=== PATIENT | female | born 1945 | race Caucasian/White ===

== ENCOUNTER 2022-10-03 10:06 | Outpatient (OUT) | payer MEDICARE, SELFPAY ==
--- NOTE | 2022-10-03 10:11 | MM_ITS ---
Patient: HERMAN BUCKNER Exam Date: 10/03/2022 : 1945 Gender:F Ordering : DR NIKOS HARPER . Admission #: [id number] Family : Order #: [id number] CLICK HERE TO VIEW EXAM RADIOLOGY REPORT PROCEDURE: MM TOMOSYNTHESIS SCREENING BI COMPARISON: None. INDICATIONS: Screening mammogram for breast cancer Z12.31 Calculator Name NCI Breast Cancer Risk Assessment Tool 5 Year Breast Cancer Risk 2.30% Lifetime Breast Cancer Risk 4.50% Personal Breast Cancer No Personal Ovarian Cancer No Treatments None Family Cancers None LOCATION: [facility] BREAST COMPOSITION: Extremely dense, which lowers the sensitivity of mammography. FINDINGS: DIAGNOSTIC CATEGORY 2--BENIGN FINDING: Bilat markers. Scattered benign-appearing calcifications are present. Scattered benign-appearing lymph nodes are present. RIGHT BREAST: No significant suspicious finding. Stable micro clip marker upper outer quadrant, posterior breast LEFT BREAST: No significant suspicious finding. RECOMMENDATIONS: ROUTINE MAMMOGRAM AND CLINICAL EVALUATION IN 12 MONTHS. PLEASE NOTE: A NORMAL MAMMOGRAM DOES NOT EXCLUDE THE POSSIBILITY OF BREAST CANCER. A CLINICALLY SUSPICIOUS PALPABLE LUMP SHOULD BE BIOPSIED. Dictated by: Vahe Lewis MD on 10/03/2022 at 13:06 Approved by: Vahe Lewis MD on 10/03/2022 at 13:07
--- NOTE | 2022-10-03 10:35 | XR_ITS ---
[address] [address] Patient Name: HERMAN BUCKNER MRN: [id number] date: 1945 Sex: F Assigned Patient Location: [facility] Current Patient Location: [facility] Accession/Order Number: [id number] Exam Date: 10/03/2022 10:20 Report Date: 10/03/2022 18:33 At the request of: NIKOS HARPER Procedure: XR DEXA axial skeleton EXAMINATION: XR DEXA axial skeleton, 10/03/2022 10:20 AM EDT HISTORY: Osteopenia of lumbar spine M85.88 Age-related osteoporosis COMPARISON: 2018, 2012, 2009 TECHNIQUE: Dual-energy X-ray absorptiometry (DEXA) bone density study performed for the axial skeleton. HISTORY: Osteopenia of lumbar spine M85.88 Age-related osteoporosis FINDINGS: Bone mineral density AP spine L1-L4 measures 1.087 g/sq cm. T score -0.8. Endotracheal classification: Normal. Lowest bone mineral density left femoral neck measures 0.69 g/sq cm. T score -2.9. WHO classification: Osteoporosis XR/XR DEXA axial skeleton IMPRESSION: Osteoporosis. High fracture risk Electronically authenticated by: LUCRETIA RENDON Date: 10/03/2022 18:33
== END 2022-10-03 10:07 | disposition home or self-care (01) ==
LOC: MAMMO 10:06
PROVIDERS: PCP Family Medicine; Visit Provider Family Medicine
DX: Z12.31 Encounter for screening mammogram for malignant neoplasm of breast (principal); Z90.710 Acquired absence of both cervix and uterus; M81.0 Age-related osteoporosis without current pathological fracture; M81.6 Localized osteoporosis [Lequesne]; M85.88 Other specified disorders of bone density and structure, other site
CPT/HCPCS: 77063; 77067; 77080

== ENCOUNTER 2023-07-13 08:41 | Outpatient (OUT) | payer MEDICARE, SELFPAY ==
--- NOTE | 2023-07-13 08:44 | FL_ITS ---
[address] [address] Patient Name: HERMAN BUCKNER MRN: [id number] date: 1945 Sex: F [place]igned Patient Location: [place] Current Patient Location: [place] Accession/Order Number: [id number] Exam Date: 07/13/2023 09:00 Report Date: 07/13/2023 12:48 At the request of: GET ROCHE Procedure: FL cineradiography EXAMINATION: FL barium swallow, FL cineradiography HISTORY: Pharyngoesophageal Dysphagia R13.14 COMPARISON: No relevant comparison available. TECHNIQUE: A swallowing evaluation was performed with fluoroscopy in the usual manner. Standard level fluoroscopic mode of operation utilized. FINDINGS: ORAL PHASE: Normal deglutition. PHARYNGEAL PHASE: Normal swallowing. ASPIRATION: None. STRUCTURE: No obstruction or stricture. Poor esophageal contractility with persistent pooling of contrast and incomplete clearing of the esophagus OTHER: Negative. FL/FL cineradiography IMPRESSION: Poor esophageal contractility with incomplete clearing of the esophagus Electronically authenticated by: LUCRETIA RENDON Date: 07/13/2023 12:48
--- NOTE | 2023-07-13 08:44 | FL_ITS ---
The [address] [address] Patient Name: HERMAN BUCKNER MRN: [id number] date: 1945 Sex: F Assigned Patient Location: [place] Current Patient Location: [place] Accession/Order Number: [id number] Exam Date: 07/13/2023 09:00 Report Date: 07/13/2023 12:48 At the request of: GET ROCHE Procedure: FL barium swallow EXAMINATION: FL barium swallow, FL cineradiography HISTORY: Pharyngoesophageal Dysphagia R13.14 COMPARISON: No relevant comparison available. TECHNIQUE: A swallowing evaluation was performed with fluoroscopy in the usual manner. Standard level fluoroscopic mode of operation utilized. FINDINGS: ORAL PHASE: Normal deglutition. PHARYNGEAL PHASE: Normal swallowing. ASPIRATION: None. STRUCTURE: No obstruction or stricture. Poor esophageal contractility with persistent pooling of contrast and incomplete clearing of the esophagus OTHER: Negative. FL/FL barium swallow IMPRESSION: Poor esophageal contractility with incomplete clearing of the esophagus Electronically authenticated by: LUCRETIA RENDON Date: 07/13/2023 12:48
== END 2023-07-13 08:42 | disposition home or self-care (01) ==
LOC: FL 08:41
PROVIDERS: PCP Family Medicine; Visit Provider Otolaryngology
DX: R13.14 Dysphagia, pharyngoesophageal phase (principal)
CPT/HCPCS: 74220; 76120

== ENCOUNTER 2023-07-19 12:53 | Outpatient (OUT) | payer MEDICARE, SELFPAY ==
--- NOTE | 2023-07-19 12:57 | FL_ITS ---
[address] [address] Patient Name: HERMAN BUCKNER MRN: [id number] date: 1945 Sex: F Assigned Patient Location: [place] Current Patient Location: [place] Accession/Order Number: [id number] Exam Date: 07/19/2023 13:15 Report Date: 07/19/2023 14:37 At the request of: GET ROCHE Procedure: FL modified barium swallow EXAMINATION: FL modified barium swallow HISTORY: Pharyngeal Dysphagia R13.13 FLUORO DOSE: mGy Reference air kerma (Ka,r) COMPARISON: No relevant comparison available. TECHNIQUE: A swallowing evaluation was performed with fluoroscopy in the usual manner. Standard level fluoroscopic mode of operation utilized. FINDINGS: ORAL PHASE: Normal deglutition. PHARYNGEAL PHASE: Premature spillage of food stuffs over the vallecula. Moderate narrowing of the upper esophagus ASPIRATION: None. STRUCTURE: Normal. No visible obstruction, stricture, or dilatation. OTHER: Negative. FL/FL modified barium swallow IMPRESSION: Moderate narrowing of the upper esophagus Electronically authenticated by: LUCRETIA RENDON Date: 07/19/2023 14:37
== END 2023-07-19 12:54 | disposition home or self-care (01) ==
LOC: FL 12:53
PROVIDERS: PCP Family Medicine; Visit Provider Otolaryngology
DX: R13.13 Dysphagia, pharyngeal phase (principal)
CPT/HCPCS: 74230; 92611

== ENCOUNTER 2023-07-26 15:23 | Outpatient (RCR) | payer MEDICARE, SELFPAY | END 2023-10-16 16:47 | disposition home or self-care (01) | LOC: ST 15:23 | PROVIDERS: PCP Family Medicine; Visit Provider Otolaryngology | DX: R13.14 Dysphagia, pharyngoesophageal phase (principal) | CPT/HCPCS: 92526 ==

== ENCOUNTER 2023-11-08 15:56 | Outpatient (RCR) | payer MEDICARE, SELFPAY | END 2023-12-28 15:43 | disposition home or self-care (01) | LOC: ST 15:56 | PROVIDERS: PCP Family Medicine; Visit Provider Family Medicine | DX: R49.0 Dysphonia (principal) | CPT/HCPCS: 92507; 92524 ==

== ENCOUNTER 2024-02-29 14:14 | Outpatient (OUT) | payer MEDICARE, SELFPAY ==
--- NOTE | 2024-02-29 14:20 | US_ITS ---
[address] [address] Patient Name: HERMAN BUCKNER MRN: [id number] date: 1945 Sex: F Assigned Patient Location: [place] Current Patient Location: Accession/Order Number: [id number] Exam Date: 02/29/2024 14:30 Report Date: 03/03/2024 07:38 At the request of: МАРИЯ THAKKAR Procedure: US pelvis w/ transvaginal EXAMINATION: US pelvis w/ transvaginal HISTORY: vaginal bleeding COMPARISON: No relevant comparison available. FINDINGS: Transabdominal and transvaginal images The vaginal cuff appears normal The uterus is surgically absent The ovaries are not visualized No free fluid. US/US pelvis w/ transvaginal IMPRESSION: No abnormality observed Electronically authenticated by: LUCRETIA RENDON Date: 03/03/2024 07:38
--- OUTSIDE RECORDS SUMMARY | 2024-02-29 14:20 | XMS_ITS | CCD ---
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 Name Role Phone MEREDITH, DR KNOTT Primary Care Unavailable MEREDITH, DR KNOTT Consulting Unavailable HEMERAMIREZ, DR KNOTT Attending Unavailable HEMERAMIREZ, DR KNOTT Admitting Unavailable REQUEST, DR SANTIAGO LISTED Admitting Unavaila ble REQUEST, DR SANTIAGO LISTED Consulting Unavaila ble REQUEST, NONE LISTED Attending Unavaila ble REQUEST, NONE LISTED Admitting Unavaila ble REQUEST, NONE LISTED Consulting Unavaila ble REQUEST, DR SANTIAGO LISTED Attending Unavaila ble HEMEYER, DR KNOTT Primary Care Unavailable PAY, DR DANIEL Admitting Unavailable PAY, DR DANIEL Consulting Unavailable PAY, DR DANIEL Attending Unavailable GRECHNY, TODD ALMODOVAR Consulting Unavailable AHDOOT, DANY Consulting Unavailable JOSE A, DR ALEJO Attending Unavailable MEREDITH, DR KNOTT Primary Care Unavailable CAITLYN, DR SALEH Consulting Unavailable JOSE A, DR ALEJO Admitting Unavailable Petey, Africa Consulting Unavailable HEMERAMIREZ, DR KNOTT Consulting Unavailable HEMERAMIREZ, DR KNOTT Attending Unavailable MEREDITH, DR KNOTT Admitting Unavailable MEREDITH, DR KNOTT Primary Care Unavailable Osorio Harper MD Primary Care Provider OSORIO HARPER Attending Unavailable GET ROCHE Attending Unavailable OSORIO HARPER Referring Unavailable OSORIO HARPER Attending Unavailable GET ROCHE Attending Unavailable MD Bhavik Mota Attending Provider MD Osorio Harper Primary Care Provider MD Osorio Harper Referring Provider Bhavik Mota Admitting Unavailable Bhavik Mota Attending Unavailable Osorio Harper Primary Care Unavailable Osorio Harper Referring Unavailable Gorge Dennis Admitting Unavailable Gorge Dennis Attending Unavailable Osorio Harper MD Primary Care Provider Bhavik Mota MD Unavailable Unavailable MOOSE TAN Attending Unavailable MOOSE TAN Referring Unavailable [facility] Primary [facility] [place] Unavailab MOOSE Hennessy Attending Unavailable BENITO HURTADO Referring Unavailable [facility] UnavailBENITO Gillis Referring Unavailable [facility]ailB[facility] Gillis Attending Unavailable [facility] Unavailab le Allergies Allergy Classification Reported Allergen(s) Allergy Type Date of Onset Reaction(s) Facility Penicillins (antibiotic) (1 source) Penicillins Drug Allergy 08-27-2023 [facility] Repository (2 sources) Penicillins; Translations: [PENICILLINS] Drug allergy (disorder) 10-09-2012 [facility] Repository (11 sources) Penicillins Drug Allergy 10-09-2012 Itching, Rash [facility] Medications Current Medications Medication Drug Class(es) Dates Sig (Normalized) Sig (Original) Albuterol (12 sources) beta2-Adrenergic Agonist Start: 08-27-2023 Albuterol Active MCG INHALATION .prn August 27, 2023 12:00am albuterol HFA (P ROVENTIL HFA, VENTOLIN HFA) 90 mcg/actuation inhaler Inhale 2 Puffs as instructed. Active Comment on above: Inhale 2 Puffs as in structed. 120 actuat albuterol 0.1 mg/actuat / ipratropium bromide 0.02 mg/actuat inhalation spray (11 sources) Anticholinergic, beta2-Adrenergic Agonist Start: 013 ipratropium-albuterol (COMBIVENT RESPIMAT) 20-100 mcg/actuation mist PRN 08/10/2012 Active Comment on above: PRN ascorbic acid 250 mg oral tablet (11 sources) Vitamin C ascorbic acid, v itamin C, (VITAMIN C) 250 mg tablet Take 250 mg by mouth. Active Comment on above: Take 250 mg by mouth . azelastine hydrochloride 0.137 mg/actuat metered dose nasal spray (11 sources) Histamine-1 Receptor Antagonist Start: 021 take 2 spray(s) nasal route twice daily azelastine (ASTELIN) 0.1% nasal spray Use 2 Sprays in each nostril twice daily. 09/30/2020 Active Comment on above: Use 2 Sprays in each nostril twice daily. budesonide 0.25 mg/ml inhalation suspension (5 sources) Corticosteroid Start: End: budesonide (PULMICORT) 0.5 mg/2 mL nebulizer solution For lymphocytic esophagitis. Mix 4 respules with 5 packs of Splenda and swallow daily. Do not eat or drink for 30 minutes after 720 mL 3 01/08/2024 Active calcium carbonate 1250 mg oral tablet (11 sources) calcium carbonat e (OS-GOYO 500) 500 mg calcium (1,250 mg) tablet Take 500 mg by mouth. Active Comment on above: Take 500 mg by mouth . cholecalciferol 0.125 mg oral tablet (11 sources) Vitamin D cholecalciferol (VITAMIN D3) 5,000 unit tab Take 1 tablet by mouth. Active Comment on above: Take 1 tablet by andrea th. multivitamin with minerals (MULTIPLE VITAMINS 55 PLUS ORAL) (11 sources) multivitamin wit h minerals (MULTIPLE VITAMINS 55 PLUS ORAL) Take 1 tablet by mouth. Active multivitamin wit h minerals (MULTIPLE VITAMINS 55 PLUS ORAL) Take 1 tablet by mouth. 0 Active Comment on above: Take 1 tablet by andrea th. Completed/Discontinued Medications Medication Drug Class(es) Dates Sig (Normalized) Sig (Original) 1 ml fentaNYL 0.05 mg/ml injection (1 source) Opioid Agonist Start: 01-08-2024 End: 01-08-2024 INTRAVENOUS, X (OR/PROCEDURE) PRN, Starting on Sun01/08/24 at 0851, Until Sun01/08/24 at 0851, Intraprocedure 5 ml midazolam 1 mg/ml injection (1 source) Benzodiazepine Start: 01-08-2024 End: 01-08-2024 INTRAVENOUS, X (OR/PROCEDURE) PRN, Starting on Sun01/08/24 at 0851, Until Sun01/08/24 at 0901, Intraprocedure Problems Active Problems Problem Classification Problem Date Documented Date Episodic/Chronic Asthma (11 sources) Asthma; Translations: [Unspecified asthma, uncomplicated] 04-17-2019 Chronic Cataract (20 sources) Bilateral pseudophakia; Translations: [Presence of intraocular lens] Onset: 9 Chronic Esophageal disorders (8 sources) Esophageal dysmotility; Translations: [Dyskinesia of esophagus] Onset: 4 12-12-2023 Chronic Esophageal disorders (2 sources) Esophagitis; Translations: [Lymphocytic esophagitis] 12-28-2023 Episodic Immunizations and screening for infectious disease (1 source) Encounter for immunization; Translations: [ENCOUNTER FOR IMMUNIZATION] Onset: 2 Episodic Malaise and fatigue (1 source) Other fatigue; Translations: [OTHER FATIGUE] Onset: 2 Episodic Other eye disorders (12 sources) Bilateral posterior vitreous detachment; Translations: [Vitreous degeneration, bilateral] Onset: 9 Chronic Other eye disorders (11 sources) Vitreous floaters of right eye; Translations: [Other vitreous opacities, right eye] Onset: 0 09-11-2019 Chronic Other eye disorders (1 source) Intermittent alternating esotropia; Translations: [Intermittent alternating esotropia] Episodic Other gastrointestinal disorders (1 source) Dysphagia, unspecified; Translations: [Dysphagia, unspecified] Onset: 4 Episodic Other gastrointestinal disorders (2 sources) Dysphagia; Translations: [Dysphagia, pharyngoesophageal phase] 10-18-2023 Episodic Other gastrointestinal disorders (1 source) Dysphagia, pharyngoesophageal phase; Translations: [Pharyngoesophageal dysphagia] Onset: 4 Episodic Retinal detachments; defects; vascular occlusion; and retinopathy (1 source) Epiretinal membrane of right eye; Translations: [Puckering of macula, right eye] Chronic Unclassified (3 sources) CONTACT W/AND (SUSP) EXPOS COVID-19; Translations: [CONTACT W/AND (SUSP) EXPOS COVID-19] Onset: 1 Unclassified (1 source) COUGH, UNSPECIFIED; Translations: [COUGH, UNSPECIFIED] Onset: 2 Viral infection (4 sources) COVID-19; Translations: [COVID-19] Onset: 2 Past or Other Problems Problem Classification Problem Date Documented Da te Episodic/Chronic Anal and rectal conditions (1 source) Rectal polyp; Translations: [Rectal polyp] Onset: 11-09-2022 Episodic Chronic obstructive pulmonary disease and bronchiectasis (1 source) Bronchitis, not specified as acute or chronic; Translations: [BRONCHITIS NOT SPEC ACUTE/CHRON] Onset: 11-16-2020 Episodic E Codes: Struck by; against (1 source) Striking against or struck by other objects, initial encounter; Translations: [STRIKING AGNST/STRUCK OTH OBJ INIT] Onset: 08-18-2020 Episodic Nonspecific chest pain (3 sources) Chest pain, unspecified; Translations: [CHEST PAIN UNSPECIFIED] Onset: 08-15-2020 Episodic Other bone disease and musculoskeletal deformities (1 source) Other specified disorders of bone density and structure, unspecified site; Translations: [OTH D/O BONE DEN STRUCT UNS SITE] Onset: 08-18-2020 Episodic Other eye disorders (11 sources) Tear film insufficiency of bilateral eyes; Translations: [Dry eye syndrome of bilateral lacrimal glands] Onset: 02-20-2019 02-20-2019 Episodic Other eye disorders (11 sources) History of ricewqh-rapgdpxj-ewg net (YAG) laser capsulotomy of lens; Translations: [Cataract extraction status, unspecified eye] Onset: 09-11-2019 09-11-2019 Episodic Other lower respiratory disease (4 sources) Cough; Translations: [COUGH] Onset: 11-12-2020 Episodic Other lower respiratory disease (1 source) Solitary pulmonary nodule; Translations: [SOLITARY PULMONARY NODULE] Onset: 08-18-2020 Episodic Other upper respiratory infections (1 source) Acute upper respiratory infection, unspecified; Translations: [ACUTE UP RESPIRATORY INFECTION UNS] Onset: 11-16-2020 Episodic Pneumonia (except that caused by tuberculosis or sexually transmitted disease) (11 sources) Infective pneumonia; Translations: [Other pneumonia, unspecified organism] Onset: 04-17-2019 04-17-2019 Episodic Screening and history of mental health and substance abuse codes (1 source) Personal history of nicotine dependence; Translations: [PERSONAL HISTORY OF NICOTINE DEPEND] Onset: 08-18-2020 Episodic Superficial injury; contusion (1 source) Contusion of left front wall of thorax, initial encounter; Translations: [CONTUS LT FRONT WALL THORAX INITIAL] Onset: 08-18-2020 Episodic Unclassified (1 source) CONTACT W/AND (SUSP) EXPOS COVID-19; Translations: [CONTACT W/AND (SUSP) EXPOS COVID-19] Onset: 03-17-2021 Results Test Name Value Interpretation Reference Range Facility [facility] 02-05-2024 NANCY Telephone (GAPRA3) DUDLEYNGUYEN ([id number]) 1945 F Date Time Provider Department 02/05/24 MAYDA FONG [facility] During your visit today, we recorded the following information about you: Mayda Fong LPN 02/05/2024 1:22 PM Signed GI Pre-Procedure Spoke with patient: Yes Confirmed date scheduled and patient report time: Yes Procedure Planned:Esophagogastr oduodenoscopy(EGD) for control of bleeding,dilation(any means),imaging,tube placement Is the patient on blood thinners?no Procedure Instructions given to patient: Yes, and they verbalized their understanding of instructions given Patient instructed to take prescribed preparation prior to procedure:Yes, and they verbalized their understanding of instructions given Patient instructed to have family/friend present for procedure transport home:Patient/patient representative personal service was told that if they do not have a responsible adult accompany them to their procedure; and remain in the endoscopy area until they are discharged; that their procedure cannot be done with sedation or anesthesia and may be cancelled. Any barriers to Patient learning: Patient/Patient Recreational Director responded appropriately on phone. Type of instruction given: Verbal by telephone contact. Mayda Fong LPN Allergies As of Date: 02/05/2024 Noted Allergy Reaction PENICILLINS 10/09/2012 9 - Itching 2 - Rash Date Reviewed: 01/08/2024 Reviewed by: Sharonda Manzo RN - Fully Assessed Reason for Visit: Appointment [186] Cmt: EGD Prescriptions as of 02/05/2024 - budesonide (PULMICORT) 0.5 mg/2 mL nebulizer solution For lymphocytic esophagitis. Mix 4 respules with 5 packs of Splenda and swallow daily. Do not eat or drink for 30 minutes after - azelastine (ASTELIN) 0.1% nasal spray Use 2 Sprays in each nostril twice daily. - multivitamin with minerals (MULTIPLE VITAMINS 55 PLUS ORAL) Take 1 tablet by mouth. - albuterol HFA (PROVENTIL HFA, VENTOLIN HFA) 90 mcg/actuation inhaler Inhale 2 Puffs as instructed. - ascorbic acid, vitamin C, (VITAMIN C) 250 mg tablet Take 250 mg by mouth. - calcium carbonate (OS-GOYO 500) 500 mg calcium (1,250 mg) tablet Take 500 mg by mouth. - cholecalciferol (VITAMIN D3) 5,000 unit tab Take 1 tablet by mouth. 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] 02/20/2019 S/P LASIK (laser assisted in situ keratomileusi* 019 PVD (posterior vitreous detachment), bilateral *02/20/2019 Asthma [J45.909] Other pneumonia, unspecified organism [J18.8] 04/17/2019 PCO (posterior capsular opacification), bilater*08/19/2019 Pseudophakia of both eyes [Z96.1] 08/19/2019 Floaters in visual field, right [H43.391] 09/11/2019 History of YAG laser capsulotomy of lens [Z98.4*09/11/2019 Encounter Status:Closed by MAYDA FONG on 02/05/24 [facility] 01-11-2024 MAYAN Telephone (GASTMN) NGUYEN BUCKNER ([id number]) 1945 F Date Time Provider Department 01/11/24 MOOSE TAN GASTMN During your visit today, we recorded the following information about you: Staci Dumont 01/11/2024 3:56 PM Signed Patient called stating when she saw Dr. Tan he prescribed budesonide Pulmicort nebulizer and it needs a PA. She said she received a letter stating more information is needed in order for the med to be dispensed. Please start a PA for this patient's Budesonide nebulizer solution. [employer] Medicare PDP Member # [id number] Customer Service # [phone] Serena Recinos RN 01/18/2024 3:01 PM Signed Attempted to submit PA via CMM Additional Information Required PA was already submitted for this patient and drug which was denied.;CaseId:[id number];Status:Denied;Appe al Information: Attention:ATTN: MEDICARE CLINICAL APPEALS [employer],[place], [place] WebAddress:[email or web address]; Staci Dumont 01/29/2024 11:10 AM Addendum Patient called stating that she spoke with her insurance company and they never received the appeal for the med Budesonide. They would like a letter of medical necessity from Dr. Tan giving the reason for the med. The letter can be sent to the fax number below. [employer] P- [phone] F- [phone] Moose Tan MD 01/29/2024 11:37 AM Signed Letter written Serena Recinos RN 01/31/2024 12:04 PM Signed Type of Form: Appeal Letter Faxed to: [employer] Serena Recinos RN Allergies As of Date: 01/11/2024 Noted Allergy Reaction PENICILLINS 10/09/2012 9 - Itching 2 - Rash Date Reviewed: 01/08/2024 Reviewed by: Sharonda Manzo RN - Fully Assessed Reason for Visit: Insurance Authorization [[id number]] Prescriptions as of 01/31/2024 - budesonide (PULMICORT) 0.5 mg/2 mL nebulizer solution For lymphocytic esophagitis. Mix 4 respules with 5 packs of Splenda and swallow daily. Do not eat or drink for 30 minutes after - azelastine (ASTELIN) 0.1% nasal spray Use 2 Sprays in each nostril twice daily. - multivitamin with minerals (MULTIPLE VITAMINS 55 PLUS ORAL) Take 1 tablet by mouth. - albuterol HFA (PROVENTIL HFA, VENTOLIN HFA) 90 mcg/actuation inhaler Inhale 2 Puffs as instructed. - ascorbic acid, vitamin C, (VITAMIN C) 250 mg tablet Take 250 mg by mouth. - calcium carbonate (OS-GOYO 500) 500 mg calcium (1,250 mg) tablet Take 500 mg by mouth. - cholecalciferol (VITAMIN D3) 5,000 unit tab Take 1 tablet by mouth. 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] 02/20/2019 S/P LASIK (laser assisted in situ keratomileusi* 019 PVD (posterior vitreous detachment), bilateral *02/20/2019 Asthma [J45.909] Other pneumonia, unspecified organism [J18.8] 04/17/2019 PCO (posterior capsular opacification), bilater*08/19/2019 Pseudophakia of both eyes [Z96.1] 08/19/2019 Floaters in visual field, right [H43.391] 09/11/2019 History of YAG laser capsulotomy of lens [Z98.4*09/11/2019 Letter Text Encounter Status:Closed by SERENA RECINOS on 01/18/24 [facility] EGD Study observation Narrat kattyberniemanjinder 01-08-2024 A31 Gastrointestinal Endoscopy Patient Name: Nguyen Buckner Procedure Date: 01/08/2024 8:43 AM Date of : 1945 Admit Type: Outpatient Age: 78 Room: [place] [address] Gender: Female Note Status: Finalized Attending MD: Moose Tan MD, [id number] Procedure: Upper GI endoscopy Indications: Dysphagia - lymphocytic esophagitis on budesonide Providers: Moose Tan MD, Tha Cornejo (Fellow) Patient Profile: This is a 78 year old female. Referring Physician: Moose Tan MD (Referring MD) Medicines: Midazolam 3 mg IV, Fentanyl 50 micrograms IV Complications: No immediate complications. Estimated blood loss: Minimal. Requesting Provider: Procedure: Pre-Anesthesia Assessment: - Prior to the procedure, a History and Physical was performed, and patient medications and allergies were reviewed. The patient is competent. The risks and benefits of the procedure and the sedation options and risks were discussed with the patient. All questions were answered and informed consent was obtained. Patient identification and proposed procedure were verified by the physician and the nurse in the procedure room. Mental Status Examination: normal. Airway Examination: normal oropharyngeal airway and neck mobility. Respiratory Examination: clear to auscultation. CV Examination: normal. Prophylactic Antibiotics: The patient does not require prophylactic antibiotics. Prior Anticoagulants: The patient has taken no anticoagulant or antiplatelet agents. ASA Grade Assessment: II - A patient with mild systemic disease. After reviewing the risks and benefits, the patient was deemed in satisfactory condition to undergo the procedure. The anesthesia plan was to use moderate sedation / analgesia (conscious sedation). Immediately prior to administration of medications, the patient was re-assessed for adequacy to receive sedatives. The heart rate, respiratory rate, oxygen saturations, blood pressure, adequacy of pulmonary ventilation, and response to care were monitored throughout the procedure. The physical status of the patient was re-assessed after the procedure. After obtaining informed consent, the endoscope was passed under direct vision. Throughout the procedure, the patient's blood pressure, pulse, and oxygen saturations were monitored continuously. The Endoscope was introduced through the mouth, and advanced to the second part of duodenum. The upper GI endoscopy was accomplished without difficulty. The patient tolerated the procedure well. Moderate Sedation: Moderate (conscious) sedation was administered by the nurse and supervised by the endoscopist. The following parameters were monitored: oxygen saturation, heart rate, blood pressure, and response to care. The administration of moderate sedation was initiated at 08:51 AM. Findings: One benign-appearing, intrinsic moderate stenosis was found at the cricopharyngeus. This stenosis measured 1.4 cm (inner diameter). The stenosis was traversed. A guidewire was placed and the scope was withdrawn. Dilation was performed with a Savary dilator with mild resistance at 14 mm and 16 mm. The dilation site was examined following endoscope reinsertion and showed no disruption after 14mm dilator and moderate mucosal disruption after 16mm dilator. Estimated blood loss was minimal. Normal mucosa was found in the entire esophagus. The Z-line was regular and was found 38 cm from the incisors. The entire examined stomach was normal. The examined duodenum was normal. Impression: - Benign-appearing esophageal stenosis. Dilated. - Normal mucosa was found in the entire esophagus. - Z-line regular, 38 cm from the incisors. - Normal stomach. - Normal examined duodenum. - No specimens collected. Estimated Blood Loss: Estimated blo (more content not included)... PROVATION [facility] Radiology Study observation (narrative) [facility] HISTORY PHYSICALon HISTORY PHYSICAL HNO ID: [id number] Author: THA CORNEJO MD Service: Hepatology Author Type: Fellow Type: H&P Filed: 01/08/2024 08:36 Note Text: HISTORY AND PHYSICAL Nguyen Buckner, 78 year old female Current history and physical on file: Yes Is a new History and Physical required for today's visit? Yes Indication for procedure: Dysphagia PROCEDURE(S) SCHEDULED FOR: EGD (Esophagogastroduoden oscopy) with or without biopsies, removal of polyps or lesions, dilation ( any means), treatment of bleeding ( any means), Barrx treatment of Aaron's Esophagus, image tube placement or cryo therapy treatment based on clinical findings. BASELINE BEHAVIOR: Calm BASELINE ORIENTATION: A AND O x3 All medications and allergies reviewed: Yes Skin Assessment: Warm dry mucus membranes pink Airway/Respiratory Assessment: Airway: visualization of the uvula- Yes Mouth: opening greater than 2 fingerbreadths- Yes Neck: full range of motion- Yes Breath sounds clear/equal- Yes Cardiac Assessment: Regular rate and rhythm without murmur Abdominal Assessment: Abdomen soft, non-tender, no masses or organomegaly. The sensitive examination was discussed with the Patient or Patient's Authorized Recreational Director. As applicable, any other physician, advance practice provider, medical student, or other health professional student that will be observing or involved in the sensitive examination for educational or training purposes was discussed with the Patient or Authorized Recreational Director. The Patient or Authorized Recreational Director has agreed to proceed with the sensitive examination. (Sensitive examination includes inspection and/or palpation of the breasts, pelvis, prostate and anorectal regions) Sedation Plan: Moderate Additional Comments: None Tha Cornejo MD [facility] NURSING PROGon 01-08-2024 NURSING PROG HNO ID: [id number] Author: SHARONDA MANZO RN Service: Gastroenterology Author Type: Registered Nurse Type: Nursing Progress Note Filed: 01/08/2024 09:10 Note Text: AMBULATORY PATIENT EDUCATION NOTE TOPIC: GI PROCEDURES: Esophagogastroduodeno scopy(EGD) for control of bleeding,dilation(any means),imaging,tube placement READINESS TO LEARN INSTRUCTION PROVIDED TO: Patient, readness to learn accessed prior to procedure and Family member COGNITIVE ABILITY: Alert and oriented PTED MOTIVATION TO LEARN: Interested FAMILY SUPPORT: Moderate - Family present but overwhelmed IPATIENT LEARNS BEST BY: Individual Instruction Written Instruction - Hand-outs FACTORS AFFECTING LEARNING: None PHYSICAL LIMITATIONS AFFECTING LEARNING: None LEARNING RESPONSE METHOD OF INSTRUCTION: Individual instruction PATIENT / FAMILY RESPONSE: Verbalizes understanding of: WORSENING CONDITION-Signs and symptoms of a worsening condition that warrant a call to the physician FOLLOW-UP PLAN: Complete - No need for follow-up SUPPLEMENTAL MATERIAL: Procedure Discharge Instructions REFERRAL (RECOMMENDATION): None Electronically Signed By: Sharonda Manzo RN [facility] NURSING PROG HNO ID: [id number] Author: NORI JENSEN RN Service: Nursing Author Type: Registered Nurse Type: Nursing Progress Note Filed: 01/08/2024 07:34 Note Text: PRE OP LEARNING ASSESSMENT PROCEDURE/SURGERY: GI PROCEDURES: EGD READINESS TO LEARN COGNITIVE ABILITY: Alert and oriented MOTIVATION TO LEARN: Interested FAMILY SUPPORT: High - Very involved in pt care PATIENT LEARNS BEST BY: Individual Instruction Verbal Instruction FACTORS AFFECTING LEARNING: None PHYSICAL LIMITATIONS AFFECTING LEARNING: None Electronically Signed By: Nori Jensen RN In Department: GASTROENTEROLOGY [facility] Upper GI endoscopyon 024 Upper GI endoscopy A31 Gastrointestinal Endoscopy Patient Name: Nguyen Buckner Procedure Date: 01/08/2024 8:43 AM Date of : 1945 Admit Type: Outpatient Age: 78 Room: [address] Gender: Female Note Status: Finalized Attending MD: Moose Tan MD, [id number] Procedure: Upper GI endoscopy Indications: Dysphagia - lymphocytic esophagitis on budesonide Providers: Moose Tan MD, Tha Cornejo (Fellow) Patient Profile: This is a 78 year old female. Referring Physician: Moose Tan MD (Referring MD) Medicines: Midazolam 3 mg IV, Fentanyl 50 micrograms IV Complications: No immediate complications. Estimated blood loss: Minimal. Requesting Provider: Procedure: Pre-Anesthesia Assessment: - Prior to the procedure, a History and Physical was performed, and patient medications and allergies were reviewed. The patient is competent. The risks and benefits of the procedure and the sedation options and risks were discussed with the patient. All questions were answered and informed consent was obtained. Patient identification and proposed procedure were verified by the physician and the nurse in the procedure room. Mental Status Examination: normal. Airway Examination: normal oropharyngeal airway and neck mobility. Respiratory Examination: clear to auscultation. CV Examination: normal. Prophylactic Antibiotics: The patient does not require prophylactic antibiotics. Prior Anticoagulants: The patient has taken no anticoagulant or antiplatelet agents. ASA Grade Assessment: II - A patient with mild systemic disease. After reviewing the risks and benefits, the patient was deemed in satisfactory condition to undergo the procedure. The anesthesia plan was to use moderate sedation / analgesia (conscious sedation). Immediately prior to administration of medications, the patient was re-assessed for adequacy to receive sedatives. The heart rate, respiratory rate, oxygen saturations, blood pressure, adequacy of pulmonary ventilation, and response to care were monitored throughout the procedure. The physical status of the patient was re-assessed after the procedure. After obtaining informed consent, the endoscope was passed under direct vision. Throughout the procedure, the patient's blood pressure, pulse, and oxygen saturations were monitored continuously. The Endoscope was introduced through the mouth, and advanced to the second part of duodenum. The upper GI endoscopy was accomplished without difficulty. The patient tolerated the procedure well. Moderate Sedation: Moderate (conscious) sedation was administered by the nurse and supervised by the endoscopist. The following parameters were monitored: oxygen saturation, heart rate, blood pressure, and response to care. The administration of moderate sedation was initiated at 08:51 AM. Findings: One benign-appearing, intrinsic moderate stenosis was found at the cricopharyngeus. This stenosis measured 1.4 cm (inner diameter). The stenosis was traversed. A guidewire was placed and the scope was withdrawn. Dilation was performed with a Savary dilator with mild resistance at 14 mm and 16 mm. The dilation site was examined following endoscope reinsertion and showed no disruption after 14mm dilator and moderate mucosal disruption after 16mm dilator. Estimated blood loss was minimal. Normal mucosa was found in the entire esophagus. The Z-line was regular and was found 38 cm from the incisors. The entire examined stomach was normal. The examined duodenum was normal. Impression: - Benign-appearing esophageal stenosis. Dilated. - Normal mucosa was found in the entire esophagus. - Z-line regular, 38 cm from the incisors. - Normal stomach. - Normal examined duodenum. - No specimens collected. Estimated Blood Loss: Estimated blood loss was minimal. Recommendation: - Continue present medications. - Resume previous diet. - Discharge patient to home. - We can repeat EGD for further dilation if needed. Please send me a [employer] message in a few weeks with an update of your symptoms Procedure Code(s): --- Professional --- 41796, Esophagogastroduodeno scopy, flexible, transoral; with insertion of guide wire followed by passage of dilator(s) through esophagus over guide wire Diagnosis Code(s): --- Professional --- R13.10, Dysphagia, unspecified K22.2, Esophageal obstruction CPT copyright 2020 [employer]. All rights reserved. The codes documented in this report are preliminary and upon cafe team member review may be revised to meet current compliance requirements. Attending Participation: I was present and participated during the entire procedure, including non-mccain portions, and during the administration and monitoring of Moderate Sedation. Scope In: 8:52:52 AM Scope Out: 9:01:33 AM MD Moose Zhao MD 01/08/2024 9:09:47 AM This repo (more content not included)... Normal [facility] Bienvenido 12-17-2023 [facility] Telephone (GASTNO) NGUYEN BUCKNER ([id number]) 1945 F Date Time Provider Department 12/17/23 BENITO HURTADO During your visit today, we recorded the following information about you: Real Mckoy LPN 12/17/2023 3:22 PM Signed Patient left voicemail stating she has questions regarding message received from Benito. 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 At this point, I recommend referral to our swallowing center at [facility] for further evaluation. I have placed the referral. Thank you, Benito Hurtado PA-C Y Ibrahim Tracey, RN 12/17/2023 3:44 PM Signed Call to patient, let her know that Benito recommends follow up with swallowing center, option 0 due to ineffective esophageal motility. Lila Berg RN Allergies As of Date: 12/17/2023 Noted Allergy Reaction PENICILLINS 10/09/2012 9 - Itching 2 - Rash Date Reviewed: 10/18/2023 Reviewed by: Mercedez Lovell MA - Fully Assessed Reason for Visit: Patient Question [8927] Prescriptions as of 12/18/2023 - azelastine (ASTELIN) 0.1% nasal spray Use 2 Sprays in each nostril twice daily. - multivitamin with minerals (MULTIPLE VITAMINS 55 PLUS ORAL) Take 1 tablet by mouth. - albuterol HFA (PROVENTIL HFA, VENTOLIN HFA) 90 mcg/actuation inhaler Inhale 2 Puffs as instructed. - ascorbic acid, vitamin C, (VITAMIN C) 250 mg tablet Take 250 mg by mouth. - calcium carbonate (OS-GOYO 500) 500 mg calcium (1,250 mg) tablet Take 500 mg by mouth. - cholecalciferol (VITAMIN D3) 5,000 unit tab Take 1 tablet by mouth. 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 It was very nice to meet you! As we discussed, my recommendations are as follows: Schedule esophageal manometry Please request records for your EGD (upper endoscopy), xray esophagram and modified barium swallow study If you have any questions about the above treatment plan, please do not hesitate to send me a MyChart message or call. JOSHUA Boyd Lauren, PA-C 10/18/2023 12:34 PM Signed DEPARTMENT OF GASTROENTEROLOGY - NEW PATIENT/CONSULT REASON FOR VISIT Nguyen Buckner is a 78 year old female who is scheduled for dysphagia HISTORY OF PRESENT ILLNESS Nguyen Buckner is a 78 year old female who presents today for an evaluation of dysphagia. She reports for the past several years she has been having significant choking with eating and drinking. She also has a habit of throat clearing. She has undergone modified barium swallows which she was noted to have premature spillage of foodstuffs over the vallecula . She has been working with speech therapy for this. However on cinderxray it was noted that she had moderate narrowing of the upper esophagus as well as poor esophageal contractility with persistent pooling of contrast and incomplete clearing of the esophagus. She reports she underwent upper endoscopy about a month ago at [facility] and she was told that there was no need to stretch her esophagus. She has not had esophageal manometry. She reports her weight is stable. She has no abdominal pain, nausea, vomiting, poor appetite, BRBPR, melena, change in bowel habit, diarrhea, constipation. She does occasionally have acid reflux but this is very rare for her. [facility] Pertinent Recent/Past Workup: MBS FINDINGS: ORAL PHASE: Normal deglutition. PHARYNGEAL PHASE: Premature spillage of food stuffs over the vallecula. Moderate narrowing of the upper esophagus ASPIRATION: None. STRUCTURE: Normal. No visible obstruction, stricture, or dilatation. OTHER: Negative. FL/FL modified barium swallow IMPRESSION: Moderate narrowing of the upper esophagus Xr cinderadiography FINDINGS: ORAL PHASE: Normal deglutition. PHARYNGEAL PHASE: Normal swallowing. ASPIRATION: None. STRUCTURE: No obstruction or stricture. Poor esophageal contractility with persistent pooling of contrast and incomplete clearing of the esophagus OTHER: Negative. FL/FL cineradiography IMPRESSION: Poor esophageal contractility with incomplete clearing of the esophagus I have personally reviewed labs, current medication, allergies, PMH, PSH, family history and social history. Pertinent information has been listed above. Denies Family Hx CRC, IBD Denies Smoking, illicits, NSAIDs, etoh PAST MEDICAL HISTORY No date: Asthma No date: Pseudophakia of both eyes Allergies: Penicillins Itching, Rash Current Outpatient Medications Medication Sig Dispense Refill azelastine (ASTELIN) 0.1% nasal spray Use 2 Sprays in each nostril twice daily. multivitamin with minerals (MULTIPLE VITAMINS 55 PLUS ORAL) Take 1 tablet by mouth. albuterol HFA (PROVENTIL HFA, VENTOLIN HFA) 90 mcg/actuation inhaler Inhale 2 Puffs as instructed. ascorbic acid, vitamin C, (VITAMIN C) 250 mg tablet Take 250 mg by mouth. calcium carbonate (OS-GOYO 500) 500 mg calcium (1,250 mg) tablet Take 500 mg by mouth. cholecalciferol (VITAMIN D3) 5,000 unit tab Take 1 tablet by mouth. ipratropium-albuterol (COMBIVENT RESPIMAT) 20-100 mcg/actuation mist PRN No current facility-administered medications for this visit. PAST SURGICAL HISTORY No date: DELIVERY ONLY Comment: , low transverse No date: COLONOSCOPY FLX DX W/COLLJ SPEC WHEN PFRMD Comment: Colonoscopy No date: OPEN REPAIR OF ROTATOR CUFF ACUTE; Left Comment: Rotator cuff repair 08/19/2019: POST-CATARACT LASER SURGERY; Left Comment: Yag Capsulotomy 08/26/2019: POST-CATARACT LASER SURGERY; Right Comment: Yag Capsulotomy No date: TOTAL ABDOMINAL HYSTERECT W/WO RMVL TUBE OVARY Comment: Hysterectomy, MARIYA 04/28/2019: XCAPSL CTRC RMVL INSJ IO LENS PROSTH W/O ECP; Left Comment: Cataract Extraction with PC IOL OS by Dr. Dumont 05/12/2019: XCAPSL CTRC RMVL INSJ IO LENS PROSTH W/O ECP; Right Comment: Cataract Extraction with PC IOL Social History Tobacco Use Smoking status: Former Smokeless tobacco: Never Vaping Use Vaping Use: Never used Substance Use Topics Alcohol use: Never Drug use: Never FAMILY HISTORY Problem Relation Age of (more content not included)... Normal [facility] Chao 09-10-2023 L Specimen: [id number] Received: 09/10/23 Status: SOUT Req Num: [id number] Spec Type: Surgical Subm Dr: Bhavik Mota MD Tissues: A Esophagus Biopsy (ESOPHAGEAL BX R/O EOE) Procedures: HE/2, Gross/Micro L4 Age/ Patient Sex Location Account Attending Physician DudleyNguyen 77/M [id number] Bhavik Mota MD SPEC NUM: [id number] RECD: 09/10/23 STATUS: OSCAR KHAN NUM: [id number] [place]: 09/10/[address] [facility] [address]: Bhavik Mota MD ENTERED: 09/10/[address] [facility] [address]: SPEC TYPE: Surgical DEPT: S ORDERED: HE/2, Gross/Micro L4 ORDERED: HE/2, Gross/Micro L4 Pathological Diagnosis Esophageal biopsy: -Esophageal squamous mucosa with mild squamous acanthosis and mildly associated lymphocytic exocytosis, otherwise without eosinophilic exocytosis, or any other specific or significant histomorphological alterations Clinical Information Dysphagia. Rule out EOE. Gross Description Received in formalin labeled with the patient's name, date of and esophageal biopsy are 3 marrero mucosal tissue fragments ranging from 0.3 x 0.3 x 0.1 cm to 0.2 x 0.1 x 0.1 cm, entirely submitted in A1. CPT Codes 63066 -------- -------- Specimen: [id number] Received: 09/10/23 Status: NEVINJosefina Khan Num: [id number] Spec Type: Surgical Subm Dr: Bhavik Mota MD Tissues: A Esophagus Biopsy (ESOPHAGEAL BX R/O EOE) Procedures: HE/2, Gross/Micro L4 -------- Patient: Nguyen Buckner Hector [id number] (Continued) -------- Signed (signature on file) Donna Crisostomo MD 09/12/23928 Normal [facility] Chao 11-09-2022 L - -------- Specimen: [id number] Received: 11/09/22 Status: OSCAR Khan Num: [id number] Spec Type: Surgical Subm Dr: Gorge Dennis DO Tissues: A Colon Biopsy (RECTAL POLYP) Procedures: Aron PRADO/Leandro L4 -------- Age/ Patient Sex Location Account Attending Physician -------- Nguyen Buckner 77/M ND [id number] Gorge Dennis DO -------- SPEC NUM: [id number] RECD: 11/09/22 STATUS: OSCAR KHAN NUM: [id number] [place]: 11/09/22 DR: Gorge Dennis DO ENTERED: 11/09/[address]: [place] [facility] SPEC TYPE: Surgical DEPT: S ORDERED: HE/2, Gross/Micro L4 ORDERED: HE/2, Gross/Micro L4 Pathological Diagnosis Rectum, polyp, biopsy: - Hyperplastic polyp Clinical Information Family history colon cancer Gross Description Received in formalin labeled with the patient's name, date of and rectal polyp is one marrero tissue measuring 0.2 cm. Entirely submitted in one cassette labeled A1. Microscopic Description Two H E slides reviewed. The microscopic examination confirms the diagnosis. CPT Codes 91286 -------- -------- Specimen: [id number] Received: 11/09/22-123 Status: OSCAR Khan Num: [id number] Spec Type: Surgical Subm Dr: Gorge Dennis DO Tissues: A Colon Biopsy (RECTAL POLYP) Procedures: HE/2, Gross/Micro L4 -------- Patient: Nguyen Buckner [id number] (Continued) -------- Signed (signature on file) Piyush Treviño MD 11/13/22 1644 Normal [facility] Complete Blood Count with Au to Diffon 05-23-2021 Basophils (Bld) [#/Vol] 0.05 10*3/uL Normal 0.00-0.20 [facility] Model Maker Comment on above: Performed By: #### C BCAD, LIPD, CMP #### [facility] [address] [place] [id number] Basophils/100 WBC (Bld) 1.1 % Normal [facility] Comment on above: Performed By: #### C BCAD, LIPD, CMP #### [facility] [address] [place], [place] [id number] Eosinophils (Bld) [#/Vol] 0.08 10*3/uL Normal 0.02-0.50 [facility] Comment on above: Performed By: #### C BCAD, LIPD, CMP #### [facility] [address] [place], [place] [id number] Eosinophils/100 WBC (Bld) 1.7 % Normal [facility] Comment on above: Performed By: #### C BCAD, LIPD, CMP #### [facility] [address] [place], [place] [id number] Erythrocyte distribution width (RBC) [Ratio] 13.4 % Normal 11.0-15.0 [facility] Comment on above: Performed By: #### C BCAD, LIPD, CMP #### [facility] [address] [place], [place] [id number] Hematocrit (Bld) [Volume fraction] 41.6 % Normal 35.0-47.0 [facility] Comment on above: Performed By: #### C BCAD, LIPD, CMP #### [facility] [address] [place], [place] [id number] Hemoglobin (Bld) [Mass/Vol] 13.6 g/dL Normal 11.6-15.5 [facility] Comment on above: Performed By: #### C BCAD, LIPD, CMP #### [facility] [address] [place], [place] [id number] Lymphocytes (Bld) [#/Vol] 1.4 10*3/uL Normal 0.9-3.9 [facility] Comment on above: Performed By: #### C BCAD, LIPD, CMP #### [facility] [address] [place], [place] [id number] Lymphocytes/100 WBC (Bld) 29.3 % Normal [facility] Comment on above: Performed By: #### C BCAD, LIPD, CMP #### [facility] [address] [place], [place] [id number] MCH (RBC) [Entitic mass] 29.1 pg Normal 27.0-33.0 [facility] Specialist Comment on above: Performed By: #### C TEVIN RICHARDS, CMP #### [facility] [address] [place], [place] [id number] MCHC (RBC) [Mass/Vol] 32.7 g/dL Normal 32.0-36.0 [facility] Specialist Comment on above: Performed By: #### C SUSIE LIPD, CMP #### [facility] [address], [place] [id number] MCV (RBC) [Entitic vol] 89 fL Normal 80-100 [facility] Specialist Comment on above: Performed By: #### C SUSIE LIPD, CMP #### [facility] [address] [place], [place] [id number] Monocytes (Bld) [#/Vol] 0.5 10*3/uL Normal 0.2-0.9 [facility] Specialist Comment on above: Performed By: #### C SUSIE LIPD, CMP #### [facility] [address] [place], [place] [id number] Monocytes/100 WBC (Bld) 10.3 % Normal [facility] Specialist Comment on above: Performed By: #### Anna RICHARDS LIPD, CMP #### [facility] [address] [place], [place] [id number] Neutrophils (Bld) [#/Vol] 2.7 10*3/uL Normal 1.5-7.8 [facility] Specialist Comment on above: Performed By: #### C SUSIE LIPD, CMP #### [facility] [address] [place], [place] [id number] Neutrophils/100 WBC (Bld) 57.4 % Normal [facility] Specialist Comment on above: Performed By: #### C SUSIE LIPD, CMP #### [facility] [address] [place], [place] [id number] Platelet mean volume (Bld) [Entitic vol] 8.50 fL Normal 7.50-12.50 [facility] Specialist Comment on above: Performed By: #### C SUSIE LIPD, CMP #### [facility] [address] [place], [place] [id number] Platelets (Bld) [#/Vol] 292 10*3/uL Normal 140-400 [facility] Comment on above: Performed By: #### C BCAD, LIPD, CMP #### [facility] [address] [place], [place] [id number] RBC (Bld) [#/Vol] 4.68 10*6/uL Normal 3.90-5.20 [facility] Comment on above: Performed By: #### C BCAD, LIPD, CMP #### [facility] [address] [place], [place] [id number] RDW-SD 43.8 fL Normal 37.0-50.0 [facility] Comment on above: Performed By: #### C BCAD, LIPD, CMP #### [facility] [address] [place], [place] [id number] WBC (Bld) [#/Vol] 4.7 10*3/uL Normal 3.8-11.0 [facility] Specialist Comment on above: Performed By: #### C BCAD, LIPD, CMP #### [facility] [address] [place], [place] [id number] Comprehensive Metabolic Pane chao 05-23-2021 Albumin [Mass/Vol] 4.5 g/dL Normal 3.6-5.1 [facility] Specialist Comment on above: Performed By: #### C BCAD, LIPD, CMP #### [facility] [address] [place], [place] [id number] Albumin/Globulin [Mass ratio] 2.5 {ratio} Normal 1.0-2.5 [facility] Specialist Comment on above: Performed By: #### C BCAD, LIPD, CMP #### [facility] [address] [place], [place] [id number] ALP [Catalytic activity/Vol] 67 U/L Normal 35-119 [facility] Specialist Comment on above: Performed By: #### C BCAD, LIPD, CMP #### [facility] [address] [place], [place] [id number] ALT [Catalytic activity/Vol] 11 U/L Normal 6-33 [facility] Specialist Comment on above: Result Comment: 02/16 Female reference range changed. Performed By: #### C BCAD, LIPD, CMP #### [facility] [address] [place], [place] [id number] Anion gap [Moles/Vol] 16 mmol/L Normal 12-20 [facility] Specialist Comment on above: Result Comment: Effbernie ctive 03/24/2019 reference range changed. Performed By: #### C BCAD, LIPD, CMP #### [facility] [address] [place], [place] [id number] AST [Catalytic activity/Vol] 15 U/L Normal 9-34 [facility] Specialist Comment on above: Performed By: #### C BCAD, LIPD, CMP #### [facility] [address] [place], [place] [id number] Bilirubin [Mass/Vol] 0.34 mg/dL Normal 0.30-1.20 [facility] Specialist Comment on above: Performed By: #### C BCAD, LIPD, CMP #### [facility] [address] [place], [place] [id number] BUN/CREA 25 Ratio High 6-22 [facility] Specialist Comment on above: Performed By: #### C BCAD, LIPD, CMP #### [facility] [address] [place], [place] [id number] Calcium [Mass/Vol] 9.7 mg/dL Normal 8.6-10.2 [facility] Specialist Comment on above: Performed By: #### C BCAD, LIPD, CMP #### [facility] [address] [place], [place] [id number] Chloride [Moles/Vol] 108 mmol/L High 98-107 [facility] Specialist Comment on above: Performed By: #### C BCAD, LIPD, CMP #### [facility] [address] [place], [place] [id number] CO2 [Moles/Vol] 23 mmol/L Normal 20-31 [facility] Specialist Comment on above: Performed By: #### C BCAD, LIPD, CMP #### [facility] [address] [place], [place] [id number] Creatinine [Mass/Vol] 0.7 mg/dL Normal 0.6-1.4 [facility] Comment on above: Performed By: #### C BCAD, LIPD, CMP #### [facility] [address] [place], [place] [id number] eGFRAA 102 mL/min/1.73m2 Normal >60 [facility] Model Maker Comment on above: Performed By: #### C BCAD, LIPD, CMP #### [facility] [address] [place], [place] [id number] eGFRNAA 84 mL/min/1.73m2 Normal >60 [facility] Maker Comment on above: Performed By: #### C BCAD, LIPD, CMP #### [facility] [address] [place], [place] [id number] Globulin (S) [Mass/Vol] 1.8 g/dL Low 1.9-3.7 [facility] Maker Comment on above: Performed By: #### C BCAD, LIPD, CMP #### [facility] [address] [place], [place] [id number] Glucose [Mass/Vol] 92 mg/dL Normal 65-99 [facility] Model Maker Comment on above: Result Comment: For FASTING Glucose --- ADA reference ranges: Normal 65-99 mg/dl Prediabetes 100-125 Diabetes >/= 126 Performed By: #### C BCAD, LIPD, CMP #### [facility] [address] [place], [place] [id number] Potassium [Moles/Vol] 4.2 mmol/L Normal 3.5-5.5 [facility] Comment on above: Performed By: #### C BCAD, LIPD, CMP #### [facility] [address] [place], [place] [id number] Protein [Mass/Vol] 6.3 g/dL Normal 6.1-8.[address] [facility] Model Maker Comment on above: Performed By: #### C BCAD, LIPD, CMP #### [facility] [address] [place], [place] [id number] Sodium [Moles/Vol] 143 mmol/L Normal 135-[address] [facility] Model Maker Comment on above: Performed By: #### C BCAD, LIPD, CMP #### [facility] [address] [place], [place] [id number] Urea nitrogen [Mass/Vol] 17 mg/dL Normal 7-25 [facility] Maker Comment on above: Performed By: #### C BCAD, LIPD, CMP #### [facility] [address] [place], [place] [id number] Lipid Panelon 05-23-2021 Cholesterol [Mass/Vol] 301 mg/dL High 125-200 [facility] Maker Comment on above: Result Comment: Low risk < 200mg/dL Borderline risk 201-239 mg/dl High risk > or equal to 240 Performed By: #### C BCAD, LIPD, CMP #### [facility] [address] [place], [place] [id number] Cholesterol in HDL [Mass/Vol] 72 mg/dL Normal >40 [facility] Model Maker Comment on above: Result Comment: High Cardiovascular Risk HDL <40 mg/dL Low Cardiovascular Risk HDL > or equal to 60 mg/dl Performed By: #### C BCAD, LIPD, CMP #### [facility] [address] [place], [place] [id number] Cholesterol in LDL [Mass/Vol] 209 mg/dL Normal [facility] Maker Comment on above: Result Comment: LDL ATP III CLASSIFICATION LDL less than 100 mg/dl Optimal LDL 100-129 mg/dl Near or above optimal LDL 130-159 Borderline high LDL 160-189 High LDL greater than 189 mg/dl Very High Performed By: #### C BCAD, LIPD, CMP #### [facility] [address] [place], [place] [id number] Cholesterol in VLDL [Mass/Vol] 20 mg/dL Normal [facility] Maker Comment on above: Performed By: #### C BCAD, LIPD, CMP #### [facility] [address] [place], [place] [id number] Cholesterol.total/ Cholesterol in HDL [Mass ratio] 4 {ratio} Normal [facility] Maker Comment on above: Performed By: #### C BCAD, LIPD, CMP #### [facility] [address] [place], [place] [id number] Triglyceride [Mass/Vol] 99 mg/dL Normal 30-150 [facility] [employer] Comment on above: Result Comment: TRIG ATPIII CLASSIFICATIONS TRIG less than 150 mg/dl Normal TRIG 150-199 mg/dl Borderline High TRIG 200-500 mg/dl High TRIG greather than 500 mg/dl Very High Performed By: #### C BCAD, LIPD, CMP #### [facility] [address] [place], [place] [id number] Covid-19 PCR (CVDTBH)on 02-18 SARS-CoV-2 (COVID-19) RNA TARIQ+probe Ql (Unsp spec) Detected Critically abnormal NOT DETECTED [facility] Comment on above: Result Comment: This test is not yet approved or cleared by the [place] FDA. When there are no FDA-approved or cleared tests available, and other criteria are met, FDA can make tests available under an emergency access mechanism called an Emergency Use Authorization (EUA). The EUA for this test is supported by the Professor Of Visual Arts of Health and Human Service's (HHS's) declaration that circumstances exist to justify the emergency use of in vitro diagnostics for the detection and/or diagnosis of the virus that causes COVID-19. This EUA will remain in effect (meaning this test can be used) for the duration of the COVID-19 declaration justifying emergency of IVDs, unless it is terminated or revoked by FDA (after which the test may no longer be used). Performed By: #### C VDTBH #### [facility] [address] [place], [place] [address] Dr. Stefany Crisostomo CULTURE THROATon 11-12-2020 CULTURE THROAT Culture Observations : NORMAL RESPIRATORY TIARA. Normal [facility] Comment on above: Performed By: #### T HRTCX, SSCRN #### [facility] [address] [place], [place] [address] Stevenson Dye Covid-19 PCR (CVDTBH)on 10-18 SARS-CoV-2 (COVID-19) RNA TARIQ+probe Ql (Unsp spec) Not detected Normal NOT DETECTED [facility] Comment on above: Result Comment: This test is not yet approved or cleared by the [place] FDA. When there are no FDA-approved or cleared tests available, and other criteria are met, FDA can make tests available under an emergency access mechanism called an Emergency Use Authorization (EUA). The EUA for this test is supported by the Professor Of Visual Arts of Health and Human Service's (HHS's) declaration that circumstances exist to justify the emergency use of in vitro diagnostics for the detection and/or diagnosis of the virus that causes COVID-19. This EUA will remain in effect (meaning this test can be used) for the duration of the COVID-19 declaration justifying emergency of IVDs, unless it is terminated or revoked by FDA (after which the test may no longer be used). When diagnostic testing is negative, the possibility of a false negative should be considered in the context of a patient's recent exposures and the presence of clinical signs and symptoms consistent with SARS-CoV-2. Performed By: #### C VDAGS, CVDTB #### [facility] [address] [place] [address] Stevenson Dye STREPT SCREENon 11-12-2020 STREP SCREEN A Negative Normal NEGATIVE [facility] Comment on above: Performed By: #### T HRTCX, SSCRN #### [facility] [address] [place] [address] Stevenson Dye SYMPTOMATIC COVID-19 ANTIGEN on 11-12-2020 EUA Statement SEE BELOW Normal The [facility] Comment on above: Result Comment: This test has not been FDA cleared or approved, but has been authorized by the FDA under an Emergency Use Authorization (EUA) for use by authorized laboratories certified under CLIA that meet the requirements to perform moderate or high complexity testing. This test has been authorized only for the detection of proteins from SARS-CoV-2, not for any other viruses or pathogens. The emergency use of this test is authorized for the duration of the declaration that circumstances exist justifying the authorization of emergency use of in vitro diagnostic tests for detection and/or diagnosis of Covid-19 under section 564(b)(1) of the Act, 21 U.S.C. 360bbb-3(b)(1), unless the declaration is terminated or authorization is revoked sooner. Performed By: #### C VDAGS, CVDTBH #### [facility] [address] [place] [address] Stevenson Dye SARS-CoV-2 (COVID-19) RNA TARIQ+probe Ql (Unsp spec) Negative Normal NEGATIVE [facility] Comment on above: Result Comment: CONF IRMATION BY PCR PENDING PER CDC GUIDELINES/ SYMPTOMATIC PATIENT. Performed By: #### C VDCYN, [facility] #### [facility] [address] [place], [place] [id number] Stevenson Marnie XR CHEST 1 Von 11-12-2020 XR CHEST 1 V EXAM: XR CHEST 1 V HISTORY: COUGH COMPARISON: None. TECHNIQUE: Single AP portable upright view of the chest FINDINGS: The heart size is normal. No dense focal consolidation, pneumothorax or pleural effusion is seen. No acute osseous abnormality seen. IMPRESSION: No radiographic evidence for acute cardiopulmonary disease. Electronically authenticated by: DANY DELVALLE Date: 2020-11-12 18:48 Normal [facility] CBC AUTO DIFFon 08-15-2020 BASO # 0.0 103/ul Normal 0.0-0.1 [facility] Comment on above: Performed By: #### C BC #### [facility] [address] [place], [place] [id number] Stevenson Marnie Basophils/100 WBC (Bld) 0.8 % Normal 0.2-2.0 [facility] Comment on above: Performed By: #### C BC #### [facility] [address] [place], [place] [phone] Stevenson Marnie EO # 0.2 103/ul Normal 0.0-0.7 [facility] Comment on above: Performed By: #### C BC #### [facility] [address] [place], [place] [phone] Stevenson Marnie Eosinophils/100 WBC (Bld) 3.0 % Normal 0.9-7.0 [facility] Comment on above: Performed By: #### C BC #### [facility] [address] [place], [place] [phone] Stevenson Marnie Erythrocyte distribution width (RBC) [Ratio] 13.2 % Normal 11.0-15.0 [facility] Comment on above: Performed By: #### C BC #### [facility] [address] [place], [place] [phone] Stevenson Marnie Hematocrit (Bld) [Volume fraction] 41.4 % Normal 36.0-48.0 [facility] Comment on above: Performed By: #### C BC #### [facility] [address] [place] [address] Stevenson Marnie Hemoglobin (Bld) [Mass/Vol] 13.7 g/dL Normal 12.0-16.0 [facility] Comment on above: Performed By: #### C BC #### [facility] [address] [place] [address] Stevenson Marnie IG # 0.00 10e3/ul Normal 0.00-0.03 [facility] Comment on above: Performed By: #### C BC #### [facility] [address] [place] [address] Stevenson Marnie IG % 0.0 % Normal 0.0-0.5 [facility] Comment on above: Performed By: #### C BC #### [facility] [address] [place] [address] Stevenson Marnie LYMPH # 1.7 103/ul Normal 1.2-3.8 [facility] Comment on above: Performed By: #### C BC #### [facility] [address] [place] [address] Stevenson Dye Lymphocytes/100 WBC (Bld) 31.0 % Normal 20.5-60.0 [facility] Comment on above: Performed By: #### C BC #### [facility] [address] [place] [address] Stevensondenita Dye MANUAL DIFF REQ NO Normal [facility] Comment on above: Performed By: #### C BC #### [facility] [address] [place] [address] Stevenson Marnie MCH (RBC) [Entitic mass] 29.5 pg Normal 26.7-34.0 [facility] Comment on above: Performed By: #### C BC #### [facility] [address] [place] [address] Stevenson Marnie MCHC (RBC) [Mass/Vol] 33.1 g/dL Normal 29.9-35.2 [facility] Comment on above: Performed By: #### C BC #### [facility] [address] [place] [phone] Stevensondenita Orellanaen MCV (RBC) [Entitic vol] 89.0 fL Normal 81.0-99.0 [facility] Comment on above: Performed By: #### C BC #### [facility] [address] [place] [phone] Stevensondenita Orellanaen MONO # 0.5 103/ul Normal 0.3-0.8 [facility] Comment on above: Performed By: #### C BC #### [facility] [address] [place], [place] [phone] Stevenson Marnie Monocytes/100 WBC (Bld) 9.8 % Normal 1.7-12.0 [facility] Comment on above: Performed By: #### C BC #### [facility] [address] [place] [address] Stevenson Marnie NEUT # 3.0 103/ul Normal 1.4-6.5 [facility] Comment on above: Performed By: #### C BC #### [facility] [address] [place], [place] [phone] Stevenson Marnie Neutrophils/100 WBC (Bld) 55.4 % Normal 43.0-75.0 [facility] Comment on above: Performed By: #### C BC #### [facility] [address] [place], [place] [phone] Stevensondenita Dye Platelet mean volume (Bld) [Entitic vol] 8.0 fL Critically low 9.5-13.5 [facility] Comment on above: Performed By: #### C BC #### [facility] [address] [place], [place] [phone] Stevenson Marnie PLT 297 103/ul Normal 150-450 [facility] Comment on above: Performed By: #### C BC #### [facility] [address] [place], [place] [phone] Stevenson Marnie RBC 4.65 106/ul Normal 4.20-5.40 [facility] Comment on above: Performed By: #### C BC #### [facility] [address] [place] [address] Stevenson Dye WBC 5.3 103/ul Normal 4.0-11.0 [facility] Comment on above: Performed By: #### C BC #### [facility] [address] [place], [place] [address] CHEST WO CONon 08-15-2020 CT CHEST WO CON EXAMINATION: CT CHES T WO CON HISTORY: CHEST PAIN, UNSPECIFIED status post trauma with pain. COMPARISON: None. TECHNIQUE: CT examination of the chest without IV contrast. Coronal and sagittal reformations were performed. Dose reduction techniques were achieved by using automated exposure control and/or adjustment of mA and/or kV according to patient size and/or use of iterative reconstruction technique. FINDINGS: There is minimal patchy atelectasis at the lung bases. There is a 4 to 5 mm noncalcified nodule within the left lower lobe. No pleural effusion or pneumothorax. No displaced rib fracture is seen. No significant hilar or mediastinal adenopathy. The heart is not enlarged. There are coronary artery calcifications. There is calcification of the aortic knob. There is a small low-attenuation lesion at the dome of the liver, measuring 8 mm, consistent with a cyst. A small hypodensity is seen within the left kidney, likely a cyst. There are degenerative changes within the spine. IMPRESSION: Minimal atelectasis at the lung bases. No evidence for pulmonary contusion, pleural effusion, or pneumothorax. No mediastinal hematoma or displaced rib fracture. Electronically authenticated by: AFRICA HAYES Date: 2020-08-15 18:22 Normal [facility] PROF CHEM 8 (BAS METB)on Anion gap [Moles/Vol] 14.4 mmol/L Normal [facility] Comment on above: Performed By: #### H STROSVEN, BMP #### [facility] [address] [place], [place] [address] Stevenson Dye Calcium [Mass/Vol] 9.0 mg/dL Normal 8.4-10.2 [facility] Comment on above: Performed By: #### H STROPN, BMP #### [facility] [address] [place], [place] [address] Stevenson Dye Chloride [Moles/Vol] 103 mmol/L Normal 98-107 [facility] Comment on above: Performed By: #### H STROPN, BMP #### [facility] [address] [place] [address] Stevenson Marnie CO2 [Moles/Vol] 28.0 mmol/L Normal 22.0-30.0 [facility] Comment on above: Performed By: #### H STROPN, BMP #### [facility] [address] [place] [address] Stevenson Marnie Creatinine [Mass/Vol] 0.87 mg/dL Normal 0.52-1.04 [facility] Comment on above: Performed By: #### H STROPN, BMP #### [facility] [address] [place] [address] Stevenson Marnie EGFR-AF NAMIBIAN >60 Normal >=60 [facility] Comment on above: Performed By: #### H STROPN, BMP #### [facility] [address] [place] [address] Stevenson Marnie EGFR-NON AF NAMIBIAN >60 Normal >=60 [facility] Comment on above: Performed By: #### H STROPN, BMP #### [facility] [address] [place] [address] Stevenson Marnie Glucose [Mass/Vol] 106 mg/dL Normal 74-106 [facility] Comment on above: Performed By: #### H STROPN, BMP #### [facility] [address] [place] [address] Stevenson Marnie Potassium [Moles/Vol] 4.4 mmol/L Normal 3.4-5.0 [facility] Comment on above: Performed By: #### H STROPN, BMP #### [facility] [address] [place] [address] Stevenson Marnie Sodium [Moles/Vol] 141 mmol/L Normal 137-145 [facility] Comment on above: Performed By: #### H STROPN, BMP #### [facility] [address] [place] [address] Stevenson Marnie Urea nitrogen [Mass/Vol] 15.0 mg/dL Normal 7.0-17.0 [facility] Comment on above: Performed By: #### H SANJEEV, BMP #### [facility] [address] [place], [place] [address] Stevenson Dye Urea nitrogen/Creatinin e [Mass ratio] 17.2 mg/mg Normal [facility] Comment on above: Performed By: #### H SANJEEV, BMP #### [facility] [address] [place], [place] [address] Stevenson Dye TROPONIN, HIGH SENSITIVITYon 08-15-2020 HSTROP <4.0 Normal 4.0-35.5 [facility] Comment on above: Result Comment: CUT- OFF POINTS HAVE BEEN ESTABLISHED BASED ON THE FOURTH UNIVERSAL DEFINITIONS OF MYOCARDIAL INFARCTION. THE UPPER REFERENCE LIMIT (URL) OF TROPONIN, DEFINED THE 99TH PERCENTILE OF cTnI DISTRIBUTION IN A REFERENCE POPULATION, HAS BEEN CONFIRMED THE DECISION THRESHOLD FOR CA DIAGNOSIS. Previously reported as: <3.3 On 08/15/2020 18:19 By CV2 Performed By: #### H SANJEEV, BMP #### [facility] [address] [place], [place] [address] Stevenson Dye OCT MACULA CIRRUS OU (BOTH E YES) [facility] Vital Signs Date Time Vital Sign Value Performing Clinician Faci lity 01-08-2024 09:30-0400 Diastolic blood pressure 70 mm[Hg] Moose Tan MD Work Phone: [facility] 01-08-2024 09:30-0400 Heart rate 62 /min Moose Tan MD Work Phone: [facility] 01-08-2024 09:30-0400 Respiratory rate 18 /min Moose Tan MD Work Phone: [facility] 01-08-2024 09:30-0400 SaO2% (BldA) [Mass fraction] 90 % Moose Tan MD Work Phone: [facility] 01-08-2024 09:30-0400 Systolic blood pressure 144 mm[Hg] Moose Tan MD Work Phone: [facility] 01-08-2024 07:45-0400 Body mass index (BMI) [Ratio] 18.75 kg/m2 Moose Tan MD Work Phone: [facility] 01-08-2024 07:45-0400 Body temperature 96.8 [degF] Moose Tan MD Work Phone: [facility] 01-08-2024 07:45-0400 Body weight 43.55 kg Moose Tan MD Work Phone: [facility] 12-28-2023 08:59-0400 Body height 152.4 cm Moose Tan MD Work Phone: [facility] 12-28-2023 08:59-0400 Body mass index (BMI) [Ratio] 19.02 kg/m2 Moose Tan MD Work Phone: [facility] 12-28-2023 08:59-0400 Body temperature 98.4 [degF] Moose Tan MD Work Phone: [facility] 12-28-2023 08:59-0400 Body weight 44.18 kg Moose Tan MD Work Phone: [facility] 12-28-2023 08:59-0400 Diastolic blood pressure 72 mm[Hg] Moose Tan MD Work Phone: [facility] 12-28-2023 08:59-0400 Heart rate 65 /min Moose Tan MD Work Phone: [facility] 12-28-2023 08:59-0400 SaO2% (BldA) [Mass fraction] 100 % Moose Tan MD Work Phone: [facility] 12-28-2023 08:59-0400 Systolic blood pressure 151 mm[Hg] Moose Tan MD Work Phone: [facility] 10-18-2023 09:36-0400 Body mass index (BMI) [Ratio] 18.78 kg/m2 Benito Hurtado PA-C Work Phone: [facility] 10-18-2023 09:36-0400 Body weight 42.19 kg Benito Yacapraro PA-C Work Phone: [facility] 10-18-2023 09:36-0400 Diastolic blood pressure 86 mm[Hg] Benito Costamariannararo PA-C Work Phone: [facility] 10-18-2023 09:36-0400 Heart rate 65 /min Benito Monroyraro PA-C Work Phone: [facility] 10-18-2023 09:36-0400 Systolic blood pressure 148 mm[Hg] Benito Porfiiroraro PA-C Work Phone: [facility] 09-10-2023 13:41-0400 Diastolic blood pressure 80 mm[Hg] MD Osorio Harper Work Phone: [facility] 09-10-2023 13:41-0400 Heart rate 80 /min MD Osorio Harper Work Phone: [facility] 09-10-2023 13:41-0400 Respiratory rate 18 /min MD Osorio Harper Work Phone: [facility] 09-10-2023 13:41-0400 SaO2% (BldA) [Mass fraction] 97 % MD Osorio Harper Work Phone: [facility] 09-10-2023 13:41-0400 Systolic blood pressure 129 mm[Hg] MD Osorio Harper Work Phone: [facility] 09-10-2023 11:51-0400 Body height 152.4 cm MD Osorio Harper Work Phone: [facility] 09-10-2023 11:51-0400 Body weight 41.73 kg MD Osorio Harper Work Phone: [facility] Encounters Encounter Date Encounter Type Care Provider Facility Start: 02-05-2024 End: 02-05-2024 Telephone encounter Mayda Fong LPN Gastroenterology Comment on above: Appointment (EGD) Start: 01-11-2024 End: 01-18-2024 Telephone encounter Moose Tan MD Work Phone: Gastroenterology Comment on above: Insurance Authorizat ion Start: 01-08-2024 End: 01-08-2024 ambulatory MOOSE TAN Facility:[facility] Start: 01-08-2024 End: 01-08-2024 Subsequent hospital visit by physician Moose Tan MD Work Phone: Gastroenterology Comment on above: Esophageal stenosis [K22.2] Start: 12-28-2023 End: 12-28-2023 ambulatory MOOSE TAN Facility:[facility] Start: 12-28-2023 End: 12-28-2023 Patient encounter procedure Moose Tan MD Work Phone: Gastroenterology Comment on above: Esophageal stenosis (Primary Dx); Ineffective esophageal motility; Lymphocytic esophagitis Start: 12-26-2023 End: 12-26-2023 Chart abstracting Serena Recinos RN Gastroenterology Start: 12-17-2023 End: 12-18-2023 Telephone encounter Benito Hurtado PA-C Work Phone: Gastroenterology Comment on above: Patient Question Start: 12-12-2023 End: 12-12-2023 Orders Only Benito Hurtado PA-C Work Phone: Gastroenterology Comment on above: Ineffective esophage al motility (Primary Dx) Start: 11-30-2023 End: 11-30-2023 Nursing evaluation of patient and report Nurse [facility] Gastroenterology Comment on above: Pharyngoesophageal d ysphagia Start: 11-30-2023 End: 11-30-2023 ambulatory BENITO HURTADO Facility:[facility] Start: 10-18-2023 End: 10-18-2023 Office outpatient new 45 minutes Benito Hurtado PA-C Work Phone: Gastroenterology Comment on above: Pharyngoesophageal d ysphagia (Primary Dx) Start: 10-18-2023 End: 10-18-2023 ambulatory BENITO HURTADO Facility:[facility] Start: 09-10-2023 Non-patient / Non-visit MD Will Harper Work Phone: [facility] G[facility] Work Phone: Start: 09-10-2023 End: 09-10-2023 Admission to same day surgery center MD Osorio Harper Work Phone: [facility] Work Phone: Start: 09-10-2023 End: 09-10-2023 ambulatory MD Osorio Harper Work Phone: [facility] Work Phone: Start: 07-24-2023 End: 07-24-2023 ambulatory GET Hurst TIMMIS Not Available Start: 07-23-2023 End: 07-23-2023 ambulatory OSORIO HARPER Not Available Start: 07-03-2023 End: 07-03-2023 ambulatory GET H TIMMIS Not Available Start: 06-19-2023 End: 06-19-2023 ambulatory OSORIO HARPER Not Available Start: 11-09-2022 End: 11-09-2022 ambulatory Gorge Dennis Facility:[facility] Start: 10-31-2021 End: 10-31-2021 Patient encounter procedure Clara Moralez OD Work Phone: Ophthalmology Comment on above: Pseudophakia of both eyes (Primary Dx); Intermittent alternating esotropia; Epiretinal membrane (ERM) of right eye; PVD (posterior vitreous detachment), bilateral Start: 03-21-2021 End: 03-21-[address] OSORIO HARPER Facility:[facility] Start: 03-17-2021 End: 03-17-[address] OSORIO HARPER Facility:[facility] Start: 11-12-2020 End: 11-12-[address] OSORIO HARPER Facility:[facility] Start: 08-15-2020 End: 08-15-[address] MELO NARANJO Facility:[facility] Start: 05-06-2020 End: 05-07-2020 ambulatory NONE LISTED REQUEST Facility:[facility] Start: 04-05-2020 End: 04-06-[address] NONE LISTED REQUEST Facility: Procedures Date Procedure Procedure Detail Performing Clinician Start: 01-08-2024 Esophagoscp rig transoral hypopharynx crv esoph Moose Tan MD Work Phone: Start: 11-30-2023 Esophageal motility study w/interp&rpt Benito Hurtado PA-C Work Phone: Start: 09-10-2023 Esophagogastroduodenoscopy MD Osorio Valero eyer Work Phone: Start: 10-31-2021 Computerized ophthalmic imaging retina Clara Moralez OD Work Phone: Start: 02-20-2019 History of laser assisted in situ keratomileusis S/P LASIK (laser assisted in situ keratomileusis) of both eyes Clara Moralez OD Work Phone: Plan of Treatment Date Care Activity Detail Author Start: 02-12-2024 End: 02-12-2024 Patient encounter procedure 02/12/2024 11:00 AM EST Appointment Gastroenterology [address] [phone] Moose Tan MD [address] [place] [address] Esophageal stenosis [K22.2] Gastroenterology Comment on above: Esophageal stenosis [K22.2] Start: 01-08-2024 End: 01-08-2024 Patient encounter procedure 01/08/2024 8:30 AM EDT Appointment Gastroenterology [address] [phone] Moose Tan MD [address] [place] [address] Esophageal stenosis [K22.2] Gastroenterology Comment on above: Esophageal stenosis [K22.2] Start: 12-28-2023 End: 12-28-2023 Patient encounter procedure 12/28/2023 9:30 AM EDT Office Visit Gastroenterology [address] [address] Moose Tan MD [address] [place] [address] 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] Gastroenterology Comment on above: 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] Start: 11-18-2023 Covid-19 Vaccine () Covid-19 Vaccine () [facility] Start: 11-18-2023 Covid-19 Vaccine () Covid-19 Vaccine () [facility] Start: 11-18-2023 Influenza vaccination Influenza Vaccine (#1) [facility] [place] [facility] Start: 09-10-2023 [facility] Start: 03-19-2023 Advance Directive Discussion Advance Directive Discussion [facility] Start: 11-17-2022 Covid-19 Vaccine () Covid-19 Vaccine () [facility] Start: 11-17-2021 Influenza vaccination INFLUENZA (#1) [facility] Start: 03-19-2021 ADVANCE DIRECTIVE DISCUSSION ADVANCE DIRECTIVE DISCUSSION [facility] Start: 10-03-2020 COVID-19 VACCINE (3 - Booster for Moderna series) COVID-19 VACCINE (3 - Booster for Moderna series) [facility] Start: 10-12-2019 RSV Vaccine (1 - 1-dose 75+ series) RSV Vaccine (1 - 1-dose 75+ series) [facility] Start: 2009 BONE DENSITY BONE DENSITY [facility] Start: 2009 Pneumococcal Vaccine: 65+ (1 of 1 - PCV) Pneumococcal Vaccine: 65+ (1 of 1 - PCV) [facility] Start: 2004 RSV Vaccine (1 - 1-dose 60+ series) RSV Vaccine (1 - 1-dose 60+ series) [facility] Start: 1994 SHINGRIX VACCINE (1 of 2) SHINGRIX VACCINE (1 of 2) [facility] Start: 1989 DIABETES SCREEN DIABETES SCREEN [facility] Start: 1989 Diabetes Screening Diabetes Screening [facility] Start: 10-12-1963 Urine microalbumin profile [facility] Start: 1962 ANNUAL PCP TEAM CHRONIC DISEASE VISIT ANNUAL PCP TEAM CHRONIC DISEASE VISIT [facility] Start: 1962 Anxiety Screening Anxiety Screening [facility] Start: 1962 Depression Screening Depression Screening [facility] Start: 1962 HEPATITIS C SCREENING HEPATITIS C SCREENING [facility] Start: 1962 SPIROMETRY SPIROMETRY [facility] Start: 1956 Adult depression screening assessment DEPRESSION SCREENING [facility] Start: 1951 PNEUMOCOCCAL: 65+ (1 - PCV) PNEUMOCOCCAL: 65+ (1 - PCV) [facility] End: 12-27-2024 EGD - THERAPEUTIC, EUS, OR TUBE INTERVENTIONS EGD - THERAPEUTIC, EUS, OR TUBE INTERVENTIONS Endoscopy Routine Esophageal stenosis 1 Occurrences starting 12/28/2023 until 12/27/2024 [facility] Work Phone: Comment on above: 1 Occurrences starting 12/28/2023 until 12/27/2024 End: 10-17-2024 Manometry Study observation Narrative MANOMETRY ESOPHAGEAL Endoscopy Routine Pharyngoesophageal dysphagia 1 Occurrences starting 10/18/2023 until 10/17/2024 [facility] Work Phone: Comment on above: 1 Occurrences starting 10/18/2023 until 10/17/2024 Manometry Study observation Narrative MANOMETRY ESOPHAGEAL Endoscopy Routine Pharyngoesophageal dysphagia 11/30/2023 [facility] Work Phone: Patient Education Esophagitis Know your M [facility] Work Phone: [facility] Immunizations Immunization Date Immunization Notes Care Provider Paula rosales 02-24-2009 influenza virus vacc ine, unspecified formulation Benito Hurtado PA-C Work Phone: [facility] Payers Date Payer Category Payer Medicare A[employer] MEDICARE A ETNA MEDICARE PPO [id number] 2018-Present [phone] [address] [place] [address] PPO [id number] 1959 Medicare [id number] 1960 Medicare [id number] 1960 Self-pay 1944 Unknown [id number] 1944 Unknown [id number] 1944 Unknown [id number] 1944 Unknown [id number] 1944 Unknown [id number] 1944 Unknown [id number] 1944 Unknown [id number] 1944 Unknown [id number] Unknown [id number] Unknown [id number] Unknown [id number] Unknown [id number] Social History Date Type Detail Facility Start: 02-20-2019 End: 09-10-2023 Tobacco smoking status NHIS Ex-smoker [facility] History of tobacco use Current smoker [facility] Start: 02-20-2019 Tobacco use and exposure Smoke less tobacco non-user [facility] Start: 10-31-2021 End: 01-08-2024 Alcohol intake Lifetime non-drinker (finding) [facility] Start: 09-11-2019 History SDOH Alcohol Frequency 1 [facility] Start: 1945 Sex Assigned At Not on file [facility] Start: 1945 Sex Assigned At Male [facility] Start: 09-11-2019 End: 10-18-2023 History of Social function [facility] Start: 09-11-2019 End: 10-18-2023 Alcohol Use Disorder Identification Test - Consumption [AUDIT-C] [facility] How often to you hav e a drink containing alcohol? Never [facility] Average Number of Drinks Not on file [facility] Medical Equipment Procedure Code Equipment Code Equipment Origin al Text Equipment Identifier Dates Lens Iol 0d +24. 5 [facility] - [id number] Start: 04-28-2019 Comment on above: Description: n/a Lens Iol 0d +22. 5 [facility] - [id number] Start: 05-12-2019 Comment on above: Description: n/a Goals Date Patient Goal Desired Activity /State Clinical Notes 10-31-2021 to 02-05-2024 Telephone Encounter - Mayda Fong LPN - 02/05/2024 1:18 PM ESTTelephone Encounter - Mayda Fong LPN - 02/05/2024 1:18 PM ESTTelephone Encounter - Staci Dumont - 01/11/2024 3:46 PM EDT Note Date & Type Note Facility 02-05-2024 Telephone encounter Note GI Pre-Procedure Spoke with patient: Yes Confirmed date scheduled and patient report time: Yes Procedure Planned:Esophagogastroduodenoscop y(EGD) for control of bleeding,dilation(any means),imaging,tube placement Is the patient on blood thinners?no Procedure Instructions given to patient: Yes, and they verbalized their understanding of instructions given Patient instructed to take prescribed preparation prior to procedure:Yes, and they verbalized their understanding of instructions given Patient instructed to have family/friend present for procedure transport home:Patient/patient representative personal service was told that if they do not have a responsible adult accompany them to their procedure; and remain in the endoscopy area until they are discharged; that their procedure cannot be done with sedation or anesthesia and may be cancelled. Any barriers to Patient learning: Patient/Patient Recreational Director responded appropriately on phone. Type of instruction given: Verbal by telephone contact. Mayda Fong LPN [facility] 02-05-2024 Miscellaneous Notes GI Pre-Procedure Spoke with patient: Yes Confirmed date scheduled and patient report time: Yes Procedure Planned:Esophagogastroduodenoscop y(EGD) for control of bleeding,dilation(any means),imaging,tube placement Is the patient on blood thinners?no Procedure Instructions given to patient: Yes, and they verbalized their understanding of instructions given Patient instructed to take prescribed preparation prior to procedure:Yes, and they verbalized their understanding of instructions given Patient instructed to have family/friend present for procedure transport home:Patient/patient representative personal service was told that if they do not have a responsible adult accompany them to their procedure; and remain in the endoscopy area until they are discharged; that their procedure cannot be done with sedation or anesthesia and may be cancelled. Any barriers to Patient learning: Patient/Patient Recreational Director responded appropriately on phone. Type of instruction given: Verbal by telephone contact. Mayda Fong LPN documented in this encounter [facility] 01-18-2024 Telephone encounter Note Images from the original note were not included. Attempted to submit PA via CMM Additional Information Required PA was already submitted for this patient and drug which was denied.;CaseId:[id number];Status:De nied;Appeal Information: Attention:ATTN: MEDICARE CLINICAL APPEALS [employer] [place] WebAddress:[email or web address] M; [facility] 01-18-2024 Miscellaneous Notes Images from the original note were not included. Attempted to submit PA via CMM Additional Information Required PA was already submitted for this patient and drug which was denied.;CaseId:[id number];Status:De nied;Appeal Information: Attention:ATTN: MEDICARE CLINICAL APPEALS [employer],[facility],[place] WebAddress:[email or web address] M; Patient called stating when she saw Dr. Tan he prescribed budesonide Pulmicort nebulizer and it needs a PA. She said she received a letter stating more information is needed in order for the med to be dispensed. Please start a PA for this patient's Budesonide nebulizer solution. [employer] Medicare PDP Member # [id number] Customer Service # [phone] documented in this encounter [facility] 01-11-2024 Telephone encounter Note Patient called stating when she saw Dr. Tan he prescribed budesonide Pulmicort nebulizer and it needs a PA. She said she received a letter stating more information is needed in order for the med to be dispensed. Please start a PA for this patient's Budesonide nebulizer solution. [employer] Medicare PDP Member # [id number] Customer Service # [phone] [facility] 01-08-2024 Nurse Note AMBULATORY PATIENT EDUCATION NOTE TOPIC: GI PROCEDURES: Esophagogastroduodenoscopy(EGD) for control of bleeding,dilation(any means),imaging,tube placement READINESS TO LEARN INSTRUCTION PROVIDED TO: Patient, readness to learn accessed prior to procedure and Family member COGNITIVE ABILITY: Alert and oriented PTED MOTIVATION TO LEARN: Interested FAMILY SUPPORT: Moderate - Family present but overwhelmed IPATIENT LEARNS BEST BY: Individual Instruction Written Instruction - Hand-outs FACTORS AFFECTING LEARNING: None PHYSICAL LIMITATIONS AFFECTING LEARNING: None LEARNING RESPONSE METHOD OF INSTRUCTION: Individual instruction PATIENT / FAMILY RESPONSE: Verbalizes understanding of: WORSENING CONDITION-Signs and symptoms of a worsening condition that warrant a call to the physician FOLLOW-UP PLAN: Complete - No need for follow-up SUPPLEMENTAL MATERIAL: Procedure Discharge Instructions REFERRAL (RECOMMENDATION): None [facility] 01-08-2024 Nurse Note AMBULATORY PATIENT EDUCATION NOTE TOPIC: GI PROCEDURES: Esophagogastroduodenoscopy(EGD) for control of bleeding,dilation(any means),imaging,tube placement READINESS TO LEARN INSTRUCTION PROVIDED TO: Patient, readness to learn accessed prior to procedure and Family member COGNITIVE ABILITY: Alert and oriented PTED MOTIVATION TO LEARN: Interested FAMILY SUPPORT: Moderate - Family present but overwhelmed IPATIENT LEARNS BEST BY: Individual Instruction Written Instruction - Hand-outs FACTORS AFFECTING LEARNING: None PHYSICAL LIMITATIONS AFFECTING LEARNING: None LEARNING RESPONSE METHOD OF INSTRUCTION: Individual instruction PATIENT / FAMILY RESPONSE: Verbalizes understanding of: WORSENING CONDITION-Signs and symptoms of a worsening condition that warrant a call to the physician FOLLOW-UP PLAN: Complete - No need for follow-up SUPPLEMENTAL MATERIAL: Procedure Discharge Instructions REFERRAL (RECOMMENDATION): None PRE OP LEARNING ASSESSMENT PROCEDURE/SURGERY: GI PROCEDURES: EGD READINESS TO LEARN COGNITIVE ABILITY: Alert and oriented MOTIVATION TO LEARN: Interested FAMILY SUPPORT: High - Very involved in pt care PATIENT LEARNS BEST BY: Individual Instruction Verbal Instruction FACTORS AFFECTING LEARNING: None PHYSICAL LIMITATIONS AFFECTING LEARNING: None Electronically Signed By: Nori Jensen RN In Department: GASTROENTEROLOGY documented in this encounter [facility] 01-08-2024 History and physical note HISTORY AND PHYSICAL Nguyen Jaretkatharinamarco a, 78 year old female Current history and physical on file: Yes Is a new History and Physical required for today's visit? Yes Indication for procedure: Dysphagia PROCEDURE(S) SCHEDULED FOR: EGD (Esophagogastroduodenoscopy) with or without biopsies, removal of polyps or lesions, dilation ( any means), treatment of bleeding ( any means), Barrx treatment of Aaron's Esophagus, image tube placement or cryo therapy treatment based on clinical findings. BASELINE BEHAVIOR: Calm BASELINE ORIENTATION: A & O x3 All medications and allergies reviewed: Yes Skin Assessment: Warm dry mucus membranes pink Airway/Respiratory Assessment: Airway: visualization of the uvula- Yes Mouth: opening greater than 2 fingerbreadths- Yes Neck: full range of motion- Yes Breath sounds clear/equal- Yes Cardiac Assessment: Regular rate and rhythm without murmur Abdominal Assessment: Abdomen soft, non-tender, no masses or organomegaly. The sensitive examination was discussed with the Patient or Patient's Authorized Recreational Director. As applicable, any other physician, advance practice provider, medical student, or other health professional student that will be observing or involved in the sensitive examination for educational or training purposes was discussed with the Patient or Authorized Recreational Director. The Patient or Authorized Recreational Director has agreed to proceed with the sensitive examination. (Sensitive examination includes inspection and/or palpation of the breasts, pelvis, prostate and anorectal regions) Sedation Plan: Moderate Additional Comments: None Tha Cornejo MD [facility] Work Phone: 01-08-2024 History and physical note HISTORY AND PHYSICAL Nguyen Buckner, 78 year old female Current history and physical on file: Yes Is a new History and Physical required for today's visit? Yes Indication for procedure: Dysphagia PROCEDURE(S) SCHEDULED FOR: EGD (Esophagogastroduodenoscopy) with or without biopsies, removal of polyps or lesions, dilation ( any means), treatment of bleeding ( any means), Barrx treatment of Aaron's Esophagus, image tube placement or cryo therapy treatment based on clinical findings. BASELINE BEHAVIOR: Calm BASELINE ORIENTATION: A & O x3 All medications and allergies reviewed: Yes Skin Assessment: Warm dry mucus membranes pink Airway/Respiratory Assessment: Airway: visualization of the uvula- Yes Mouth: opening greater than 2 fingerbreadths- Yes Neck: full range of motion- Yes Breath sounds clear/equal- Yes Cardiac Assessment: Regular rate and rhythm without murmur Abdominal Assessment: Abdomen soft, non-tender, no masses or organomegaly. The sensitive examination was discussed with the Patient or Patient's Authorized Recreational Director. As applicable, any other physician, advance practice provider, medical student, or other health professional student that will be observing or involved in the sensitive examination for educational or training purposes was discussed with the Patient or Authorized Recreational Director. The Patient or Authorized Recreational Director has agreed to proceed with the sensitive examination. (Sensitive examination includes inspection and/or palpation of the breasts, pelvis, prostate and anorectal regions) Sedation Plan: Moderate Additional Comments: None Tha Cornejo MD documented in this encounter [facility] 01-08-2024 Nurse Note PRE OP LEARNING ASSESSMENT PROCEDURE/SURGERY: GI PROCEDURES: EGD READINESS TO LEARN COGNITIVE ABILITY: Alert and oriented MOTIVATION TO LEARN: Interested FAMILY SUPPORT: High - Very involved in pt care PATIENT LEARNS BEST BY: Individual Instruction Verbal Instruction FACTORS AFFECTING LEARNING: None PHYSICAL LIMITATIONS AFFECTING LEARNING: None Electronically Signed By: Nori Jensen RN In Department: GASTROENTEROLOGY [facility] 12-28-2023 Instructions Moose Tan MD - 12/28/2023 9:41 AM EDT You had elevated levels of lymphocytes in the esophagus - this is benign inflammation (this is not cancer, and not related to lymphoma). This may be Lymphocytic Esophagitis, which is a condition of benign inflammation in the esophagus - this may be the cause of your trouble swallowing --Schedule two EGDs with Dr. Tan for stretching the esophagus --For this condition, I often recommend starting a steroid called budesonide - this helps to reduce inflammation in the esophagus. The liver inactivates 93% before sending to the rest of your body, so it has less systemic side effects that other steroids cause. I will send to your pharmacy - you mix 4 respules with 5 packs of Splenda (or honey or maple syrup) and swallow daily. Do not eat or drink for 30 minutes after --Return to clinic in 3-4 months documented in this encounter [facility] 12-28-2023 Note HNO ID: [id number] Author: MOOSE TAN MD Service: ? Author Type: Physician Type: Progress Notes Filed: 12/28/2023 10:00 Note Text: New Patient/Consult REASON FOR VISIT Nguyen Buckner is a 78 year old female who is scheduled for ineffective esophageal motility at the consult request of Benito Hurtado. My final recommendations will be communicated back to the requesting physician by the way of the shared medical record, fax, or via [place] Mail. PRESENTING COMPLAINT AND HISTORY -- I've had this for a couple years, but it got worse a year ago -- When I eat, I eat slow and take small bites - I feel it get backed up in my throat, it doesn't feel like it is in my chest --Dysphagia is to solids and liquids GI EVALUATION EGD: Trachealization of proximal esophagus Pathology: Lymphocytic inflammation Esophageal manometry: Interpretation: Normal LES pressure and relaxation Supine: Weak peristalsis in 2/10 swallows Failed Peristalsis in 7/10 swallows Normal Peristalsis in 1/10 swallows Sitting: Weak peristalsis in 3/5 swallows Normal Peristalsis in 2/5 swallows Impression: Ineffective Esophageal Motility Cheryl Gilmore MD azelastine (ASTELIN) 0.1% nasal spray Use 2 Sprays in each nostril twice daily. multivitamin with minerals (MULTIPLE VITAMINS 55 PLUS ORAL) Take 1 tablet by mouth. albuterol HFA (PROVENTIL HFA, VENTOLIN HFA) 90 mcg/actuation inhaler Inhale 2 Puffs as instructed. ascorbic acid, vitamin C, (VITAMIN C) 250 mg tablet Take 250 mg by mouth. calcium carbonate (OS-GOYO 500) 500 mg calcium (1,250 mg) tablet Take 500 mg by mouth. cholecalciferol (VITAMIN D3) 5,000 unit tab Take 1 tablet by mouth. ipratropium-albuterol (COMBIVENT RESPIMAT) 20-100 mcg/actuation mist PRN Penicillins FAMILY HISTORY Colon Cancer: Yes Other Cancers: Yes FAMILY HISTORY Problem Relation Age of Onset Cataract Mother Colon Cancer Sister PAST MEDICAL HISTORY Diagnosis Date Asthma Pseudophakia of both eyes PAST SURGICAL HISTORY Procedure Laterality Date DELIVERY ONLY , low transverse COLONOSCOPY FLX DX W/COLLJ SPEC WHEN PFRMD Colonoscopy OPEN REPAIR OF ROTATOR CUFF ACUTE Left Rotator cuff repair POST-CATARACT LASER SURGERY Left 08/19/2019 Yag Capsulotomy POST-CATARACT LASER SURGERY Right 08/26/2019 Yag Capsulotomy TOTAL ABDOMINAL HYSTERECT W/WO RMVL TUBE OVARY Hysterectomy, MARIYA XCAPSL CTRC RMVL INSJ IO LENS PROSTH W/O ECP Left 04/28/2019 Cataract Extraction with PC IOL OS by Dr. Dumont XCAPSL CTRC RMVL INSJ IO LENS PROSTH W/O ECP Right 05/12/2019 Cataract Extraction with PC IOL Social History Tobacco Use Smoking status: Former Smokeless tobacco: Never Vaping Use Vaping status: Never Used Substance Use Topics Alcohol use: Never Drug use: Never REVIEW OF SYSTEMS EyesNegative for vision changes, diplopia or epiphora. Ears, Mouth, nose, throat:No problems Cardiovascular: No Problems Respiratory: Negative for cough, wheezing and shortness of breath Gastrointestinal : as above Musuloskeletal: Denies significant problems Integumentary: no rashes, lesions, or jaundice Neurological: No history of neurologic problems Endocrine: Negative for cold or heat intolerance, polyuria, polydipsia and goiter. Psychiatric: Cooperative and agreeable Allergic/ Immunologic: Negative All others negative. PHYSICAL EXAMINATION There were no vitals taken for this visit. General - Normal, healthy, cooperative, in no acute distress Able to interact well. Psych - ORIENTATION: normal to time place, person and situation Mood/Affect: AFFECT AND MOOD: Normal Head/Neuro - Normal size and shape Facial appearance normal Pulmonary - respiratory effort normal Extremities- extremities normal, warm, no cyanosis,no clubbing, and no edema Skin - abnormal lesions not visualized Motor - patient seen sitting with Normal appearing strength and coordination Assessment Impression and Plan 78F who presents with dysphagia to solids and liquids, feels bolus get held up at level of sternal notch. 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 My final recommendations will be communicated back to the requesting physician by the way of the shared medical record, fax, or via [place] Mail. PRESENTING COMPLAINT & HISTORY -- I've had this for a couple years, but it got worse a year ago -- When I eat, I eat slow and take small bites - I feel it get backed up in my throat, it doesn't feel like it is in my chest --Dysphagia is to solids and liquids GI EVALUATION EGD: Trachealization of proximal esophagus Pathology: Lymphocytic inflammation Esophageal manometry: Interpretation: Normal LES pressure and relaxation Supine: Weak peristalsis in 2/10 swallows Failed Peristalsis in 7/10 swallows Normal Peristalsis in 1/10 swallows Sitting: Weak peristalsis in 3/5 swallows Normal Peristalsis in 2/5 swallows Impression: Ineffective Esophageal Motility Cheryl Gilmore MD azelastine (ASTELIN) 0.1% nasal spray Use 2 Sprays in each nostril twice daily. multivitamin with minerals (MULTIPLE VITAMINS 55 PLUS ORAL) Take 1 tablet by mouth. albuterol HFA (PROVENTIL HFA, VENTOLIN HFA) 90 mcg/actuation inhaler Inhale 2 Puffs as instructed. ascorbic acid, vitamin C, (VITAMIN C) 250 mg tablet Take 250 mg by mouth. calcium carbonate (OS-GOYO 500) 500 mg calcium (1,250 mg) tablet Take 500 mg by mouth. cholecalciferol (VITAMIN D3) 5,000 unit tab Take 1 tablet by mouth. ipratropium-albuterol (COMBIVENT RESPIMAT) 20-100 mcg/actuation mist PRN Penicillins FAMILY HISTORY Colon Cancer: Yes Other Cancers: Yes FAMILY HISTORY Problem Relation Age of Onset Cataract Mother Colon Cancer Sister PAST MEDICAL HISTORY Diagnosis Date Asthma Pseudophakia of both eyes PAST SURGICAL HISTORY Procedure Laterality Date DELIVERY ONLY , low transverse COLONOSCOPY FLX DX W/COLLJ SPEC WHEN PFRMD Colonoscopy OPEN REPAIR OF ROTATOR CUFF ACUTE Left Rotator cuff repair POST-CATARACT LASER SURGERY Left 08/19/2019 Yag Capsulotomy POST-CATARACT LASER SURGERY Right 08/26/2019 Yag Capsulotomy TOTAL ABDOMINAL HYSTERECT W/WO RMVL TUBE OVARY Hysterectomy, MARIYA XCAPSL CTRC RMVL INSJ IO LENS PROSTH W/O ECP Left 04/28/2019 Cataract Extraction with PC IOL OS by Dr. Dumont XCAPSL CTRC RMVL INSJ IO LENS PROSTH W/O ECP Right 05/12/2019 Cataract Extraction with PC IOL Social History Tobacco Use Smoking status: Former Smokeless tobacco: Never Vaping Use Vaping status: Never Used Substance Use Topics Alcohol use: Never Drug use: Never REVIEW OF SYSTEMS EyesNegative for vision changes, diplopia or epiphora. Ears, Mouth, nose, throat:No problems Cardiovascular: No Problems Respiratory: Negative for cough, wheezing and shortness of breath Gastrointestinal : as above Musuloskeletal: Denies significant problems Integumentary: no rashes, lesions, or jaundice Neurological: No history of neurologic problems Endocrine: Negative for cold or heat intolerance, polyuria, polydipsia and goiter. Psychiatric: Cooperative and agreeable Allergic/ Immunologic: Negative All others negative. PHYSICAL EXAMINATION There were no vitals taken for this visit. General - Normal, healthy, cooperative, in no acute distress Able to interact well. Psych - ORIENTATION: normal to time place, person and situation Mood/Affect: AFFECT AND MOOD: Normal Head/Neuro - Normal size and shape Facial appearance normal Pulmonary - respiratory effort normal Extremities- extremities normal, warm, no cyanosis,no clubbing, and no edema Skin - abnormal lesions not visualized Motor - patient seen sitting with Normal appearing strength and coordination Assessment Impression and Plan 78F who presents with dysphagia to solids and liquids, feels bolus get held up at level of sternal notch. 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 Author Type: Registered Nurse Type: Progress Notes Filed: 12/26/2023 11:33 Note Text: New Patient/Consult REASON FOR VISIT Nguyen Buckner is a 78 year old female who is scheduled for Esophageal dysmotility at the consult request of . EGD 08/2023 Pathology 08/2023 HANDP 08/2023 [facility] 12-26-2023 History of Present illness Narrative Images from the original note were not included. New Patient/Consult REASON FOR VISIT Nguyen Buckner is a 78 year old female who is scheduled for Esophageal dysmotility at the consult request of . EGD 08/2023 Pathology 08/2023 H&P 08/2023 documented in this encounter [facility] 12-17-2023 Telephone encounter Note Call to patient, let her know that Benito recommends follow up with swallowing center, option 0 due to ineffective esophageal motility. Lila Berg RN [facility] 12-17-2023 Miscellaneous Notes Call to patient, let her know that Benito recommends follow up with swallowing center, option 0 due to ineffective esophageal motility. Lila Berg RN Patient left voicemail stating she has questions regarding message received from Benito. Benito Hurtado PA-C Physician Power Lineman Specialty: Gastroenterology Result Encounter Note Signed Encounter Date: 11/30/2023 Thomas Nguyen, Your esophageal manometry is showing ineffective esophageal motility. At this point, I recommend referral to our swallowing center at [facility] for further evaluation. I have placed the referral. Thank you, Benito Hurtado PA-C Real Mckoy LPN documented in this encounter [facility] 12-17-2023 Telephone encounter Note Patient left voicemail stating she has questions regarding message received from Benito. Benito Hurtado PA-C Physician Power Lineman Specialty: Gastroenterology Result Encounter Note Signed Encounter Date: 11/30/2023 Thomas Nguyen, Your esophageal manometry is showing ineffective esophageal motility. At this point, I recommend referral to our swallowing center at [facility] for further evaluation. I have placed the referral. Thank you, Benito Hurtado PA-C Real Mckoy LPN [facility] 11-30-2023 Note HNO ID: [id number] Author: JALIL AGLVAN RN Service: ? Author Type: Registered Nurse Type: Progress Notes Filed: 11/30/2023 14:16 Note Text: Name: Nguyen Raygozakatharinamarco a [facility]#: [id number] Date: 11/30/2023 ESOPHAGEAL MANOMETRY TEST Indication: Pharyngoesophageal dysphagia Pain Assessment: No pain is present. The patient has been NPO since last evening. A local anesthetic 1 cc 2% Viscous Lidoccaine was instilled into the left nares. The patient was intubated the left nares using a 36 sensor high resolution circumferential solid state manometry catheter The esophageal manometry test was completed. The patient tolerated the test without difficulty. .Jalil Galvan RN [facility] 11-30-2023 History of Present illness Narrative Name: Nguyen Raygozakatharinamarco a CC#: [id number] Date: 11/30/2023 ESOPHAGEAL MANOMETRY TEST Indication: Pharyngoesophageal dysphagia Pain Assessment: No pain is present. The patient has been NPO since last evening. A local anesthetic 1 cc 2% Viscous Lidoccaine was instilled into the left nares. The patient was intubated the left nares using a 36 sensor high resolution circumferential solid state manometry catheter The esophageal manometry test was completed. The patient tolerated the test without difficulty. .Jalil Galvan RN documented in this encounter [facility] 10-18-2023 History of Present illness Narrative DEPARTMENT OF GASTROENTEROLOGY - NEW PATIENT/CONSULT REASON FOR VISIT Nguyen Buckner is a 78 year old female who is scheduled for dysphagia HISTORY OF PRESENT ILLNESS Nguyen Buckner is a 78 year old female who presents today for an evaluation of dysphagia. She reports for the past several years she has been having significant choking with eating and drinking. She also has a habit of throat clearing. She has undergone modified barium swallows which she was noted to have premature spillage of foodstuffs over the vallecula . She has been working with speech therapy for this. However on cinderxray it was noted that she had moderate narrowing of the upper esophagus as well as poor esophageal contractility with persistent pooling of contrast and incomplete clearing of the esophagus. She reports she underwent upper endoscopy about a month ago at [facility] and she was told that there was no need to stretch her esophagus. She has not had esophageal manometry. She reports her weight is stable. She has no abdominal pain, nausea, vomiting, poor appetite, BRBPR, melena, change in bowel habit, diarrhea, constipation. She does occasionally have acid reflux but this is very rare for her. [facility] Pertinent Recent/Past Workup: MBS FINDINGS: ORAL PHASE: Normal deglutition. PHARYNGEAL PHASE: Premature spillage of food stuffs over the vallecula. Moderate narrowing of the upper esophagus ASPIRATION: None. STRUCTURE: Normal. No visible obstruction, stricture, or dilatation. OTHER: Negative. FL/FL modified barium swallow IMPRESSION: Moderate narrowing of the upper esophagus Xr cinderadiography FINDINGS: ORAL PHASE: Normal deglutition. PHARYNGEAL PHASE: Normal swallowing. ASPIRATION: None. STRUCTURE: No obstruction or stricture. Poor esophageal contractility with persistent pooling of contrast and incomplete clearing of the esophagus OTHER: Negative. FL/FL cineradiography IMPRESSION: Poor esophageal contractility with incomplete clearing of the esophagus I have personally reviewed labs, current medication, allergies, PMH, PSH, family history and social history. Pertinent information has been listed above. Denies Family Hx CRC, IBD Denies Smoking, illicits, NSAIDs, etoh PAST MEDICAL HISTORY No date: Asthma No date: Pseudophakia of both eyes Allergies: Penicillins Itching, Rash Current Outpatient Medications Medication Sig Dispense Refill azelastine (ASTELIN) 0.1% nasal spray Use 2 Sprays in each nostril twice daily. multivitamin with minerals (MULTIPLE VITAMINS 55 PLUS ORAL) Take 1 tablet by mouth. albuterol HFA (PROVENTIL HFA, VENTOLIN HFA) 90 mcg/actuation inhaler Inhale 2 Puffs as instructed. ascorbic acid, vitamin C, (VITAMIN C) 250 mg tablet Take 250 mg by mouth. calcium carbonate (OS-GOYO 500) 500 mg calcium (1,250 mg) tablet Take 500 mg by mouth. cholecalciferol (VITAMIN D3) 5,000 unit tab Take 1 tablet by mouth. ipratropium-albuterol (COMBIVENT RESPIMAT) 20-100 mcg/actuation mist PRN No current facility-administered medications for this visit. PAST SURGICAL HISTORY No date: DELIVERY ONLY Comment: , low transverse No date: COLONOSCOPY FLX DX W/COLLJ SPEC WHEN PFRMD Comment: Colonoscopy No date: OPEN REPAIR OF ROTATOR CUFF ACUTE; Left Comment: Rotator cuff repair 08/19/2019: POST-CATARACT LASER SURGERY; Left Comment: Yag Capsulotomy 08/26/2019: POST-CATARACT LASER SURGERY; Right Comment: Yag Capsulotomy No date: TOTAL ABDOMINAL HYSTERECT W/WO RMVL TUBE OVARY Comment: Hysterectomy, MARIYA 04/28/2019: XCAPSL CTRC RMVL INSJ IO LENS PROSTH W/O ECP; Left Comment: Cataract Extraction with PC IOL OS by Dr. Dumont 05/12/2019: XCAPSL CTRC RMVL INSJ IO LENS PROSTH W/O ECP; Right Comment: Cataract Extraction with PC IOL Social History Tobacco Use Smoking status: Former Smokeless tobacco: Never Vaping Use Vaping Use: Never used Substance Use Topics Alcohol use: Never Drug use: Never FAMILY HISTORY Problem Relation Age of Onset Cataract Mother REVIEW OF SYSTEMS Cardiovascular: No chest pain Respiratory: Negative for cough, wheezing and shortness of breath Gastrointestinal : See above PHYSICAL EXAMINATION There were no vitals taken for this visit. Constitutional: well nourished, well appearing. NAD. Alert and cooperative Skin: no jaundice Eyes: anicteric, normal conjunctiva ENT: MMM Pulmonary: easy and nonlabored on RA Abdomen: soft, NT, ND. No ascites. MSK: MAEx4 Extremities: no edema Neuro: aaox3. No asterixis. Psych: appropriate mood and behavior Assessment IMPRESSION Ms. Buckner is a 78 year old female presents to GI clinic for evaluation dysphagia. Has established oropharyngeal dysphagia, but also poor esophageal motility on prior esophageal testing. Will plan for EMOT. Will also obtain records from [facility] for endoscopy. PLAN [place] EMOT ordered Beinto Hurtado PA-C documented in this encounter [facility] 10-18-2023 Note HNO ID: [id number] Author: BENITO HURTADO PA-C Service: ? Author Type: Physician Power Lineman Type: Progress Notes Filed: 10/18/2023 12:34 Note Text: DEPARTMENT OF GASTROENTEROLOGY - NEW PATIENT/CONSULT REASON FOR VISIT Nguyen Buckner is a 78 year old female who is scheduled for dysphagia HISTORY OF PRESENT ILLNESS Nguyen Buckner is a 78 year old female who presents today for an evaluation of dysphagia. She reports for the past several years she has been having significant choking with eating and drinking. She also has a habit of throat clearing. She has undergone modified barium swallows which she was noted to have premature spillage of foodstuffs over the vallecula . She has been working with speech therapy for this. However on cinderxray it was noted that she had moderate narrowing of the upper esophagus as well as poor esophageal contractility with persistent pooling of contrast and incomplete clearing of the esophagus. She reports she underwent upper endoscopy about a month ago at [facility] and she was told that there was no need to stretch her esophagus. She has not had esophageal manometry. She reports her weight is stable. She has no abdominal pain, nausea, vomiting, poor appetite, BRBPR, melena, change in bowel habit, diarrhea, constipation. She does occasionally have acid reflux but this is very rare for her. [facility] Pertinent Recent/Past Workup: MBS FINDINGS: ORAL PHASE: Normal deglutition. PHARYNGEAL PHASE: Premature spillage of food stuffs over the vallecula. Moderate narrowing of the upper esophagus ASPIRATION: None. STRUCTURE: Normal. No visible obstruction, stricture, or dilatation. OTHER: Negative. FL/FL modified barium swallow IMPRESSION: Moderate narrowing of the upper esophagus Xr cinderadiography FINDINGS: ORAL PHASE: Normal deglutition. PHARYNGEAL PHASE: Normal swallowing. ASPIRATION: None. STRUCTURE: No obstruction or stricture. Poor esophageal contractility with persistent pooling of contrast and incomplete clearing of the esophagus OTHER: Negative. FL/FL cineradiography IMPRESSION: Poor esophageal contractility with incomplete clearing of the esophagus I have personally reviewed labs, current medication, allergies, PMH, PSH, family history and social history. Pertinent information has been listed above. Denies Family Hx CRC, IBD Denies Smoking, illicits, NSAIDs, etoh PAST MEDICAL HISTORY No date: Asthma No date: Pseudophakia of both eyes Allergies: Penicillins Itching, Rash Current Outpatient Medications Medication Sig Dispense Refill azelastine (ASTELIN) 0.1% nasal spray Use 2 Sprays in each nostril twice daily. multivitamin with minerals (MULTIPLE VITAMINS 55 PLUS ORAL) Take 1 tablet by mouth. albuterol HFA (PROVENTIL HFA, VENTOLIN HFA) 90 mcg/actuation inhaler Inhale 2 Puffs as instructed. ascorbic acid, vitamin C, (VITAMIN C) 250 mg tablet Take 250 mg by mouth. calcium carbonate (OS-GOYO 500) 500 mg calcium (1,250 mg) tablet Take 500 mg by mouth. cholecalciferol (VITAMIN D3) 5,000 unit tab Take 1 tablet by mouth. ipratropium-albuterol (COMBIVENT RESPIMAT) 20-100 mcg/actuation mist PRN No current facility-administered medications for this visit. PAST SURGICAL HISTORY No date: DELIVERY ONLY Comment: , low transverse No date: COLONOSCOPY FLX DX W/COLLJ SPEC WHEN PFRMD Comment: Colonoscopy No date: OPEN REPAIR OF ROTATOR CUFF ACUTE; Left Comment: Rotator cuff repair 08/19/2019: POST-CATARACT LASER SURGERY; Left Comment: Yag Capsulotomy 08/26/2019: POST-CATARACT LASER SURGERY; Right Comment: Yag Capsulotomy No date: TOTAL ABDOMINAL HYSTERECT W/WO RMVL TUBE OVARY Comment: Hysterectomy, MARIYA 04/28/2019: XCAPSL CTRC RMVL INSJ IO LENS PROSTH W/O ECP; Left Comment: Cataract Extraction with PC IOL OS by Dr. Dumont 05/12/2019: XCAPSL CTRC RMVL INSJ IO LENS PROSTH W/O ECP; Right Comment: Cataract Extraction with PC IOL Social History Tobacco Use Smoking status: Former Smokeless tobacco: Never Vaping Use Vaping Use: Never used Substance Use Topics Alcohol use: Never Drug use: Never FAMILY HISTORY Problem Relation Age of Onset Cataract Mother REVIEW OF SYSTEMS Cardiovascular: No chest pain Respiratory: Negative for cough, wheezing and shortness of breath Gastrointestinal : See above PHYSICAL EXAMINATION There were no vitals taken for this visit. Constitutional: well nourished, well appearing. NAD. Alert and cooperative Skin: no jaundice Eyes: anicteric, normal conjunctiva ENT: MMM Pulmonary: easy and nonlabored on RA Abdomen: soft, NT, ND. No ascites. MSK: MAEx4 Extremities: no edema Neuro: aaox3. No asterixis. Psych: appropriate mood and behavior Assessment IMPRESSION Ms. Buckner is a 78 year old female presents to GI clinic for evaluation dysphagia. Has established orophary (more content not included)... [facility] 10-18-2023 Instructions Benito Hurtado PA-C - 10/18/2023 10:03 AM EDT Thank you for seeing me in clinic today. It was very nice to meet you! As we discussed, my recommendations are as follows: Schedule esophageal manometry Please request records for your EGD (upper endoscopy), xray esophagram and modified barium swallow study If you have any questions about the above treatment plan, please do not hesitate to send me a Optisortt message or call. Benito Hurtado PA-C documented in this encounter [facility] 09-10-2023 Procedure note [facility] 10-31-2021 History of Present illness Narrative ASSESSMENT/PLAN: 1. Pseudophakia of both eyes - ICD9: V43.1, ICD10: Z96.1 (primary diagnosis) Doing well. Post-op astigmatism OD greater than anticipated based on pre-op topography. Pt interested in CL fitting for cyl correction with Dr. Rdz. 2. Intermittent alternating esotropia - ICD9: 378.22, ICD10: H50.32 Increased symptoms x 3 years. Rare ET present at time of cataract surgery. 5^ PATRICE fresnel placed over OS lens. Trial for 1-2 months. RTC for follow up for Rx if tolerating (or can be checked by Dr. Rdz) 3. Epiretinal membrane (ERM) of right eye - ICD9: 362.56, ICD10: H35.371 - OCT MACULA CIRRUS OU (BOTH EYES) Mild, observe. 4. PVD (posterior vitreous detachment), bilateral - ICD9: 379.21, ICD10: H43.813 Stable. Clara Moralez, CHRISTINA I have confirmed and edited as necessary the relevant ophthalmic history, ROS, and the exam findings as obtained by others. I have seen and examined this patient. I have discussed the case and the management of this patient's care with the resident or fellow as appropriate. I also have reviewed and agree with the assessment and plan as stated above and agree with all of its relevant components. Clara Moralez, CHRISTINA October 31, 2021 1:10 PM documented in this encounter [facility] 10-31-2021 Instructions Clara Moralez OD - 10/31/2021 10:58 AM EDT I put a 5^ Base Out fresnel prism on the left lens in glasses. You could try monovision contact lenses - correct the astigmatism in the right eye (Dr. Rdz' office). I want to see you back in 1-2 months, ideally after you have tried contact lenses to see if they will work. OR... Dr. Rdz can check on you with the prism to see if that needs adjusted. documented in this encounter [facility] Evaluation note Diagnosis Pseudophakia of both eyes- Primary Lens replaced by other means Intermittent alternating esotropia Intermittent esotropia, alternating Epiretinal membrane (ERM) of right eye PVD (posterior vitreous detachment), bilateral [facility] noteNo assessment information available[facility] Work Phone: Evaluation note* Diagnosis Pharyngoesophageal dysphagia- Primary Dysphagia, pharyngoesophageal phase documented [facility] [place] [facility]* Diagnosis Other specified pre-operative examination- Primary Combined forms of age-related cataract of both eyes Other and combined forms of senile cataract Mild intermittent asthma without complication Unspecified asthma Other pneumonia, unspecified organism Pharyngoesophageal dysphagia Dysphagia, pharyngoesophageal phase documented in this encounter [facility] [place] [facility]* Diagnosis Other specified pre-operative examination- Primary Combined forms of age-related cataract of both eyes Other and combined forms of senile cataract Mild intermittent asthma without complication Unspecified asthma Other pneumonia, unspecified organism Ineffective esophageal motility- Primary [facility] [place] [facility]* Diagnosis Other specified pre-operative examination- Primary Combined forms of age-related cataract of both eyes Other and combined forms of senile cataract Mild intermittent asthma without complication Unspecified asthma Other pneumonia, unspecified organism Esophageal stenosis- Primary Stricture and stenosis of esophagus Ineffective esophageal motility Lymphocytic esophagitis [facility] [place] [facility]* Diagnosis Other specified pre-operative examination- Primary Combined forms of age-related cataract of both eyes Other and combined forms of senile cataract Mild intermittent asthma without complication Unspecified asthma Other pneumonia, unspecified organism Esophageal stenosis Stricture and stenosis of esophagus documented [facility] this [facility] Author Bhavik Mota [facility] September 10, 2023 12:56pm Note Date/Time September 10, 2023 12:5 6pm [facility] [address] [place] [address] Gastroenterology H&P Signed Patient: Nguyen Buckner MR# : [id number] : 1945 Acct:[id number] Age/Sex: 77 / M Adm Date: 4 Loc: Room: Type: [facility] Attending Dr: Bhavik Mota MD Copies to: MD Osorio Frazier MD~ Date of Service: 09/10/2023 HISTORY & PHYSICAL: Patient's history with special attention to the cardiovascular, pulmonary systems and the current problem was reviewed with the patient immediately prior to the procedure. Present medications and doses reviewed in the EMR. Allergies and pertinent laboratory tests were also reviewedat this time in the EMR. The physical examination, as below, was then performed. Indication, assessment and HPI: 77-year-old female who is referred for EGD to evaluate dysphagia to solids and liquids. Been going on the past several years and getting worse. No significant reflux. Family history of GI malignancy? No PHYSICAL EXAMINATION Mouth and Pharynx : moist mucus membranes, normal dentition Cardiac: regular rate, regular rhythm Pulmonary: normal respiratory effort, able to speak in complete sentences Neurological: alert and oriented x3, no focal deficits noted Abdomen: Abdomen soft, non-tender REVIEW OF SYSTEMS Constitutional: Denies malaise, fevers Cardiovascular: Denies chest pain, palpitations Respiratory: Denies shortness of breath, wheezing Gastrointestinal: Per HPI Genitourinary: Denies dysuria, polyuria Musculoskeletal: Denies joint swelling, joint stiffness Neurological: Denies numbness, tingling Integumentary: Denies rashes, skin lesions Endocrine: Denies fatigue, weight loss Written informed consent obtained from the patient. Risks (including but not limited to perforation, infection, bloating, bleeding, need for emergent surgeryand loss of life), benefits and alternatives explained and questions answered. The patient verbalized understanding. Based on history patient is an appropriate candidate for the procedure. Bhavik Mota MD Documented By: Bhavik Mota MD 09/10/23 1255 Signed By: <Electronically signed by Bhavik Mota MD> 09/10/23 1256 [facility] Work Phone: Reason for referral (narrative)* Outpatient Procedure (Routine) - New Request Specialty Diagnoses / Procedures Referred By Renate t Referred To Contact [facility] Diagnoses Pharyngoesophageal dysphagia Procedures MANOMETRY ESOPHAGEAL ESOPHAGEAL MOTILITY STUDY W/INTERP&RPT Benito Hurtado PA-C [address] [place] [address] [place] [id number] Referral ID Status Reason Start Date Expiration Date Visits Requested Visits Authorized [id number] New Request Auto-Generat ed Referral 10/18/2023 10/17/2024 1 1 [facility] for referral (narrative)* Outpatient Procedure (Routine) - Authorized Specialty Diagnoses / Procedures Referred By Contac t Referred To Contact [facility] Diagnoses Esophageal stenosis Procedures EGD - THERAPEUTIC, EUS, OR TUBE INTERVENTIONS EGD DILATION GASTRIC/DUODENAL STRICTURE Moose Tan MD [address] [place] [id number] [place] [phone] Referral ID Status Reason Start Date Expiration Date Visits Requested Visits Authorized [id number] Authorized Auto-Generat ed Referral 4 12/27/2024 1 1 * Outpatient Procedure (Routine) - Authorized Specialty Diagnoses / Procedures Referred By Contac t Referred To Contact [facility] Diagnoses Esophageal stenosis Procedures EGD - THERAPEUTIC, EUS, OR TUBE INTERVENTIONS EGD DILATION GASTRIC/[place] [address] [place] [id number] [address] Referral ID Status Reason Start Date Expiration Date Visits Requested Visits Authorized [id number] Authorized Auto-Generat ed Referral 12/27/2024 1 1 [facility] for visit Narrative* Outpatient Procedure (Routine) - Closed Specialty Diagnoses / Procedures Referred By Contac t Referred To Contact [facility] Diagnoses Esophageal stenosis Procedures EGD - THERAPEUTIC, EUS, OR TUBE INTERVENTIONS EGD DILATION GASTRIC/DUODENAL STRICTURE Moose Tan MD [address] [place] [address] [facility] [address] [place] [address] Referral ID Status Reason Start Date Expiration Date V isits Requested Visits Authorized [id number] Closed Auto-Generate d Referral 12/28/2023 12/27/2024 1 1 [facility] Summary Purpose Family History No Family History Records Found Relationship Condition Age at Onset Recorded Date/T lakeshia Not Specified Pulmonary emphysema Unknown sister Malignant neoplasm of colon Unknown Advance Directives No Advanced Directives Records Found Advance Directive Response Recorded Date/ Time Advance Directives No November 11, 2022 2:48pm Chief Complaint and Reason for Visit Chief Complaint Dysphagia Dysphagia Reason for Referral Specialty Diagnoses / Procedures Referred By Renate t Referred To Contact Diagnoses Ineffective esophageal motility Procedures CONSULT TO [facility] OFFICE/OUTPATIENT [facility] 60 MINUTES Benito Hurtado PA-C [id number] [place] [phone] Referral ID Status Reason Start Date Expiration Date Visits Requested Visits Authorized [id number] Authorized PCP Requested Referral 12/12/2023 12/11/2024 1 1 Additional Source Comments INFORMATION SOURCE (unrecogn ized section and content) DATE CREATED AUTHOR 03/24/2021 [facility] DATE CREATED AUTHOR AUTHOR'S ORGANIZ ATION 05/24/2021 [facility] dical Specialist DATE CREATED AUTHOR AUTHOR'S ORGANIZ ATION 07/25/2023 [facility] Specialists EPIC DATE CREATED AUTHOR AUTHOR'S ORGANIZ ATION 09/17/2023 [facility] DATE CREATED AUTHOR AUTHOR'S ORGANIZ ATION 02/08/2024 [facility] Source Comments (unrecognize d section and content) In the event this informatio n is protected by the Federal Confidentiality of Alcohol and Drug Abuse Patient Records regulations: The Federal rules restrict any use of the information to criminally investigate or prosecute any alcohol or drug abuse patient.[facility] the event this information is protected by the Federal Confidentiality of Alcohol and Drug Abuse Patient Records regulations: The Federal rules restrict any use of the information to criminally investigate or prosecute any alcohol or drug abuse patient.[facility] Hospital[facility] the event this information is protected by the Federal Confidentiality of Alcohol and Drug Abuse Patient Records regulations: The Federal rules restrict any use of the information to criminally investigate or prosecute any alcohol or drug abuse patient.[facility] HospitalIn the event this information is protected by the Federal Confidentiality of Alcohol and Drug Abuse Patient Records regulations: The Federal rules restrict any use of the information to criminally investigate or prosecute any alcohol or drug abuse patient.[facility] HospitalIn the event this information is protected by the Federal Confidentiality of Alcohol and Drug Abuse Patient Records regulations: The Federal rules restrict any use of the information to criminally investigate or prosecute any alcohol or drug abuse patient.[facility] the event this information is protected by the Federal Confidentiality of Alcohol and Drug Abuse Patient Records regulations: The Federal rules restrict any use of the information to criminally investigate or prosecute any alcohol or drug abuse patient.[facility] Hospital[facility] the event this information is protected by the Federal Confidentiality of Alcohol and Drug Abuse Patient Records regulations: The Federal rules restrict any use of the information to criminally investigate or prosecute any alcohol or drug abuse patient.[facility] the event this information is protected by the Federal Confidentiality of Alcohol and Drug Abuse Patient Records regulations: The Federal rules restrict any use of the information to criminally investigate or prosecute any alcohol or drug abuse patient.[facility] HospitalIn the event this information is protected by the Federal Confidentiality of Alcohol and Drug Abuse Patient Records regulations: The Federal rules restrict any use of the information to criminally investigate or prosecute any alcohol or drug abuse patient.[facility] HospitalIn the event this information is protected by the Federal Confidentiality of Alcohol and Drug Abuse Patient Records regulations: The Federal rules restrict any use of the information to criminally investigate or prosecute any alcohol or drug abuse patient.[facility] Hospital[facility] the event this information is protected by the Federal Confidentiality of Alcohol and Drug Abuse Patient Records regulations: The Federal rules restrict any use of the information to criminally investigate or prosecute any alcohol or drug abuse patient.[facility] Reason for Visit (unrecogniz ed section and content) Reason Comments Yearly Exam Reason Comments Dysphagia Reason Onset Date Comments Procedure 11/30/2023 Manometry Esopha geal Specialty Diagnoses / Procedures Referred By Contac t Referred To Contact [facility] Diagnoses Pharyngoesophageal dysphagia Procedures MANOMETRY ESOPHAGEAL ESOPHAGEAL MOTILITY STUDY W/INTERP&RPT Benito Hurtado PA-C [id number] [place] [address] [facility] [place] [address] [place] [address] Referral ID Status Reason Start Date Expiration Date V isits Requested Visits Authorized [id number] Closed Auto-Generate d Referral 10/18/2023 10/17/2024 1 1 Reason Comments Patient Question Reason Comments New Patient Ineffective esophage al motility Specialty Diagnoses / Procedures Referred By Renate t Referred To Contact Diagnoses Ineffective esophageal motility Procedures CONSULT TO [facility] OFFICE/OUTPATIENT NEW HIGH MDM 60 MINUTES Benito Hurtado PA-C [id number] [place] [address] Referral ID Status Reason Start Date Expiration Date V isits Requested Visits Authorized [id number] Closed PCP Requested Referral 12/12/2023 12/11/2024 1 1 Reason Comments Insurance Authorization Reason Comments Appointment EGD Care Teams (unrecognized sec tion and content) 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 Relationship Specialty Start Date End Date Osorio Harper MD [address] [place] [address] (Fax) PCP - General Family Practice 04/28/19 Team Status: Active Member Role Status Dates Osorio Harper MD Primary Care Provider Active Team Status: Inactive Member Role Status Dates Bhavik Mota MD Attending Provider Active S tart: September 10, 2023 End: September 10, 2023 Osorio Harper MD Primary Care Provi eli, Referring Provider Active Start: September 10, 2023 End: September 10, 2023 Team Status: Active Member Role Status Dates Bhavik Mota MD Attending Provider, Other Provider Active Start: September 10, 2023 Osorio Harper MD Primary Care Provi eli, Referring Provider Active Start: September 10, 2023 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 Relationship Specialty Start Date End Date Osorio Harper MD [address] [place] [address] (Fax) PCP - General Family Medicine 04/28/19 Bhavik Mota MD [address] [place] [address]; [facility] [address] [place] [address] Referring Gastroenterology 09/19/23 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 Relationship Specialty Start Date End Date Osorio Harper MD [address] [facility] [place] [address] (Fax) PCP - General Family Medicine 04/28/19 Bhavik Mota MD [address]; [address] [place] [address] Referring Gastroenterology 09/19/23 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 Relationship Specialty Start Date End Date Osorio Harper MD [address] [facility] [place] [address] (Fax) PCP - General Family Medicine 04/28/19 Bhavik Mota MD [address]; [address] [place] [address] Referring Gastroenterology 09/19/23 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 Relationship Specialty Start Date End Date Osorio Harper MD [address] [facility] [place] [address] (Fax) PCP - General Family Medicine 04/28/19 Bhavik Mota MD [address]; [address] [place] [address] Referring Gastroenterology 09/19/23 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 Relationship Specialty Start Date End Date Osorio Harper MD [address] [facility] [place] [address] (Fax) PCP - General Family Medicine 04/28/19 Bhavik Mota MD [address] [place] [address] Referring Gastroenterology 09/19/23 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 Relationship Specialty Start Date End Date Osorio Harper MD [address] [facility] [place] [address] (Fax) PCP - General Family Medicine 04/28/19 Bhavik Mota MD [address] [facility]; [address] [place] [address] Referring Gastroenterology 09/19/23 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 Relationship Specialty Start Date End Date Osorio Harper MD [address] [facility] [place] [address] (Fax) PCP - General Family Medicine 04/28/19 Bhavik Mota MD [address] [place] [address]; [address] [place] [address] Referring Gastroenterology 09/19/23 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 Relationship Specialty Start Date End Date Osorio Harper MD [address] [facility] [address] (Fax) PCP - General Family Medicine 04/28/19 Bhavik Mota MD [address] [place] [address]; [address] [place] [address] Referring Gastroenterology 09/19/23 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 Relationship Specialty Start Date End Date Osorio Harper MD [address] [place] [address] (Fax) PCP - General Family Medicine 04/28/19 Bhavik Mota MD [address] [place] [address]; [address] [place] [address] Referring Gastroenterology 09/19/23 (unrecognized sect ion and content) No Status Records Found FOR RECORDS PERTAINING TO PATIENTS WHO ARE OR HAVE BEEN ENROLLED IN A CHEMICAL DEPENDENCY/SUBSTANCEABUSE PROGRAM, SOME INFORMATION MAY BE OMITTED. This clinical summary was aggregated from multiple sources. Caution should be exercised in using it in the provision of clinical care. This summary normalizes information from multiple sources, and as a consequence, information in this document may materially change the coding, format and clinical context of patient data. In addition, data may be omitted in some cases. CLINICAL DECISIONS SHOULD BE BASED ON THE PRIMARY CLINICAL RECORDS. [employer] [facility]. provides no warranty or guarantee of the accuracy or completeness of information in this document.
== END 2024-02-29 14:15 | disposition home or self-care (01) ==
LOC: US 14:15
PROVIDERS: PCP Family Medicine; Visit Provider Obstetrics & Gynecology
DX: N95.0 Postmenopausal bleeding (principal); N93.9 Abnormal uterine and vaginal bleeding, unspecified
CPT/HCPCS: 76830; 76856

== ENCOUNTER 2024-09-05 09:23 | Outpatient (OUT) | payer MEDICARE, SELFPAY ==
--- OUTSIDE RECORDS SUMMARY | 2024-09-05 09:25 | XMS_ITS | Encounter Summary ---
Author Organization [facility] Address [address] [place] [address] Care Team Providers Care Associate Accountant Name Role Phone Osorio Bullock MD Unavailable Osorio Bullock MD Primary Care Provider Chanel Velez MD Unavailable [phone] Gorge Dennis DO Unavailable [phone] Clara Moralez MD Unavailable Encounter Details Date Type Department Care Team (Late st Contact Info) Description 01/01/2024 Abstract [facility] [address] [place] [id number] Osorio Bullock MD [address] [place], [place] [id number] Social History Tobacco Use Types Packs/Day Years Used Date Smoking Tobacco: Former Cigarettes Passive Smoke Exposure: Never Smokeless Tobacco: Never Alcohol Use Standard Drinks/Week Comments Never 0 (1 standard drink = 0.6 oz pur e alcohol) Caffeine intake: none Comments No Sex and Gender Information Value Date Recorded Sex Assigned at Not on file Legal Sex Female 6:42 PM EDT Gender Identity Not on file Sexual Orientation Not on file Occupation Industry Job Start Date Job End Date Retired Not on file Not on file Not on file documented as of this encounter Plan of Treatment Not on file documented as of this encounter Visit Diagnoses Not on filedocumented in this encounter Additional Health Concerns Assessment Noted Time PHQ-9 Depression Total Score: 0 07/23/19 24 10:00 AM EDT documented as of this encounter Care Teams Associate Accountant Relationship Specialty Start Date End Date Osorio Bullock MD 112 [facility] 100 [place] [address] PCP - [employer] 03/19/20 Osorio Bullock MD 112 [facility] 100 [place] [address] PCP - General Family Medicine 08/23/22 Chanel Velez MD 112 [facility] 130 [place] [address] Referring Physician Otolaryngology 07/23/23 Gorge Dennis DO [address] [place] [address] [address] [place] [address] Referring Physician General Surgery 07/23/23 Clara Moraelz MD [address] [place] [address] Referring Physician Optometry 07/23/23 documented as of this encounter
--- OUTSIDE RECORDS SUMMARY | 2024-09-05 09:25 | XMS_ITS | Encounter Summary ---
Author Organization [facility] Address [address] [place] [address] Care Team Providers Care Radio Host Name Role Phone Osorio Bullock MD Unavailable [phone] Osorio Bullock MD Primary Care Provider [phone] Get Velez MD Unavailable [phone] Gorge Dennis DO Unavailable [phone] Clara Moralez MD Unavailable Encounter Details Date Type Department Care Team (Late st Contact Info) Description 07/13/2023 Clinisync Result Encounter [facility] External Department Unsolicited Provider, Generic External Data Social History Tobacco Use Types Packs/Day Years [...] on file documented as of this encounter Procedures Procedure Name Priority Date/Time Associated Diagnosis Comments XR CINERADIOGRAPHY 07/13/2023 12 :48 PM EDT documented in this encounter Results * XR CINERADIOGRAPHY (07/13/2023 12:48 PM EDT) Anatomical Region Laterality Modality Other 07/13/2023 12:4 8 PM EDT Narrative 07/13/2023 12:50 PM EDT [address] [address] Fluoroscopy Report Signed Patient: HERMAN BUCKNER MR#: [id number] : 1945 Acct:[id number] Age/Sex: 77 / F ADM Date: 07/13/23 Loc: [place] Attending Dr: Get Velez M.D. Ordering Physician: Get Vleez M.D. Date of Service: 07/13/23 Procedure(s): FL cineradiography Accession Number(s): [id number] cc: OSORIO BULLOCK ; Get Velez M.D. [place] [address] Patient Name: HERMAN BUCKNER MRN: [id number] date: 1945 Sex: F Assigned Patient Location: [place] Current Patient Location: [place] Accession/Order Number: [id number] Exam Date: 07/13/2023 09:00 Report Date: 07/13/2023 12:48 At the request of: GET VELEZ Procedure: FL cineradiography EXAMINATION: FL barium swallow, FL cineradiography HISTORY: Pharyngoesophageal Dysphagia R13.14 COMPARISON: No relevant comparison available. TECHNIQUE: A swallowing evaluation was performed with fluoroscopy in the usual manner. Standard level fluoroscopic mode of operation utilized. FINDINGS: ORAL PHASE: Normal deglutition. PHARYNGEAL PHASE: Normal swallowing. ASPIRATION: None. STRUCTURE: No obstruction or stricture. Poor esophageal contractility with persistent pooling of contrast and incomplete clearing of the esophagus OTHER: Negative. FL/FL cineradiography IMPRESSION: Poor esophageal contractility with incomplete clearing of the esophagus Electronically authenticated by: LUCRETIA RENDON Date: 07/13/2023 12:48 Dictated By: Lucretia Rendon M.D. Signed By: 07/13/23 1259 DD/ 1248 TD/TT: Deck Molder: Procedure Note Radiology, Radiologist, - 07/13/2023 [facility] [place] [id number] Fluoroscopy Report Signed Patient: HERMAN BUCKNER LMR#: [id number] : 5Acct:[id number] Age/Sex: 77 / FADM Date: 07/13/23 Loc: [place] Attending Dr: Get Velez M.D. Ordering Physician: Get Velez M.D. Date of Service: 07/13/23 Procedure(s): FL cineradiography Accession Number(s): [id number] cc: OSORIO BULLOCK ; Get Velez M.D. [facility] [place] [id number] Patient Name: HERMAN BUCKNER MRN: [facility]:[id number] date: 1945 Sex: F Assigned Patient Location: [place] Current Patient Location: [place] Accession/Order Number: [id number] Exam Date: 07/13/2023 09:00 Report Date: 07/13/2023 12:48 At the request of: GET VELEZ Procedure: FL cineradiography EXAMINATION: FL barium swallow, FL cineradiography HISTORY: Pharyngoesophageal Dysphagia R13.14 COMPARISON: No relevant comparison available. TECHNIQUE: A swallowing evaluation was performed with fluoroscopy in theusual manner. Standard level fluoroscopic mode of operation utilized. FINDINGS: ORAL PHASE: Normal deglutition. PHARYNGEAL PHASE: Normal swallowing. ASPIRATION: None. STRUCTURE: No obstruction or stricture. Poor esophageal contractility with persistent pooling of contrast and incomplete clearing of the esophagus OTHER: Negative. FL/FL cineradiography IMPRESSION: Poor esophageal contractility with incomplete clearing of the esophagus Electronically authenticated by: LUCRETIA RENDON Date: 07/13/2023 12:48 Dictated By: Lucretia Rendon M.D. Signed By:07/13/23 1257 DD/ 1248 TD/TT: Deck Molder: Generic External Data Provider [facility] Final Result documented in this encounter Visit Diagnoses Not on filedocumented in this encounter Care Teams Radio Host Relationship Specialty Start Date End Date Osorio Bullock MD [address] [place] [address] PCP - [employer] 03/19/20 Osorio Bullock MD [address] [place] [address] (Fax) PCP - General Family Medicine 08/23/22 Get Velez MD [address] [place] [address] Referring Physician Otolaryngology 07/23/23 Gorge Dennis DO 703 [facility] 150 [place] [address] Referring Physician General Surgery 07/23/23 Clara Moralez MD [address] [place] [address] Referring Physician Optometry 07/23/23 documented as of this encounter
--- OUTSIDE RECORDS SUMMARY | 2024-09-05 09:25 | XMS_ITS | Encounter Summary ---
Author Organization [facility] Address [address] [place] [address] Care Team Providers Care Comic Artist Name Role Phone Osorio Bullock MD Unavailable [phone] Osorio Bullock MD Primary Care Provider Chanel Velez MD Unavailable Gorge Dennis DO Unavailable [phone] Clara Moralez MD Unavailable Encounter Details Date Type Department Care Team (Late st Contact Info) Description 10/04/2022 Orders Only [facility] [address] [place] [address] Osorio Bullock MD [address] [address] Social History Tobacco Use Types Packs/Day Years [...] Procedure Name Priority Date/Time Associated Diagnosis Comments DEXA BONE DENSITY Routine 10/03/2022 9:21 AM EDT documented in this encounter Results * DEXA bone density (10/03/2022 9:21 AM EDT) Anatomical Region Laterality Modality Body Radiographic Lizzy ging Osorio Bullock MD IMG DXA PROCEDURES Final Res ult documented in this encounter Visit Diagnoses Not on filedocumented in this encounter Care Teams Comic Artist Relationship Specialty Start Date End Date Osorio Bullock MD [address] [place] [address] PCP - [employer] 03/19/20 Osorio Bullock MD [address] [facility] 100 [place] [address] PCP - General Family Medicine 08/23/22 Chanel Velez MD [address] [facility] 130 [place] [address] Referring Physician Otolaryngology 07/23/23 Gorge Dennis DO 703 [facility] 150 [place] [address] Referring Physician General Surgery 07/23/23 Clara Moralez MD [address] [place] [address] Referring Physician Optometry 07/23/23 documented as of this encounter
--- OUTSIDE RECORDS SUMMARY | 2024-09-05 09:25 | XMS_ITS | Encounter Summary ---
Author Organization [facility] Address [address] [place] [address] Care Team Providers Care Adjustment Examiner Name Role Phone Osorio Bullock MD Unavailable [phone] Osorio Bullock MD Primary Care Provider Chanel Velez MD Unavailable [phone] Gorge Dennis DO Unavailable [phone] Clara Moralez MD Unavailable [phone] Encounter Details Date Type Department Care Team (Late st Contact Info) Description 10/03/2022 Abstract [facility] [address] [place] [address] Osorio Bullock MD [address] [address] Social History Tobacco Use Types [...] on filedocumented in this encounter Care Teams Adjustment Examiner Relationship Specialty Start Date End Date Osorio Bullock MD [address] [place] [address] PCP - [employer] 03/19/20 Osorio Bullock MD [address] [place] [address] (Fax) PCP - General Family Medicine 08/23/22 Chanel Velez MD [address] [place] [address] Referring Physician Otolaryngology 07/23/23 Gorge Dennis DO 703 [facility] 150 [place] [address] Referring Physician General Surgery 07/23/23 Clara Moralez MD [address] [place] [address] Referring Physician Optometry 07/23/23 documented as of this encounter
--- OUTSIDE RECORDS SUMMARY | 2024-09-05 09:25 | XMS_ITS | Encounter Summary ---
Author Organization [facility] Address [address] [place] [address] Care Team Providers Care Laborer Shellfish Processing Name Role Phone Osorio Bullock MD Primary Care Provider Bhavik Mota MD Unavailable Unavailable Source Comments In the event this information is protected by the Federal Confidentiality of Alcohol and Drug AbusePatient Records regulations: The Federal rules restrict any use of the information to criminally investigate or prosecute any alcohol or drug abuse patient.[facility] Reason for Visit * Reason Comments Patient Update Patient Question Encounter Details Date Type Department Care Team (Late st Contact Info) Description 04/18/2024 Telephone Gastroenterology [address] [place] [address] Moose Tan MD [address] [place] [address] Patient Update; Patient Question Social History Tobacco Use Types Packs/Day Years Used Date Smoking Tobacco: Former Smokeless Tobacco: Never Alcohol Use Standard Drinks/Week Comments Never 0 (1 standard drink = 0.6 oz pur e alcohol) AUDIT-C Answer Date Recorded Q1: How often do you have a drink containing alc ohol? Never 09/11/2019 Average Number of Drinks Not on file 020 Frequency of Binge Drinking Not on file 08/18 Area Deprivation Index Answer Date Sebastián rded National Score (1-100), lower number is lower ri sk 64 10/18/2023 State Score (1-10), lower number is lower risk 4 10/18/2023 Data from: https://www.neighborhoodatlas.medicine.[facility].edu/. Last address used for calculation [address] 10/18/2023 Comments No Sex and Gender Information Value Date Recorded Sex Assigned at Not on file Legal Sex Female 10:12 AM EST Gender Identity Not on file Sexual Orientation Not on file documented as of this encounter Miscellaneous Notes * Telephone Encounter - Staci Dumont - 04/18/2024 8:55 AM EST Patient called stating she had a dilation with Dr. Tan on 04/04. Since then, she has been experiencing pain and tightness in the esophagus. It is difficult to even swallow saliva. Please advise on what she should do? documented in this encounter Plan of Treatment Not on file documented as of this encounter Visit Diagnoses Not on filedocumented in this encounter Care Teams Laborer Shellfish Processing Relationship Specialty Start Date End Date Osorio Bullock MD [address] [place] [address] PCP - General Family Medicine 04/28/19 Bhavik Mota MD [address] [place] [address] [address] [place] [address] Referring Gastroenterology 09/19/23 documented as of this encounter
--- OUTSIDE RECORDS SUMMARY | 2024-09-05 09:25 | XMS_ITS | Encounter Summary ---
Author Organization [facility] Address [address] [place] [address] Care Team Providers Care Antique Furniture Restorer Name Role Phone Osorio Harper MD Unavailable [phone] Osorio Harper MD Primary Care Provider Chanel Velez MD Unavailable [phone] Gorge Dennis DO Unavailable [phone] Clara Moralez MD Unavailable [phone] Encounter Details Date Type Department Care Team (Late st Contact Info) Description 03/03/2024 Clinisync Result Encounter [facility] External Department Unsolicited [...] Procedure Name Priority Date/Time Associated Diagnosis Comments US PELVIS W/ TRANSVAGINAL 03/03/2024 7:38 AM EST documented in this encounter Results * US PELVIS W/ TRANSVAGINAL (03/03/2024 7:38 AM EST) Anatomical Region Laterality Modality Other 03/03/2024 7:38 AM EST Narrative 03/03/2024 7:41 AM EST [facility] [place] [id number] Ultrasound Report Signed Patient: HERMAN BUCKNER MR#: [id number] : 1945 Acct:[id number] Age/Sex: 78 / F ADM Date: 02/29/24 Loc: US Attending Dr: August Robbins D.O. Ordering Physician: August Robbins D.O. Date of Service: 02/29/24 Procedure(s): US pelvis w/ transvaginal Accession Number(s): [id number] cc: August Robbins D.O.; OSORIO HARPER [facility] [place] [id number] Patient Name: HERMAN BUCKNER MRN: [id number] date: 1945 Sex: F Assigned Patient Location: US Current Patient Location: Accession/Order Number: [id number] Exam Date: 02/29/2024 14:30 Report Date: 03/03/2024 07:38 At the request of: AUGUST ROBBINS Procedure: US pelvis w/ transvaginal EXAMINATION: US pelvis w/ transvaginal HISTORY: vaginal bleeding COMPARISON: No relevant comparison available. FINDINGS: Transabdominal and transvaginal images The vaginal cuff appears normal The uterus is surgically absent The ovaries are not visualized No free fluid. US/US pelvis w/ transvaginal IMPRESSION: No abnormality observed Electronically authenticated by: LUCRETIA RENDON Date: 03/03/2024 07:38 Dictated By: Lucretia Rendon M.D. Signed By: 03/03/24 0741 DD/ 0738 TD/TT: Computer Operations Technician: Procedure Note Radiology, Radiologist, MD - 03/03/2024 [facility] [place] [id number] Ultrasound Report Signed Patient: HERMAN BUCKNER LMR#: [id number] : 5Acct:[id number] Age/Sex: 78 / FADM Date: 02/29/24 Loc: US Attending Dr: August Robbins D.O. Ordering Physician: August Robbins D.O. Date of Service: 02/29/24 Procedure(s): US pelvis w/ transvaginal Accession Number(s): [id number] cc: August Robbins D.O.; OSORIO HARPER [place] [id number] Patient Name: HERMAN BUCKNER MRN: [facility]:[id number] date: 1945 Sex: F Assigned Patient Location: US Current Patient Location: Accession/Order Number: [id number] Exam Date: 02/29/2024 14:30 Report Date: 03/03/2024 07:38 At the request of: AUGUST ROBBINS Procedure: US pelvis w/ transvaginal EXAMINATION: US pelvis w/ transvaginal HISTORY: vaginal bleeding COMPARISON: No relevant comparison available. FINDINGS: Transabdominal and transvaginal images The vaginal cuff appears normal The uterus is surgically absent The ovaries are not visualized No free fluid. US/US pelvis w/ transvaginal IMPRESSION: No abnormality observed Electronically authenticated by: LUCRETIA RENDON Date: 03/03/2024 07:38 Dictated By: Lucretia Rendon M.D. Signed By:03/03/24 0741 DD/ 0738 TD/TT: Computer Operations Technician: us Generic External Data Provider [facility] Final Result documented in this encounter Visit Diagnoses Not on filedocumented in this encounter Additional Health Concerns Assessment Noted Time PHQ-9 Depression Total Score: 0 07/23/19 24 10:00 AM EDT documented as of this encounter Care Teams Antique Furniture Restorer Relationship Specialty Start Date End Date Osorio Harper MD [address] [place] [address] PCP - [employer] 03/19/20 Osorio Harper MD [address] [place] [address] PCP - General Family Medicine 08/23/22 Chanel Velez MD [address] [place] [address] Referring Physician Otolaryngology 07/23/23 Gorge Dennis DO [address] [facility] [address] [place], [place] [address] Referring Physician General Surgery 07/23/23 Clara Moralez MD [address] [place] [address] Referring Physician Optometry 07/23/23 documented as of this encounter
--- OUTSIDE RECORDS SUMMARY | 2024-09-05 09:25 | XMS_ITS | Encounter Summary ---
Author Organization [facility] Address [address] [place] [address] Care Team Providers Care Basin Operator Name Role Phone Osorio Bullock MD Unavailable [phone] Osorio Bullock MD Primary Care Provider [phone] Chanel Velez MD Unavailable [phone] Gorge Dennis DO Unavailable [phone] Clara Moralez MD Unavailable [phone] Encounter Details Date Type Department Care Team (Late st Contact Info) Description 04/04/2024 Clinisync Result Encounter [facility] External Department Unsolicited [...] Procedure Name Priority Date/Time Associated Diagnosis Comments UPPER GI ENDOSCOPY 04/04/2024 11 :04 AM EST documented in this encounter Results * UPPER GI ENDOSCOPY (04/04/2024 11:04 AM EST) Anatomical Region Laterality Modality Other 04/04/2024 11:0 4 AM EST Narrative 04/04/2024 11:47 AM EST A31 Gastrointestinal Endoscopy Patient Name: Nguyen Long Procedure Date: 04/04/2024 11:04 AM Date of : 1945 Admit Type: Outpatient Age: 78 Room: [place] [address] Gender: Female Note Status: Finalized Attending MD: Moose Tan MD, [id number] Procedure: Upper GI endoscopy Indications: For therapy of esophageal stenosis - history of lymphocytic esophagitis with cricopharyngeal stenosis - dilated to 16mm in 12/2023 Providers: Moose Tan MD Patient Profile: This is a 78 year [...] in the procedure room. Mental Status Examination: alert and oriented. Airway Examination: normal oropharyngeal airway and neck [...] administration of moderate sedation was initiated at 11:36. Findings: One benign-appearing, intrinsic mild stenosis was found at the cricopharyngeus. This stenosis measured 1.6 cm (inner diameter). The stenosis was traversed. A guidewire was placed and the scope was withdrawn. Dilation was performed with a Savary dilator with no resistance at 16 mm and mild resistance at 17 mm and 18 mm. Estimated blood loss was minimal. The exam of the esophagus was otherwise normal. The Z-line was regular and was found 37 cm from the incisors. The entire examined stomach was normal. The examined duodenum was normal. Impression: - Benign-appearing esophageal stenosis. Dilated. - Z-line regular, 37 cm from the incisors. - Normal stomach. - Normal examined duodenum. - No specimens collected. Estimated Blood Loss: Estimated blood loss was minimal. Recommendation: - Continue present medications. - Resume previous diet. - Discharge patient to home. - Repeat upper endoscopy PRN for retreatment. Procedure Code(s): --- Professional --- 60050, Esophagogastroduodenoscopy, flexible, transoral; with insertion of guide wire followed by passage of dilator(s) through esophagus over guide wire Diagnosis Code(s): --- Professional --- K22.2, Esophageal obstruction CPT copyright 2020 [employer]. All rights reserved. The codes documented in this report are preliminary and upon strapper review may be revised to meet current compliance requirements. Attending Participation: I was present and participated during the entire procedure, including non-mccain portions, and during the administration and monitoring of Moderate Sedation. Scope In: 11:38:28 AM Scope Out: 11:42:53 AM MD Moose Zhao MD 04/04/2024 11:47:32 AM This report has been signed electronically by Moose Tan MD Number of Addenda: 0 Note Initiated On: 04/04/2024 11:04 AM Procedure Note Radiology, Radiologist, - 04/04/2024 A31 Gastrointestinal Endoscopy Patient Name: Nguyen Long Procedure Date: 04/04/2024 11:04 AM Date of : 1945 Admit Type: Outpatient Age: 78 Room: [place] [address] Gender: Female Note Status: Finalized Attending MD: Moose Tan MD, [id number] Procedure: Upper GI endoscopy Indications: For therapy of esophageal stenosis - history of lymphocytic esophagitis with cricopharyngeal stenosis - dilated to 16mm in 12/2023 Providers: Moose Tan MD Patient Profile: This is a 78 year [...] in the procedure room. Mental Status Examination: alert and oriented. Airway Examination: normal oropharyngeal airway and neck [...] administration of moderate sedation was initiated at 11:36. Findings: One benign-appearing, intrinsic mild stenosis was found at the cricopharyngeus. This stenosis measured 1.6 cm (inner diameter). The stenosis was traversed. A guidewire was placed and the scope was withdrawn. Dilation was performed with a Savary dilator with no resistance at 16 mm and mild resistance at 17 mm and 18 mm. Estimated blood loss was minimal. The exam of the esophagus was otherwise normal. The Z-line was regular and was found 37 cm from the incisors. The entire examined stomach was normal. The examined duodenum was normal. Impression: - Benign-appearing esophageal stenosis. Dilated. - Z-line regular, 37 cm from the incisors. - Normal stomach. - Normal examined duodenum. - No specimens collected. Estimated Blood Loss: Estimated blood loss was minimal. Recommendation: - Continue present medications. - Resume previous diet. - Discharge patient to home. - Repeat upper endoscopy PRN for retreatment. Procedure Code(s): --- Professional --- 11546, Esophagogastroduodenoscopy, flexible, transoral; with insertion of guide wire followed by passage of dilator(s) through esophagus over guide wire Diagnosis Code(s): --- Professional --- K22.2, Esophageal obstruction CPT copyright 2020 [employer]. All rights reserved. The codes documented in this report are preliminary and upon strapper review may be revised to meet current compliance requirements. Attending Participation: I was present and participated during the entire procedure, including non-mccain portions, and during the administration and monitoring of Moderate Sedation. Scope In: 11:38:28 AM Scope Out: 11:42:53 AM MD Moose Zhao MD 04/04/2024 11:47:32 AM This report has been signed electronically by Moose Tan MD Number of Addenda: 0 Note Initiated On: 04/04/2024 11:04 AM us Generic External Data Provider [facility] Final Result documented in this encounter Visit Diagnoses Not on filedocumented in this encounter Additional Health Concerns Assessment Noted Time PHQ-9 Depression Total Score: 0 07/23/19 24 10:00 AM EDT documented as of this encounter Care Teams Basin Operator Relationship Specialty Start Date End Date Osorio Bullock MD [address] [place] [address] PCP - [employer] 03/19/20 Osorio Bullock MD [address] [place] [address] PCP - General Family Medicine 08/23/22 Chanel Velez MD [address] [place] [address] Referring Physician Otolaryngology 07/23/23 Gorge Dennis DO [address] [facility] 150 [place] [address] Referring Physician General Surgery 07/23/23 Clara Moralez MD [address] [place] [address] Referring Physician Optometry 07/23/23 documented as of this encounter
--- OUTSIDE RECORDS SUMMARY | 2024-09-05 09:25 | XMS_ITS | Encounter Summary ---
Author Organization [facility] Address [address] [place] [address] Care Team Providers Care Patient Carrier Name Role Phone Osorio Bullock MD Unavailable [phone] Osorio Bullock MD Primary Care Provider [phone] Chanel Velez MD Unavailable [phone] Gorge Dennis DO Unavailable [phone] Clara Moralez MD Unavailable Encounter Details Date Type Department Care Team (Late st Contact Info) Description 01/08/2024 Clinisync Result Encounter [facility] External Department Unsolicited [...] Date/Time Associated Diagnosis Comments UPPER GI ENDOSCOPY 01/08/2024 8: 43 AM EDT documented in this encounter Results * UPPER GI ENDOSCOPY (01/08/2024 8:43 AM EDT) Anatomical Region Laterality Modality Other 01/08/2024 8:43 AM EDT Narrative 01/08/2024 9:10 AM EDT A31 Gastrointestinal Endoscopy Patient Name: Nguyen Long Procedure Date: 01/08/2024 8:43 AM Date of : 1945 Admit Type: Outpatient Age: 78 Room: [place] [address] Gender: Female Note Status: Finalized Attending MD: Moose Tan MD, [id number] Procedure: Upper GI endoscopy Indications: Dysphagia - lymphocytic esophagitis on budesonide Providers: Moose Tan MD, Holly Coles (Fellow) Patient Profile: This is a 78 [...] dilation if needed. Please send me a [employer] message in a few weeks with an update of your symptoms Procedure Code(s): --- Professional --- 63159, Esophagogastroduodenoscopy, flexible, transoral; with insertion of guide wire followed by passage of dilator(s) through esophagus over guide wire Diagnosis Code(s): --- Professional --- R13.10, Dysphagia, unspecified K22.2, Esophageal obstruction CPT copyright 2020 [employer]. All rights reserved. The codes documented in this report are preliminary and upon licensed nuclear operator review may be revised to meet current compliance requirements. Attending Participation: I was present and participated during the entire procedure, including non-mccain portions, and during the administration and monitoring of Moderate Sedation. Scope In: 8:52:52 AM Scope Out: 9:01:33 AM MD Moose Zhao MD 01/08/2024 9:09:47 AM This report has been signed electronically by Moose Tan MD Number of Addenda: 0 Note Initiated On: 01/08/2024 8:43 AM Procedure Note Radiology, Radiologist, - 01/08/2024 A31 Gastrointestinal Endoscopy Patient Name: Nguyen Long Procedure Date: 01/08/2024 8:43 AM Date of : 1945 Admit Type: Outpatient Age: 78 Room: [place] [address] Gender: Female Note Status: Finalized Attending MD: Moose Tan MD, [id number] Procedure: Upper GI endoscopy Indications: Dysphagia - lymphocytic esophagitis on budesonide Providers: Moose Tan MD, Holly Coles (Fellow) Patient Profile: This is a 78 [...] - Normal mucosa was found in the entireesophagus. - Z-line regular, 38 cm from the incisors. - Normal stomach. - Normal examined duodenum. - No specimens collected. Estimated Blood Loss: Estimated blood loss was minimal. Recommendation: - Continue present medications. - Resume previous diet. - Discharge patient to home. - We can repeat EGD for further dilation if needed. Please send me a [employer] message in a few weeks with an update of your symptoms Procedure Code(s): --- Professional --- 98057, Esophagogastroduodenoscopy, flexible, transoral; with insertion of guide wire followed by passage of dilator(s) through esophagus over guide wire Diagnosis Code(s): --- Professional --- R13.10, Dysphagia, unspecified K22.2, Esophageal obstruction CPT copyright 2020 [employer]. All rights reserved. The codes documented in this report are preliminary and upon licensed nuclear operator review may be revised to meet current compliance requirements. Attending Participation: I was present and participated during the entire procedure, including non-mccain portions, and during the administration and monitoring of Moderate Sedation. Scope In: 8:52:52 AM Scope Out: 9:01:33 AM MD Moose Zhao MD 01/08/2024 9:09:47 AM This report has been signed electronically by Moose Tan MD Number of Addenda: 0 Note Initiated On: 01/08/2024 8:43 AM us Generic External Data Provider [facility] Final Result documented in this encounter Visit Diagnoses Not on filedocumented in this encounter Additional Health Concerns Assessment Noted Time PHQ-9 Depression Total Score: 0 07/23/19 24 10:00 AM EDT documented as of this encounter Care Teams Patient Carrier Relationship Specialty Start Date End Date Osorio Bullock MD [address] [facility] [address] [place] [address] PCP - [employer] 03/19/20 Osorio Bullock MD [address] [facility] 100 [place] [address] PCP - General Family Medicine 08/23/22 Chanel Velez MD [address] [facility] [address] [place] [address] Referring Physician Otolaryngology 07/23/23 Gorge Dennis DO [address]03 [facility] 150 [place] [address] Referring Physician General Surgery 07/23/23 Clara Moralez MD [address] [facility] [place] [address] Referring Physician Optometry 07/23/23 documented as of this encounter
--- OUTSIDE RECORDS SUMMARY | 2024-09-05 09:25 | XMS_ITS | Encounter Summary ---
Author Organization [facility] Address [address] [place] [address] Care Team Providers Care Inspector Boiler Name Role Phone Osorio Bullock MD Primary Care Provider Bhavik Mota MD Unavailable Unavailable Source Comments In the event this information is protected by the Federal Confidentiality of Alcohol and Drug AbusePatient Records regulations: The Federal rules restrict any use of the information to criminally investigate or prosecute any alcohol or drug abuse patient.[facility] Encounter Details Date Type Department Care Team (Late st Contact Info) Description 01/01/2024 Patient Msg Gastroenterology [address] [place] [address] Cinthia Garcia RN EGD instructions Social History Tobacco Use Types Packs/Day Years [...] Score (1-100), lower number is lower ri 64 10/18/2023 State Score (1-10), lower number is lower risk 4 10/18/2023 Data from: https://www.neighborhoodatlas.medicine.[facility].edu/. Last address used for calculation [address] [place] [address] [address] 10/18/2023 Comments No Sex and Gender Information Value Date Recorded Sex Assigned at Not on file Legal Sex Female 10:12 AM EST Gender Identity Not on file Sexual Orientation Not on file documented as of this encounter Plan of Treatment Not on file documented as of this encounter Visit Diagnoses Not on filedocumented in this encounter Care Teams Inspector Boiler Relationship Specialty Start Date End Date Osorio Bullock MD [address] [place] [id number] PCP - General Family Medicine 04/28/19 Bhavik Mota MD [address]03 [facility]; [facility] [address] [place] [address] Referring Gastroenterology 09/19/23 documented as of this encounter
--- OUTSIDE RECORDS SUMMARY | 2024-09-05 09:25 | XMS_ITS | Clinical Summary ---
Author Organization [facility] Address [address] [place] [address] Care Team Providers Care Client Service Executive Name Role Phone Osorio Bullock MD Unavailable [phone] Osorio Bullock MD Primary Care Provider Chanel Velez MD Unavailable Gorge Dennis DO Unavailable [phone] Clara Moralez MD Unavailable [phone] Allergies Active Allergy Reactions Criticality Noted Date Comments Penicillins 08/28/2022 Other Reaction(s): Hives/Skin Rash Medications cholecalciferol (Vitamin D-3) 125 MCG (5000 UT) capsule 1 capsule 1 (one) time each day at the same time. Active budesonide (Pulmicort) 0.5 MG/2ML nebulizer solution Take 0.25 mg by nebulization See administration instructions For lymphocytic esophagitis. Mix 4 respules with 5 packs of Splenda and swallow daily. Do not eat or drink for 30 minutes after Active calcium citrate (Calcitrate) 950 (200 Ca) MG tablet Take 250 mg by mouth Daily Active multivitamin (Theragran) tablet Take 1 tablet by mouth Daily Active albuterol HFA 90 mcg/act inhalerIndicatio ns:Mild intermittent asthma without complication (HCC) Inhale 2 puffs every 6 (six) hours if needed for wheezing 54 g 08/13/19 25 08 025 Active albuterol HFA 90 mcg/act inhaler Inhale 2 puffs every 6 (six) hours if needed. 025 Discontin ued(Reord er) Active Problems Problem Noted Date Diagnosed Date Bilateral artificial lens implant 07/23/2023 Family history of colon cancer 10/17/2022 Chronic kidney disease, stage II (mild) 08/29/19 23 Heart murmur 08/28/2022 History of hysterectomy 08/28/2022 Age related osteoporosis 08/28/2022 Lung nodule 08/28/2022 Mild intermittent asthma without complication Nonexudative age-related mac ular degeneration, left eye, early dry stage 08/28/2022 Surgical menopause 08/28/2022 Vitamin D deficiency 08/28/2022 Osteopenia of lumbar spine 08/28/2022 Mixed dyslipidemia 08/28/2022 Cardiovascular event risk 07/24/2020 History of YAG laser capsulotomy of lens 020 Resolved Problems Problem Noted Date Diagnosed Date Resolved Date Asthma 10/17/2022 12/25/2022 Overview (10/17/2022): Last Assessment & Plan: Assessment: WELL CONTEROLLD, rare use of albuterol Age-related nuclear cataract, bilateral 08/28/2022 07/23/2023 Posterior subcapsular polar age-related cataract, bilateral 08/28/2022 12/25/2022 Dry eyes due to decreased tear production 08/28/2022 12/25/2022 Laryngitis, chronic 08/28/2022 12/26/19 23 Non-seasonal allergic rhinitis 08/28/2022 12/25/2022 Vitreous degeneration, left eye 08/28/2022 12/25/2022 Nuclear senile cataract 07/24/2020 05/0 08/2023 Floaters in visual field, right 09/11/2019 12/25/2022 Pseudophakia of both eyes 08/19/2019 Other pneumonia, unspecified organism 04/17/2019 12/25/2022 Overview (10/17/2022): Last Assessment & Plan: Assessment: pt completes course of Levaquin today. Pt is afebrile, denies cough, SOB. Instructed patient to call [facility] if there are worsening symptoms. Pt is ok to proceed for low risk cataract procedure given resolution of symptoms. PVD (posterior vitreous deta chment), bilateral 02/20/2019 12/25/2022 S/P LASIK (laser assisted in situ keratomileusis) of both eyes 02/20/2019 12/25/2022 Tear film insufficiency, bilateral 02/20/2019 12/25/2022 Neoplasm of uncertain behavior of skin 12/04/2012 12/25/2022 Encounters Date Type Department Care Team Description 08/12/2024 10:00 AM EDT Office Visit [facility] [address] [facility] [address] [place] [address] Osorio Bullock MD Encounter for Medicare annual wellness exam (Primary Dx); Advance directive in chart; Encounter for screening for other disorder; Screening for alcohol problem; Screening for diabetes mellitus (DM); Screening mammogram, encounter for; Mixed dyslipidemia ; Mild intermittent asthma without complication (HCC); Age-related osteoporosis without current pathological fracture ; Surgical menopause; Cardiovascular event risk 08/12/2024 Bamboo flowsheet [facility] [address] [facility] [address] [place] [address] Osorio Bullock MD 08/12/2024 Travel from Last 3 Months Immunizations Immunization Administration Dates Next Due Novel [id number], preservative-free 02/24 Tdap 07/10/2024 Zoster, Recombinant 07/21/2022,04/29/2022 Family History Medical History Relation Name Comments No Known Problems Brother No Known Problems Daughter Heart disease Father Heart disease Mother Colon cancer Sister No Known Problems Son Relation Name Status Comments Brother Alive 1 brother Daughter Alive 2 daughters Father Mother Sister 1 sister Son Alive Social History Tobacco Use Types Packs/Day Years Used Date Smoking Tobacco: Former Cigarettes Passive Smoke Exposure: Never Smokeless Tobacco: Never Tobacco Cessation:Counseling Given: Yes Alcohol Use Standard Drinks/Week Comments Never 0 (1 standard drink = 0.6 oz pur e alcohol) Caffeine intake: none PHQ-2 Answer Date Recorded Patient Health Questionnaire-2 Score 0 08/12/2024 Comments No Sex and Gender Information Value Date Recorded Sex Assigned at Not on file Legal Sex Female 6:42 PM EDT Gender Identity Not on file Sexual Orientation Not on file Occupation Industry Job Start Date Job End Date Retired Not on file Not on file Not on file Last Filed Vital Signs Vital Sign Reading Time Taken Comments Blood Pressure 116/68 08/12/2024 10:38 AM EDT Pulse 84 08/12/2024 10:38 AM EDT Temperature - - Respiratory Rate - - Oxygen Saturation 99% 08/12/2024 10:38 AM EDT Inhaled Oxygen Concentration - - Weight 45.2 kg (99 lb 12 oz) 08/12/2024 10:38 AM EDT Height 152.4 cm (5') 08/12/2024 10:38 AM EDT Body Mass Index 19.48 08/12/2024 10:38 AM EDT Plan of Treatment Health Maintenance Due Date Last Done Comments Influenza Vaccine (Season Ended) 2024 Medicare Annual Wellness (AWV) 08/12/2025 08/12/2024 , 07/23/2023 Pneumococcal Vaccine: 65+ Years Discontinued Insurance [employer] MEDICARE ADVANTAGE Advance Directives Documents on File Type Date Recorded Patient Breastfeeding Program Coordinator Expl anation Advance Directives and Living Will 05/13/2019 2006-03-14 Power Of Exhaust Emissions Automotive Technician Advance Directives and Living Will 05/13/2019 2006-03-14 Living [place] Advance Directives and Living Will 05/08/2018 2006-03-14 Power Of Exhaust Emissions Automotive Technician Advance Directives and Living Will 05/08/2018 2006-03-14 Living [facility] Care Teams Client Service Executive Relationship Specialty Start Date End Date Osorio Bullock MD [address] [place] [address] (Fax) PCP - [employer] 03/19/20 Osorio Bullock MD [address] [place] [address] (Fax) PCP - General Family Medicine 08/23/22 Chanel Velez MD [address] [place] [address] Referring Physician Otolaryngology 07/23/23 Gorge Dennis DO [address] [facility] [address] [place] [address] Referring Physician General Surgery 07/23/23 Clara Moralez MD [address] [place] [address] Referring Physician Optometry 07/23/23
--- OUTSIDE RECORDS SUMMARY | 2024-09-05 09:25 | XMS_ITS | Clinical Summary ---
Author Organization [facility] Address [address] [place] [address] Care Team Providers Care Cylinder Steamer Name Role Phone Osorio Bullock MD Primary Care Provider Bhavik Mota MD Unavailable Unavailable Allergies Active Allergy Reactions Criticality Noted Date Comments Penicillins Itching,Rash Low 10/09/2012 Medications multivitamin with minerals (MULTIPLE VITAMINS 55 PLUS ORAL) Take 1 tablet by mouth. Active albuterol HFA (PROVENTIL HFA, VENTOLIN HFA) 90 mcg/actuation inhaler Inhale 2 Puffs as instructed. Active ascorbic acid, vitamin C, (VITAMIN C) 250 mg tablet Take 250 mg by mouth. Active calcium carbonate (OS-GOYO 500) 500 mg calcium (1,250 mg) tablet Take 500 mg by mouth. Active cholecalciferol (VITAMIN D3) 5,000 unit tab Take 1 tablet by mouth. Active ipratropium-alb uterol (COMBIVENT RESPIMAT) 20-100 mcg/actuation mist PRN 3 Active azelastine (ASTELIN) 0.1% nasal spray Use 2 Sprays in each nostril twice daily. 1 Active PREMARIN vaginal cream Use 1 g vaginally. 5 Active budesonide (PULMICORT) 0.5 mg/2 mL nebulizer solution For lymphocytic esophagitis. Mix 4 respules with 5 packs of Splenda and swallow daily. Do not eat or drink for 30 minutes after 720 mL 3 5 Active Active Problems Problem Noted Date Diagnosed Date Floaters in visual field, right 09/11/2019 History of YAG laser capsulotomy of lens 020 PCO (posterior capsular opacification), bilatera l 08/19/2019 Pseudophakia of both eyes 08/19/2019 Other pneumonia, unspecified organism 04/17/2019 Assessment & Plan (04/17/2019 8:41 AM EST): Assessment: pt completes course of Levaquin today. Pt is afebrile, denies cough, SOB. Instructed patient to call [facility] if there are worsening symptoms. Pt is ok to proceed for low risk cataract procedure given resolution of symptoms. Combined forms of age-related cataract of both e yes 02/20/2019 Tear film insufficiency, bilateral 02/20/2019 S/P LASIK (laser assisted in situ keratomileusis) of both eyes 02/20/2019 PVD (posterior vitreous detachment), bilateral 1 04/23/2018 Asthma Assessment & Plan (04/17/2019 8:39 AM EST): Assessment: WELL CONTEROLLD, rare use of albuterol Family History Medical History Relation Comments Cataract Mother Colon Cancer Sister Relation Status Comments Mother Sister Social History Tobacco Use Types Packs/Day Years [...] is lower risk 4 10/18/2023 Data from: https://www.neighborhoodatlas.medicine.[facility].edu/. Last address used for calculation [address] 10/18/2023 Comments No Sex and Gender Information Value Date Recorded Sex Assigned at Not on file Legal Sex Female 10:12 AM EST Gender Identity Not on file Sexual Orientation Not on file Last Filed Vital Signs Vital Sign Reading Time Taken Comments Blood Pressure 139/63 04/04/2024 12:00 PM EST Pulse 71 04/04/2024 12:00 PM EST Temperature 35.7 C (96.3 F) 04/04/2024 10:50 AM EST Respiratory Rate 16 04/04/2024 12:00 PM EST Oxygen Saturation 95% 04/04/2024 12:00 PM EST Inhaled Oxygen Concentration - - Weight 44.9 kg (99 lb) 04/04/2024 10:50 AM EST Height 152.4 cm (5') 04/04/2024 10:50 AM EST Body Mass Index 19.33 04/04/2024 10:50 AM EST Plan of Treatment Health Maintenance Due Date Last Done Comments Annual PCP Team Chronic Disease Visit 1962 Anxiety Screening 1962 Depression Screening 1962 DTaP,Tdap,Td Vaccine (1 - Tdap) 10/12/1963 Diabetes Screening 1989 Pneumococcal Vaccine: 50+ (1 of 1 - PCV) 1994 RSV Vaccine (1 - 1-dose 75+ series) 10/12/2019 Covid-19 Vaccine ( - season) 2023, 04/05/2020 Advance Directive Discussion 03/19/2024 Medicare Advantage Annual Wellness Visit 03/19/2024 Influenza Vaccine (Season Ended) 2024 02/25/20 09 Bone Density Screening Completed 07/22/2020, 2018 Mammogram Screening Discontinued 07/22/2020 Shingrix Vaccine Completed 07/21/2022, 04/29/2022 Medical Devices Implanted Type Area Raw Stock Machine Loader Device Identifier Shelf Expiration Date Model / Serial / Lot Lens Iol 0d +24.5 Kisha Uv Abs - [id number] Implanted:Qty : 1 on 04/28/2019 by Sri Dumont V, MD at [facility] Intraocular Lens Left: Eye [employer] 09/16/2023 SA60WF 24.5 / [id number] / Description:n/a Lens Iol 0d +22.5 Kisha Uv Abs - [id number] Implanted:Qty : 1 on 05/12/2019 by Sri Dumont V, MD at [facility] Intraocular Lens Right: Eye [employer] 09/16/2023 SA60WF 22.5 / [id number] / Description:n/a Insurance [address] [place] [address] AETNA MEDICARE Care Teams Cylinder Steamer Relationship Specialty Start Date End Date Osorio Bullock MD [address] [facility] [phone] PCP - General Family Medicine 04/28/19 Bhavik Mota MD [address] [facility]; [address] [place] [address] Referring Gastroenterology 09/19/23
--- OUTSIDE RECORDS SUMMARY | 2024-09-05 09:25 | XMS_ITS | Encounter Summary ---
Author Organization [facility] Address [address] [place] [address] Care Team Providers Care Infection Prevention Practitioner Name Role Phone Osorio Bullock MD Primary Care Provider Bhavik Mota MD Unavailable Unavailable Source Comments In the event this information is protected by the Federal Confidentiality of Alcohol and Drug AbusePatient Records regulations: The Federal rules restrict any use of the information to criminally investigate or prosecute any alcohol or drug abuse patient.[facility] Encounter Details Date Type Department Care Team (Late st Contact Info) Description 04/18/2024 Patient Msg Gastroenterology [address] [id number] Moose Tan MD [address] [place] [address] Discomfort Social History Tobacco Use Types Packs/Day Years [...] is lower risk 4 10/18/2023 Data from: https://www.neighborhoodatlas.medicine.[facility].edu/. Last address used for calculation [id number] [place] [address] Rd [address] 10/18/2023 Comments No Sex and Gender Information Value Date Recorded Sex Assigned at Not on file Legal Sex Female 10:12 AM EST Gender Identity Not on file Sexual Orientation Not on file documented as of this encounter Plan of Treatment Not on file documented as of this encounter Visit Diagnoses Not on filedocumented in this encounter Care Teams Infection Prevention Practitioner Relationship Specialty Start Date End Date Osorio Bullock MD [address] [facility] [place] [address] PCP - General Family Medicine 04/28/19 Bhavik Mota MD [address] [facility]; [address] [place] [address] Referring Gastroenterology 09/19/23 documented as of this encounter
--- OUTSIDE RECORDS SUMMARY | 2024-09-05 09:25 | XMS_ITS | Encounter Summary ---
Author Organization [facility] Address [address] [place] [address] Care Team Providers Care Clear Coat Sprayer Name Role Phone Osorio Bullock MD Unavailable [phone] Osorio Bullock MD Primary Care Provider [phone] Chanel Velez MD Unavailable [phone] Gorge Dennis DO Unavailable [phone] Clara Moralez MD Unavailable Encounter Details Date Type Department Care Team (Late st Contact Info) Description 07/19/2023 Clinisync Result Encounter [facility] External Department Unsolicited [...] Procedure Name Priority Date/Time Associated Diagnosis Comments FL MODIFIED BARIUM SWALLOW 07/19/2023 2:37 PM EDT documented in this encounter Results * FL MODIFIED BARIUM SWALLOW (07/19/2023 2:37 PM EDT) Anatomical Region Laterality Modality Radiographic Lizzy ging 07/19/2023 2:37 PM EDT Narrative 07/19/2023 2:40 PM EDT The [address] [address] Fluoroscopy Report Signed Patient: HERMAN BUCKNER MR#: [id number] : 1945 Acct:[id number] Age/Sex: 77 / F ADM Date: 07/19/23 Loc: [place] Attending Dr: Chanel Velez M.D. Ordering Physician: Chanel Velez M.D. Date of Service: 07/19/23 Procedure(s): FL modified barium swallow Accession Number(s): [id number] cc: OSORIO BULLOCK ; Chanel Velez M.D. The [place] [id number] Patient Name: HERMAN BUCKNER MRN: [id number] date: 1945 Sex: F Assigned Patient Location: [place] Current Patient Location: [place] Accession/Order Number: [id number] Exam Date: 07/19/2023 13:15 Report Date: 07/19/2023 14:37 At the request of: CHANEL VELEZ Procedure: FL modified barium swallow EXAMINATION: FL modified barium swallow HISTORY: Pharyngeal Dysphagia R13.13 FLUORO DOSE: mGy Reference air kerma (Ka,r) COMPARISON: No relevant comparison available. TECHNIQUE: A [...] IMPRESSION: Moderate narrowing of the upper esophagus Electronically authenticated by: LUCRETIA RENDON Date: 07/19/2023 14:37 Dictated By: Lucretia Rendon M.D. Signed By: 07/19/23 8770 DD/ 36 TD/TT: Director Selection And Administration: Procedure Note Radiology, Radiologist, - 07/19/2023 The [place] [id number] Fluoroscopy Report Signed Patient: HERMAN BUCKNER LMR#: [id number] : 5Acct:[id number] Age/Sex: 77 / FADM Date: 07/19/23 Loc: [place] Attending Dr: Chanel Velez M.D. Ordering Physician: Chanel Velez M.D. Date of Service: 07/19/23 Procedure(s): FL modified barium swallow Accession Number(s): [id number] cc: OSORIO BULLOCK ; Chanel Velez M.D. [place] [id number] Patient Name: HERMAN BUCKNER MRN: [facility]:[id number] date: 1945 Sex: F Assigned Patient Location: [place] Current Patient Location: [place] Accession/Order Number: [id number] Exam Date: 07/19/2023 13:15 Report Date: 07/19/2023 14:37 At the request of: CHANEL VELEZ Procedure: FL modified barium swallow EXAMINATION: FL modified barium swallow HISTORY: Pharyngeal Dysphagia R13.13 FLUORO DOSE: mGy Reference air kerma (Ka,r) COMPARISON: No relevant comparison available. TECHNIQUE: A [...] IMPRESSION: Moderate narrowing of the upper esophagus Electronically authenticated by: LUCRETIA RENDON Date: 07/19/2023 14:37 Dictated By: Lucretia Rendon M.D. Signed By:07/19/231439 DD/ 36 TD/TT: Director Selection And Administration: Generic External Data Provider IMG XR PROCEDURES Final Result documented in this encounter Visit Diagnoses Not on filedocumented in this encounter Care Teams Clear Coat Sprayer Relationship Specialty Start Date End Date Osorio Bullock MD [address] [place] [address] PCP - [employer] 03/19/20 Osorio Bullock MD [address] [place] [address] PCP - General Family Medicine 08/23/22 Chanel Velez MD [address] [facility] [address] [place] [address] Referring Physician Otolaryngology 07/23/23 Gorge Dennis DO [address] [facility] 150 [place] [address] Referring Physician General Surgery 07/23/23 Clara Moralez MD [address] [place] [address] Referring Physician Optometry 07/23/23 documented as of this encounter
--- OUTSIDE RECORDS SUMMARY | 2024-09-05 09:25 | XMS_ITS | Encounter Summary ---
Author Organization [facility] Address [address] [place] [address] Care Team Providers Care Stocking Inspector Name Role Phone Osorio Bullock MD Unavailable [phone] Osorio Bullock MD Primary Care Provider [phone] Chanel Velez MD Unavailable [phone] Gorge Dennis DO Unavailable [phone] Clara Moralez MD Unavailable Encounter Details [...] Associated Diagnosis Comments FL MODIFIED BARIUM SWALLOW 07/13/2023 12:48 PM EDT documented in this encounter Results * FL MODIFIED BARIUM SWALLOW (07/13/2023 12:48 PM EDT) Anatomical Region Laterality Modality Radiographic Lizzy ging 07/13/2023 12:4 8 PM EDT Narrative 07/13/2023 12:50 PM EDT [address] [address] Fluoroscopy Report Signed Patient: HERMAN BUCKNER MR#: [id number] : 1945 Acct:[id number] Age/Sex: 77 / F ADM Date: 07/13/23 Loc: [place] Attending Dr: Chanel Velez M.D. Ordering Physician: Chanel Velez M.D. Date of Service: 07/13/23 Procedure(s): FL barium swallow Accession Number(s): [id number] cc: OSORIO BULLOCK ; Chanel Velez M.D. [place] [address] Patient Name: HERMAN BUCKNER MRN: [id number] date: 1945 Sex: F Assigned Patient Location: [place] Current Patient Location: [place] Accession/Order Number: [id number] Exam Date: 07/13/2023 09:00 Report Date: 07/13/2023 12:48 At the request of: CHANEL VELEZ Procedure: FL barium swallow EXAMINATION: FL barium swallow, FL cineradiography HISTORY: [...] clearing of the esophagus OTHER: Negative. 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 Signed By: 07/13/23 1250 DD/ 1248 TD/TT: Behavioral Health Case Manager: Procedure Note Radiology, Radiologist, MD Lawson 07/13/2023 The [place] [id number] Fluoroscopy Report Signed Patient: HERMAN BUCKNER LMR#: [id number] : 5Acct:[id number] Age/Sex: 77 / FADM Date: 07/13/23 Loc: [place] Attending Dr: Chanel Velez M.D. Ordering Physician: Chanel Velez M.D. Date of Service: 07/13/23 Procedure(s): FL barium swallow Accession Number(s): [id number] cc: OSORIO BULLOCK ; Chanel Velez M.D. The [place] [id number] Patient Name: HERMAN BUCKNER MRN: [id number] date: 1945 Sex: F Assigned Patient Location: [place] Current Patient Location: [place] Accession/Order Number: [id number] Exam Date: 07/13/2023 09:00 Report Date: 07/13/2023 12:48 At the request of: CHANEL VELEZ Procedure: FL barium swallow EXAMINATION: FL barium swallow, FL cineradiography HISTORY: [...] clearing of the esophagus OTHER: Negative. 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 Signed By:07/13/23 125 DD/ 1242 TD/TT: Behavioral Health Case Manager: us Generic External Data Provider IMG XR PROCEDURES Final Result documented in this encounter Visit Diagnoses Not on filedocumented in this encounter Care Teams Stocking Inspector Relationship Specialty Start Date End Date Osorio Bullock MD [address] [place] [address] (Fax) PCP - [employer] 03/19/20 Osorio Bullcok MD [address] [place] [address] (Fax) PCP - General Family Medicine 08/23/22 Chanel Velez MD [address] [place] [address] Referring Physician Otolaryngology 07/23/23 Gorge Dennis DO [address] [facility] [address] [place], [place] [id number] Referring Physician General Surgery 07/23/23 Clara Moralez MD [address] [place] [address] Referring Physician Optometry 07/23/23 documented as of this encounter
--- OUTSIDE RECORDS SUMMARY | 2024-09-05 09:25 | XMS_ITS | Clinical Summary ---
Author Organization [facility] Address [address] [place] [address] Care Team Providers Care Softball Winder Name Role Phone Osorio Bullock MD Primary Care Provider [phone] Allergies Active Allergy Reactions Criticality Noted Date Comments Penicillins Itching,Rash Low 10/09/2012 Medications COMBIVENT RESPIMAT 20-100 MCG/ACT AERS inhaler 08/10/2012 Active albuterol (PROVENTIL HFA;VENTOLIN HFA) 108 (90 BASE) MCG/ACT inhaler Inhale 2 puffs into the lungs every 6 hours as needed. Active calcium carbonate (OSCAL) 500 MG TABS tablet Take 500 mg by mouth daily. Active Ascorbic Acid (VITAMIN C) 250 MG tablet Take 250 mg by mouth daily. Active Cholecalciferol (VITAMIN D-3) 5000 UNITS TABS Take 1 tablet by mouth daily. Active Multiple Vitamins-Mineral s (MULTIVITAMIN PO) Take 1 tablet by mouth daily. 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 Social History Tobacco Use Types Packs/Day Years Used Date Smoking Tobacco: Never Alcohol Use Standard Drinks/Week Comments No 0 (1 standard drink = 0.6 oz pur e alcohol) Comments No Sex and Gender Information Value Date Recorded Sex Assigned at Not on file Legal Sex Female 2:03 PM EST Gender Identity Not on file Sexual Orientation Not on file Last Filed Vital Signs Vital Sign Reading Time Taken Comments Blood Pressure 114/71 11/20/2012 8:52 AM EDT Pulse 59 11/20/2012 8:52 AM EDT Temperature 36.6 C (97.9 F) 11/20/2012 8:40 AM EDT Respiratory Rate 15 11/20/2012 8:52 AM EDT Oxygen Saturation 98% 11/20/2012 8:55 AM EDT Inhaled Oxygen Concentration - - Weight 41.3 kg (91 lb) 12/04/2012 2:52 PM EDT Height 149.9 cm (4' 11 ) 12/04/2012 2:52 PM EDT Body Mass Index 18.38 12/04/2012 2:52 PM EDT Plan of Treatment Not on file Care Teams Softball Winder Relationship Specialty Start Date End Date Osorio Bullock MD PCP - General 08/28/12
--- OUTSIDE RECORDS SUMMARY | 2024-09-05 09:25 | XMS_ITS | Encounter Summary ---
Author Organization [facility] Address [address] [place] [address] Care Team Providers Care Ditch Worker Name Role Phone Osorio Bullock MD Unavailable [phone] Osorio Bullock MD Primary Care Provider [phone] Chanel Velez MD Unavailable Gorge Dennis DO Unavailable [phone] Clara Moralez MD Unavailable Encounter Details Date Type Department Care Team (Late st Contact Info) Description 07/06/2023 Orders Only [facility] [address] [place] [address] Rin Brown, ALEKSANDER [address] [facility] [address] [place] [address] Pharyngeal dysphagia; Pharyngoesophageal dysphagia Social History Tobacco Use Types Packs/Day Years [...] documented as of this encounter Visit Diagnoses Diagnosis Pharyngeal dysphagia Dysphagia, pharyngeal phase Pharyngoesophageal dysphagia Dysphagia, pharyngoesophageal phase documented in this encounter Care Teams Ditch Worker Relationship Specialty Start Date End Date Osorio Bullock MD [address] [facility] [address] [place] [address] PCP - [employer] 03/19/20 Osorio Bullock MD [address] [facility] [address] [place] [address] PCP - General Family Medicine 08/23/22 Chanel Velez MD [address] [facility] [address] [place] [address] Referring Physician Otolaryngology 07/23/23 Gorge Dennis DO [address] [place] [address] [address] [place] [address] Referring Physician General Surgery 07/23/23 Clara Moralez MD [address] [place] [address] Referring Physician Optometry 07/23/23 documented as of this encounter
--- OUTSIDE RECORDS SUMMARY | 2024-09-05 09:25 | XMS_ITS | Encounter Summary ---
Author Organization [facility] Address [address] [place] [address] Care Team Providers Care Central Sterilization Technician Name Role Phone Osorio Bullock MD Primary Care Provider Bhavik Mota MD Unavailable Unavailable Source Comments In the event this information is protected by the Federal Confidentiality of Alcohol and Drug AbusePatient Records regulations: The Federal rules restrict any use of the information to criminally investigate or prosecute any alcohol or drug abuse patient.[facility] Encounter Details Date Type Department Care Team (Late st Contact Info) Description 03/28/2024 Patient Msg Gastroenterology [address] [place] [address] Cinthia Garcia RN Prep instrutions for 04/04/24 appt Social History Tobacco Use Types Packs/Day Years [...] is lower risk 4 10/18/2023 Data from: https://www.neighborhoodatlas.medicine.[facility].edu/. Last address used for calculation [id number] [place] [address] [address] 10/18/2023 Comments No Sex and Gender Information Value Date Recorded Sex Assigned at Not on file Legal Sex Female 10:12 AM EST Gender Identity Not on file Sexual Orientation Not on file documented as of this encounter Plan of Treatment Not on file documented as of this encounter Visit Diagnoses Not on filedocumented in this encounter Care Teams Central Sterilization Technician Relationship Specialty Start Date End Date Osorio Bullock MD [address] [facility] [place] [address] PCP - General Family Medicine 04/28/19 Bhavik Mota MD [address] [facility]; [address] [place] [address] Referring Gastroenterology 09/19/23 documented as of this encounter
--- NOTE | 2024-09-05 09:33 | MM_ITS ---
Patient Name: HERMAN BUCKNER MR#: [id number] : 1945 Exam Date: 09/05/2024 Ordering Doctor: DR NIKOS HARPER . RADIOLOGY REPORT PROCEDURE: MM TOMOSYNTHESIS SCREENING BI COMPARISON: MM TOMOSYNTHESIS SCREENING BI, 10/03/2022. MG MAMM JORY SCRN W CAD DIG, 07/13/2015. MG MAMM JORY SCRN W CAD DIG, 12/04/2013. INDICATIONS: Screening for malignant neoplasm Calculator Name NCI Breast Cancer Risk Assessment Tool 5 Year Breast Cancer Risk 2.30% Lifetime Breast Cancer Risk 3.80% Personal Breast Cancer No Personal Ovarian Cancer No Treatments None Family Cancers None LOCATION: [facility] BREAST COMPOSITION: The breasts are extremely dense, which lowers the sensitivity of mammography. FINDINGS: DIAGNOSTIC CATEGORY 1--NEGATIVE. RIGHT BREAST: No significant suspicious finding. LEFT BREAST: No significant suspicious finding. RECOMMENDATIONS: ROUTINE MAMMOGRAM AND CLINICAL EVALUATION IN 12 MONTHS. PLEASE NOTE: A NORMAL MAMMOGRAM DOES NOT EXCLUDE THE POSSIBILITY OF BREAST CANCER. A CLINICALLY SUSPICIOUS PALPABLE LUMP SHOULD BE BIOPSIED. Dictated by: Braeden Dodson DO on 09/05/2024 at 15:56 Approved by: Braeden Dodson DO on 09/05/2024 at 15:58
--- OUTSIDE RECORDS SUMMARY | 2024-09-05 09:45 | XMS_ITS | CCD ---
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 Name Role Phone MEREDITH, DR KNOTT Primary Care Unavailable HEMEYER, DR KNOTT Consulting Unavailable HEMEYER, DR KNOTT Attending Unavailable HEMEYER, DR KNOTT Admitting Unavailable REQUEST, DR SANTIAGO LISTED Admitting Unavaila ble REQUEST, DR SANTIAGO LISTED Consulting Unavaila ble REQUEST, DR SANTIAGO LISTED Attending Unavaila ble REQUEST, DR SANTIAGO LISTED Admitting Unavaila ble REQUEST, DR SANTIAGO LISTED Consulting Unavaila ble REQUEST, DR SANTIAGO LISTED Attending Unavaila ble HEMEYER, DR KNOTT Primary Care Unavailable PAY, DR DANIEL Admitting Unavailable PAY, DR DANIEL Consulting Unavailable PAY, DR DANIEL Attending Unavailable GRECHAUDREY, TODD ALMODOVAR Consulting Unavailable AHDOOT, DANY Consulting Unavailable HAY, DR ALEJO Attending Unavailable HEMEYER, DR KNOTT Primary Care Unavailable CAITLYN, DR SALEH Consulting Unavailable JOSE A, DR ALEJO Admitting Unavailable Petey, [place] Consulting Unavailable HEMEYER, DR KNOTT Consulting Unavailable HEMEYER, DR KNOTT Attending Unavailable HEMEYER, DR KNOTT Admitting Unavailable HEMEYER, DR KNOTT Primary Care Unavailable Osorio Harper MD Primary Care Provider MD Bhavik Mtoa Attending Provider [phone] MD Osorio Harper Primary Care Provider [phone] MD Osorio Harper Referring Provider Bhavik Mota Admitting Unavailable hBavik Mota Attending Unavailable Osorio Harper Primary Care Unavailable Osorio Harper Referring Unavailable Gorge Dennis Admitting Unavailable Gorge Dennis Attending Unavailable Osorio Harper MD Primary Care Provider Bhavik Mota MD Unavailable Unavailable Osorio Harper MD Unavailable [phone] Osorio Harper MD Primary Care Provider Agustin FONSECA, Chanel Hurst Unavailable [phone] Gorge Dennis DO Unavailable Clara Moralez MD Unavailable BENITO HURTADO Referring Unavailable [facility] Unavailab dmitriy HARPER, [facility] Unavailab BENITO Borjas Attending Unavailable HEMERAMIREZ, [facility] Unavailab MOOSE Hennessy Attending Unavailable BENITO HURTADO Referring Unavailable MEREDITH, [facility] UnavailMOOSE Ch Referring Unavailable MOOSE TAN Attending Unavailable MOOSE TAN Referring Unavailable MOOSE TAN Attending Unavailable MEREDITH, [facility] Unavailab OSORIO Spicer Attending Unavailable AUGUST ROBBINS Attending Unavailable Allergies Allergy Classification Reported Allergen(s) Allergy Type Date of Onset Reaction(s) Facility Penicillins (antibiotic) (1 source) Penicillins Drug Allergy 08-27-2023 [facility] Repository (2 sources) Penicillins; Translations: [PENICILLINS] Drug allergy (disorder) 10-09-2012 [facility] Repository (13 sources) Penicillins Drug Allergy 10-09-2012 Itching, Rash [facility] (6 sources) Penicillins Drug Allergy 08-28-2022 [facility] Medications Current Medications Medication Drug Class(es) Dates Sig (Normalized) Sig (Original) [id number] 200 actuat albuterol 0.09 mg/actuat metered dose inhaler (20 sources) beta2-Adrenergic Agonist Start: 08-12-2024 End: 11-10-2024 take 2 puff(s) by inhalation every six hours for wheezing albuterol HFA 90 mcg/act inhaler Indications: Mild intermittent asthma without complication ([facility]) Inhale 2 puffs every 6 (six) hours if needed for wheezing 54 g 08/12/2024 11/10/2024 Active Start: 08-27-2023 Albuterol Acti ve MCG INHALATION .prn August 27, 2023 12:00am albuterol HFA (P ROVENTIL HFA, VENTOLIN HFA) 90 mcg/actuation inhaler Inhale 2 Puffs as instructed. Active Comment on above: Inhale 2 Puffs as in structed. 120 actuat albuterol 0.1 mg/actuat / ipratropium bromide 0.02 mg/actuat inhalation spray (13 sources) Anticholinergic, beta2-Adrenergic Agonist Start: 08-11-19 13 ipratropium-albuterol (COMBIVENT RESPIMAT) 20-100 mcg/actuation mist PRN 08/10/2012 Active Comment on above: PRN ascorbic acid 250 mg oral tablet (13 sources) Vitamin C ascorbic acid, v itamin C, (VITAMIN C) 250 mg tablet Take 250 mg by mouth. Active Comment on above: Take 250 mg by mouth . azelastine hydrochloride 0.137 mg/actuat metered dose nasal spray (13 sources) Histamine-1 Receptor Antagonist Start: 10-01-19 21 take 2 spray(s) nasal route twice daily azelastine (ASTELIN) 0.1% nasal spray Use 2 Sprays in each nostril twice daily. 09/30/2020 Active Comment on above: Use 2 Sprays in each nostril twice daily. calcium carbonate 1250 mg oral tablet (13 sources) calcium carbonat e (OS-GOYO 500) 500 mg calcium (1,250 mg) tablet Take 500 mg by mouth. Active Comment on above: Take 500 mg by mouth . calcium citrate 950 mg oral tablet (2 sources) calcium citrate (Calcitrate) 950 (200 Ca) MG tablet Take 250 mg by mouth Daily Active cholecalciferol 0.125 mg oral capsule (19 sources) Vitamin D cholecalciferol (Vitamin D-3) 125 MCG (5000 UT) capsule 1 capsule 1 (one) time each day at the same time. Active cholecalciferol (VITAMIN D3) 5,000 unit tab Take 1 tablet by mouth. Active Comment on above: Take 1 tablet by andrea th. estrogens, conjugated (fpc) 0.625 mg/ml vaginal cream (4 sources) Estrogen Start: 03-26-2024 End: 04-25-2024 PREMARIN vaginal cream Use 1 g vaginally. 03/26/2024 04/25/2024 Active Start: 03-26-2024 End: 04-25-2024 Estrogens Conjugated (Premar in) 0.625 MG/GM cream Indications: Postmenopausal bleeding , Urethral caruncle Insert 1 g into the vagina Daily Insert 1/2 applicator at bedtime nightly for 2 weeks then twice a week thereafter 1 g 3 03/26/2024 04/25/2024 Active multivitamin (Theragran) tablet (2 sources) take 1 tablet by andrea th once daily multivitamin (Theragran) tablet Take 1 tablet by mouth Daily Active multivitamin with minerals (MULTIPLE VITAMINS 55 PLUS ORAL) (13 sources) multivitamin wit h minerals (MULTIPLE VITAMINS 55 PLUS ORAL) Take 1 tablet by mouth. Active multivitamin wit h minerals (MULTIPLE VITAMINS 55 PLUS ORAL) Take 1 tablet by mouth. 0 Active Comment on above: Take 1 tablet by andrea th. Completed/Discontinued Medications Medication Drug Class(es) Dates Sig (Normalized) Sig (Original) Benzocaine (1 source) Standardized Chemical Allergen Start: 04-04-2024 End: 04-04-2024 TOPICAL, X (OR/PROCEDURE) PRN, Starting on Sun04/04/24 at 1131, Until Sun04/04/24 at 1131, Intraprocedure budesonide 0.25 mg/ml inhalation suspension (9 sources) Corticosteroid Start: 12-28-2023 End: 04-04-2024 budesonide (PULMICORT) 0.5 mg/2 mL nebulizer solution For lymphocytic esophagitis. Mix 4 respules with 5 packs of Splenda and swallow daily. Do not eat or drink for 30 minutes after 720 mL 3 01/08/2024 04/04/2024 Discontinued budesonide (Pulm icort) 0.5 MG/2ML nebulizer solution Take 0.25 mg by nebulization See administration instructions For lymphocytic esophagitis. Mix 4 respules with 5 packs of Splenda and swallow daily. Do not eat or drink for 30 minutes after Active 1 ml fentaNYL 0.05 mg/ml injection (2 sources) Opioid Agonist Start: 04-04-2024 End: 04-04-2024 INTRAVENOUS, X (OR/PROCEDURE) PRN, Starting on Sun04/04/24 at 1136, Until Sun04/04/24 at 1136, Intraprocedure Start: 01-08-2024 End: 01-08-2024 INTRAVENOUS, X (OR/PROCEDURE ) PRN, Starting on Sun01/08/24 at 0851, Until Sun01/08/24 at 0851, Intraprocedure 5 ml midazolam 1 mg/ml injection (2 sources) Benzodiazepine Start: 04-04-2024 End: 04-04-2024 INTRAVENOUS, X (OR/PROCEDURE) PRN, Starting on Sun04/04/24 at 1136, Until Sun04/04/24 at 1139, Intraprocedure Start: 01-08-2024 End: 01-08-2024 INTRAVENOUS, X (OR/PROCEDURE ) PRN, Starting on Sun01/08/24 at 0851, Until Sun01/08/24 at 0901, Intraprocedure rosuvastatin calcium 5 mg oral tablet (3 sources) HMG-CoA Reductase Inhibitor Start: 12-25-2022 End: 03-26-2024 take 1 tablet by mouth in the morning rosuvastatin (Crestor) 5 MG tablet Indications: Mixed dyslipidemia (CMS/HCC) Take 1 tablet (5 mg) by mouth in the morning. 90 tablet 3 12/25/2022 03/26/2024 Discontinued Problems Active Problems Problem Classification Problem Date Documented Date Episodic/Chronic Asthma (20 sources) Asthma; Translations: [Unspecified asthma, uncomplicated] Onset: 3 Resolved: 3 04-17-2019 Chronic Cataract (20 sources) Bilateral pseudophakia; Translations: [Presence of intraocular lens] Onset: 9 Resolved: 4 Chronic Chronic kidney disease (6 sources) Chronic kidney disease stage 2; Translations: [Chronic kidney disease, stage 2 (mild)] Onset: 3 08-28-2022 Chronic Complications of surgical procedures or medical care (8 sources) Postsurgical menopause; Translations: [Asymptomatic postprocedural ovarian failure] Onset: 3 08-28-2022 Chronic Disorders of lipid metabolism (8 sources) Dyslipidemia; Translations: [Mixed hyperlipidemia] Onset: 3 08-28-2022 Chronic Esophageal disorders (10 sources) Esophageal dysmotility; Translations: [Dyskinesia of esophagus] Onset: 4 12-12-2023 Chronic Esophageal disorders (2 sources) Esophagitis; Translations: [Lymphocytic esophagitis] 12-28-2023 Episodic Immunizations and screening for infectious disease (1 source) Encounter for immunization; Translations: [ENCOUNTER FOR IMMUNIZATION] Onset: 2 Episodic Malaise and fatigue (1 source) Other fatigue; Translations: [OTHER FATIGUE] Onset: 2 Episodic Menopausal disorders (2 sources) Postmenopausal bleeding; Translations: [Postmenopausal bleeding] 03-26-2024 Chronic Nutritional deficiencies (6 sources) Vitamin D deficiency; Translations: [Vitamin D deficiency, unspecified] Onset: 3 08-28-2022 Chronic Osteoporosis (8 sources) Senile osteoporosis; Translations: [Age-related osteoporosis without current pathological fracture] Onset: 3 08-28-2022 Chronic Other diseases of bladder and urethra (2 sources) Urethral caruncle; Translations: [Urethral caruncle] 03-26-2024 Episodic Other eye disorders (1 source) Intermittent alternating esotropia; Translations: [Intermittent alternating esotropia] Episodic Other gastrointestinal disorders (1 source) Dysphagia, unspecified; Translations: [Dysphagia, unspecified] Onset: 4 Episodic Other gastrointestinal disorders (2 sources) Dysphagia; Translations: [Dysphagia, pharyngoesophageal phase] 10-18-2023 Episodic Other screening for suspected conditions (not mental disorders or infectious disease) (6 sources) Patient encounter status; Translations: [Encounter for screening for other disorder] 08-06-2024 Episodic Other upper respiratory disease (6 sources) Chronic laryngitis; Translations: [Chronic laryngitis] Onset: 3 Resolved: 3 12-25-2022 Chronic Residual codes; unclassified (2 sources) Active advance directive (copy within chart) ; Translations: [Other specified health status] 08-06-2024 Episodic Residual codes; unclassified (4 sources) Cardiovascular event risk; Translations: [Other specified personal risk factors, not elsewhere classified] Onset: 1 08-12-2024 Episodic Retinal detachments; defects; vascular occlusion; and retinopathy (7 sources) Epiretinal membrane of right eye; Translations: [Puckering of macula, right eye] Onset: 3 Chronic Screening and history of mental health and substance abuse codes (3 sources) Personal history of nicotine dependence; Translations: [Patient encounter status] Onset: 1 08-06-2024 Episodic Unclassified (3 sources) CONTACT W/AND (SUSP) EXPOS COVID-19; Translations: [CONTACT W/AND (SUSP) EXPOS COVID-19] Onset: 1 Unclassified (1 source) COUGH, UNSPECIFIED; Translations: [COUGH, UNSPECIFIED] Onset: 2 Viral infection (4 sources) COVID-19; Translations: [COVID-19] Onset: 2 Past or Other Problems Problem Classification Problem Date Documented Date Episodic/Chronic Anal and rectal conditions (1 source) Rectal polyp; Translations: [Rectal polyp] Onset: 11-10-19 Episodic Chronic obstructive pulmonary disease and bronchiectasis (1 source) Bronchitis, not specified as acute or chronic; Translations: [BRONCHITIS NOT SPEC ACUTE/CHRON] Onset: 11-17-19 Episodic E Codes: Struck by; against (1 source) Striking against or struck by other objects, initial encounter; Translations: [STRIKING AGNST/STRUCK OTH OBJ INIT] Onset: 08-19-19 Episodic Heart valve disorders (6 sources) Heart murmur; Translations: [Cardiac murmur, unspecified] Onset: 08-29-19 23 08-28-2022 Episodic Mood disorders (6 sources) Mood disorders Onset: 07-23-19 Resolved : 08-13-1907-23-2023 Neoplasms of unspecified nature or uncertain behavior (6 sources) Neoplasm of uncertain behavior of skin; Translations: [Neoplasm of uncertain behavior of skin] Onset: 12-05-19 13 Resolved : 12-26-19 23 12-25-2022 Episodic Nonspecific chest pain (3 sources) Chest pain, unspecified; Translations: [CHEST PAIN UNSPECIFIED] Onset: 08-16-19 Episodic Other bone disease and musculoskeletal deformities (1 source) Other specified disorders of bone density and structure, unspecified site; Translations: [OTH D/O BONE DEN STRUCT UNS SITE] Onset: 08-19-19 Episodic Other bone disease and musculoskeletal deformities (6 sources) Osteopenia; Translations: [Other specified disorders of bone density and structure, other site] Onset: 08-29-19 23 08-28-2022 Episodic Other eye disorders (20 sources) Bilateral posterior vitreous detachment; Translations: [Vitreous degeneration, bilateral] Onset: 02-21-20 Resolved : 12-26-19 Chronic Other eye disorders (19 sources) Vitreous floaters of right eye; Translations: [Other vitreous opacities, right eye] Onset: 09-11-19 Resolved : 12-26-1909-11-2019 Chronic Other eye disorders (6 sources) Vitreous degeneration of left eye; Translations: [Vitreous degeneration, left eye] Onset: 08-29-19 Resolved : 12-26-1912-25-2022 Chronic Other eye disorders (19 sources) Tear film insufficiency of bilateral eyes; Translations: [Dry eye syndrome of bilateral lacrimal glands] Onset: 02-21-20 Resolved : 12-26-1902-20-2019 Episodic Other eye disorders (19 sources) History of bivnrxd-llltovhi-muaidb (YAG) laser capsulotomy of lens; Translations: [Cataract extraction status, unspecified eye] Onset: 09-11-1909-11-2019 Episodic Other eye disorders (6 sources) Keratoconjunctivitis sicca; Translations: [Dry eye syndrome of unspecified lacrimal gland] Onset: 08-29-19 Resolved : 12-26-1912-25-2022 Episodic Other gastrointestinal disorders (1 source) Dysphagia, pharyngoesophageal phase; Translations: [Pharyngoesophageal dysphagia] Onset: 11-30-19 Episodic Other lower respiratory disease (4 sources) Cough; Translations: [COUGH] Onset: 11-13-19 Episodic Other lower respiratory disease (1 source) Solitary pulmonary nodule; Translations: [SOLITARY PULMONARY NODULE] Onset: 08-19-19 Episodic Other lower respiratory disease (6 sources) Nodule of lung; Translations: [Solitary pulmonary nodule] Onset: 08-29-1908-28-2022 Episodic Other upper respiratory disease (6 sources) Allergic rhinitis; Translations: [Other allergic rhinitis] Onset: 08-29-19 Resolved : 12-26-1912-25-2022 Chronic Other upper respiratory infections (1 source) Acute upper respiratory infection, unspecified; Translations: [ACUTE UP RESPIRATORY INFECTION UNS] Onset: 11-17-19 Episodic Pneumonia (except that caused by tuberculosis or sexually transmitted disease) (19 sources) Infective pneumonia; Translations: [Other pneumonia, unspecified organism] Onset: 04-17-19 Resolved : 12-26-1904-17-2019 Episodic Residual codes; unclassified (6 sources) Family history of cancer of colon; Translations: [Family history of malignant neoplasm of digestive organs] Onset: 10-18-1910-17-2022 Episodic Residual codes; unclassified (4 sources) At risk for acute ischemic cardiac event; Translations: [Other specified personal risk factors, not elsewhere classified] Onset: 07-25-19 Resolved : 12-26-1912-25-2022 Episodic Superficial injury; contusion (1 source) Contusion of left front wall of thorax, initial encounter; Translations: [CONTUS LT FRONT WALL THORAX INITIAL] Onset: 08-19-19 Episodic Unclassified (1 source) CONTACT W/AND (SUSP) EXPOS COVID-19; Translations: [CONTACT W/AND (SUSP) EXPOS COVID-19] Onset: 03-17-20 Results Test Name Value Interpretation Reference Range Facility EGD Study observation Sue rollins 04-04-2024 A31 Gastrointestinal Endoscopy Patient Name: Nguyen Buckner Procedure Date: 04/04/2024 11:04 AM Date of : 1945 Admit Type: Outpatient Age: 78 Room: [place] [address] Gender: Female Note Status: Finalized Attending MD: Moose Tan MD, [id number] Procedure: Upper GI endoscopy Indications: For therapy [...] Recommendation: - Continue present medications. - Resume pr (more content not included)... PROVATION [facility] Radiology Study observation (narrative) [facility] HISTORY PHYSICALon 5 HISTORY PHYSICAL HNO ID: [id number] Author: MOOSE TAN MD Service: ? Author Type: Physician Type: H&P Filed: 04/04/2024 11:36 Note Text: HISTORY AND PHYSICAL Nguyen Buckner, 78 year old female Current history and physical on file: Yes Is a new History and Physical required for today's visit? Yes Indication for procedure: Dysphagia PROCEDURE(S) SCHEDULED FOR: Dilation (any means), treatment of bleeding (any means) based on clinical findings and EGD (Esophagogastroduoden oscopy) with or without biopsies, [...] Abdomen soft, non-tender, no masses or organomegaly. Sedation Plan: Moderate Additional Comments: None Moose Tan MD [facility] NURSING PROGon 04-04-2024 NURSING PROG HNO ID: [id number] Author: BIMAL ROCHE, ALEKSANDER Service: Nursing Author Type: Registered Nurse Type: Nursing Progress Note Filed: 04/04/2024 12:12 Note Text: AMBULATORY PATIENT EDUCATION NOTE TOPIC: GI PROCEDURES: Endoscopic Retrograde CholangioPancreatogra phy(ERCP) with or without biopsy,stenting,dilat ion and/or treatment READINESS TO LEARN INSTRUCTION PROVIDED TO: Patient, readness to learn accessed prior to procedure, Family member, and Spouse COGNITIVE ABILITY: Alert and oriented PTED MOTIVATION TO LEARN: Eager Interested FAMILY SUPPORT: High - Very involved in pt care IPATIENT LEARNS BEST BY: Individual Instruction Written Instruction - Hand-outs Verbal Instruction FACTORS AFFECTING LEARNING: None PHYSICAL LIMITATIONS AFFECTING LEARNING: None LEARNING RESPONSE METHOD OF INSTRUCTION: Individual instruction PATIENT / FAMILY RESPONSE: Verbalizes understanding of: WORSENING CONDITION-Signs and symptoms of a worsening condition that warrant a call to the physician FOLLOW-UP PLAN: Complete - No need for follow-up SUPPLEMENTAL MATERIAL: Procedure Discharge Instructions REFERRAL (RECOMMENDATION): None Electronically Signed By: Bimal Roche RN [facility] NURSING PROG HNO ID: [id number] Author: FILOMENA SARMIENTO RN Service: Nursing Author Type: Registered Nurse Type: Nursing Progress Note Filed: 04/04/2024 10:55 Note Text: PRE OP LEARNING ASSESSMENT PROCEDURE/SURGERY: GI PROCEDURES: EGD READINESS TO LEARN COGNITIVE ABILITY: Alert and oriented MOTIVATION TO LEARN: Interested FAMILY SUPPORT: None - Unavailable/disintere sted PATIENT LEARNS BEST BY: Individual Instruction FACTORS AFFECTING LEARNING: None PHYSICAL LIMITATIONS AFFECTING LEARNING: None Electronically Signed By: Filomena Sarmiento RN In Department: GASTROENTEROLOGY [facility] Upper GI endoscopyon 025 Upper GI endoscopy A31 Gastrointestinal Endoscopy Patient Name: Nguyen Buckner Procedure Date: 04/04/2024 11:04 AM Date of : 1945 Admit Type: Outpatient Age: 78 Room: [place] [address] Gender: Female Note Status: Finalized Attending MD: Moose Tan MD, [id number] Procedure: Upper GI endoscopy Indications: For therapy [...] for retreatment. Procedure Code(s): --- Professional --- 79039, Esophagogastroduodeno scopy, flexible, transoral; with insertion of guide wire followed by passage of dilator(s) through esophagus over guide wire Diagnosis Code(s): --- Professional --- K22.2, Esophageal obstruction CPT copyright 2020 [employer]. All rights reserved. The codes documented in this report are preliminary and upon field control inspector review may be revised to meet current [...] 0 Note Initiated On: 04/04/2024 11:04 AM [facility] 02-05-[address] [facility] Telephone (GAPRA3) NGUYEN BUCKNER ([id number]) 1945 F Date Time Provider Department 02/05/24 MAYDA FONG GAPRA3 During your visit today, we recorded the [...] have family/friend present for procedure transport home:Patient/patient insurance claims representative was told that if they do not have a responsible adult accompany them to their procedure; and remain in the endoscopy area until they are discharged; that their procedure cannot be done with sedation or anesthesia and may be cancelled. Any barriers to Patient learning: Patient/Patient Pasting Machine Operator responded appropriately on phone. Type of instruction [...] Encounter Status:Closed by MAYDA FONG on 02/05/24 [facility] 01-11-2024 CNPN Telephone (GASTMN) NGUYEN BUCKNER ([id number]) 1945 F Date Time Provider Department 01/11/24 MOOSE TAN GASTWV During your visit today, we recorded the [...] solution. [employer] PDP Member # [id number] Customer Service # [phone] Serena Recinos RN 01/18/2024 3:01 PM Signed Attempted to submit PA via CMM Additional Information Required PA was already submitted for this patient and drug which was denied.;CaseId:[id number];Status:Denied;Appe al Information: Attention:ATTN: MEDICARE CLINICAL APPEALS [employer],[facility] WebAddress:[email or web address]; Staci Dumont 01/29/2024 11:10 AM Addendum Patient called stating that she spoke with her insurance company and they never received the appeal for the med Budesonide. They would like a letter of medical necessity from Dr. Tan giving the reason for the med. The letter can be sent to the fax number below. [employer] P- [phone] F- [phone] Moose Tan MD 01/29/2024 11:37 AM Signed Letter written Serena Recinos RN 01/31/2024 12:04 PM Signed Type of Form: Appeal Letter Faxed to: [employer] Serena Recinos RN Allergies As of Date: 01/11/2024 Noted Allergy Reaction PENICILLINS 10/09/2012 9 - Itching 2 - Rash Date Reviewed: 01/08/2024 Reviewed by: Sharonda Manzo RN - Fully Assessed Reason for Visit: Insurance Authorization [[id number]] Prescriptions as of 01/31/2024 - budesonide (PULMICORT) [...] lens [Z98.4*09/11/2019 Letter Text Encounter Status:Closed by SERNEA RECINOS on 01/18/24 [facility] EGD Study observation Sue rollins 01-08-2024 A31 Gastrointestinal Endoscopy Patient Name: Nguyen Buckner Procedure Date: 01/08/2024 8:43 AM Date of : 1945 Admit Type: Outpatient Age: 78 Room: [place] [address] Gender: Female Note Status: Finalized Attending MD: Moose Tan MD, [id number] Procedure: Upper GI endoscopy Indications: Dysphagia - lymphocytic esophagitis on budesonide Providers: Moose Tan MD, Tha Coles (Fellow) Patient Profile: This is a [...] Estimated blo (more content not included)... PROVATION [facility] Radiology Study observation (narrative) [facility] HISTORY PHYSICALon HISTORY PHYSICAL HNO ID: [id number] Author: THA COLES MD Service: Hepatology Author Type: Fellow Type: [...] discussed with the Patient or Patient's Authorized Pasting Machine Operator. As applicable, any other physician, advance practice provider, medical student, or other health professional student that will be observing or involved in the sensitive examination for educational or training purposes was discussed with the Patient or Authorized Pasting Machine Operator. The Patient or Authorized Pasting Machine Operator has agreed to proceed with the sensitive examination. (Sensitive examination includes inspection and/or palpation of the breasts, pelvis, prostate and anorectal regions) Sedation Plan: Moderate Additional Comments: None Tha Coles MD [facility] NURSING PROGon 01-08-2024 NURSING PROG HNO ID: [id number] Author: SHARONDA MANZO RN Service: Gastroenterology Author [...] None Electronically Signed By: Sharonda Manzo RN [facility] NURSING PROG HNO ID: [id number] Author: NORI JENSEN RN Service: Nursing Author [...] Nori Jensen RN In Department: GASTROENTEROLOGY [facility] Upper GI endoscopyon 01-07-2 024 Upper GI endoscopy A31 Gastrointestinal Endoscopy Patient Name: Nguyen Buckner Procedure Date: 01/08/2024 8:43 AM Date of : 1945 Admit Type: Outpatient Age: 78 Room: [place] [address] Gender: Female Note Status: Finalized Attending MD: Moose Tan MD, [id number] Procedure: Upper GI endoscopy Indications: Dysphagia - lymphocytic esophagitis on budesonide Providers: Moose Tan MD, Tha Coles (Fellow) Patient Profile: This is a [...] dilation if needed. Please send me a [employer] message in a few weeks with an update of your symptoms Procedure Code(s): --- Professional --- 41030, Esophagogastroduodeno scopy, flexible, transoral; with insertion of guide wire followed by passage of dilator(s) through esophagus over guide wire Diagnosis Code(s): --- Professional --- R13.10, Dysphagia, unspecified K22.2, Esophageal obstruction CPT copyright 2020 [employer]. All rights reserved. The codes documented in this report are preliminary and upon field control inspector review may be revised to meet current compliance requirements. Attending Participation: I was present and participated during the entire procedure, including non-mccain portions, and during the administration and monitoring of Moderate Sedation. Scope In: 8:52:52 AM Scope Out: 9:01:[address] MD Moose Summers MD 01/08/2024 9:09:47 AM This repo (more content not included)... Normal [facility] 12-17-2023 CNPN Telephone (DEE DEE) WILBURNGUYEN GODINEZ ([id number]) 1945 F Date Time Provider Department 12/17/23 BENITO HURTADO During your visit today, we recorded the following information about you: Real Mckoy LPN 12/17/2023 3:22 PM Signed Patient left voicemail stating she has questions regarding message received from Benito. 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 JOSHUA Boyd Lauren, PA-C [...] upper endoscopy about a month ago at [facility] and she was told that there was no need to stretch her esophagus. She has not had esophageal manometry. She reports her weight is stable. She has no abdominal pain, nausea, vomiting, poor appetite, BRBPR, melena, change in bowel habit, diarrhea, constipation. She does occasionally have acid reflux but this is very rare for her. [facility] Pertinent Recent/Past Workup: MBS FINDINGS: ORAL PHASE: [...] Age of (more content not included)... Normal [facility] 09-10-2023 L Specimen: [id number] Received: 09/10/23 Status: OSCAR Burt Num: [id number] Spec Type: Surgical Subm Dr: Bhavik Mota MD Tissues: A Esophagus Biopsy (ESOPHAGEAL BX R/O EOE) Procedures: HE/2, Gross/Micro L4 Age/ Patient Sex Location Account Attending Physician Nguyen Buckner 77/M [id number] Bhavik Mota MD SPEC NUM: [id number] RECD: 09/10/23 STATUS: OSCAR BURT NUM: [id number] [place]: 09/10/[address]: Bhavik Mota MD ENTERED: 09/10/[address] [facility] [address]: SPEC TYPE: Surgical DEPT: S ORDERED: [...] cm, entirely submitted in A1. CPT Codes 74842 -------- -------- Specimen: [id number] Received: 09/10/23140 Status: OSCAR Burt Num: [id number] Spec Type: Surgical Subm Dr: Bhavik Mota MD Tissues: A Esophagus Biopsy (ESOPHAGEAL BX R/O EOE) Procedures: HE/Teja, Gross/Micro L4 -------- Patient: Nguyen Buckner [id number] (Continued) -------- Signed (signature on file) Donna Crisostomo MD 09/12/23928 Normal [facility] Chao 11-09-2022 L - -------- Specimen: [id number] Received: 11/09/22-1237 Status: OSCAR Burt Num: [id number] Spec Type: Surgical Subm Dr: Gorge Dennis DO Tissues: A Colon Biopsy (RECTAL POLYP) Procedures: EVE, Gross/Micro L4 -------- Age/ Patient Sex Location Account Attending Physician -------- Nguyen Buckner/Malik CONNELLY [id number] Gorge Dennis DO -------- SPEC NUM: [id number] RECD: 11/09/22 STATUS: OSCAR BURT NUM: [id number] TRENOTN: 11/09/22- [facility] DR: Gorge Dennis DO ENTERED: 11/09/[address] [facility] [address]: [facility] SPEC TYPE: Surgical DEPT: S ORDERED: HE/Teja, Gross/Micro L4 ORDERED: ESTELATeja, Gross/Micro L4 Pathological Diagnosis Rectum, polyp, biopsy: - Hyperplastic polyp Clinical Information Family history colon cancer Gross Description Received in formalin labeled with the patient's name, date of and rectal polyp is one marrero tissue measuring 0.2 cm. Entirely submitted in one cassette labeled A1. Microscopic Description Two H E slides reviewed. The microscopic examination confirms the diagnosis. CPT Codes 84189 -------- -------- Specimen: [id number] Received: 11/09/22123 Status: OSCAR Burt Num: [id number] Spec Type: Surgical Subm Dr: Gorge Dennis DO Tissues: A Colon Biopsy (RECTAL POLYP) Procedures: ESTELA/Aron Lezama/Leandro L4 -------- Patient: Nguyen Buckner [id number] (Continued) -------- Signed (signature on file) Piyush Treviño MD 11/13/22 1644 Normal [facility] Complete Blood Count with Au to Diffon 05-23-2021 Basophils (Bld) [#/Vol] 0.05 10*3/uL Normal 0.00-0.20 [facility] [employer] Comment on above: Performed By: #### C BCAD, LIPD, CMP #### [facility] [address] [place] [address], [place] [id number] Basophils/100 WBC (Bld) 1.1 % Normal [facility] [employer] Comment on above: Performed By: #### C BCAD, LIPD, CMP #### [facility] [address], [place] [id number] Eosinophils (Bld) [#/Vol] 0.08 10*3/uL Normal 0.02-0.50 [facility] [employer] Comment on above: Performed By: #### C BCAD, LIPD, CMP #### [facility] [address], [place] [id number] Eosinophils/100 WBC (Bld) 1.7 % Normal [facility] [employer] Comment on above: Performed By: #### C BCAD, LIPD, CMP #### [facility] [address], [place] [id number] Erythrocyte distribution width (RBC) [Ratio] 13.4 % Normal 11.0-15.0 [facility] [employer] Comment on above: Performed By: #### C BCAD, LIPD, CMP #### [facility] [address], [place] [id number] Hematocrit (Bld) [Volume fraction] 41.6 % Normal 35.0-47.0 [facility] [employer] Comment on above: Performed By: #### C BCAD, LIPD, CMP #### [facility] [address], [place] [id number] Hemoglobin (Bld) [Mass/Vol] 13.6 g/dL Normal 11.6-15.5 [facility] [employer] Comment on above: Performed By: #### C BCAD, LIPD, CMP #### [facility] [address], [place] [id number] Lymphocytes (Bld) [#/Vol] 1.4 10*3/uL Normal 0.9-3.9 [place] [employer] Comment on above: Performed By: #### C BCAD, LIPD, CMP #### [facility] [address], [place] [id number] Lymphocytes/100 WBC (Bld) 29.3 % Normal [facility] Specialist Comment on above: Performed By: #### C BCAD, LIPD, CMP #### [facility] [address], [place] [id number] MCH (RBC) [Entitic mass] 29.1 pg Normal 27.0-33.0 [facility] Comment on above: Performed By: #### C BCAD, LIPD, CMP #### [facility] [address], [place] [id number] MCHC (RBC) [Mass/Vol] 32.7 g/dL Normal 32.0-36.0 [facility] Comment on above: Performed By: #### C BCAD, LIPD, CMP #### [facility] [address], [place] [id number] MCV (RBC) [Entitic vol] 89 fL Normal 80-100 [facility] Comment on above: Performed By: #### C BCAD, LIPD, CMP #### [facility] [address], [place] [id number] Monocytes (Bld) [#/Vol] 0.5 10*3/uL Normal 0.2-0.9 [facility] Comment on above: Performed By: #### C BCAD, LIPD, CMP #### [facility] [address], [place] [id number] Monocytes/100 WBC (Bld) 10.3 % Normal [facility] Comment on above: Performed By: #### C BCAD, LIPD, CMP #### [facility] [address], [place] [id number] Neutrophils (Bld) [#/Vol] 2.7 10*3/uL Normal 1.5-7.8 [facility] Comment on above: Performed By: #### C BCAD, LIPD, CMP #### [facility] [address], [place] [id number] Neutrophils/100 WBC (Bld) 57.4 % Normal [facility] Comment on above: Performed By: #### C BCAD, LIPD, CMP #### [facility] [address], [place] [id number] Platelet mean volume (Bld) [Entitic vol] 8.50 fL Normal 7.50-12.50 [facility] [employer] Comment on above: Performed By: #### C BCAD, LIPD, CMP #### [facility] [address], [place] [id number] Platelets (Bld) [#/Vol] 292 10*3/uL Normal 140-400 [facility] [employer] Comment on above: Performed By: #### C BCAD, LIPD, CMP #### [facility] [address], [place] [id number] RBC (Bld) [#/Vol] 4.68 10*6/uL Normal 3.90-5.20 [facility] [employer] Comment on above: Performed By: #### C BCAD, LIPD, CMP #### [facility] [address], [place] [id number] RDW-SD 43.8 fL Normal 37.0-50.0 [facility] [employer] Comment on above: Performed By: #### C BCAD, LIPD, CMP #### [facility] [address], [place] [id number] WBC (Bld) [#/Vol] 4.7 10*3/uL Normal 3.8-11.0 [facility] [employer] Comment on above: Performed By: #### C BCAD, LIPD, CMP #### [facility] [address] [place] [address], [place] [id number] Comprehensive Metabolic Pane chao 05-23-2021 Albumin [Mass/Vol] 4.5 g/dL Normal 3.6-5.1 [facility] [employer] Comment on above: Performed By: #### C BCAD, LIPD, CMP #### [facility] [address], [place] [id number] Albumin/Globulin [Mass ratio] 2.5 {ratio} Normal 1.0-2.5 [facility] [employer] Comment on above: Performed By: #### C BCAD, LIPD, CMP #### [facility] [address] [facility] [place] [id number] ALP [Catalytic activity/Vol] 67 U/L Normal 35-119 [facility] Specialist Comment on above: Performed By: #### C BCAD, LIPD, CMP #### [facility] [address] [facility] [place] [id number] ALT [Catalytic activity/Vol] 11 U/L Normal 6-33 [facility] Comment on above: Result Comment: 02/16 Female reference range changed. Performed By: #### C BCAD, LIPD, CMP #### [facility] [address] [facility] [place] [id number] Anion gap [Moles/Vol] 16 mmol/L Normal 12-20 [facility] Comment on above: Result Comment: Effe ctive 03/24/2019 reference range changed. Performed By: #### C BCAD, LIPD, CMP #### [facility] [address], [place] [id number] AST [Catalytic activity/Vol] 15 U/L Normal 9-34 [facility] Comment on above: Performed By: #### C BCAD, LIPD, CMP #### [facility] [address] [place] [address], [place] [id number] Bilirubin [Mass/Vol] 0.34 mg/dL Normal 0.30-1.20 [facility] Comment on above: Performed By: #### C BCAD, LIPD, CMP #### [facility] [address] [place] [address], [place] [id number] BUN/CREA 25 Ratio High 6-22 [facility] Comment on above: Performed By: #### C BCAD, LIPD, CMP #### [facility] [address] [facility] [id number] Calcium [Mass/Vol] 9.7 mg/dL Normal 8.6-10.2 [facility] Comment on above: Performed By: #### C BCAD, LIPD, CMP #### [facility] [address] [facility] [id number] Chloride [Moles/Vol] 108 mmol/L High 98-107 [facility] Comment on above: Performed By: #### C BCAD, LIPD, CMP #### [facility] [address] [place] [address], [place] [id number] CO2 [Moles/Vol] 23 mmol/L Normal 20-31 [facility] Comment on above: Performed By: #### C BCAD, LIPD, CMP #### [facility] [address] [place] [address], [place] [id number] Creatinine [Mass/Vol] 0.7 mg/dL Normal 0.6-1.4 [facility] Comment on above: Performed By: #### C BCAD, LIPD, CMP #### [facility] [address] [place] [address], [place] [id number] eGFRAA 102 mL/min/1.73m2 Normal >60 [facility] Comment on above: Performed By: #### C BCAD, LIPD, CMP #### [facility] [address], [place] [id number] eGFRNAA 84 mL/min/1.73m2 Normal >60 [facility] Comment on above: Performed By: #### C BCAD, LIPD, CMP #### [facility] [address] [place] [address], [place] [id number] Globulin (S) [Mass/Vol] 1.8 g/dL Low 1.9-3.7 [facility] Comment on above: Performed By: #### C BCAD, LIPD, CMP #### [facility] [address] [place] [address], [place] [id number] Glucose [Mass/Vol] 92 mg/dL Normal 65-99 [facility] Comment on above: Result Comment: For FASTING Glucose --- ADA reference ranges: Normal 65-99 mg/dl Prediabetes 100-125 Diabetes >/= 126 Performed By: #### C BCAD, LIPD, CMP #### [facility] [address] [place] [address], [place] [id number] Potassium [Moles/Vol] 4.2 mmol/L Normal 3.5-5.5 [facility] Comment on above: Performed By: #### C BCAD, LIPD, CMP #### [facility] [address] [place] [address], [place] [id number] Protein [Mass/Vol] 6.3 g/dL Normal 6.1-8.1 [facility] [place] [employer] Comment on above: Performed By: #### C BCAD, LIPD, CMP #### [facility] [address] [place] [address], [place] [id number] Sodium [Moles/Vol] 143 mmol/L Normal 135-146 [facility] [place] [employer] Comment on above: Performed By: #### C BCAD, LIPD, CMP #### [facility] [address], [place] [id number] Urea nitrogen [Mass/Vol] 17 mg/dL Normal 7-25 [facility] [employer] Comment on above: Performed By: #### C BCAD, LIPD, CMP #### [facility] [address] [place] [address], [place] [id number] Lipid Panelon 05-23-2021 Cholesterol [Mass/Vol] 301 mg/dL High 125-200 [facility] [employer] Comment on above: Result Comment: Low risk < 200mg/dL Borderline risk 201-239 mg/dl High risk > or equal to 240 Performed By: #### C BCAD, LIPD, CMP #### [facility] [address] [place] [address], [place] [id number] Cholesterol in HDL [Mass/Vol] 72 mg/dL Normal >40 [facility] [employer] Comment on above: Result Comment: High Cardiovascular Risk HDL <40 mg/dL Low Cardiovascular Risk HDL > or equal to 60 mg/dl Performed By: #### C BCAD, LIPD, CMP #### [facility] [address] [place] [address], [place] [id number] Cholesterol in LDL [Mass/Vol] 209 mg/dL Normal [facility] [employer] Comment on above: Result Comment: LDL ATP III CLASSIFICATION LDL less than 100 mg/dl Optimal LDL 100-129 mg/dl Near or above optimal LDL 130-159 Borderline high LDL 160-189 High LDL greater than 189 mg/dl Very High Performed By: #### C BCAD, LIPD, CMP #### [facility] [address] [place] [address], [place] [id number] Cholesterol in VLDL [Mass/Vol] 20 mg/dL Normal [facility] [employer] Comment on above: Performed By: #### C BCAD, LIPD, CMP #### [facility] [address] [place] [address], [place] [id number] Cholesterol.total/ Cholesterol in HDL [Mass ratio] 4 {ratio} Normal [facility] [employer] Comment on above: Performed By: #### C TEVIN RICHARDS, CMP #### [facility] [address] [place] [address], [place] [id number] Triglyceride [Mass/Vol] 99 mg/dL Normal 30-150 [facility] [employer] Comment on above: Result Comment: TRIG ATPIII CLASSIFICATIONS TRIG less than 150 mg/dl Normal TRIG 150-199 mg/dl Borderline High TRIG 200-500 mg/dl High TRIG greather than 500 mg/dl Very High Performed By: #### C TEVIN RICHARDS, CMP #### [facility] [address] [place] [address], [place] [id number] Covid-19 PCR (CVDTB)on 02-18 SARS-CoV-2 (COVID-19) RNA TARIQ+probe Ql (Unsp spec) Detected Critically abnormal NOT DETECTED [facility] Comment on above: Result Comment: This test is not yet approved or cleared by the [place] FDA. When there are no FDA-approved or cleared tests available, and other criteria are met, FDA can make tests available under an emergency access mechanism called an Emergency Use Authorization (EUA). The EUA for this test is supported by the Mortgage Closing Clerk of Health and Human Service's (HHS's) declaration [...] used). Performed By: #### C VDTBH #### [facility] [address] [place] [address] Stefany Crisostomo CULTURE THROATon 11-12-2020 CULTURE THROAT Culture Observations : NORMAL RESPIRATORY TIARA. Normal [facility] Comment on above: Performed By: #### T HRTCX, SSCRN #### [facility] [address] [place] [address] Stevenson Dye Covid-19 PCR (CVDTB)on 10-18 SARS-CoV-2 (COVID-19) RNA TARIQ+probe Ql (Unsp spec) Not detected Normal NOT DETECTED [facility] Comment on above: Result Comment: This test is not yet approved or cleared by the [place] FDA. When there are no FDA-approved or cleared tests available, and other criteria are met, FDA can make tests available under an emergency access mechanism called an Emergency Use Authorization (EUA). The EUA for this test is supported by the Mortgage Closing Clerk of Health and Human Service's (HHS's) declaration [...] with SARS-CoV-2. Performed By: #### C VDAGS, CVDTBH #### [facility] [address] [address] Stevenson Dye STREPT SCREENon 11-12-2020 STREP SCREEN A Negative Normal NEGATIVE [facility] Comment on above: Performed By: #### T HRTCX, SSCRN #### [facility] [address] [id number] Stevenson Dye SYMPTOMATIC COVID-19 ANTIGEN on 11-12-2020 EUA Statement SEE BELOW Normal [facility] Comment on above: Result Comment: This [...] is revoked sooner. Performed By: #### C HÉCTOR, SANCHEZTB #### [facility] [address] [place] [address] Stevenson Dye SARS-CoV-2 (COVID-19) RNA TARIQ+probe Ql (Unsp spec) Negative Normal NEGATIVE [facility] Comment on above: Result Comment: CONF IRMATION BY PCR PENDING PER CDC GUIDELINES/ SYMPTOMATIC PATIENT. Performed By: #### C HÉCTOR, CVDSARY #### [facility] [address] [place] [address] Stevenson Dye XR CHEST 1 Von 11-12-2020 XR CHEST [...] DANY DELVALLE Date: 2020-11-12 18:48 Normal [facility] CBC AUTO DIFFon 08-15-2020 BASO # 0.0 103/ul Normal 0.0-0.1 [facility] Comment on above: Performed By: #### C BC #### [facility] [address] [place], [place] [id number] Stevenson Marnie Basophils/100 WBC (Bld) 0.8 % Normal 0.2-2.0 [facility] Comment on above: Performed By: #### C BC #### [facility] [address] [place], [place] [id number] Stevenson Marnie EO # 0.2 103/ul Normal 0.0-0.7 [facility] Comment on above: Performed By: #### C BC #### [facility] [address] [place], [place] [id number] Stevenson Marnie Eosinophils/100 WBC (Bld) 3.0 % Normal 0.9-7.0 [facility] Comment on above: Performed By: #### C BC #### [facility] [address] [id number] Stevenson Marnie Erythrocyte distribution width (RBC) [Ratio] 13.2 % Normal 11.0-15.0 [facility] Comment on above: Performed By: #### C BC #### [facility] [address] [place] [address] Stevenson Marnie Hematocrit (Bld) [Volume fraction] 41.4 % Normal 36.0-48.0 [facility] Comment on above: Performed By: #### C BC #### [facility] [address] [place] [address] Stevenson Marnie Hemoglobin (Bld) [Mass/Vol] 13.7 g/dL Normal 12.0-16.0 [facility] Comment on above: Performed By: #### C BC #### [facility] [address] [place] [address] Stevenson Marnie IG # 0.00 10e3/ul Normal 0.00-0.03 [facility] Comment on above: Performed By: #### C BC #### [facility] [address] [place] [address] Stevenson Marnie IG % 0.0 % Normal 0.0-0.5 [facility] Comment on above: Performed By: #### C BC #### [facility] [address] [place] [address] Stevenson Marnie LYMPH # 1.7 103/ul Normal 1.2-3.8 [facility] Comment on above: Performed By: #### C BC #### [facility] [address] [place] [address] Stevenson Marnie Lymphocytes/100 WBC (Bld) 31.0 % Normal 20.5-60.0 [facility] Comment on above: Performed By: #### C BC #### [facility] [address] [place] [address] Stevenson Marnie MANUAL DIFF REQ NO Normal [facility] Comment on above: Performed By: #### C BC #### [facility] [address] [place], [place] [id number] Stevenson Dye MCH (RBC) [Entitic mass] 29.5 pg Normal 26.7-34.0 [facility] Comment on above: Performed By: #### C BC #### [facility] [address] [place], [place] [address] Stevenson Dye MCHC (RBC) [Mass/Vol] 33.1 g/dL Normal 29.9-35.2 [facility] Comment on above: Performed By: #### C BC #### [facility] [address] [place] [address] Stevenson Dye MCV (RBC) [Entitic vol] 89.0 fL Normal 81.0-99.0 [facility] Comment on above: Performed By: #### C BC #### [facility] [address] [place] [address] Stevenson Dye MONO # 0.5 103/ul Normal 0.3-0.8 [facility] Comment on above: Performed By: #### C BC #### [facility] [address] [place] [address] Stevenson Dye Monocytes/100 WBC (Bld) 9.8 % Normal 1.7-12.0 [facility] Comment on above: Performed By: #### C BC #### [facility] [address] [place] [address] Stevenson Dye NEUT # 3.0 103/ul Normal 1.4-6.5 [facility] Comment on above: Performed By: #### C BC #### [facility] [address] [place] [address] Stevenson Dye Neutrophils/100 WBC (Bld) 55.4 % Normal 43.0-75.0 [facility] Comment on above: Performed By: #### C BC #### [facility] [address] [place], [place] [phone] [place]ita Dye Platelet mean volume (Bld) [Entitic vol] 8.0 fL Critically low 9.5-13.5 [facility] Comment on above: Performed By: #### C BC #### [facility] [address] [place] [address] Stevenson Dye PLT 297 103/ul Normal 150-450 [facility] Comment on above: Performed By: #### C BC #### [facility] [address] [place], [place] [address] Stevenson Dye RBC 4.65 106/ul Normal 4.20-5.40 [facility] Comment on above: Performed By: #### C BC #### [facility] [address] [place], [place] [address] Stevenson Dye WBC 5.3 103/ul Normal 4.0-11.0 [facility] Comment on above: Performed By: #### C BC #### [facility] [address] [id number] [address] CHEST WO CONon 08-15-2020 [...] AFRICA HAYES Date: 2020-08-15 18:22 Normal [facility] PROF CHEM 8 (BAS METB)on Anion gap [Moles/Vol] 14.4 mmol/L Normal [facility] Comment on above: Performed By: #### H STROPN, BMP #### [facility] [address] [address] Stevenson Marnie Calcium [Mass/Vol] 9.0 mg/dL Normal 8.4-10.2 [facility] Comment on above: Performed By: #### H STROSVEN, BMP #### [facility] [address] [address] [place] Marnie Chloride [Moles/Vol] 103 mmol/L Normal 98-107 [facility] Comment on above: Performed By: #### H SANJEEV, BMP #### [facility] [address] [place] [address] Stevenson Marnie CO2 [Moles/Vol] 28.0 mmol/L Normal 22.0-30.0 [facility] Comment on above: Performed By: #### H SANJEEV, BMP #### [facility] [address] [place] [address] [place]arnie Creatinine [Mass/Vol] 0.87 mg/dL Normal 0.52-1.04 [facility] Comment on above: Performed By: #### H SANJEEV, BMP #### [facility] [address] [place] [address] Stevenson Marnie EGFR-AF FAROESE >60 Normal >=60 [facility] Comment on above: Performed By: #### H STROSVEN, BMP #### [facility] [address] [place] [address] Stevenson Marnie EGFR-NON AF FAROESE >60 Normal >=60 [facility] Comment on above: Performed By: #### H STROSVEN, BMP #### [facility] [address] [place] [address] Stevenson Marnie Glucose [Mass/Vol] 106 mg/dL Normal 74-106 [facility] Comment on above: Performed By: #### H STROSVEN, BMP #### [facility] [address] [place] [address] Stevenson Marnie Potassium [Moles/Vol] 4.4 mmol/L Normal 3.4-5.0 [facility] Comment on above: Performed By: #### H STROSVEN, BMP #### [facility] [address], [place] [address] Stevenson Marnie Sodium [Moles/Vol] 141 mmol/L Normal 137-145 [facility] Comment on above: Performed By: #### H SANJEEV, BMP #### [facility] [address] [place], [place] [address] Stevenson Marnie Urea nitrogen [Mass/Vol] 15.0 mg/dL Normal 7.0-17.0 [facility] Comment on above: Performed By: #### H SANJEEV, BMP #### [facility] [address] [place], [place] [address] Stevenson Marnie Urea nitrogen/Creatinin e [Mass ratio] 17.2 mg/mg Normal [facility] Comment on above: Performed By: #### H SANJEEV, BMP #### [facility] [address], [place] [address] Stevenson Dye TROPONIN, HIGH SENSITIVITYon 08-15-2020 HSTROP <4.0 Normal 4.0-35.5 [facility] Comment on above: Result Comment: CUT- OFF POINTS HAVE BEEN ESTABLISHED BASED ON THE FOURTH UNIVERSAL DEFINITIONS OF MYOCARDIAL INFARCTION. THE UPPER REFERENCE LIMIT (URL) OF TROPONIN, DEFINED THE 99TH PERCENTILE OF cTnI DISTRIBUTION IN A REFERENCE POPULATION, HAS BEEN CONFIRMED THE DECISION THRESHOLD FOR [place] DIAGNOSIS. Previously reported as: <3.3 On 08/15/2020 18:19 By CV2 Performed By: #### H SANJEEV, BMP #### [facility] [address], [place] [address] Stevenson Marnie OCT MACULA CIRRUS OU (BOTH E YES) [facility] Vital Signs Date Time Vital Sign Value Performing Clinician Facility 08-12-2024 10:38-0400 Body height 152.4 cm Osorio Harper MD Work Phone: [facility] 08-12-2024 10:38-0400 Body mass index (BMI) [Ratio] 19.48 kg/m2 Osorio Harper MD Work Phone: [facility] 08-12-2024 10:38-0400 Body weight 45.25 kg Osorio Harper MD Work Phone: [facility] 08-12-2024 10:38-0400 Diastolic blood pressure 68 mm[Hg] Osorio Harper MD Work Phone: [facility] 08-12-2024 10:38-0400 Heart rate 84 /min Osorio Harper MD Work Phone: [facility] 08-12-2024 10:38-0400 SaO2% (BldA) [Mass fraction] 99 % Osorio Harper MD Work Phone: [facility] 08-12-2024 10:38-0400 Systolic blood pressure 116 mm[Hg] Osorio Harper MD Work Phone: [facility] 04-04-2024 12:00-0500 Diastolic blood pressure 63 mm[Hg] Moose Tan MD Work Phone: [facility] 04-04-2024 12:00-0500 Heart rate 71 /min Moose Tan MD Work Phone: [facility] 04-04-2024 12:00-0500 Respiratory rate 16 /min Moose Tan MD Work Phone: [facility] 04-04-2024 12:00-0500 SaO2% (BldA) [Mass fraction] 95 % Moose Tan MD Work Phone: [facility] 04-04-2024 12:00-0500 Systolic blood pressure 139 mm[Hg] Moose Tan MD Work Phone: [facility] 04-04-2024 10:50-0500 Body height 152.4 cm Moose Tan MD Work Phone: [facility] 04-04-2024 10:50-0500 Body mass index (BMI) [Ratio] 19.33 kg/m2 Moose Tan MD Work Phone: [facility] 04-04-2024 10:50-0500 Body temperature 96.3 [degF] Moose Tan MD Work Phone: [facility] 04-04-2024 10:50-0500 Body weight 44.91 kg Moose Tan MD Work Phone: [facility] 03-26-2024 14:29-0500 Body mass index (BMI) [Ratio] 19.36 kg/m2 August Itzel DO Work Phone: [facility] 03-26-2024 14:29-0500 Body weight 44.96 kg August Itzel DO Work Phone: [facility] 03-26-2024 14:29-0500 Diastolic blood pressure 70 mm[Hg] August Itzel DO Work Phone: [facility] 03-26-2024 14:29-0500 Systolic blood pressure 120 mm[Hg] August Itzel DO Work Phone: [facility] 01-08-2024 09:30-0400 Diastolic blood pressure 70 mm[Hg] Moose Tan MD Work Phone: [facility] 01-08-2024 09:30-0400 Heart rate 62 /min Moose Tan MD Work Phone: [facility] 01-08-2024 09:30-0400 Respiratory rate 18 /min Moose Tan MD Work Phone: [facility] 01-08-2024 09:30-0400 SaO2% (BldA) [Mass fraction] 90 % Moose Tan MD Work Phone: [facility] 01-08-2024 09:30-0400 Systolic blood pressure 144 mm[Hg] Moose Tan MD Work Phone: [facility] 01-08-2024 07:45-0400 Body mass index (BMI) [Ratio] 18.75 kg/m2 Moose Tan MD Work Phone: [facility] 01-08-2024 07:45-0400 Body temperature 96.8 [degF] oMose Tan MD Work Phone: [facility] 01-08-2024 07:45-0400 Body weight 43.55 kg Moose Tan MD Work Phone: [facility] 12-28-2023 08:59-0400 Body height 152.4 cm Moose Tan MD Work Phone: [facility] 12-28-2023 08:59-0400 Body mass index (BMI) [Ratio] 19.02 kg/m2 Moose Tan MD Work Phone: [facility] 12-28-2023 08:59-0400 Body temperature 98.4 [degF] Moose Tan MD Work Phone: [facility] 12-28-2023 08:59-0400 Body weight 44.18 kg Moose Tan MD Work Phone: [facility] 12-28-2023 08:59-0400 Diastolic blood pressure 72 mm[Hg] Moose Tan MD Work Phone: [facility] 12-28-2023 08:59-0400 Heart rate 65 /min Moose Tan MD Work Phone: [facility] 12-28-2023 08:59-0400 SaO2% (BldA) [Mass fraction] 100 % Moose Tan MD Work Phone: [facility] 12-28-2023 08:59-0400 Systolic blood pressure 151 mm[Hg] Moose Tan MD Work Phone: [facility] 10-18-2023 09:36-0400 Body mass index (BMI) [Ratio] 18.78 kg/m2 Benito Hurtado PA-C Work Phone: [facility] 10-18-2023 09:36-0400 Body weight 42.19 kg Benito Hurtado PA-C Work Phone: [facility] 10-18-2023 09:36-0400 Diastolic blood pressure 86 mm[Hg] Benito Hurtado PA-C Work Phone: [facility] 10-18-2023 09:36-0400 Heart rate 65 /min Benito Hurtado PA-C Work Phone: [facility] 10-18-2023 09:36-0400 Systolic blood pressure 148 mm[Hg] Benito Hurtado PA-C Work Phone: [facility] 09-10-2023 13:41-0400 Diastolic blood pressure 80 mm[Hg] MD Osorio Harper Work Phone: [facility] 09-10-2023 13:41-0400 Heart rate 80 /min MD Osorio Harper Work Phone: [facility] 09-10-2023 13:41-0400 Respiratory rate 18 /min MD Osorio Harper Work Phone: [facility] 09-10-2023 13:41-0400 SaO2% (BldA) [Mass fraction] 97 % MD Osorio Harper Work Phone: [facility] 09-10-2023 13:41-0400 Systolic blood pressure 129 mm[Hg] MD Osorio Harper Work Phone: [facility] 09-10-2023 11:51-0400 Body height 152.4 cm MD Osorio Harper Work Phone: [facility] 09-10-2023 11:51-0400 Body weight 41.73 kg MD Osorio Harper Work Phone: [facility] Encounters Encounter Date Encounter Type Care Provider Facility Start: 08-12-2024 End: 08-12-2024 Bamboo flowsheet Osorio Harper MD Work Phone: [facility] Start: 08-12-2024 End: 08-12-2024 Bamboo flowsheet Osorio Harper MD Work Phone: [facility] Start: 08-12-2024 End: 08-12-2024 Patient encounter procedure Osorio Harper MD Work Phone: [facility] Comment on above: Encounter for Medica re annual wellness exam (Primary Dx); Advance directive in chart; Encounter for screening for other disorder; Screening for alcohol problem; Screening for diabetes mellitus (DM); Screening mammogram, encounter for; Mixed dyslipidemia (CMS/HCC); Mild intermittent asthma without complication (CMS/HCC); Age-related osteoporosis without current pathological fracture (CMS/HCC); Surgical menopause; Cardiovascular event risk Start: 08-12-2024 End: 08-12-2024 ambulatory OSORIO HARPER Not Available Start: 04-04-2024 End: 04-04-2024 Patient encounter procedure Moose Tan MD Work Phone: Gastroenterology Start: 04-04-2024 End: 04-04-2024 ambulatory Moose Tan MD Work Phone: Gastroenterology Start: 04-04-2024 End: 04-04-2024 Subsequent hospital visit by physician Moose Tan MD Work Phone: Gastroenterology Comment on above: Esophageal stenosis [K22.2] Start: 03-26-2024 End: 03-26-2024 Office outpatient new 20 minutes August Itzel DO Work Phone: [facility] Comment on above: Postmenopausal bleed ing; Urethral caruncle Start: 03-26-2024 End: 03-26-2024 Bamboo flowsheet August Itzel DO Work Phone: [facility] Start: 03-26-2024 End: 03-26-2024 Bamboo flowsheet August Itzel DO Work Phone: [facility] Start: 03-26-2024 End: 03-26-2024 ambulatory AUGUST ITZEL Not Available Start: 02-05-2024 End: 02-05-2024 Telephone encounter Mayda Fong LPN Gastroenterology Comment on above: Appointment (EGD) Start: 01-11-2024 End: 01-18-2024 Telephone encounter Moose Tan MD Work Phone: Gastroenterology Comment on above: Insurance Authorizat ion Start: 01-08-2024 End: 01-08-2024 ambulatory [facility] Facility:[facility] Start: 01-08-2024 End: 01-08-2024 Subsequent hospital visit by physician Moose Tan MD Work Phone: Gastroenterology Comment on above: Esophageal stenosis [K22.2] Start: 12-28-2023 End: 12-28-2023 ambulatory [facility] Facility:[facility] Start: 12-28-2023 End: 12-28-2023 Patient encounter procedure [...] Pharyngoesophageal d ysphagia Start: 11-30-2023 End: 11-30-2023 [facility] BENITO HURTADO Facility:[facility] Start: 10-18-2023 End: 10-18-2023 Office outpatient new 45 minutes Benito Hurtado PA-C Work Phone: Gastroenterology Comment on above: Pharyngoesophageal d ysphagia (Primary Dx) Start: 10-18-2023 End: 10-18-2023 ambulatory [facility] Facility:[facility] Start: 09-10-2023 Non-patient / Non-visit MD Will Harper Work Phone: [facility] Gastroenterology Work Phone: Start: 09-10-2023 End: 09-10-2023 Admission to same day surgery center MD Osorio Harper Work Phone: [facility] Work Phone: Start: 09-10-2023 End: 09-10-2023 ambulatory MD Osorio Harper Work Phone: [facility] Work Phone: Start: 11-09-2022 End: 11-09-2022 ambulatory Gorge Dennis Facility:[facility] Start: 10-31-2021 End: 10-31-2021 Patient encounter [...] REQUEST Facility:[facility] Start: 04-05-2020 End: 04-06-2020 ambulatory NONE LISTED REQUEST Facility:[facility] Procedures Date Procedure Procedure Detail Performing Clinician Start: 04-04-2024 Esophagoscp rig transoral hypopharynx crv laurent Tan MD Work Phone: Start: 01-08-2024 Esophagoscp rig transoral hypopharynx crv laurent Tan MD Work Phone: Start: 11-30-2023 Esophageal motility study w/interp&rpt Benito Hurtado PA-C Work Phone: Start: 09-10-2023 Esophagogastroduodenoscopy MD Osorio gonsalves Work Phone: Start: 08-28-2022 H/O: hysterectomy History of hysterectomy August Robbins DO Work Phone: Start: 10-31-2021 Computerized ophthalmic imaging retina Clara Moralez OD Work Phone: Start: 02-20-2019 End: 12-25-2022 History of laser assisted in situ keratomileusis S/P LASIK (laser assisted in situ keratomileusis) of both eyes Clara Moralez OD Work Phone: Plan of Treatment Date Care Activity Detail Author Start: 08-12-2025 Medicare Annual Wellness (AWV) Medicare Annual Wellness (AWV) [facility] Start: 11-17-2024 Influenza vaccination Influenza Vaccine (Season Ended) [facility] Start: 08-12-2024 End: 08-12-2025 Comprehensive metabolic 2000 panel - Serum or Plasma Comprehensive metabolic panel Lab Routine Encounter for Medicare annual wellness exam Screening for diabetes mellitus (DM) Expected: 08/12/2024 (Approximate), Expires: 08/12/2025 [facility] Work Phone: Comment on above: Expected: 08/12/2024 (Approximate), Expi res: 08/12/2025 Start: 08-12-2024 End: 08-12-2025 DXA Skeletal system Views for bone density DEXA bone density Imaging Routine Age-related osteoporosis without current pathological fracture ([facility]/HCC) Surgical menopause Expected: 08/12/2024, Expires: 08/12/2025 [facility] Comment on above: Expected: 08/12/2024, Expires: Start: 08-12-2024 End: 08-12-2025 Lipid 1996 panel - Serum or Plasma Lipid panel Lab Routine Encounter for Medicare annual wellness exam Mixed dyslipidemia (CMS/HCC) Expected: 08/12/2024 (Approximate), Expires: 08/12/2025 [facility] Comment on above: Expected: 08/12/2024 (Approximate), Expi res: 08/12/2025 Start: 08-12-2024 End: 10-12-2025 MG Breast - bilateral Screening Bilateral screening mammogram Imaging Routine Screening mammogram, encounter for Expected: 08/12/2024, Expires: 10/12/2025 [facility] Comment on above: Expected: 08/12/2024, Expires: Start: 08-12-2024 End: 08-12-2024 Patient encounter procedure 08/12/2024 10:00 AM EDT Office Visit [facility] [address] [facility] [address] [place] [address] Osorio Harper MD [address] [facility] [address] [place] [address] (Fax) Encounter for Medicare annual wellness exam; Advance directive in chart; Encounter for screening for other disorder; Screening for alcohol problem; Screening for diabetes mellitus (DM); Screening for lipid disorders; Screening mammogram, encounter for [facility] Comment on above: Encounter for Medicare annual wellness e xam; Advance directive in chart; Encounter for screening for other disorder; Screening for alcohol problem; Screening for diabetes mellitus (DM); Screening for lipid disorders; Screening mammogram, encounter for Start: 07-22-2024 Medicare Annual Wellness (AWV) Medicare Annual Wellness (AWV) [facility] Start: 03-26-2024 End: 03-26-2024 Patient encounter procedure 03/26/2024 2:30 PM EST Office Visit [facility] [address] [place] [address] August Robbins, [address] [place] [address] Arrived [facility] Comment on above: Arrived Start: 03-19-2024 Advance Directive Discussion Advance Directive Discussion [facility] Start: 02-12-2024 End: 02-12-2024 Patient encounter procedure 02/12/2024 11:00 AM EST Appointment Gastroenterology [address] [place] [address] Moose Tan MD [address] [place] [address] Esophageal stenosis [K22.2] Gastroenterology Comment on above: Esophageal stenosis [K22.2] Start: 01-08-2024 End: 01-08-2024 Patient encounter procedure 01/08/2024 8:30 AM EDT Appointment Gastroenterology [address] [address] Moose Tan MD [address] [place] [address] Esophageal stenosis [K22.2] Gastroenterology Comment on above: Esophageal stenosis [K22.2] Start: 12-28-2023 End: 12-28-2023 Patient encounter procedure 12/28/2023 9:30 AM EDT Office Visit Gastroenterology [address] [address] Moose Tan MD [address] [place], [place] [id number] 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] Gastroenterology Comment on above: 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] Start: 11-18-2023 Covid-19 Vaccine ( season) Covid-19 Vaccine () [facility] Start: 11-18-2023 Covid-19 Vaccine ( season) Covid-19 Vaccine ( season) [facility] Start: 11-18-2023 Influenza vaccination Influenza Vaccine (#1) [facility] Start: 09-10-2023 [facility] Start: 03-19-2023 Advance Directive Discussion Advance Directive Discussion [facility] Start: 11-17-2022 Covid-19 Vaccine ( season) Covid-19 Vaccine ( season) [facility] Start: 11-17-2021 Influenza vaccination INFLUENZA (#1) [facility] Start: 03-19-2021 ADVANCE DIRECTIVE DISCUSSION ADVANCE DIRECTIVE DISCUSSION [facility] Start: 10-03-2020 COVID-19 VACCINE (3 - Booster for Moderna series) COVID-19 VACCINE (3 - Booster for Moderna series) [facility] Start: 10-12-2019 RSV Vaccine (1 - 1-dose 75+ series) RSV Vaccine (1 - 1-dose 75+ series) [facility] Start: 2009 BONE DENSITY BONE DENSITY [facility] Start: 2009 Pneumococcal Vaccine: 65+ (1 of 1 - PCV) Pneumococcal Vaccine: 65+ (1 of 1 - PCV) [facility] Start: 2004 RSV Vaccine (1 - 1-dose 60+ series) RSV Vaccine (1 - 1-dose 60+ series) [facility] Start: 1994 Pneumococcal Vaccine: 50+ (1 of 1 - PCV) Pneumococcal Vaccine: 50+ (1 of 1 - PCV) [facility] Start: 1994 SHINGRIX VACCINE (1 of 2) SHINGRIX VACCINE (1 of 2) [facility] Start: 1989 DIABETES SCREEN DIABETES SCREEN [facility] Start: 1989 Diabetes Screening Diabetes Screening [facility] Start: 10-12-1963 Urine microalbumin profile [facility] Start: 1962 ANNUAL PCP TEAM CHRONIC DISEASE VISIT ANNUAL PCP TEAM CHRONIC DISEASE VISIT [facility] Start: 1962 Anxiety Screening Anxiety Screening [facility] Start: 1962 Depression Screening Depression Screening [facility] Start: 1962 HEPATITIS C SCREENING HEPATITIS C SCREENING [facility] Start: 1962 SPIROMETRY SPIROMETRY [facility] Start: 1956 Adult depression screening assessment DEPRESSION SCREENING [facility] Start: 1950 PNEUMOCOCCAL: 65+ (1 - PCV) PNEUMOCOCCAL: 65+ (1 - PCV) [facility] End: 12-27-2024 EGD - THERAPEUTIC, EUS, OR TUBE INTERVENTIONS EGD - THERAPEUTIC, EUS, OR TUBE INTERVENTIONS Endoscopy Routine Esophageal stenosis 1 Occurrences starting 12/28/2023 until 12/27/2024 [facility] Work Phone: Comment on above: 1 Occurrences starting 12/28/2023 until 12/27/2024 End: 10-17-2024 Manometry Study observation Narrative MANOMETRY ESOPHAGEAL Endoscopy Routine Pharyngoesophageal dysphagia 1 Occurrences starting 10/18/2023 until 10/17/2024 [facility] Work Phone: Comment on above: 1 Occurrences starting 10/18/2023 until 10/17/2024 Manometry Study observation Narrative MANOMETRY ESOPHAGEAL Endoscopy Routine Pharyngoesophageal dysphagia 11/30/2023 [facility] Work Phone: Patient Education Esophagitis Know your M [facility] Work Phone: [facility] Immunizations Immunization Date Immunization Notes Care Provider Fa cility 07-10-2024 tetanus toxoid, redu rei diphtheria toxoid, and acellular pertussis vaccine, adsorbed Osorio Harper MD Work Phone: [facility] 07-21-2022 zoster vaccine recombinant August Itzel DO Work Phone: [facility] 04-29-2022 zoster vaccine recombinant August Itzel DO Work Phone: [facility] 02-24-2009 novel influenza-H1N1 -09, preservative-free, injectable August Itzel DO Work Phone: [facility] 02-24-2009 influenza virus vacc ine, unspecified formulation Benito Hurtado PA-C Work Phone: [facility] Payers Date Payer Category Payer Medicaid [employer] MEDICARE A DVANTAGE [id number] 2018 Medicare [employer] MEDICARE A ETNA MEDICARE PPO [id number] 2018-Present [phone] [address] [place] [address] PP [id number] 1959 Medicare [id number] 1959 Medicare [id number] 1960 Self-pay 1944 Unknown [id number] 1944 Unknown [id number] 1944 Unknown [id number] 1944 Unknown [id number] 1944 Unknown [id number] 1944 Unknown [id number] Unknown [id number] Unknown [id number] Unknown [id number] Unknown [id number] Social History Date Type Detail Facility Start: 02-20-2019 End: 08-30-2022 Tobacco smoking status PAIS Ex-smoker [facility] History of tobacco use Current smoker [facility] Start: 02-20-2019 End: 08-30-2022 Tobacco use and exposure Smokeless tobacco non-user [facility] Start: 10-31-2021 End: 08-12-2024 Alcohol intake Lifetime non-drinker (finding) [facility] Start: 09-11-2019 History SDOH Alcohol Frequency 1 [facility] Start: 1945 Sex Assigned At Not on file C [facility] Start: 1945 Sex Assigned At Male F [facility] Start: 09-11-2019 End: 08-12-2024 History of Social function [facility] Start: 09-11-2019 End: 08-12-2024 Alcohol Use Disorder Identification Test - Consumption [AUDIT-C] [facility] How often to you hav e a drink containing alcohol? Never [facility] Average Number of Drinks Not on file [facility] History of tobacco use Cigarette Smoker N [facility] Start: 08-30-2022 Alcohol Comment Caffeine intak e: none [facility] NEGATED: Highlighted rowStart: NINF History of tobacco use Passive smoker [facility] Medical Equipment Procedure Code Equipment Code Equipment Origin al Text Equipment Identifier Dates Lens Iol 0d +24. 5 Kisha Uv Abs - [id number] Start: 04-28-2019 Comment on above: Description: n/a Lens Iol 0d +22. 5 Kisha Uv Abs - [id number] Start: 05-12-2019 Comment on above: Description: n/a Goals Date Patient Goal Desired Activity /State Functional Status Date Assessment Result Facility 08-12-2024 Patient Health [facility] ionnaire 2 item (PHQ-2) [Reported] [facility] Clinical Notes 10-31-2021 to 08-12-2024 Osorio Harper MD - 08/12/2024 10:00 AM Bimal Smith RN - 04/04/2024 12:11 PM Bimal Pillai RN - 04/04/2024 12:11 PM Filomena Limon RN - 04/04/2024 10:54 AM ESTPatient Instructions Note Date & Type Note Facility 08-12-2024 History of Present illness Narrative Images from the original note were not included. Nguyen Buckner is a 78 y.o. female presents with chief complaint of Annual Exam HPI: History of Present Illness I have reviewed and reconciled the history and medication list with the patient today. CURRENT PCP/CARE TEAM: Patient Care Team: Osorio Harper MD as PCP - General (Family Medicine) Osorio Harper MD as PCP - Berny Velez MD as Referring Physician (Otolaryngology) Gorge Dennis DO as Referring Physician (General Surgery) Clara Moralez MD as Referring Physician (Optometry) Over the past 2 weeks, how often have you been bothered by any of the following problems? Little interest or pleasure in doing things: Not at all Feeling down, depressed, or hopeless: Not at all Patient Health Questionnaire-2 Score: 0 Over the past 2 weeks, how often have you been bothered by any of the following problems? Trouble falling or staying asleep, or sleeping too much: Not at all Feeling tired or having little energy: Not at all Poor appetite or overeating: Not at all Feeling bad about yourself - or that you are a failure or have let yourself or your family down: Not at all Trouble concentrating on things, such as reading the newspaper or watching television: Not at all Moving or speaking so slowly that other people could have noticed? Or the opposite - being so fidgety or restless that you have been moving around a lot more than usual.: Not at all Thoughts that you would be better off or hurting yourself in some way: Not at all Patient Health Questionnaire-9 Score: 0 Health Risk Assessment Form Do you need help eating, bathing, using the toilet, dressing, or getting around your home?: No Can you prepare your own meals?: Yes Can you do your own housework without help?: Yes Can you shop for groceries or clothes without help?: Yes Do you exercise for about 20 minutes 3 or more days a week?: Yes How confident are you that you can control and manage most of your health problems?: Very confident Can you mange your money, credit cards and accounts, pay bills and taxes?: Yes Vision Screening: Yes, 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 Hearing Screening: Not done Cognitive Screening Self Assessment: No concerns rasied by family members, friends, or caretakers Three Word Registration: Banana, [place], Chair Clock Drawing: Normal Clock - 2 Three Word Recall: All 3 words correct - 3 Total Score (0-5 Points): 5 Pain Assessment Pain Score: 2 HISTORIES: PAST MEDICAL HISTORY: Past Medical History: Diagnosis Date Age-related nuclear cataract, bilateral 08/28/2022 Asthma Benign breast lumps Cataracts, bilateral Chicken pox Chronic airway obstruction (CMS/HCC) Family history of cancer Hyperlipidemia (CMS/HCC) Measles Mumps Osteoporosis (CMS/HCC) Unspecified Pneumonia Vitamin D deficiency SURGICAL HISTORY: Past Surgical History: Procedure Laterality Date APPENDECTOMY BREAST LUMPECTOMY SECTION, LOW TRANSVERSE COLONOSCOPY 2013 COLONOSCOPY 11/09/2022 FOOT SURGERY 2011 HYSTERECTOMY SHOULDER SURGERY 2006 SOCIAL HISTORY: Social History Tobacco Use Smoking status: Former Types: Cigarettes Passive exposure: Never Smokeless tobacco: Never Vaping Use Vaping status: Never Used Substance Use Topics Alcohol use: Never Comment: Caffeine intake: none Drug use: Never Depression: Not at risk (08/12/2024) PHQ-2 PHQ-2 Score: 0 FAMILY HISTORY: Family History Problem Relation Name Age of Onset Heart disease Mother Heart disease Father Colon cancer Sister No Known Problems Brother No Known Problems Daughter No Known Problems Son MEDICATIONS: Current Outpatient Medications Medication Instructions albuterol HFA 90 mcg/act inhaler 2 puffs, Inhalation, Every 6 hours PRN budesonide (PULMICORT) 0.25 mg, See admin instructions calcium citrate (CALCITRATE) 250 mg, Daily cholecalciferol (Vitamin D-3) 125 MCG (5000 UT) capsule 1 capsule, Every 24 hours multivitamin (Theragran) tablet 1 tablet, Daily ALLERGIES: Allergies Allergen Reactions Penicillins Other Reaction(s): Hives/Skin Rash PHYSICAL EXAM: Visit Vitals BP 116/68 Pulse 84 Ht 5' Wt 99 lb 12 oz SpO2 99% BMI 19.48 kg/m OB Status Hysterectomy Smoking Status Former BSA 1.38 m BP Readings from Last 3 Encounters: 08/12/24 116/68 03/26/24 120/70 07/24/23 121/73 Wt Readings from Last 3 Encounters: 08/12/24 99 lb 12 oz 03/26/24 99 lb 1.9 oz 07/24/23 95 lb ASCVD 10-Year Risk Score Current as of 2 days ago (Sunday) 22.4% 0 to < 5%: Low Risk 5 to < 7.5%: Borderline Risk 7.5 to < 20%: Intermediate Risk 20 to 100%: High Risk Last Change: An Atherosclerotic Cardiovascular Disease (ASCVD) event is defined as myocardial infarction, CHD , or stroke. The ASCVD risk score (Seng PORTILLO, et al., 2019, 2020 [place] [employer]) returns the percentage likelihood of a first time ASCVD event. Age: 78 Legal Sex: Female Non- : No Smokes Tobacco: No Has Diabetes Excluding Gestational Diabetes: No Systolic BP: 120 HDL: 72 mg/dL Total cholesterol: 220 mg/dL Is BP Treated: No Physical Exam The patient is pleasant and in no acute distress. The head is normocephalic and atraumatic. Both eyes appear grossly normal without obvious lid pathology or icterus. Both ears hearing is grossly intact. The neck is supple and trachea is midline. No masses are appreciated. The anterior cervical lymphatics demonstrates shoddy bilateral nontender lymphadenopathy. There is no supraclavicular lymphadenopathy. The heart is regular rate and rhythm without S3, S4. No murmur. The patient has normal respiratory pattern. The breath sounds are diffusely decreased but symmetrical without evidence of rhonchi or rales. No wheezing. The skin is warm and dry. The lower extremities have trace edema. Neurologic screening exam is nonfocal. The patient is alert. There is no overt gross evidence of cognitive impairment The patient has good eye contact and speech is clear. Appropriate affect. Results ASSESSMENT AND PLAN: Assessment/Plan 1. Encounter for Medicare annual wellness exam (Primary) The patient is here for their Annual Medicare Wellness visit. Demographics were updated. Self-assessment was completed and reviewed. Past medical, family, and social history were updated. The medication list updated and reviewed by the doctor. A list of other current medical providers is established and updated. Time was spent discussing health maintenance issues, ordering testing as appropriate, and a schedule was reviewed regarding recommended screening. We discussed safety issues and fall risk. Depression screening was completed and addressed as appropriate. Fall screening was completed and addressed. Cognitive function was assessed by direct observation, cognitive screening as indicated, and assessment of ability to perform ADL's. The BMI and discussed. Major risk factors for chronic disease including family history were discussed. An after visit summary is made available to the patient - Comprehensive metabolic panel; Future - Lipid panel; Future - Comprehensive metabolic panel - Lipid panel 2. Advance directive in chart No changes to advanced directives 3. Encounter for screening for other disorder Clinically insignificant depression screening 4. Screening for alcohol problem Negative alcohol screening 5. Screening for diabetes mellitus (DM) - Comprehensive metabolic panel; Future - Comprehensive metabolic panel 6. Screening mammogram, encounter for - Bilateral screening mammogram; Future - Bilateral screening mammogram 7. Mixed dyslipidemia (CMS/HCC) - Lipid panel; Future - Lipid panel 8. Mild intermittent asthma without complication (CMS/HCC) Chronic problem, stable. She did have 1 exacerbation from her asthma and it was relieved with her albuterol HFA. She notices it is rather outdated. - albuterol HFA 90 mcg/act inhaler; Inhale 2 puffs every 6 (six) hours if needed for wheezing Dispense: 54 g; Refill: 0 9. Age-related osteoporosis without current pathological fracture ([facility] [place]) - DEXA bone density; Future 10. Surgical menopause - DEXA bone density; Future 11. Cardiovascular event risk The patient has ASCVD risk factors, but does not currently have a cardiovascular disease diagnosis. A standardized, evidence-based ASCVD risk assessment, is generated during the office visit. Each section is reviewed individually with the patient and a discussion concerning any modifiable risk factors. This discussion lasted approximately 5-10 minutes documented in this encounter [facility] 04-04-2024 Nurse Note AMBULATORY PATIENT EDUCATION NOTE TOPIC: GI PROCEDURES: Endoscopic Retrograde CholangioPancreatography(ERCP) with or without biopsy,stenting,dilation and/or treatment READINESS TO LEARN INSTRUCTION PROVIDED TO: Patient, readness to learn accessed prior to procedure, Family member, and Spouse COGNITIVE ABILITY: Alert and oriented PTED MOTIVATION TO LEARN: Eager Interested FAMILY SUPPORT: High - Very involved in pt care IPATIENT LEARNS BEST BY: Individual Instruction Written Instruction - Hand-outs Verbal Instruction FACTORS AFFECTING LEARNING: None PHYSICAL LIMITATIONS AFFECTING LEARNING: None LEARNING RESPONSE METHOD OF INSTRUCTION: Individual instruction PATIENT / FAMILY RESPONSE: Verbalizes understanding of: WORSENING CONDITION-Signs and symptoms of a worsening condition that warrant a call to the physician FOLLOW-UP PLAN: Complete - No need for follow-up SUPPLEMENTAL MATERIAL: Procedure Discharge Instructions REFERRAL (RECOMMENDATION): None [facility] 04-04-2024 Nurse Note AMBULATORY PATIENT EDUCATION NOTE TOPIC: GI PROCEDURES: Endoscopic Retrograde CholangioPancreatography(ERCP) with or without biopsy,stenting,dilation and/or treatment READINESS TO LEARN INSTRUCTION PROVIDED TO: Patient, readness to learn accessed prior to procedure, Family member, and Spouse COGNITIVE ABILITY: Alert and oriented PTED MOTIVATION TO LEARN: Eager Interested FAMILY SUPPORT: High - Very involved in pt care IPATIENT LEARNS BEST BY: Individual Instruction Written Instruction - Hand-outs Verbal Instruction FACTORS AFFECTING LEARNING: None PHYSICAL [...] oriented MOTIVATION TO LEARN: Interested FAMILY SUPPORT: None - Unavailable/disinterested PATIENT LEARNS BEST BY: Individual Instruction FACTORS AFFECTING LEARNING: None PHYSICAL LIMITATIONS AFFECTING LEARNING: None Electronically Signed By: Filomena Sarmiento RN In Department: GASTROENTEROLOGY documented in this encounter [facility] 04-04-2024 History and physical note HISTORY AND PHYSICAL Nguyen Buckner, 78 year old female Current history and physical on file: Yes Is a new History and Physical required for today's visit? Yes Indication for procedure: Dysphagia PROCEDURE(S) SCHEDULED FOR: Dilation (any means), treatment of bleeding (any means) based on clinical findings and EGD (Esophagogastroduodenoscopy) with or without biopsies, removal [...] Abdomen soft, non-tender, no masses or organomegaly. Sedation Plan: Moderate Additional Comments: None Moose Tan MD [facility] 04-04-2024 History and physical note HISTORY AND PHYSICAL Nguyen Buckner, 78 year old female Current history and physical on file: Yes Is a new History and Physical required for today's visit? Yes Indication for procedure: Dysphagia PROCEDURE(S) SCHEDULED FOR: Dilation (any means), treatment of bleeding (any means) based on clinical findings and EGD (Esophagogastroduodenoscopy) with or without biopsies, removal [...] Abdomen soft, non-tender, no masses or organomegaly. Sedation Plan: Moderate Additional Comments: None Moose Tan MD documented in this encounter [facility] 04-04-2024 Nurse Note PRE OP LEARNING ASSESSMENT PROCEDURE/SURGERY: GI PROCEDURES: EGD READINESS TO LEARN COGNITIVE ABILITY: Alert and oriented MOTIVATION TO LEARN: Interested FAMILY SUPPORT: None - Unavailable/disinterested PATIENT LEARNS BEST BY: Individual Instruction FACTORS AFFECTING LEARNING: None PHYSICAL LIMITATIONS AFFECTING LEARNING: None Electronically Signed By: Filomena Sarmiento RN In Department: GASTROENTEROLOGY [facility] 03-26-2024 History of Present illness Narrative Reason for Appointment: Patient ID: Nguyen Buckner is a 78 y.o. female who presents for postmenopausal bleeding Patient presents today for Acute Visit. and Follow up appointment to discuss results. MEDICATIONS Current Outpatient Medications Medication Instructions albuterol HFA 90 mcg/act inhaler 2 puffs, Every 6 hours PRN cholecalciferol (Vitamin D-3) 125 MCG (5000 UT) capsule 1 capsule, Every 24 hours ALLERGIES Allergies Allergen Reactions Penicillins Other Reaction(s): Hives/Skin Rash PROBLEMS Active Ambulatory Problems Diagnosis Date Noted Chronic kidney disease, stage II (mild) 08/28/2022 Heart murmur 08/28/2022 History of hysterectomy 08/28/2022 Age related osteoporosis ([facility]) 08/28/2022 Lung nodule 08/28/2022 Mild intermittent asthma without complication ([facility]) 08/28/2022 Nonexudative age-related macular degeneration, left eye, early dry stage 08/28/2022 Surgical menopause 08/28/2022 Vitamin D deficiency 08/28/2022 Osteopenia of lumbar spine 08/28/2022 Mixed dyslipidemia ([facility]) 08/28/2022 History of YAG laser capsulotomy of lens 09/11/2019 Family history of colon cancer 10/17/2022 Bilateral artificial lens implant 07/23/2023 Resolved Ambulatory Problems Diagnosis Date Noted Age-related nuclear cataract, bilateral 08/28/2022 Posterior subcapsular polar age-related cataract, bilateral 08/28/2022 Dry eyes due to decreased tear production 08/28/2022 Laryngitis, chronic 08/28/2022 Non-seasonal allergic rhinitis 08/28/2022 Vitreous degeneration, left eye 08/28/2022 Asthma ([facility]) 10/17/2022 At risk for acute ischemic cardiac event 07/24/2020 Floaters in visual field, right 09/11/2019 Neoplasm of uncertain behavior of skin 12/04/2012 Other pneumonia, unspecified organism 04/17/2019 Nuclear senile cataract 07/24/2020 Pseudophakia of both eyes 08/19/2019 PVD (posterior vitreous detachment), bilateral 02/20/2019 S/P LASIK (laser assisted in situ keratomileusis) of both eyes 02/20/2019 Tear film insufficiency, bilateral 02/20/2019 Past Medical History: Diagnosis Date Benign breast lumps Cataracts, bilateral Chicken pox Chronic airway obstruction ([facility]) Family history of cancer Hyperlipidemia (CMS/HCC) Measles Mumps Osteoporosis (CMS/HCC) Pneumonia HISTORY PAST MEDICAL HISTORY SOCIAL HISTORY Past Medical History: Diagnosis Date Age-related nuclear cataract, bilateral 08/28/2022 Asthma (CMS/HCC) Benign breast lumps Cataracts, bilateral Chicken pox Chronic airway obstruction (CMS/HCC) Family history of cancer Hyperlipidemia (CMS/HCC) Measles Mumps Osteoporosis (CMS/HCC) Unspecified Pneumonia Vitamin D deficiency Social History Tobacco Use Smoking status: Former Types: Cigarettes Passive exposure: Never Smokeless tobacco: Never Vaping Use Vaping status: Never Used Substance Use Topics Alcohol use: Never Comment: Caffeine intake: none Drug use: Never FAMILY HISTORY Family History Problem Relation Name Age of Onset Heart disease Mother Heart disease Father Colon cancer Sister No Known Problems Brother No Known Problems Daughter No Known Problems Son SURGICAL HISTORY Past Surgical History: Procedure Laterality Date APPENDECTOMY BREAST LUMPECTOMY SECTION, LOW TRANSVERSE COLONOSCOPY 2012 COLONOSCOPY 11/09/2022 FOOT SURGERY 2010 HYSTERECTOMY SHOULDER SURGERY 2006 REVIEW OF SYSTEMS Review of Systems: Review of Systems Constitutional: Negative. HENT: Negative. Eyes: Negative. Respiratory: Negative. Cardiovascular: Negative. Gastrointestinal: Negative. Genitourinary: Negative. Musculoskeletal: Negative. Skin: Negative. Neurological: Negative. All other systems reviewed and are negative. Hematological: Negative. Endocrine: Negative. Allergic/Immunologic: Negative. OBJECTIVE Objective: Physical Exam Constitutional: Appearance: Normal appearance. She is well-developed. Genitourinary: Vulva normal. Vaginal cuff intact. Cervix is absent. Uterus is absent. Cardiovascular: Rate and Rhythm: Normal rate and regular rhythm. Abdominal: General: Bowel sounds are normal. There is no distension. Palpations: Abdomen is soft. Tenderness: There is no abdominal tenderness. There is no guarding or rebound. Musculoskeletal: General: No swelling. Normal range of motion. Right lower leg: No edema. Left lower leg: No edema. Neurological: Mental Status: She is alert and oriented to person, place, and time. Skin: General: Skin is warm and dry. Psychiatric: Mood and Affect: Mood normal. Behavior: Behavior normal. Vitals and nursing note reviewed. Exam conducted with a port surveyor present. Vitals: Estimated body mass index is 19.36 kg/m as calculated from the following: Height as of 07/24/23: 5'. Weight as of this encounter: 99 lb 1.9 oz. BP: 120/70 No LMP recorded. Patient has had a hysterectomy. ASSESSMENT & PLAN ICD-10-CM 1. Postmenopausal bleeding N95.0 Pt had bleeding previously- ultrasound show no abnormality noted on ultrasound. Pelvic exam performed urethral caruncle noted. Pt given estrogen cream, pt to apply pea sized to area. Documented by Marnie Moreno LPN on behalf of: August Robbins DO documented in this encounter [facility] 02-05-2024 Telephone encounter Note GI Pre-Procedure Spoke [...] have family/friend present for procedure transport home:Patient/patient insurance claims representative was told that if they do not have a responsible adult accompany them to their procedure; and remain in the endoscopy area until they are discharged; that their procedure cannot be done with sedation or anesthesia and may be cancelled. Any barriers to Patient learning: Patient/Patient Pasting Machine Operator responded appropriately on phone. Type of instruction given: Verbal by telephone contact. Mayda Fong LPN [facility] 02-05-2024 Miscellaneous Notes GI Pre-Procedure Spoke with [...] have family/friend present for procedure transport home:Patient/patient insurance claims representative was told that if they do not have a responsible adult accompany them to their procedure; and remain in the endoscopy area until they are discharged; that their procedure cannot be done with sedation or anesthesia and may be cancelled. Any barriers to Patient learning: Patient/Patient Pasting Machine Operator responded appropriately on phone. Type of instruction given: Verbal by telephone contact. Mayda Fong LPN documented in this encounter [facility] 01-18-2024 Telephone encounter Note Images from the original note were not included. Attempted to submit PA via CMM Additional Information Required PA was already submitted for this patient and drug which was denied.;CaseId:[id number];Status:De nied;Appeal Information: Attention:ATTN: [place]IC[place] CL[place] WebAddress:[email or web address]; [facility] 01-18-2024 Miscellaneous Notes Images from the original note were not included. Attempted to submit PA via CMM Additional Information Required PA was already submitted for this patient and drug which was denied.;CaseId:[id number];Status:De nied;Appeal Information: Attention:ATTN: MEDICARE CLINICAL APPEALS [employer],[place], [place] WebAddress:[email or web address]; Patient called stating when she saw Dr. Tan he prescribed budesonide Pulmicort nebulizer and it needs a PA. She said she received a letter stating more information is needed in order for the med to be dispensed. Please start a PA for this patient's Budesonide nebulizer solution. [employer] Medicare PDP Member # [id number] Customer Service # [phone] documented in this encounter [facility] 01-11-2024 Telephone encounter Note Patient called stating when she saw Dr. Tan he prescribed budesonide Pulmicort nebulizer and it needs a PA. She said she received a letter stating more information is needed in order for the med to be dispensed. Please start a PA for this patient's Budesonide nebulizer solution. [employer] PDP Member # [id number] Customer Service # [phone] [facility] 01-08-2024 Nurse Note AMBULATORY PATIENT EDUCATION NOTE [...] None Electronically Signed By: Sharonda Manzo RN [facility] 01-08-2024 Nurse Note AMBULATORY PATIENT EDUCATION NOTE [...] In Department: GASTROENTEROLOGY documented in this encounter [facility] 01-08-2024 History and physical note HISTORY AND [...] discussed with the Patient or Patient's Authorized Pasting Machine Operator. As applicable, any other physician, advance practice provider, medical student, or other health professional student that will be observing or involved in the sensitive examination for educational or training purposes was discussed with the Patient or Authorized Pasting Machine Operator. The Patient or Authorized Pasting Machine Operator has agreed to proceed with the sensitive examination. (Sensitive examination includes inspection and/or palpation of the breasts, pelvis, prostate and anorectal regions) Sedation Plan: Moderate Additional Comments: None Tha Coles MD [facility] Work Phone: 01-08-2024 History and physical note [...] discussed with the Patient or Patient's Authorized Pasting Machine Operator. As applicable, any other physician, advance practice provider, medical student, or other health professional student that will be observing or involved in the sensitive examination for educational or training purposes was discussed with the Patient or Authorized Pasting Machine Operator. The Patient or Authorized Pasting Machine Operator has agreed to proceed with the sensitive examination. (Sensitive examination includes inspection and/or palpation of the breasts, pelvis, prostate and anorectal regions) Sedation Plan: Moderate Additional Comments: None Tha Coles MD documented in this encounter [facility] 01-08-2024 Nurse Note PRE OP LEARNING ASSESSMENT PROCEDURE/SURGERY: GI PROCEDURES: EGD READINESS TO LEARN COGNITIVE ABILITY: Alert and oriented MOTIVATION TO LEARN: Interested FAMILY SUPPORT: High - Very involved in pt care PATIENT LEARNS BEST BY: Individual Instruction Verbal Instruction FACTORS AFFECTING LEARNING: None PHYSICAL LIMITATIONS AFFECTING LEARNING: None Electronically Signed By: Nori Jensen RN In Department: GASTROENTEROLOGY [facility] 12-28-2023 Instructions Moose Tan MD - 12/28/2023 [...] in 3-4 months documented in this encounter [facility] 12-28-2023 Note HNO ID: [id number] Author: MOOSE TAN MD Service: ? Author [...] Tan MD December 28, 2023 8:54 AM [facility] 12-28-2023 History of Present illness Narrative New [...] 2023 8:54 AM documented in this encounter [facility] 12-26-2023 Note HNO ID: [id number] Author: SERENA RECINOS RN Service: ? Author Type: Registered Nurse Type: Progress Notes Filed: 12/26/2023 11:33 Note Text: New Patient/Consult REASON FOR VISIT Nguyen Buckner is a 78 year old female who is scheduled for Esophageal dysmotility at the consult request of . EGD 08/2023 Pathology 08/2023 HANDP 08/2023 [facility] 12-26-2023 History of Present illness Narrative Images from the original note were not included. New Patient/Consult REASON FOR VISIT Nguyen Buckner is a 78 year old female who is scheduled for Esophageal dysmotility at the consult request of . EGD 08/2023 Pathology 08/2023 H&P 08/2023 documented in this encounter [facility] 12-17-2023 Telephone encounter Note Call to patient, let her know that Benito recommends follow up with swallowing center, option 0 due to ineffective esophageal motility. Lila Berg RN [facility] 12-17-2023 Miscellaneous Notes Call to patient, let her know that Benito recommends follow up with swallowing center, option 0 due to ineffective esophageal motility. Lila Berg RN Patient left voicemail stating she has questions regarding message received from Benito. Benito Hurtado PA-C Physician [employer] Specialty: Gastroenterology Result Encounter Note Signed Encounter Date: 11/30/2023 Thomas Rosenbauma, Your esophageal manometry is showing ineffective esophageal motility. At this point, I recommend referral to our swallowing center at [facility] for further evaluation. I have placed the referral. Thank you, Benito Hurtado PA-C Real Mckoy LPN documented in this encounter [facility] 12-17-2023 Telephone encounter Note Patient left voicemail stating she has questions regarding message received from Benito. Benito Hurtado PA-C Physician [employer] Specialty: Gastroenterology Result Encounter Note Signed Encounter Date: 11/30/2023 Thomas Rosenbauma, Your esophageal manometry is showing ineffective esophageal motility. At this point, I recommend referral to our swallowing center at [facility] for further evaluation. I have placed the referral. Thank you, Benito Hurtado PA-C Real Mckoy LPN [facility] 11-30-2023 Note HNO ID: [id number] Author: JALIL GALVAN RN Service: ? Author Type: Registered Nurse Type: Progress Notes Filed: 11/30/2023 14:16 Note Text: Name: Nguyen Buckner [facility]#: [id number] Date: 11/30/2023 ESOPHAGEAL MANOMETRY TEST Indication: Pharyngoesophageal [...] the test without difficulty. .Jalil Galvan RN [facility] 11-30-2023 History of Present illness Narrative Name: Nguyen Buckner [facility]#: [id number] Date: 11/30/2023 ESOPHAGEAL MANOMETRY TEST Indication: Pharyngoesophageal [...] .Jalil Galvan RN documented in this encounter [facility] 10-18-2023 History of Present illness Narrative DEPARTMENT [...] upper endoscopy about a month ago at [facility] and she was told that there was no need to stretch her esophagus. She has not had esophageal manometry. She reports her weight is stable. She has no abdominal pain, nausea, vomiting, poor appetite, BRBPR, melena, change in bowel habit, diarrhea, constipation. She does occasionally have acid reflux but this is very rare for her. [facility] Pertinent Recent/Past Workup: MBS FINDINGS: ORAL PHASE: [...] for EMOT. Will also obtain records from [facility] for endoscopy. PLAN [facility] [place] EMOT ordered Benito Hurtado PA-C documented in this encounter [facility] 10-18-2023 Note HNO ID: [id number] Author: BENITO HURTADO PA-C Service: ? Author Type: Physician Lead Miner Blasting Type: Progress Notes Filed: 10/18/2023 12:34 Note [...] upper endoscopy about a month ago at [facility] and she was told that there was no need to stretch her esophagus. She has not had esophageal manometry. She reports her weight is stable. She has no abdominal pain, nausea, vomiting, poor appetite, BRBPR, melena, change in bowel habit, diarrhea, constipation. She does occasionally have acid reflux but this is very rare for her. [facility] Pertinent Recent/Past Workup: MBS FINDINGS: ORAL PHASE: [...] Has established orophary (more content not included)... [facility] 10-18-2023 Instructions Benito Hurtado PA-C - 10/18/2023 [...] do not hesitate to send me a [employer] message or call. Benito Hurtado PA-C documented in this encounter [facility] 09-10-2023 Procedure note [facility] 10-31-2021 History of Present illness Narrative ASSESSMENT/PLAN: [...] ICD9: 379.21, ICD10: H43.813 Stable. Clara Moralez, OD I have confirmed and edited as necessary [...] all of its relevant components. Clara Moralez, OD October 31, 2021 1:10 PM documented in this encounter [facility] 10-31-2021 Instructions Clara Moralez, CHRISTINA - 10/31/2021 10:58 AM EDT I put [...] that needs adjusted. documented in this encounter [facility] Evaluation note Diagnosis Pseudophakia of both eyes- Primary Lens replaced by other means Intermittent alternating esotropia Intermittent esotropia, alternating Epiretinal membrane (ERM) of right eye PVD (posterior vitreous detachment), bilateral [facility] noteNo assessment information availableDetwiler [facility] Work Phone: Evaluation note* Diagnosis Pharyngoesophageal dysphagia- Primary Dysphagia, pharyngoesophageal phase [facility] Diagnosis Other specified pre-operative examination- Primary Combined forms of age-related cataract of both eyes Other and combined forms of senile cataract Mild intermittent asthma without complication Unspecified asthma Other pneumonia, unspecified organism Pharyngoesophageal dysphagia Dysphagia, pharyngoesophageal phase [facility] Diagnosis Other specified pre-operative examination- Primary Combined forms of age-related cataract of both eyes Other and combined forms of senile cataract Mild intermittent asthma without complication Unspecified asthma Other pneumonia, unspecified organism Ineffective esophageal motility- Primary [facility] Diagnosis Other specified pre-operative examination- Primary Combined forms of age-related cataract of both eyes Other and combined forms of senile cataract Mild intermittent asthma without complication Unspecified asthma Other pneumonia, unspecified organism Esophageal stenosis- Primary Stricture and stenosis of esophagus Ineffective esophageal motility Lymphocytic esophagitis [facility] Diagnosis Other specified pre-operative examination- Primary Combined forms of age-related cataract of both eyes Other and combined forms of senile cataract Mild intermittent asthma without complication Unspecified asthma Other pneumonia, unspecified organism Esophageal stenosis Stricture and stenosis of esophagus [facility]* Diagnosis Postmenopausal bleeding Urethral caruncle documented in this encounter [facility] HealthcareEvaluation note* Diagnosis Other specified pre-operative examination- Primary Combined forms of age-related cataract of both eyes Other and combined forms of senile cataract Mild intermittent asthma without complication Unspecified asthma Other pneumonia, unspecified organism Esophageal stenosis- Primary Stricture and stenosis of esophagus [facility] Diagnosis Other specified pre-operative examination- Primary Combined forms of age-related cataract of both eyes Other and combined forms of senile cataract Mild intermittent asthma without complication Unspecified asthma Other pneumonia, unspecified organism Esophageal stenosis Stricture and stenosis of esophagus [facility] Diagnosis Encounter for Medicare annual wellness exam- Primary Advance directive in chart Encounter for screening for other disorder Screening for alcohol problem Screening for alcoholism Screening for diabetes mellitus (DM) Screening for diabetes mellitus Screening mammogram, encounter for Mixed dyslipidemia (CMS/HCC) Mild intermittent asthma without complication (CMS/HCC) Age-related osteoporosis without current pathological fracture (CMS/HCC) Surgical menopause Cardiovascular event risk documented in this encounter [facility] HealthcareHistory and physical note Author Bhavik Mota [facility] September 10, 2023 12:56pm Note Date/Time September 10, 2023 12:5 6pm [facility] [address] [place] [address] Gastroenterology H&P Signed Patient: Nguyen Buckner MR# : [id number] : 1945 Acct:[id number] Age/Sex: 77 / M Adm Date: 4 Loc: Room: Type: [facility] Attending Dr: Bhavik Mota MD Copies to: [...] MD Documented By: Bhavik Mota MD 09/10/23 1256 Signed By: <Electronically signed by Bhavik Mota MD> 09/10/23 [id number] [facility] Work Phone: Reason for referral (narrative)* Outpatient Procedure (Routine) - New Request Specialty Diagnoses / Procedures Referred By Contac t Referred To Contact [facility] Diagnoses Pharyngoesophageal dysphagia Procedures MANOMETRY ESOPHAGEAL ESOPHAGEAL MOTILITY STUDY W/INTERP&RPT Benito Hurtado PA-C [address] [id number] [place] [id number] Referral ID Status Reason Start Date Expiration Date Visits Requested Visits Authorized [id number] New Request Auto-Generat ed Referral 10/18/2023 10/17/2024 1 1 [facility] for referral (narrative)* Outpatient Procedure (Routine) - Authorized Specialty Diagnoses / Procedures Referred By Contac t Referred To Contact [facility] Diagnoses Esophageal stenosis Procedures EGD - THERAPEUTIC, EUS, OR TUBE INTERVENTIONS EGD DILATION GASTRIC/DUODENAL STRICTURE Moose Tan MD [id number] [address] Referral ID Status Reason Start Date Expiration Date Visits Requested Visits Authorized [id number] Authorized Auto-Generat ed Referral 12/27/2024 1 1 * Outpatient Procedure (Routine) - Authorized Specialty Diagnoses / Procedures Referred By Contac t Referred To Contact [facility] Diagnoses Esophageal stenosis Procedures EGD - THERAPEUTIC, EUS, OR TUBE INTERVENTIONS EGD DILATION GASTRIC/DUODENAL STRICTURE Moose Tan MD [address] [place] [address] [place] [phone] Referral ID Status Reason Start Date Expiration Date Visits Requested Visits Authorized [id number] Authorized Auto-Generat ed Referral 12/27/2024 1 1 [facility] for referral (narrative)* Outpatient Procedure (Routine) - Closed Specialty Diagnoses / Procedures Referred By Contac t Referred To Contact [facility] Diagnoses Esophageal stenosis Procedures EGD - THERAPEUTIC, EUS, OR TUBE INTERVENTIONS EGD DILATION GASTRIC/DUODENAL STRICTURE Moose Tan MD [address] [place] [address] [place] [phone] Referral ID Status Reason Start Date Expiration Date V isits Requested Visits Authorized [id number] Closed Auto-Generate d Referral 12/28/2023 12/27/2024 1 1 [facility] for visit Narrative* Outpatient Procedure (Routine) - Closed Specialty Diagnoses / Procedures Referred By Contac t Referred To Contact [facility] Diagnoses Esophageal stenosis Procedures EGD - THERAPEUTIC, EUS, OR TUBE INTERVENTIONS EGD DILATION GASTRIC/DUODENAL STRICTURE Moose Tan MD [id number] [address] Referral ID Status Reason Start Date Expiration Date V isits Requested Visits Authorized [id number] Closed Auto-Generate d Referral 12/28/2023 12/27/2024 1 1 [facility] for visit Narrative* Outpatient Procedure (Routine) - Closed Specialty Diagnoses / Procedures [facility] To Contact [facility] Diagnoses Esophageal stenosis Procedures EGD - THERAPEUTIC, EUS, OR TUBE INTERVENTIONS EGD DILATION GASTRIC/DUODENAL STRICTURE Moose Tan MD [address] [place] [address] [address] Referral ID Status Reason Start Date Expiration Date V isits Requested Visits Authorized [id number] Closed Auto-Generate d Referral 12/28/2023 12/27/2024 1 1 [facility] Summary Purpose Family History No Family History Records Found Relationship Condition Age at Onset Recorded Date/T lakeshia Not Specified Pulmonary emphysema Unknown sister Malignant neoplasm of colon Unknown Advance Directives No Advanced Directives Records Found Advance Directive Response Recorded Date/ Time Advance Directives No November 11, 2022 2:48pm Documents on File Type Date Recorded 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 Advance Directives and Living Will 05/13/2019 2006-03-14 Power Of Wedding Florist Advance Directives and Living Will 05/13/2019 2006-03-14 Living Wi ll Advance Directives and Living Will 05/08/2018 2006-03-14 Power Of Wedding Florist Advance Directives and Living Will 05/08/2018 2006-03-14 Living Wi ll Chief Complaint and Reason for Visit Chief Complaint Dysphagia Dysphagia Reason for Referral Specialty Diagnoses / Procedures Referred By Renate christine Referred To Contact Diagnoses Ineffective esophageal motility Procedures CONSULT TO GI SWALLOWING [facility] OFFICE/OUTPATIENT [facility] 60 MINUTES Benito Hurtado PA-C [address] [place] [address] Referral ID Status Reason Start Date Expiration Date Visits Requested Visits Authorized [id number] Authorized PCP Requested Referral 12/12/2023 12/11/2024 1 1 Additional Source Comments INFORMATION SOURCE (unrecogn ized section and content) DATE CREATED AUTHOR 03/24/2021 [facility] DATE CREATED AUTHOR AUTHOR'S ORGANIZ ATION 05/24/2021 [facility] dical Specialist DATE CREATED AUTHOR AUTHOR'S ORGANIZ ATION 09/17/2023 [facility] DATE CREATED AUTHOR AUTHOR'S ORGANIZ ATION 04/07/2024 [facility] DATE CREATED AUTHOR AUTHOR'S ORGANIZ ATION 08/15/2024 [facility] dical Specialists EPIC Source Comments (unrecognize d section and content) In the event this informatio n is protected by the Federal Confidentiality of Alcohol and Drug Abuse Patient Records regulations: The Federal rules restrict any use of the information to criminally investigate or prosecute any alcohol or drug abuse patient[facility] event this information is protected by the Federal Confidentiality of Alcohol and Drug Abuse Patient Records regulations: The Federal rules restrict any use of the information to criminally investigate or prosecute any alcohol or drug abuse patient.[facility] the event this information is protected by the Federal Confidentiality of Alcohol and Drug Abuse Patient Records regulations: The Federal rules restrict any use of the information to criminally investigate or prosecute any alcohol or drug abuse patient.[facility] the event this information is protected by the Federal Confidentiality of Alcohol and Drug Abuse Patient Records regulations: The Federal rules restrict any use of the information to criminally investigate or prosecute any alcohol or drug abuse patient.[facility] the event this information is protected by the Federal Confidentiality of Alcohol and Drug Abuse Patient Records regulations: The Federal rules restrict any use of the information to criminally investigate or prosecute any alcohol or drug abuse patient.[facility] the event this information is protected by the Federal Confidentiality of Alcohol and Drug Abuse Patient Records regulations: The Federal rules restrict any use of the information to criminally investigate or prosecute any alcohol or drug abuse patient.[facility] the event this information is protected by the Federal Confidentiality of Alcohol and Drug Abuse Patient Records regulations: The Federal rules restrict any use of the information to criminally investigate or prosecute any alcohol or drug abuse patient.[facility] the event this information is protected by the Federal Confidentiality of Alcohol and Drug Abuse Patient Records regulations: The Federal rules restrict any use of the information to criminally investigate or prosecute any alcohol or drug abuse patient.[facility] the event this information is protected by the Federal Confidentiality of Alcohol and Drug Abuse Patient Records regulations: The Federal rules restrict any use of the information to criminally investigate or prosecute any alcohol or drug abuse patient.[facility] the event this information is protected by the Federal Confidentiality of Alcohol and Drug Abuse Patient Records regulations: The Federal rules restrict any use of the information to criminally investigate or prosecute any alcohol or drug abuse patient.[facility] the event this information is protected by the Federal Confidentiality of Alcohol and Drug Abuse Patient Records regulations: The Federal rules restrict any use of the information to criminally investigate or prosecute any alcohol or drug abuse patient.[facility] the event this information is protected by the Federal Confidentiality of Alcohol and Drug Abuse Patient Records regulations: The Federal rules restrict any use of the information to criminally investigate or prosecute any alcohol or drug abuse patient.[facility] the event this information is protected by the Federal Confidentiality of Alcohol and Drug Abuse Patient Records regulations: The Federal rules restrict any use of the information to criminally investigate or prosecute any alcohol or drug abuse patient.[facility] Reason for Visit (unrecogniz ed section and content) Reason Comments Yearly Exam Reason Comments Dysphagia Reason Onset Date Comments Procedure 11/30/2023 Manometry Esopha geal Specialty Diagnoses / Procedures Referred By Contlibra christine Referred To Contact [facility] Diagnoses Pharyngoesophageal dysphagia Procedures MANOMETRY ESOPHAGEAL ESOPHAGEAL MOTILITY STUDY W/INTERP&RPT Benito Hurtado PA-C [address] [place] [address] [facility] [address] [place] [address] Referral ID Status Reason Start Date Expiration Date V isits Requested Visits Authorized [id number] Closed Auto-Generate d Referral 10/18/2023 10/17/2024 1 1 Reason Comments Patient Question Reason Comments New Patient Ineffective esophage al motility Specialty Diagnoses / Procedures Referred By Renate christine Referred To Contact Diagnoses Ineffective esophageal motility Procedures CONSULT TO GI SW[facility] OFFICE/OUTPATIENT NEW HIGH MDM 60 MINUTES Benito Hurtado PA-C [address] [place] [address] Referral ID Status Reason Start Date Expiration Date V isits Requested Visits Authorized [id number] Closed PCP Requested Referral 12/12/2023 12/11/2024 1 1 Reason Comments Insurance Authorization Reason Comments Appointment EGD Reason Comments postmenopausal bleeding Reason Comments Annual Exam Care Teams (unrecognized sec tion and content) Diesel Engine Mechanic Relationship Specialty Start Date End Date Osorio Harper MD [facility] [place] [id number] PCP - General Family Practice 04/28/19 Team [...] Referring Provider Active Start: September 10, 2023 Diesel Engine Mechanic Relationship Specialty Start Date End Date Osorio Harper MD [address] [place] [address] (Fax) PCP - General Family Medicine 04/28/19 Bhavik Mota MD [address] [place] [address] Referring Gastroenterology 09/19/23 Diesel Engine Mechanic Relationship Specialty Start Date End Date Osorio Harper MD [address] [place] [place] [place] [address] (Fax) PCP - General Family Medicine 04/28/19 Bhavik Mota MD [address] [place] [address] Referring Gastroenterology 09/19/23 Diesel Engine Mechanic Relationship Specialty Start Date End Date Osorio Harper MD [address] [place] [place] [address] (Fax) PCP - General Family Medicine 04/28/19 Bhavik Mota MD [address] [place] [address] Referring Gastroenterology 09/19/23 Diesel Engine Mechanic Relationship Specialty Start Date End Date Osorio Harper MD [address] [place] [place] [address] (Fax) PCP - General Family Medicine 04/28/19 Bhavik Mota MD [address] [place] [address] Referring Gastroenterology 09/19/23 Diesel Engine Mechanic Relationship Specialty Start Date End Date Osorio Harper MD [address] [facility] [place] [address] (Fax) PCP - General Family Medicine 04/28/19 Bhavik Mota MD [address] [place] [address] Referring Gastroenterology 09/19/23 Diesel Engine Mechanic Relationship Specialty Start Date End Date Osorio Harper MD [address] [facility] [facility] [place] [address] (Fax) PCP - General Family Medicine 04/28/19 Bhavik Mota MD [address] [place] [address] Referring Gastroenterology 09/19/23 Diesel Engine Mechanic Relationship Specialty Start Date End Date Osorio Harper MD [address] [facility] [place] [address] (Fax) PCP - General Family Medicine 04/28/19 Bhavik Mota MD [address] [place] [address] Referring Gastroenterology 09/19/23 Diesel Engine Mechanic Relationship Specialty Start Date End Date Osorio Harper MD [address] [facility] [place] [address] (Fax) PCP - General Family Medicine 04/28/19 Bhavik Mota MD [address] [place] [address] Referring Gastroenterology 09/19/23 Diesel Engine Mechanic Relationship Specialty Start Date End Date Osorio Harper MD [address] [place] [address] (Fax) PCP - General Family Medicine 04/28/19 Bhavik Mota MD [address] [facility]; [address] [place] [address] Referring Gastroenterology 09/19/23 Diesel Engine Mechanic Relationship Specialty Start Date End Date Osorio Harper MD [address] [place] [address] (Fax) PCP - [employer] 03/19/20 Osorio Harper MD [address] [place] [address] (Fax) PCP - General Family Medicine 08/23/22 Chanel Velez MD [address] [place] [address] Referring Physician Otolaryngology 07/23/23 Gorge Dennis DO [address] [facility] [address] [place] [address] Referring Physician General Surgery 07/23/23 Clara Moralez MD [address] [place] [address] Referring Physician Optometry 07/23/23 Diesel Engine Mechanic Relationship Specialty Start Date End Date Osorio Harper MD [address] [place] [address] (Fax) PCP - [employer] 03/19/20 Osorio Harper MD [address] [place] [address] (Fax) PCP - General Family Medicine 08/23/22 Chanel Velez MD [address] [place] [address] Referring Physician Otolaryngology 07/23/23 Gorge Dennis DO [address] [facility] [address] [place] [address] Referring Physician General Surgery 07/23/23 Clara Moralez MD [address] [place] [address] Referring Physician Optometry 07/23/23 Diesel Engine Mechanic Relationship Specialty Start Date End Date Osorio Harper MD [address] [facility] [place] [address] (Fax) PCP - General Family Medicine 04/28/19 Bhavik Mota MD [address] [facility]; [address] [place] [address] Referring Gastroenterology 09/19/23 Diesel Engine Mechanic Relationship Specialty Start Date End Date Osorio Harper MD [address] [place] [address] (Fax) PCP - [employer] 03/19/20 Osorio Harper MD [address] [place] [address] (Fax) PCP - General Family Medicine 08/23/22 Chanel Velez MD [address] [place] [address] Referring Physician Otolaryngology 07/23/23 Gorge Dennis DO [address] [place] [address] Referring Physician General Surgery 07/23/23 Clara Moralez MD [address] [place] [address] Referring Physician Optometry 07/23/23 Diesel Engine Mechanic Relationship Specialty Start Date End Date Osorio Harper MD [address] [facility] [address] [place] [address] PCP - [employer] 03/19/20 Osorio Harper MD [address] [facility] [address] [place] [address] PCP - General Family Medicine 08/23/22 Chanel Velez MD [address] [facility] [address] [place] [address] Referring Physician Otolaryngology 07/23/23 Gorge Dennis DO [address] [place] [address] [address] [place] [address] Referring Physician General Surgery 07/23/23 Clara Moralez MD [address] [place] [address] Referring Physician Optometry 07/23/23 (unrecognized sect ion and content) No Status [...] BE BASED ON THE PRIMARY CLINICAL RECORDS. [employer] provides no warranty or guarantee of the accuracy or completeness of information in this document.
[2024-09-05 10:31] LABS: Alanine Aminotransferase 20 U/L (14-59); Albumin Globulin Ratio 1.2; Albumin Level 3.8 g/dL (3.4-5.0); Alkaline Phosphatase 67 U/L (46-116); Anion Gap 12.3; Aspartate Amino Transferase 16 U/L (15-37); BUN Creatinine Ratio 19.1; Bilirubin Total 0.5 mg/dL (0.2-1.0); Calcium 9.3 mg/dL (8.5-10.1); Carbon Dioxide 28.4 mmol/L (21.0-32.0); Chloride 105 mmol/L (98-107); Chol HDL Ratio 3.7; Cholesterol 312 mg/dL (<=200); Estimated GFR (African America >60 (>=60 mL/min/1.73m^2); Estimated GFR (Non-African Ame >60 (>=60 mL/min/1.73m^2); Globulin 3.3 g/dL; Glucose 97 mg/dL (74-106); HDL Cholesterol 85 mg/dL (40-60); Potassium 3.7 mmol/L (3.5-5.1); Sodium 142 mmol/L (136-145); Total Protein 7.1 g/dL (6.4-8.2); Triglycerides 88 mg/dL (<=150); VLDL CHOLESTEROL 17.6 mg/dL
== END 2024-09-05 09:24 | disposition home or self-care (01) ==
LOC: MAMMO 09:23
PROVIDERS: PCP Family Medicine; Visit Provider Family Medicine
DX: Z00.00 Encounter for general adult medical examination without abnormal findings (principal); Z12.31 Encounter for screening mammogram for malignant neoplasm of breast; M81.0 Age-related osteoporosis without current pathological fracture; E89.40 Asymptomatic postprocedural ovarian failure; Z13.1 Encounter for screening for diabetes mellitus; E78.2 Mixed hyperlipidemia
CPT/HCPCS: 36415; 77063; 77067; 80053; 80061

== ENCOUNTER 2024-10-06 09:03 | Outpatient (OUT) | payer MEDICARE, SELFPAY ==
--- OUTSIDE RECORDS SUMMARY | 2024-10-06 09:05 | XMS_ITS | Encounter Summary ---
Author Organization [facility] Address [address] [place] [address] Care Team Providers Care Immigration Attorney Name Role Phone Osorio Bullock MD Primary Care Provider Bhavik Mota MD Unavailable Unavailable Source Comments In the event this information is protected by the Federal Confidentiality of Alcohol and Drug AbusePatient Records regulations: The Federal rules restrict any use of the information to criminally investigate or prosecute any alcohol or drug abuse patient.[facility] Encounter Details Date Type Department Care Team (Late st Contact Info) Description 03/28/2024 Patient Msg Gastroenterology [address] [place] [address] Cinthia Garcia RN Prep instrutions for 04/04/24 [...] is lower risk 4 10/18/2023 Data from: https://www.neighborhoodatlas.medicine.[facility].edu/. Last address used for calculation [id number] [place] [address] [address] 10/18/2023 Comments No Sex and Gender Information Value Date Recorded Sex Assigned at Not on file Legal Sex Female 10:12 AM EST Gender Identity Not on file Sexual Orientation Not on file documented as of this encounter Plan of Treatment Not on file documented as of this encounter Visit Diagnoses Not on filedocumented in this encounter Care Teams Immigration Attorney Relationship Specialty Start Date End Date Osorio Bullock MD [address] [facility] [facility] [place] [address] PCP - General Family Medicine 04/28/19 Bhavik Mota MD [address] [facility]; [address] [place] [address] Referring Gastroenterology 09/19/23 documented as of this encounter
--- OUTSIDE RECORDS SUMMARY | 2024-10-06 09:05 | XMS_ITS | Encounter Summary ---
Author Organization [facility] Address [address] [place] [address] Care Team Providers Care Casting House Laborer Name Role Phone Osorio Bullock MD Primary Care Provider Bhavik Mota MD Unavailable Unavailable Source Comments In the event this information is protected by the Federal Confidentiality of Alcohol and Drug AbusePatient Records regulations: The Federal rules restrict any use of the information to criminally investigate or prosecute any alcohol or drug abuse patient.[facility] Reason for Visit * Reason Comments Patient Update Patient Question Encounter Details Date Type Department Care Team (Late st Contact Info) Description 04/18/2024 Telephone Gastroenterology [address] [place] [address] Moose Tan MD [address] [place] [address] Patient Update; Patient Question Social History [...] is lower risk 4 10/18/2023 Data from: https://www.neighborhoodatlas.medicine.[facility].edu/. Last address used for calculation [address] 10/18/2023 Comments No Sex and [...] on filedocumented in this encounter Care Teams Casting House Laborer Relationship Specialty Start Date End Date Osorio Bullock MD [address] [place] [address] PCP - General Family Medicine 04/28/19 Bhavik Mota MD [address] [place] [address] [address] [place] [address] Referring Gastroenterology 09/19/23 documented as of this encounter
--- OUTSIDE RECORDS SUMMARY | 2024-10-06 09:05 | XMS_ITS | Clinical Summary ---
Author Organization [facility] Address [address] [place] [address] Care Team Providers Care Slot Machine Floor Person Name Role Phone Osorio Bullock MD Primary [...] denies cough, SOB. Instructed patient to call [facility] if there are worsening symptoms. Pt [...] is lower risk 4 10/18/2023 Data from: https://www.neighborhoodatlas.medicine.[facility].edu/. Last address used for calculation [address] 10/18/2023 Comments No Sex [...] Advantage Annual Wellness Visit 03/19/2024 Influenza Vaccine (#1) 2024 02/24/2009 Bone Density Screening Completed 07/22/2020, 2018 Mammogram Screening Discontinued 07/22/2020 Shingrix Vaccine Completed 07/21/2022, 04/29/2022 Medical Devices Implanted Type Area Senior Systems Programmer Device Identifier Shelf Expiration Date Model / Serial / Lot Lens Iol 0d +24.5 Kisha Uv Abs - [id number] Implanted:Qty : 1 on 04/28/2019 by Sri Dumont V, MD at [facility] Intraocular Lens Left: Eye [employer] 09/16/2023 SA60WF 24.5 / [id number] / Description:n/a Lens Iol 0d +22.5 Kisha [employer]v Abs - [id number] Implanted:Qty : 1 on 05/12/2019 by Sri Dumont V, MD at [facility] Intraocular Lens Right: Eye [employer] 09/16/2023 SA60WF 22.5 / [id number] / Description:n/a Insurance [address] [place] [address] [employer] MED[employer]ARE Care Teams Slot Machine Floor Person Relationship Specialty Start Date End Date Osorio Bullock MD [address] [facility] [place] [phone] PCP - General Family Medicine 04/28/19 Bhavik Mota MD [address] [facility]; [address] [place] [address] Referring Gastroenterology 09/19/23
--- OUTSIDE RECORDS SUMMARY | 2024-10-06 09:05 | XMS_ITS | Clinical Summary ---
Author Organization [facility] Address [address] [place] [address], [address] [place] [address] Care Team Providers Care Garland Machine Operator Name Role Phone Osorio Bullock MD Primary Care Provider + [phone] Allergies Active Allergy Reactions Criticality Noted Date [...] of Treatment Not on file Care Teams Garland Machine Operator Relationship Specialty Start Date End Date Osorio Bullock MD PCP - General 08/28/12
--- OUTSIDE RECORDS SUMMARY | 2024-10-06 09:05 | XMS_ITS | Encounter Summary ---
Author Organization [facility] Address [address] [place] [address] Care Team Providers Care Slot Machine Department Floorperson Name Role Phone Osorio Bullock MD Primary Care Provider Bhavik Mota MD Unavailable Unavailable Source Comments In the event this information is protected by the Federal Confidentiality of Alcohol and Drug AbusePatient Records regulations: The Federal rules restrict any use of the information to criminally investigate or prosecute any alcohol or drug abuse patient.[facility] Encounter Details Date Type Department Care Team (Late st Contact Info) Description 04/18/2024 Patient Msg Gastroenterology [address] [place] [phone] Moose Tan MD [address] [place] [address] Discomfort Social History Tobacco Use Types [...] risk 4 10/18/2023 Data from: https://www.neighborhoodatlas.medicine.[facility].edu/. Last address used for calculation [id number] [place] [address] [address] 10/18/2023 Comments No Sex and Gender Information Value Date Recorded Sex Assigned at Not on file Legal Sex Female 10:12 AM EST Gender Identity Not on file Sexual Orientation Not on file documented as of this encounter Plan of Treatment Not on file documented as of this encounter Visit Diagnoses Not on filedocumented in this encounter Care Teams Slot Machine Department Floorperson Relationship Specialty Start Date End Date Osorio Bullock MD [address] [facility] [place] [address] PCP - General Family Medicine 04/28/19 Bhavik Mota MD [address] [facility]; [address] [place] [address] Referring Gastroenterology 09/19/23 documented as of this encounter
--- OUTSIDE RECORDS SUMMARY | 2024-10-06 09:05 | XMS_ITS | Encounter Summary ---
Author Organization [facility] Address [address] [place] [address] Care Team Providers Care Television Announcer Name Role Phone Osorio Bullock MD Primary Care Provider Bhavik Mota MD Unavailable Unavailable Source Comments In the event this information is protected by the Federal Confidentiality of Alcohol and Drug AbusePatient Records regulations: The Federal rules restrict any use of the information to criminally investigate or prosecute any alcohol or drug abuse patient.[facility] Encounter Details Date Type Department Care Team (Late st Contact Info) Description 01/01/2024 Patient Msg Gastroenterology [address] [place] [address] Cinthia Garcia RN EGD instructions Social History [...] is lower risk 4 10/18/2023 Data from: https://www.neighborhoodatlas.medicine.[facility].edu/. Last address used for calculation [address] [place] [address] [address] 10/18/2023 Comments No Sex and Gender Information Value Date Recorded Sex Assigned at Not on file Legal Sex Female 10:12 AM EST Gender Identity Not on file Sexual Orientation Not on file documented as of this encounter Plan of Treatment Not on file documented as of this encounter Visit Diagnoses Not on filedocumented in this encounter Care Teams Television Announcer Relationship Specialty Start Date End Date Osorio Bullock MD [address] [place] [phone] PCP - General Family Medicine 04/28/19 Bhavik Mota MD [address] [facility]; [facility] [address] [place] [address] Referring Gastroenterology 09/19/23 documented as of this encounter
== END 2024-10-06 09:04 | disposition home or self-care (01) ==
LOC: RAD 09:03
PROVIDERS: PCP Family Medicine; Visit Provider Family Medicine
DX: M81.0 Age-related osteoporosis without current pathological fracture (principal); E89.40 Asymptomatic postprocedural ovarian failure; M85.80 Other specified disorders of bone density and structure, unspecified site
CPT/HCPCS: 77080

== ENCOUNTER 2024-11-18 08:57 | Outpatient (OUT) | payer MEDICARE, SELFPAY ==
--- NOTE | 2024-11-18 09:01 | CA_ITS ---
Patient Name: HERMAN BUCKNER MR#: [id number] : 1945 Exam Date: 11/18/2024 Ordering Doctor: DR NIKOS HARPER . ECHOCARDIOGRAM REPORT PROCEDURE: CA ECHO DOPPLER COMPLETE INDICATIONS: Bradycardia, abnormal EKG, Murmur COMPARISON: None. DESCRIPTION: COMPLETE ECHOCARDIOGRAM Real-time transthoracic echocardiography with 2D, M-mode, spectral and color flow Doppler performed. QUALITY: Technical quality was good. LEFT VENTRICLE: Normal chamber size. Normal left ventricular wall thickness. LV EF: Global left ventricular systolic function is hyperdynamic: visually estimated ejection fraction is 65-70%. No significant wall motion abnormalities. DIASTOLIC: Normal diastolic function. ATRIAL SEPTUM: Visually appears intact. LEFT ATRIUM: Normal chamber size. RIGHT ATRIUM: Normal chamber size. RIGHT VENTRICLE: Normal chamber size. Normal right ventricular systolic function. TRICUSPID VALVE: Normal mobility and thickness. No stenosis with mild regurgitation. No evidence of pulmonary hypertension. RVSP 28 mmHg MITRAL VALVE: Normal mobility and thickness. No evidence of mitral valve stenosis. Mild mitral annular calcification. Trivial mitral regurgitation. AORTIC VALVE: Normal trileaflet appearance. Mildly calcified aortic valve. Normal leaflet mobility. No evidence of aortic valve stenosis. No aortic regurgitation. AORTIC ROOT: Normal diameter and appearance. Ascending aorta is normal in size. PULMONIC VALVE: Not well visualized. No stenosis. Trivial regurgitation. PERICARDIUM: No evidence of pericardial effusion. IVC: Collapses with inspiration. IVC is normal in size. CONCLUSION: 1. Global left ventricular systolic function is hyperdynamic; visually estimated ejection fraction is 65 to 70% 2. Normal right ventricular size and systolic function 3. Normal diastolic function 4. The left atrium is normal in size 5. Mild tricuspid regurgitation Adult Echocardiography Procedure Report Left Ventricle LVEDD (3.7 - 5.6 cm): 3.63 cm LVESD (2.2 - 4.0 cm): 2.61 cm LVIVS thickness (0.6 - 1.2 cm): 0.98 cm LVPW thickness (0.5 - 1.0 cm): 0.89 cm e': 0.10 m/s E - e': 5.76 LVOT Max Gradient: 2.19 mm[Hg] LVOT Area (cm2): 0.74 m/s Peak Velocity (LVOT): 0.74 m/s Mean Velocity (LVOT): 0.48 m/s LVOT Diameter 2.02 cm Left Ventricular Ejection Fraction: 73.32 % Left Atrium LA Volume Index (2D A2C): 27.15 ml/m2 Left Atrium Systolic Dimension: 2.59 cm Mitral Valve MV E to A Ratio: 0.81 Mitral Valve A-Wave Peak Velocity: 0.74 m/s Mitral Valve E-Wave Peak Velocity: 0.60 m/s Right Ventricle Aorta AO Root Diam: 3.14 cm Ascending Ao Diam: 2.58 cm Aortic Valve AoV Area (Peak Jaya): 2.83 cm2, 2.83 cm2 AoV Area (VTI): 2.90 cm2, 2.90 cm2 Peak Velocity(Antegrade Flow): 0.84 m/s Peak Gradient(Antegrade Flow): 2.80 mm[Hg] Mean Velocity(Antegrade Flow): 0.57 m/s Mean Gradient(Antegrade Flow): 1.50 mm[Hg] Velocity Time Integral: 19.66 cm Tricuspid Valve Peak Velocity (Regurgitant Flow): 1.74 m/s, 2.44 m/s, 2.51 m/s Pulmonic Valve Peak Gradient: 1.42 mm[Hg], 1.78 mm[Hg] Right Atrium Right Atrium Systolic Pressure: 25.06 ml, 25.06 ml Dictated by: Colin Merrill M.D. on 11/18/2024 at 13:50 Approved by: Colin Merrill M.D. on 11/18/2024 at 13:54
--- OUTSIDE RECORDS SUMMARY | 2024-11-18 09:01 | XMS_ITS | CCD ---
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 Name Role Phone MEREDITH, DR KNOTT [...] Harper MD Primary Care Provider MD Bhavik Mota Attending Provider MD Osorio Harper Primary Care Provider MD Osorio Harper Referring Provider Bhavik Mota Admitting Unavailable Bhavik Mota Attending Unavailable Osorio Harper Primary Care Unavailable Osorio Harper Referring Unavailable Gorge Dennis Admitting Unavailable Gorge Dennis Attending Unavailable Osorio Harper MD Primary Care Provider Bhavik Mota MD Unavailable Unavailable Osorio Harper MD Unavailable [phone] Osorio Harper MD Primary Care Provider [phone] Agustin FONSECA, Chanel Hurst Unavailable [phone] Gorge Dennis DO Unavailable Clara Moralez MD Unavailable [phone] BENITO HURTADO Referring [facility]available [facility] Unavailab dmitriy HARPER, [facility] Unavailab BENITO Borjas Attending Unavailable [facility] MOOSE Hennessy Attending Unavailable BENITO HURTADO Referring Unavailable MEREDITH, [facility] UnavailMOOSE Ch Referring Unavailable MOOSE TAN Attending Unavailable MOOSE TAN Referring Unavailable MOOSE TAN Attending Unavailable MEREDITH, [facility] UnavailOsorio Spence MD Primary Care Provider [phone] OSORIO HARPER Attending Unavailable OSORIO HARPER Attending Unavailable AUGUST ROBBINS Attending Unavailable Allergies Allergy Classification Reported Allergen(s) Allergy Type Date of Onset Reaction(s) Facility Penicillins (antibiotic) (1 source) Penicillins Drug Allergy 08-27-2023 [facility] Repository (2 sources) Penicillins; Translations: [PENICILLINS] Drug allergy (disorder) 10-09-2012 [facility] Repository (13 sources) Penicillins Drug Allergy 10-09-2012 Itching, Rash [facility] (12 sources) Penicillins Drug Allergy 08-28-2022 [facility] Medications Current Medications Medication Drug Class(es) Dates Sig (Normalized) Sig (Original) [id number] 200 actuat albuterol 0.09 mg/actuat metered dose inhaler (20 sources) beta2-Adrenergic Agonist Start: 08-12-2024 End: 11-10-2024 take 2 puff(s) by inhalation every six hours for wheezing albuterol HFA 90 mcg/act inhaler Indications: Mild intermittent asthma without complication (HCC) Inhale 2 [...] . calcium citrate 950 mg oral tablet (8 sources) calcium citrate (Calcitrate) 950 (200 Ca) MG tablet Take 250 mg by mouth Daily Active cholecalciferol 0.125 mg oral capsule (20 sources) Vitamin D cholecalciferol (Vitamin D-3) 125 MCG (5000 UT) capsule 1 capsule 1 (one) time each day at the same time. Active cholecalciferol (VITAMIN D3) 5,000 unit tab Take 1 tablet by mouth. Active Comment on above: Take 1 tablet by . estrogens, conjugated (longterm) 0.625 mg/ml vaginal cream (4 sources) Estrogen [...] 3 03/26/2024 04/25/2024 Active multivitamin (Theragran) tablet (8 sources) take 1 tablet by andrea th [...] above: Take 1 tablet by andrea th. rosuvastatin calcium 5 mg oral tablet (7 sources) HMG-CoA Reductase Inhibitor Start: End: take 1 tablet by mouth once daily rosuvastatin (Crestor) 5 MG tablet Indications: Mixed dyslipidemia Take 1 tablet (5 mg) by mouth Daily 90 tablet 09/08/2024 12/07/2024 Active Start: 12-25-2022 End: 03-26-2024 take 1 tablet by mouth in the morning rosuvastatin (Crestor) 5 MG tablet Indications: Mixed dyslipidemia (CMS/HCC) Take 1 tablet (5 mg) by mouth in the morning. 90 tablet 3 12/25/2022 03/26/2024 Discontinued Completed/Discontinued Medications Medication Drug Class(es) Dates Sig (Normalized) Sig (Original) Benzocaine (1 source) Standardized Chemical Allergen Start: 04-04-2024 End: 04-04-2024 TOPICAL, X (OR/PROCEDURE) PRN, Starting on Sun04/04/24 at 1131, Until Sun04/04/24 at 1131, Intraprocedure budesonide 0.25 mg/ml inhalation suspension (15 sources) Corticosteroid Start: 12-28-2023 End: 04-04-2024 budesonide [...] uncomplicated] Onset: 3 Resolved: 3 04-17-2019 Chronic Cardiac dysrhythmias (6 sources) Supraventricular tachycardia; Translations: [Supraventricular tachycardia (HCC)] 10-27-2024 Chronic Cardiac dysrhythmias (6 sources) Sinus bradycardia; Translations: [Bradycardia, unspecified] 10-27-2024 Episodic Cataract (20 sources) Bilateral pseudophakia; Translations: [Presence of intraocular lens] Onset: 9 Resolved: 4 Chronic Chronic kidney disease (12 sources) Chronic kidney disease stage 2; Translations: [Chronic kidney disease, stage 2 (mild)] Onset: 3 08-28-2022 Chronic Complications of surgical procedures or medical care (14 sources) Postsurgical menopause; Translations: [Asymptomatic postprocedural ovarian failure] Onset: 3 08-28-2022 Chronic Disorders of lipid metabolism (14 sources) Dyslipidemia; Translations: [Mixed hyperlipidemia] Onset: 3 08-28-2022 Chronic Esophageal disorders (10 sources) Esophageal dysmotility; Translations: [Dyskinesia of esophagus] Onset: 4 12-12-2023 Chronic Esophageal disorders (2 sources) Esophagitis; Translations: [Lymphocytic esophagitis] 12-28-2023 Episodic Heart valve disorders (18 sources) Heart murmur; Translations: [Cardiac murmur, unspecified] Onset: 3 08-28-2022 Episodic Immunizations and screening for infectious disease (1 source) Encounter for immunization; Translations: [ENCOUNTER FOR IMMUNIZATION] Onset: 2 Episodic Malaise and fatigue (1 source) Other fatigue; Translations: [OTHER FATIGUE] Onset: 2 Episodic Menopausal disorders (2 sources) Postmenopausal bleeding; Translations: [Postmenopausal bleeding] 03-26-2024 Chronic Nutritional deficiencies (12 sources) Vitamin D deficiency; Translations: [Vitamin D deficiency, unspecified] Onset: 3 08-28-2022 Chronic Osteoporosis (14 sources) Senile osteoporosis; Translations: [Age-related osteoporosis without [...] conditions (not mental disorders or infectious disease) (12 sources) Patient encounter status; Translations: [Encounter for screening for other disorder] 08-06-2024 Episodic Other upper respiratory disease (12 sources) Chronic laryngitis; Translations: [Chronic laryngitis] Onset: 3 Resolved: 3 12-25-2022 Chronic Residual codes; unclassified (2 sources) Active advance directive (copy within chart) ; Translations: [Other specified health status] 08-06-2024 Episodic Residual codes; unclassified (16 sources) Cardiovascular event risk; Translations: [Other specified personal risk factors, not elsewhere classified] Onset: 1 08-12-2024 Episodic Retinal detachments; defects; vascular occlusion; and retinopathy (13 sources) Epiretinal membrane of right eye; Translations: [...] Rectal polyp; Translations: [Rectal polyp] Onset: 11-10-19 23 Episodic Chronic obstructive pulmonary disease and bronchiectasis (1 source) Bronchitis, not specified as acute or chronic; Translations: [BRONCHITIS NOT SPEC ACUTE/CHRON] Onset: 11-17-19 21 Episodic E Codes: Struck by; against (1 source) Striking against or struck by other objects, initial encounter; Translations: [STRIKING AGNST/STRUCK OTH OBJ INIT] Onset: 08-19-19 21 Episodic Mood disorders (12 sources) Mood disorders Onset: 07-23-19 24 Resolved : 08-13-19 25 07-23-2023 Neoplasms of unspecified nature or uncertain behavior (12 sources) Neoplasm of uncertain behavior of skin; Translations: [Neoplasm of uncertain behavior of skin] Onset: 12-05-19 13 Resolved : 12-26-1912-25-2022 Episodic Nonspecific chest pain (3 sources) Chest pain, unspecified; Translations: [CHEST PAIN UNSPECIFIED] Onset: 08-16-19 Episodic Other bone disease and musculoskeletal deformities (1 source) Other specified disorders of bone density and structure, unspecified site; Translations: [OTH D/O BONE DEN STRUCT UNS SITE] Onset: 08-19-19 Episodic Other bone disease and musculoskeletal deformities (12 sources) Osteopenia; Translations: [Other specified disorders of bone density and structure, other site] Onset: 08-29-1908-28-2022 Episodic Other eye disorders (20 sources) Bilateral posterior vitreous detachment; Translations: [Vitreous degeneration, bilateral] Onset: 02-21-20 Resolved : 12-26-19 Chronic Other eye disorders (20 sources) Vitreous floaters of right eye; Translations: [Other vitreous opacities, right eye] Onset: 09-11-19 Resolved : 12-26-1909-11-2019 Chronic Other eye disorders (12 sources) Vitreous degeneration of left eye; Translations: [Vitreous degeneration, left eye] Onset: 08-29-19 Resolved : 12-26-1912-25-2022 Chronic Other eye disorders (20 sources) Tear film insufficiency of bilateral eyes; Translations: [Dry eye syndrome of bilateral lacrimal glands] Onset: 02-21-20 Resolved : 12-26-1902-20-2019 Episodic Other eye disorders (20 sources) History of yuulhnl-alebfltm-burkwm (YAG) laser capsulotomy of lens; Translations: [Cataract extraction status, unspecified eye] Onset: 09-11-1909-11-2019 Episodic Other eye disorders (12 sources) Keratoconjunctivitis sicca; Translations: [Dry eye syndrome of unspecified lacrimal gland] Onset: 08-29-19 Resolved : 12-26-1912-25-2022 Episodic Other gastrointestinal disorders (1 source) Dysphagia, pharyngoesophageal phase; Translations: [Pharyngoesophageal dysphagia] Onset: 11-30-19 Episodic Other lower respiratory disease (4 sources) Cough; Translations: [COUGH] Onset: 11-13-19 Episodic Other lower respiratory disease (1 source) Solitary pulmonary nodule; Translations: [SOLITARY PULMONARY NODULE] Onset: 08-19-19 Episodic Other lower respiratory disease (12 sources) Nodule of lung; Translations: [Solitary pulmonary nodule] Onset: 08-29-1908-28-2022 Episodic Other upper respiratory disease (12 sources) Allergic rhinitis; Translations: [Other allergic rhinitis] Onset: 08-29-19 Resolved : 12-26-1912-25-2022 Chronic Other upper respiratory infections (1 source) Acute upper respiratory infection, unspecified; Translations: [ACUTE UP RESPIRATORY INFECTION UNS] Onset: 11-17-19 Episodic Pneumonia (except that caused by tuberculosis or sexually transmitted disease) (20 sources) Infective pneumonia; Translations: [Other pneumonia, unspecified organism] Onset: 04-17-19 Resolved : 12-26-1904-17-2019 Episodic Residual codes; unclassified (12 sources) Family history of cancer of colon; [...] Test Name Value Interpretation Reference Range Facility ALL LIPID PROFILE (FASTING)o n 09-05-2024 CHOL HDL RATIO 3.7 [facility] Comment on above: 3.3 - 4.4 LOW RISK 4.4 - 7.1 AVERAGE RISK 7.1 - 11.0 MODERATE RISK >11.0 HIGH RISK Cholesterol [Mass/Vol] 312 mg/dL High NINF - 200 mg/dL [facility] Cholesterol in HDL [Mass/Vol] 85 mg/dL High 40 - 60 mg/dL [facility] Comment on above: > or =60 mg/dl - LOW CARDIOVASCULAR RISK <40 mg/dl - HIGH CARDIOVASCULAR RISK Interpretation and review of laboratory results Abnormal [facility] Magnesium [Mass/Vol] 210 mg/dL [facility] Comment on above: <100 mg/dl OPTIMAL 100-129 mg/dl NEAR OR ABOVE OPTIMAL 130-159 mg/dl BORDERLINE HIGH 160-189 mg/dl HIGH >190 mg/dl VERY HIGH Magnesium [Mass/Vol] 17.6 mg/dL [facility] Triglyceride [Mass/Vol] 88 mg/dL NINF - 150 mg/dL [facility] CMP (CMP) (FOR REMOTE FH C USE)on 09-05-2024 Albumin [Mass/Vol] 3.8 g/dL 3.4 - 5.0 g/dL [facility] ALBUMIN GLOBULIN RATIO 1.2 [facility] ALP [Catalytic activity/Vol] 67 U/L 46 - 116 U/L [facility] ALT [Catalytic activity/Vol] 20 U/L 14 - 59 U/L [facility] Anion gap [Moles/Vol] 12.3 mmol/L [facility] AST [Catalytic activity/Vol] 16 U/L 15 - 37 U/L [facility] Bilirubin [Mass/Vol] 0.5 mg/dL 0.2 - 1.0 mg/dL [facility] Calcium [Mass/Vol] 9.3 mg/dL 8.5 - 10. 1 mg/dL [facility] Chloride [Moles/Vol] 105 mmol/L 98 - 107 mmol/L [facility] CO2 [Moles/Vol] 28.4 mmol/L 21.0 - 32.0 mmol/L [facility] Creatinine [Mass/Vol] 0.68 mg/dL 0.55 - 1.02 mg/dL [facility] GFR/1.73 sq M.predicted CKD-EPI (S/P/Bld) [Vol rate/Area] >60 >=60 mL/min/1.73m 2 [facility] Globulin (S) [Mass/Vol] 3.3 g/dL [facility] Glucose [Mass/Vol] 97 mg/dL 74 - 106 mg/dL [facility] Potassium [Moles/Vol] 3.7 mmol/L 3.5 - 5.1 mmol/L [facility] Protein [Mass/Vol] 7.1 g/dL 6.4 - 8.2 g/dL [facility] Sodium [Moles/Vol] 142 mmol/L 136 - 145 mmol/L [facility] EGFR-NON AF SOMALI >60 >=60 mL/min/1.73m 2 [facility] Urea nitrogen [Mass/Vol] 13 mg/dL 7.0 - 18.0 mg/dL [facility] Urea nitrogen/Creatinine [Mass ratio] 19.1 mg/mg [facility] MM TOMOSYNTHESIS SCREENING B Ion 09-05-2024 [place] [address] Mammography Report Signed Patient: NGUYEN BUCKNER MR#: [id number] : 1945 Acct:[id number] Age/Sex: 78 / F ADM Date: 09/05/24 Loc: MAMMO Attending Dr: OSORIO HARPER Ordering Physician: OSORIO HARPER Results: Date of Service: 09/05/24 Follow Up: Procedure(s): MM tomosynthesis screening BI Accession Number(s): [id number] cc: OSORIO HARPER Patient Name: NGUYEN BUCKNER MR#: [id number] : 1945 Exam Date: 09/05/2024 Ordering Doctor: DR OSORIO HARPER . RADIOLOGY REPORT PROCEDURE: MM TOMOSYNTHESIS SCREENING BI COMPARISON: MM TOMOSYNTHESIS SCREENING BI, 10/03/2022. MG MAMM JORY SCRN W CAD DIG, 07/13/2015. MG MAMM JORY SCRN W CAD DIG, 12/04/2013. INDICATIONS: Screening for malignant neoplasm Calculator Name NCI Breast Cancer Risk Assessment Tool 5 Year Breast Cancer Risk 2.30% Lifetime Breast Cancer Risk 3.80% Personal Breast Cancer No Personal Ovarian Cancer No Treatments None Family Cancers None LOCATION: [facility] BREAST COMPOSITION: The breasts are extremely dense, which lowers the sensitivity of mammography. FINDINGS: DIAGNOSTIC CATEGORY 1--NEGATIVE. RIGHT BREAST: No significant suspicious finding. LEFT BREAST: No significant suspicious finding. RECOMMENDATIONS: ROUTINE MAMMOGRAM AND CLINICAL EVALUATION IN 12 MONTHS. PLEASE NOTE: A NORMAL MAMMOGRAM DOES NOT EXCLUDE THE POSSIBILITY OF BREAST CANCER. A CLINICALLY SUSPICIOUS PALPABLE LUMP SHOULD BE BIOPSIED. Dictated by: Braeden Dodson DO on 09/05/2024 at 15:56 Approved by: Braeden Dodson DO on 09/05/2024 at 15:58 Dictated By: Braeden Dodson M.D. Signed By: 09/05/24 1559 DD/ 1558 TD/TT: Timing Inspector: [facility] Radiology, Radiologist, MD - 09/05/2024 [place] [address] Mammography Report Signed Patient: NGUYEN BUCKNER MR#: [id number] : 1945 Acct:[id number] Age/Sex: 78 / F ADM Date: 09/05/24 Loc: MAMMO Attending Dr: OSORIO HARPER Ordering Physician: OSORIO HARPER Results: Date of Service: 09/05/24 Follow Up: Procedure(s): MM tomosynthesis screening BI Accession Number(s): [id number] cc: OSORIO HAPRER Patient Name: NGUYEN BUCKNER MR#: [id number] : 1945 Exam Date: 09/05/2024 Ordering Doctor: DR OSORIO HARPER . RADIOLOGY REPORT PROCEDURE: MM TOMOSYNTHESIS SCREENING BI COMPARISON: MM TOMOSYNTHESIS SCREENING BI, 10/03/2022. MG MAMM JORY SCRN W CAD DIG, 07/13/2015. MG MAMM JORY SCRN W CAD DIG, 12/04/2013. INDICATIONS: Screening for malignant neoplasm Calculator Name NCI Breast Cancer Risk Assessment Tool 5 Year Breast Cancer Risk 2.30% Lifetime Breast Cancer Risk 3.80% Personal Breast Cancer No Personal Ovarian Cancer No Treatments None Family Cancers None LOCATION: [facility] BREAST COMPOSITION: The breasts are extremely dense, which lowers the sensitivity of mammography. FINDINGS: DIAGNOSTIC CATEGORY 1--NEGATIVE. RIGHT BREAST: No significant suspicious finding. LEFT BREAST: No significant suspicious finding. RECOMMENDATIONS: ROUTINE MAMMOGRAM AND CLINICAL EVALUATION IN 12 MONTHS. PLEASE NOTE: A NORMAL MAMMOGRAM DOES NOT EXCLUDE THE POSSIBILITY OF BREAST CANCER. A CLINICALLY SUSPICIOUS PALPABLE LUMP SHOULD BE BIOPSIED. Dictated by: Braeden Dodson DO on 09/05/2024 at 15:56 Approved by: Braeden Dodson DO on 09/05/2024 at 15:58 Dictated By: Braeden Dodson M.D. Signed By: 09/05/24 1559 DD/ 1558 TD/TT: Timing Inspector: [facility] Study observation (narrative) [facility] [employer] MM TOMOSYNTHESIS SCREENING B IOrdered By: Radiologist Radiology on 09-05-2024 [facility] [employer] Work Phone: No Panel Informationon 09-05 [facility] EGD Study observation Narrat iveon 04-04-2024 A31 Gastrointestinal Endoscopy Patient Name: Nguyen Buckner Procedure Date: 04/04/2024 11:04 AM Date of : 1945 Admit Type: Outpatient Age: 78 Room: [address] Gender: Female Note Status: Finalized Attending MD: Moose Tan MD, [id number] Procedure: Upper GI endoscopy Indications: For therapy [...] Resume pr (more content not included)... PROVATION [facility] Radiology Study observation (narrative) [facility] HISTORY PHYSICALon HISTORY PHYSICAL HNO ID: [id number] Author: MOOSE TAN MD Service: ? Author [...] Moderate Additional Comments: None Moose Tan MD [facility] NURSING PROGon 04-04-2024 NURSING PROG HNO ID: [id number] Author: BIMAL ROCHE RN Service: Nursing Author Type: Registered Nurse [...] None Electronically Signed By: Bimal Roche RN [facility] NURSING PROG HNO ID: [id number] Author: FILOMENA SARMIENTO RN Service: Nursing Author [...] Filomena Sarmiento RN In Department: GASTROENTEROLOGY Normal [facility] Upper GI endoscopyon 025 Upper GI endoscopy A31 Gastrointestinal Endoscopy Patient Name: Nguyen Buckner Procedure Date: 04/04/2024 11:04 AM Date of : 1945 Admit Type: Outpatient Age: 78 Room: [place] [address] Gender: Female Note Status: Finalized Attending MD: Moose Tan MD, [id number] Procedure: Upper GI endoscopy Indications: For therapy [...] for retreatment. Procedure Code(s): --- Professional --- 97937, Esophagogastroduodeno scopy, flexible, transoral; with insertion of guide wire followed by passage of dilator(s) through esophagus over guide wire Diagnosis Code(s): --- Professional --- K22.2, Esophageal obstruction CPT copyright 2020 [employer]. All rights reserved. 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 Any barriers to Patient learning: Patient/Patient Production Operations Manager responded appropriately on phone. Type of instruction given: Verbal by telephone contact. Mayda Fong LPN Allergies As of Date: 02/05/2024 Noted Allergy Reaction PENICILLINS 10/09/2012 9 - Itching 2 - Rash Date Reviewed: 01/08/2024 Reviewed by: Sharonda Manzo, RN - Fully Assessed Reason for Visit: [...] Encounter Status:Closed by MAYDA FONG on 02/05/24 [facility] 01-11-2024 [facility] Telephone (GASTWV) NGUYEN BUCKNER ([id number]) 1945 F Date Time Provider Department 01/11/24 MOOSE TAN [facility] During your visit today, we recorded the [...] solution. [employer] Medicare PDP Member # [id number] Customer Service # [phone] Serena Recinos RN 01/18/2024 3:01 PM Signed Attempted to submit PA via CMM Additional Information Required PA was already submitted for this patient and drug which was denied.;CaseId:[id number];Status:Denied;Appe al Information: Attention:ATTN: MEDICARE CLINICAL APPEALS qualifyor,[facility],[place] WebAddress:WWWLet's Talk; Layla Dumonttyrone 01/29/2024 11:10 AM Addendum Patient called stating that she spoke with her insurance company and they never received the appeal for the med Budesonide. They would like a letter of medical necessity from Dr. Tan giving the reason for the med. The letter can be sent to the fax number below. [email or web address] P- [phone] F- [phone] Moose Tan MD 01/29/2024 11:37 AM Signed Letter written Serena Recinos RN 01/31/2024 12:04 PM Signed Type of Form: Appeal Letter Faxed to: [email or web address] Serena Recinos RN Allergies As of Date: [...] Status:Closed by SERENA RECINOS on 01/18/24 Normal [facility] EGD Study observation Narremma rollins 01-08-2024 A31 Gastrointestinal Endoscopy Patient Name: Nguyen Buckner Procedure Date: 01/08/2024 8:43 AM Date of : 1945 Admit Type: Outpatient Age: 78 Room: [place] [address] Gender: Female Note Status: Finalized Attending MD: Moose Tan MD, [id number] Procedure: Upper GI endoscopy Indications: Dysphagia - [...] Estimated blo (more content not included)... [facility] Radiology Study observation (narrative) [facility] HISTORY PHYSICALon HISTORY PHYSICAL HNO ID: [id number] Author: THA COLES MD Service: Hepatology Author [...] discussed with the Patient or Patient's Authorized Production Operations Manager. As applicable, any other physician, advance practice provider, medical student, or other health professional student that will be observing or involved in the sensitive examination for educational or training purposes was discussed with the Patient or Authorized Production Operations Manager. The Patient or Authorized Production Operations Manager has agreed to proceed with the sensitive examination. (Sensitive examination includes inspection and/or palpation of the breasts, pelvis, prostate and anorectal regions) Sedation Plan: Moderate Additional Comments: None Tha Coles MD [facility] NURSING PROGon 01-08-2024 NURSING PROG HNO ID: [id number] Author: SHARONDA MANZO RN Service: Gastroenterology Author [...] None Electronically Signed By: Sharonda Manzo RN [facility] NURSING PROG HNO ID: [id number] Author: NORI JENSEN RN Service: Nursing Author [...] By: Nori Jensen RN In Department: GASTROENTEROLOGY [facility] Upper GI endoscopyon 024 Upper GI endoscopy A31 Gastrointestinal Endoscopy Patient Name: Nguyen Buckner Procedure Date: 01/08/2024 8:43 AM Date of : 1945 Admit Type: Outpatient Age: 78 Room: [place] [address] Gender: Female Note Status: Finalized Attending MD: Moose Tan MD, [id number] Procedure: Upper GI endoscopy Indications: Dysphagia - [...] dilation if needed. Please send me a Babytree message in a few weeks with an update of your symptoms Procedure Code(s): --- Professional --- 14943, Esophagogastroduodeno scopy, flexible, transoral; with insertion of guide wire followed by passage of dilator(s) through esophagus over guide wire Diagnosis Code(s): --- Professional --- R13.10, Dysphagia, unspecified K22.2, Esophageal obstruction CPT copyright 2020 [employer]. All rights reserved. The codes documented in this report are preliminary and upon repairer wood furniture review may be revised to meet current compliance requirements. Attending Participation: I was present and participated during the entire procedure, including non-mccain portions, and during the administration and monitoring of Moderate Sedation. Scope In: 8:52:52 AM Scope Out: 9:01:33 AM MD Moose Zhao MD 01/08/2024 9:09:47 AM This repo (more content not included)... Normal [facility] Bienvenido 12-17-2023 CNPN Telephone (GASTNO) NGUYEN BUCKNER ([id number]) 1945 F Date Time Provider Department 12/17/23 BENITO HURTADO During your visit today, we recorded the following information about you: Real Mckoy LPN 12/17/2023 3:22 PM Signed Patient left voicemail stating she has questions regarding message received from Benito. 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 At this point, I recommend referral to our swallowing center at [facility] for further evaluation. I have placed the [...] Fully Assessed Reason for Visit: Patient Question [4937] Prescriptions as of 12/18/2023 - azelastine (ASTELIN) [...] Status:Closed by REAL MCKOY LPN on 12/18/23 [facility] CNOVon 10-18-2023 CNOV Office Visit (DEE DEE ) NGUYEN BUCKNER ([id number]) 1945 F Date Time Provider Department 10/18/23 [...] do not hesitate to send me a Babytree message or call. JOSHUA Boyd Lauren, PA-C [...] upper endoscopy about a month ago at [facility] and she was told that there was no need to stretch her esophagus. She has not had esophageal manometry. She reports her weight is stable. She has no abdominal pain, nausea, vomiting, poor appetite, BRBPR, melena, change in bowel habit, diarrhea, constipation. She does occasionally have acid reflux but this is very rare for her. [facility] Pertinent Recent/Past Workup: MBS FINDINGS: ORAL [...] Age of (more content not included)... Normal [facility] 09-10-2023 L Specimen: [id number] Received: 09/10/23 Status: SOUT Req Num: [id number] Spec Type: Surgical Subm Dr: Bhavik Mota MD Tissues: A Esophagus Biopsy (ESOPHAGEAL BX R/O EOE) Procedures: HE/2, Gross/Micro L4 Age/ Patient Sex Location Account Attending Physician Nguyen Buckner 77/M [id number] Bhavik Mota MD SPEC NUM: [id number] RECD: 09/10/23 STATUS: OSCAR PERESHiram NUM: [id number] [place]: 09/10/[address] [facility] [address]: Bhavik Mota MD ENTERED: 09/10/23 [facility] DR: SPEC TYPE: Surgical DEPT: S ORDERED: [...] cm, entirely submitted in A1. CPT Codes 06268 -------- -------- Specimen: [id number] Received: 09/10/23 Status: OSCAR Erin Num: [id number] Spec Type: Surgical Subm Dr: Bhavik Mota MD Tissues: A Esophagus Biopsy (ESOPHAGEAL BX R/O EOE) Procedures: HE/2, Gross/Micro L4 -------- Patient: Nguyen Buckner [id number] (Continued) -------- Signed (signature on file) Donna Crisostomo MD 09/12/23928 Normal [facility] Chao 11-09-2022 Hector - -------- Specimen: [id number] Received: 11/09/22123 Status: OSCAR Burt Num: [id number] Spec Type: Surgical Subm Dr: Gorge Dennis DO Tissues: A Colon Biopsy (RECTAL POLYP) Procedures: HE/2, Gross/Micro L4 -------- Age/ Patient Sex Location Account Attending Physician -------- MercedesNguyen Hector 77/M [place] [id number] Gorge Dennis DO -------- SPEC NUM: [id number] RECD: 11/09/22 STATUS: OSCAR BURT NUM: [id number] [place]: 11/09/22- [facility] DR: Gorge Dennis DO ENTERED: 11/09/22 [facility] DR: Dany [facility] SPEC TYPE: Surgical DEPT: S ORDERED: HE/2, [...] microscopic examination confirms the diagnosis. CPT Codes 78382 -------- -------- Specimen: [id number] Received: 11/09/22 Status: OSCAR Burt Num: [id number] Spec Type: Surgical Subm Dr: Gorge Dennis DO Tissues: A Colon Biopsy (RECTAL POLYP) Procedures: HE/2, Gross/Micro L4 -------- Patient: Nguyen Buckner [id number] (Continued) -------- Signed (signature on file) Piyush Treviño MD 11/13/22 1644 Normal [facility] Complete Blood Count with Au to Diffon 05-23-2021 Basophils (Bld) [#/Vol] 0.05 10*3/uL Normal 0.00-0.20 [facility] Pre Planning Advisor Comment on above: Performed By: #### C BCAD, LIPD, CMP #### [facility] [address] [place], [place] [id number] Basophils/100 WBC (Bld) 1.1 % Normal [facility] Pre Planning Advisor Comment on above: Performed By: #### C BCAD, LIPD, CMP #### [facility] [address] [place], [place] [id number] Eosinophils (Bld) [#/Vol] 0.08 10*3/uL Normal 0.02-0.50 [facility] Pre Planning Advisor Comment on above: Performed By: #### C BCATriston LIPD, CMP #### [facility] [address] [place], [place] [id number] Eosinophils/100 WBC (Bld) 1.7 % Normal [facility] Pre Planning Advisor Comment on above: Performed By: #### C BCATriston LIPD, CMP #### [facility] [address] [place], [place] [id number] Erythrocyte distribution width (RBC) [Ratio] 13.4 % Normal 11.0-15.0 [facility] Pre Planning Advisor Comment on above: Performed By: #### C BCATriston LIPD, CMP #### [facility] [address] [place], [place] [id number] Hematocrit (Bld) [Volume fraction] 41.6 % Normal 35.0-47.0 [facility] Pre Planning Advisor Comment on above: Performed By: #### C BCATriston LIPD, CMP #### [facility] [address] [place], [place] [id number] Hemoglobin (Bld) [Mass/Vol] 13.6 g/dL Normal 11.6-15.5 [facility] Pre Planning Advisor Comment on above: Performed By: #### C BCATriston LIPD, CMP #### [facility] [address] [place], [place] [id number] Lymphocytes (Bld) [#/Vol] 1.4 10*3/uL Normal 0.9-3.9 [facility] Pre Planning Advisor Comment on above: Performed By: #### C BCAD, LIPD, CMP #### [facility] [address] [place], [place] [id number] Lymphocytes/100 WBC (Bld) 29.3 % Normal [facility] Pre Planning Advisor Comment on above: Performed By: #### C BCAD, LIPD, CMP #### [facility] [address] [place], [place] [id number] MCH (RBC) [Entitic mass] 29.1 pg Normal 27.0-33.0 [facility] Pre Planning Advisor Comment on above: Performed By: #### C BCAD, LIPD, CMP #### [facility] [address] [place], [place] [id number] MCHC (RBC) [Mass/Vol] 32.7 g/dL Normal 32.0-36.0 [facility] Specialist Comment on above: Performed By: #### C BCAD, LIPD, CMP #### [facility] [address] [place], [place] [id number] MCV (RBC) [Entitic vol] 89 fL Normal 80-100 [facility] Specialist Comment on above: Performed By: #### C BCAD, LIPD, CMP #### [facility] [address] [place], [place] [id number] Monocytes (Bld) [#/Vol] 0.5 10*3/uL Normal 0.2-0.9 [facility] Specialist Comment on above: Performed By: #### C BCAD, LIPD, CMP #### [facility] [address] [place], [place] [id number] Monocytes/100 WBC (Bld) 10.3 % Normal [facility] Specialist Comment on above: Performed By: #### C BCAD, LIPD, CMP #### [facility] [address] [place], [place] [id number] Neutrophils (Bld) [#/Vol] 2.7 10*3/uL Normal 1.5-7.8 [facility] Specialist Comment on above: Performed By: #### C BCAD, LIPD, CMP #### [facility] [address] [place], [place] [id number] Neutrophils/100 WBC (Bld) 57.4 % Normal [facility] Specialist Comment on above: Performed By: #### C BCAD, LIPD, CMP #### [facility] [address] [place], [place] [id number] Platelet mean volume (Bld) [Entitic vol] 8.50 fL Normal 7.50-12.50 [facility] Specialist Comment on above: Performed By: #### C BCAD, LIPD, CMP #### [facility] [address] [facility] [place] [id number] Platelets (Bld) [#/Vol] 292 10*3/uL Normal 140-400 [facility] Specialist Comment on above: Performed By: #### C BCAD, LIPD, CMP #### [facility] [address] [place], [place] [id number] RBC (Bld) [#/Vol] 4.68 10*6/uL Normal 3.90-5.20 [facility] Pre Planning Advisor Comment on above: Performed By: #### C BCAD, LIPD, CMP #### [facility] [address] [place], [place] [id number] RDW-SD 43.8 fL Normal 37.0-50.0 [facility] Specialist Comment on above: Performed By: #### C BCAD, LIPD, CMP #### [facility] [address] [place], [place] [id number] WBC (Bld) [#/Vol] 4.7 10*3/uL Normal 3.8-11.0 [facility] Pre Planning Advisor Comment on above: Performed By: #### C BCAD, LIPD, CMP #### [facility] [address] [place], [place] [id number] Comprehensive Metabolic Pane [facility] 05-23-2021 Albumin [Mass/Vol] 4.5 g/dL Normal 3.6-5.1 [facility] Pre Planning Advisor Comment on above: Performed By: #### C BCAD, LIPD, CMP #### [facility] [address] [place], [place] [id number] Albumin/Globulin [Mass ratio] 2.5 {ratio} Normal 1.0-2.5 [facility] Specialist Comment on above: Performed By: #### C BCAD, LIPD, CMP #### [facility] [address] [place], [place] [id number] ALP [Catalytic activity/Vol] 67 U/L Normal 35-119 [facility] Specialist Comment on above: Performed By: #### C BCAD, LIPD, CMP #### [facility] [address] [place], [place] [id number] ALT [Catalytic activity/Vol] 11 U/L Normal 6-33 [facility] Pre Planning Advisor Comment on above: Result Comment: 02/16 Female reference range changed. Performed By: #### C BCAD, LIPD, CMP #### [facility] [address] [place], [place] [id number] Anion gap [Moles/Vol] 16 mmol/L Normal 12-20 [facility] Comment on above: Result Comment: Effbernie ctive 03/24/2019 reference range changed. Performed By: #### C BCAD, LIPD, CMP #### [facility] [address] [place], [place] [id number] AST [Catalytic activity/Vol] 15 U/L Normal 9-34 [facility] Specialist Comment on above: Performed By: #### C BCAD, LIPD, CMP #### [facility] [address] [place], [place] [id number] Bilirubin [Mass/Vol] 0.34 mg/dL Normal 0.30-1.20 [facility] Comment on above: Performed By: #### C BCAD, LIPD, CMP #### [facility] [address] [place], [place] [id number] BUN/CREA 25 Ratio High 6-22 [facility] Comment on above: Performed By: #### C BCAD, LIPD, CMP #### [facility] [address] [place], [place] [id number] Calcium [Mass/Vol] 9.7 mg/dL Normal 8.6-10.2 [facility] Comment on above: Performed By: #### C BCAD, LIPD, CMP #### [facility] [address] [place], [place] [id number] Chloride [Moles/Vol] 108 mmol/L High 98-107 [facility] Comment on above: Performed By: #### C BCAD, LIPD, CMP #### [facility] [address] [place], [place] [id number] CO2 [Moles/Vol] 23 mmol/L Normal 20-31 [facility] Comment on above: Performed By: #### C BCAD, LIPD, CMP #### [facility] [address] [place], [place] [id number] Creatinine [Mass/Vol] 0.7 mg/dL Normal 0.6-1.4 [facility] Comment on above: Performed By: #### C BCAD, LIPD, CMP #### [facility] [address] [place], [place] [id number] eGFRAA 102 mL/min/1.73m2 Normal >60 [facility] Specialist Comment on above: Performed By: #### C BCAD, LIPD, CMP #### [facility] [address] [place], [place] [id number] eGFRNAA 84 mL/min/1.73m2 Normal >60 [facility] Pre Planning Advisor Comment on above: Performed By: #### C BCAD, LIPD, CMP #### [facility] [address] [place], [place] [id number] Globulin (S) [Mass/Vol] 1.8 g/dL Low 1.9-3.7 [facility] Pre Planning Advisor Comment on above: Performed By: #### C BCAD, LIPD, CMP #### [facility] [address] [place], [place] [id number] Glucose [Mass/Vol] 92 mg/dL Normal 65-99 [facility] Pre Planning Advisor Comment on above: Result Comment: For FASTING Glucose --- ADA reference ranges: Normal 65-99 mg/dl Prediabetes 100-125 Diabetes >/= 126 Performed By: #### C BCAD, LIPD, CMP #### [facility] [address] [place], [place] [id number] Potassium [Moles/Vol] 4.2 mmol/L Normal 3.5-5.5 [facility] Pre Planning Advisor Comment on above: Performed By: #### C BCAD, LIPD, CMP #### [facility] [address] [place], [place] [id number] Protein [Mass/Vol] 6.3 g/dL Normal 6.1-8.1 [facility] Pre Planning Advisor Comment on above: Performed By: #### C BCAD, LIPD, CMP #### [facility] [address] [place], [place] [id number] Sodium [Moles/Vol] 143 mmol/L Normal 135-146 [facility] Pre Planning Advisor Comment on above: Performed By: #### C BCAD, LIPD, CMP #### [facility] [address] [place], [place] [id number] Urea nitrogen [Mass/Vol] 17 mg/dL Normal 7-25 [facility] Pre Planning Advisor Comment on above: Performed By: #### C BCATriston, LIPD, CMP #### [facility] [address] [place], [place] [id number] Lipid Panelon 05-23-2021 Cholesterol [Mass/Vol] 301 mg/dL High 125-200 [facility] Pre Planning Advisor Comment on above: Result Comment: Low risk < 200mg/dL Borderline risk 201-239 mg/dl High risk > or equal to 240 Performed By: #### C BCAD, LIPD, CMP #### [facility] [address] [place], [place] [id number] Cholesterol in HDL [Mass/Vol] 72 mg/dL Normal >40 [facility] Specialist Comment on above: Result Comment: High Cardiovascular Risk HDL <40 mg/dL Low Cardiovascular Risk HDL > or equal to 60 mg/dl Performed By: #### C SUSIE, LIPD, CMP #### [facility] [address] [place], [place] [id number] Cholesterol in LDL [Mass/Vol] 209 mg/dL Normal [facility] Specialist Comment on above: Result Comment: LDL ATP III CLASSIFICATION LDL less than 100 mg/dl Optimal LDL 100-129 mg/dl Near or above optimal LDL 130-159 Borderline high LDL 160-189 High LDL greater than 189 mg/dl Very High Performed By: #### C SUSIE, LIPD, CMP #### [facility] [address] [place], [place] [id number] Cholesterol in VLDL [Mass/Vol] 20 mg/dL Normal [facility] Specialist Comment on above: Performed By: #### C BCAD, LIPD, CMP #### [facility] [address] [place], [place] [id number] Cholesterol.total/C holesterol in HDL [Mass ratio] 4 {ratio} Normal [facility] Specialist Comment on above: Performed By: #### C BCAD, LIPD, CMP #### [facility] [address] [place], [place] [id number] Triglyceride [Mass/Vol] 99 mg/dL Normal 30-150 [facility] Pre Planning Advisor Comment on above: Result Comment: TRIG ATPIII CLASSIFICATIONS TRIG less than 150 mg/dl Normal TRIG 150-199 mg/dl Borderline High TRIG 200-500 mg/dl High TRIG greather than 500 mg/dl Very High Performed By: #### C BCAD, LIPD, CMP #### [facility] [address] [facility] [place], [place] [id number] Covid-19 PCR (CVDTBH)on 02-18 SARS-CoV-2 (COVID-19) RNA TAIRQ+probe Ql (Unsp spec) Detected Critically abnormal NOT DETECTED [facility] Comment on above: Result Comment: This test is not yet approved or cleared by the [place] FDA. When there are no FDA-approved or cleared tests available, and other criteria are met, FDA can make tests available under an emergency access mechanism called an Emergency Use Authorization (EUA). The EUA for this test is supported by the [place] of Health and Human Service's (HHS's) declaration [...] used). Performed By: #### C VDTBH #### [facility] [address] [address] [address] Stefany Crisostomo CULTURE THROATon 11-12-2020 CULTURE THROAT Culture Observations : NORMAL RESPIRATORY TIARA. Normal [facility] Comment on above: Performed By: #### T HRTCX, SSCRN #### [facility] [address] [place], [place] [address] Stevenson Dye Covid-19 PCR (CVDTBH)on 10-18 SARS-CoV-2 (COVID-19) RNA TARIQ+probe Ql (Unsp spec) Not detected Normal NOT DETECTED [facility] Comment on above: Result Comment: This test is not yet approved or cleared by the [place] FDA. When there are no FDA-approved or cleared tests available, and other criteria are met, FDA can make tests available under an emergency access mechanism called an Emergency Use Authorization (EUA). The EUA for this test is supported by the [place] of Health and Human Service's (HHS's) declaration [...] Performed By: #### C VDAGS, CVDTBH #### [facility] [address] [place] [address] Stevenson Dye STREPT SCREENon 11-12-2020 STREP SCREEN A Negative Normal NEGATIVE [facility] Comment on above: Performed By: #### T HRTCX, SSCRN #### [facility] [address] [place] [address] Stevenson Marnie SYMPTOMATIC COVID-19 ANTIGEN on 11-12-2020 EUA Statement SEE BELOW Normal [facility] Comment on above: Result Comment: This test [...] Performed By: #### C VDAGS, CVDTBH #### [facility] [address] [place] [address] SARS-CoV-2 (COVID-19) RNA TARIQ+probe Ql (Unsp spec) Negative Normal NEGATIVE [facility] Comment on above: Result Comment: CONF IRMATION BY PCR PENDING PER CDC GUIDELINES/ SYMPTOMATIC PATIENT. Performed By: #### C VDAGS, CVDTB #### [facility] [address] [place] [address] Stevenson Marnie XR CHEST 1 Von 11-12-2020 [...] DANY DELVALLE Date: 2020-11-12 18:48 Normal [facility] CBC AUTO DIFFon 08-15-2020 BASO # 0.0 103/ul Normal 0.0-0.1 [facility] Comment on above: Performed By: #### C BC #### [facility] [address] [place], [place] [id number] Stevenson Marnie Basophils/100 WBC (Bld) 0.8 % Normal 0.2-2.0 [facility] Comment on above: Performed By: #### C BC #### [facility] [address] [place], [place] [address] Stevenson Marnie EO # 0.2 103/ul Normal 0.0-0.7 [facility] Comment on above: Performed By: #### C BC #### [facility] [address] [place], [place] [address] Stevenson Marnie Eosinophils/100 WBC (Bld) 3.0 % Normal 0.9-7.0 [facility] Comment on above: Performed By: #### C BC #### [facility] [address] [place], [place] [address] Stevenson Marnie Erythrocyte distribution width (RBC) [Ratio] 13.2 % Normal 11.0-15.0 [facility] Comment on above: Performed By: #### C BC #### [facility] [address] [place], [place] [address] Stevenson Marnie Hematocrit (Bld) [Volume fraction] 41.4 % Normal 36.0-48.0 [facility] Comment on above: Performed By: #### C BC #### [facility] [address] [place], [place] [address] Stevenson Marnie Hemoglobin (Bld) [Mass/Vol] 13.7 g/dL Normal 12.0-16.0 [facility] Comment on above: Performed By: #### C BC #### [facility] [address] [place], [place] [address] Stevenson Marnie IG # 0.00 10e3/ul Normal 0.00-0.03 [facility] Comment on above: Performed By: #### C BC #### [facility] [address] [place], [place] [address] Stevenson Marnie IG % 0.0 % Normal 0.0-0.5 [facility] Comment on above: Performed By: #### C BC #### [facility] [address] [place] [address] Stevenson Marnie LYMPH # 1.7 103/ul Normal 1.2-3.8 [facility] Comment on above: Performed By: #### C BC #### [facility] [address] [place] [address] Stevenson Marnie Lymphocytes/100 WBC (Bld) 31.0 % Normal 20.5-60.0 [facility] Comment on above: Performed By: #### C BC #### [facility] [address] [place], [place] [address] Stevensondenita Orellanaen MANUAL DIFF REQ NO Normal [facility] Comment on above: Performed By: #### C BC #### [facility] [address] [place], [place] [address] Stevenson Marnie MCH (RBC) [Entitic mass] 29.5 pg Normal 26.7-34.0 [facility] Comment on above: Performed By: #### C BC #### [facility] [address] [place], [place] [address] Stevenson Marnie MCHC (RBC) [Mass/Vol] 33.1 g/dL Normal 29.9-35.2 [facility] Comment on above: Performed By: #### C BC #### [facility] [address] [place], [place] [address] Stevenson Marnie MCV (RBC) [Entitic vol] 89.0 fL Normal 81.0-99.0 [facility] Comment on above: Performed By: #### C BC #### [facility] [address] [place], [place] [address] Stevenson Dye MONO # 0.5 103/ul Normal 0.3-0.8 [facility] Comment on above: Performed By: #### C BC #### [facility] [address] [place] [address] Stevenson Dye Monocytes/100 WBC (Bld) 9.8 % Normal 1.7-12.0 [facility] Comment on above: Performed By: #### C BC #### [facility] [address] [place] [address] Stevenson Dye NEUT # 3.0 103/ul Normal 1.4-6.5 [facility] Comment on above: Performed By: #### C BC #### [facility] [address] [place] [address] Stevenson Dye Neutrophils/100 WBC (Bld) 55.4 % Normal 43.0-75.0 [facility] Comment on above: Performed By: #### C BC #### [facility] [address] [place] [address] Stevenson Dye Platelet mean volume (Bld) [Entitic vol] 8.0 fL Critically low 9.5-13.5 [facility] Comment on above: Performed By: #### C BC #### [facility] [address] [place] [address] Stevenson Orellanaen PLT 297 103/ul Normal 150-450 [facility] Comment on above: Performed By: #### C BC #### [facility] [address] [place] [address] Stevensondenita Orellanaen RBC 4.65 106/ul Normal 4.20-5.40 [facility] Comment on above: Performed By: #### C BC #### [facility] [address] [place] [address] Stevenson Marnie WBC 5.3 103/ul Normal 4.0-11.0 [facility] Comment on above: Performed By: #### C BC #### [facility] [address] [address] CHEST WO CONon 08-15-2020 CT CHEST [...] AFRICA HAYES Date: 2020-08-15 18:22 Normal [facility] PROF CHEM 8 (BAS METB)on Anion gap [Moles/Vol] 14.4 mmol/L Normal [facility] Comment on above: Performed By: #### H RASHI PACE #### [facility] [address] [address] Stevenson Marnie Calcium [Mass/Vol] 9.0 mg/dL Normal 8.4-10.2 [facility] Comment on above: Performed By: #### H RASHI PACE #### [facility] [address] [address] Stevenson Marnie Chloride [Moles/Vol] 103 mmol/L Normal 98-107 [facility] Comment on above: Performed By: #### H SANJEEV BMP #### [facility] [address] [address] Stevenson Marnie CO2 [Moles/Vol] 28.0 mmol/L Normal 22.0-30.0 [facility] Comment on above: Performed By: #### H SANJEEV, BMP #### [facility] [address] [place] [address] Stevenson Marnie Creatinine [Mass/Vol] 0.87 mg/dL Normal 0.52-1.04 [facility] Comment on above: Performed By: #### H SANJEEV, BMP #### [facility] [address] [place] [address] Stevenson Marnie EGFR-AF SOMALI >60 Normal >=60 [facility] Comment on above: Performed By: #### H SANJEEV, BMP #### [facility] [address] [place] [address] Stevenson Marnie EGFR-NON AF SOMALI >60 Normal >=60 [facility] Comment on above: Performed By: #### H SANJEEV, BMP #### [facility] [address] [place] [address] Stevenson Marnie Glucose [Mass/Vol] 106 mg/dL Normal 74-106 [facility] Comment on above: Performed By: #### H SANJEEV, BMP #### [facility] [address] [place] [address] Stevenson Marnie Potassium [Moles/Vol] 4.4 mmol/L Normal 3.4-5.0 [facility] Comment on above: Performed By: #### H SANJEEV, BMP #### [facility] [address] [place] [address] Stevenson Marnie Sodium [Moles/Vol] 141 mmol/L Normal 137-145 [facility] Comment on above: Performed By: #### H SANJEEV, BMP #### [facility] [address] [place] [address] Stevenson Marnie Urea nitrogen [Mass/Vol] 15.0 mg/dL Normal 7.0-17.0 [facility] Comment on above: Performed By: #### H SANJEEV, BMP #### [facility] [address] [place] [address] Stevenson Marnie Urea nitrogen/Creatinine [Mass ratio] 17.2 mg/mg Normal [facility] Comment on above: Performed By: #### H SANJEEV, RASHI #### [facility] [address] [id number] Stevenson Dye TROPONIN, HIGH SENSITIVITYon 08-15-2020 HSTROP <4.0 Normal 4.0-35.5 [facility] Comment on above: Result Comment: CUT- OFF POINTS HAVE BEEN ESTABLISHED BASED ON THE FOURTH UNIVERSAL DEFINITIONS OF MYOCARDIAL INFARCTION. THE UPPER REFERENCE LIMIT (URL) OF TROPONIN, DEFINED THE 99TH PERCENTILE OF cTnI DISTRIBUTION IN A REFERENCE POPULATION, HAS BEEN CONFIRMED THE DECISION THRESHOLD FOR [place] DIAGNOSIS. Previously reported as: <3.3 On 08/15/2020 18:19 By CV2 Performed By: #### H SANJEEV, RASHI #### [facility] [address] [id number] [place] OCT MACULA CIRRUS OU (BOTH E YES) [facility] Vital Signs Date Time Vital Sign Value Performing Clinician Facility 10-27-2024 08:35-0400 Body height 152.4 cm Osorio Harper MD Work Phone: [facility] 10-27-2024 08:35-0400 Body mass index (BMI) [Ratio] 19.82 kg/m2 Osorio Harper MD Work Phone: [facility] 10-27-2024 08:35-0400 Body weight 46.04 kg Osorio Harper MD Work Phone: [facility] 10-27-2024 08:35-0400 Heart rate 63 /min Osorio Harper MD Work Phone: [facility] 10-27-2024 08:35-0400 SaO2% (BldA) [Mass fraction] 98 % Osorio Harper MD Work Phone: [facility] 08-12-2024 10:38-0400 Body height 152.4 cm Osorio Harper MD Work Phone: [facility] 08-12-2024 10:38-0400 Body mass index (BMI) [Ratio] 19.48 kg/m2 Osorio Harper MD Work Phone: [facility] 08-12-2024 10:38-0400 Body weight 45.25 kg Osorio Harper MD Work Phone: [facility] 08-12-2024 10:38-0400 Diastolic blood pressure 68 mm[Hg] Osorio Harper MD Work Phone: [facility] 08-12-2024 10:38-0400 Heart rate 84 /min Osorio Harper MD Work Phone: [facility] 08-12-2024 10:38-0400 SaO2% (BldA) [Mass fraction] 99 % Osorio Harper MD Work Phone: [facility] 08-12-2024 10:38-0400 Systolic blood pressure 116 mm[Hg] Osorio Harper MD Work Phone: [facility] 04-04-2024 12:00-0500 Diastolic blood pressure 63 mm[Hg] Moose Tan MD Work Phone: [facility] 04-04-2024 12:00-0500 Heart rate 71 /min Moose Tan MD Work Phone: [facility] 04-04-2024 12:00-0500 Respiratory rate 16 /min Moose Tan MD Work Phone: [facility] 04-04-2024 12:00-0500 SaO2% (BldA) [Mass fraction] 95 % Moose Tan MD Work Phone: [facility] 04-04-2024 12:00-0500 Systolic blood pressure 139 mm[Hg] Moose Tan MD Work Phone: [facility] 04-04-2024 10:50-0500 Body height 152.4 cm Moose Tan MD Work Phone: [facility] 04-04-2024 10:50-0500 Body mass index (BMI) [Ratio] 19.33 kg/m2 Moose Tan MD Work Phone: [facility] 04-04-2024 10:50-0500 Body temperature 96.3 [degF] Moose Tan MD Work Phone: [facility] 04-04-2024 10:50-0500 Body weight 44.91 kg Moose Tan MD Work Phone: [facility] 03-26-2024 14:29-0500 Body mass index (BMI) [Ratio] 19.36 kg/m2 August Itzel DO Work Phone: [facility] 03-26-2024 14:29-0500 Body weight 44.96 kg August Itzel DO Work Phone: [facility] 03-26-2024 14:29-0500 Diastolic blood pressure 70 mm[Hg] August Itzel DO Work Phone: [facility] 03-26-2024 14:29-0500 Systolic blood pressure 120 mm[Hg] August Itzel DO Work Phone: [facility] 01-08-2024 09:30-0400 Diastolic blood pressure 70 mm[Hg] Moose Tan MD Work Phone: [facility] 01-08-2024 09:30-0400 Heart rate 62 /min Moose Tan MD Work Phone: [facility] 01-08-2024 09:30-0400 Respiratory rate 18 /min Moose Tan MD Work Phone: [facility] 01-08-2024 09:30-0400 SaO2% (BldA) [Mass fraction] 90 % Moose Tan MD Work Phone: [facility] 01-08-2024 09:30-0400 Systolic blood pressure 144 mm[Hg] Moose Tan MD Work Phone: [facility] 01-08-2024 07:45-0400 Body mass index (BMI) [Ratio] 18.75 kg/m2 Moose Tan MD Work Phone: [facility] 01-08-2024 07:45-0400 Body temperature 96.8 [degF] Moose Tan MD Work Phone: [facility] 01-08-2024 07:45-0400 Body weight 43.55 kg Moose Tan MD Work Phone: [facility] 12-28-2023 08:59-0400 Body height 152.4 cm Moose Tan MD Work Phone: [facility] 12-28-2023 08:59-0400 Body mass index (BMI) [Ratio] 19.02 kg/m2 Moose Tan MD Work Phone: [facility] 12-28-2023 08:59-0400 Body temperature 98.4 [degF] Moose Tan MD Work Phone: [facility] 12-28-2023 08:59-0400 Body weight 44.18 kg Moose Tan MD Work Phone: [facility] 12-28-2023 08:59-0400 Diastolic blood pressure 72 mm[Hg] Moose Tan MD Work Phone: [facility] 12-28-2023 08:59-0400 Heart rate 65 /min Moose Tan MD Work Phone: [facility] 12-28-2023 08:59-0400 SaO2% (BldA) [Mass fraction] 100 % Moose Tan MD Work Phone: [facility] 12-28-2023 08:59-0400 Systolic blood pressure 151 mm[Hg] Moose Tan MD Work Phone: [facility] 10-18-2023 09:36-0400 Body mass index (BMI) [Ratio] 18.78 kg/m2 Benito Hurtado PA-C Work Phone: [facility] 10-18-2023 09:36-0400 Body weight 42.19 kg Benito Hurtado PA-C Work Phone: [facility] 10-18-2023 09:36-0400 Diastolic blood pressure 86 mm[Hg] Benito Hurtado PA-C Work Phone: [facility] 10-18-2023 09:36-0400 Heart rate 65 /min Benito Hurtado PA-C Work Phone: [facility] 10-18-2023 09:36-0400 Systolic blood pressure 148 mm[Hg] Benito Hurtado PA-C Work Phone: [facility] 09-10-2023 13:41-0400 Diastolic blood pressure 80 mm[Hg] MD Osorio Harper Work Phone: [facility] 09-10-2023 13:41-0400 Heart rate 80 /min MD Osorio Harper Work Phone: [facility] 09-10-2023 13:41-0400 Respiratory rate 18 /min MD Osorio Harper Work Phone: [facility] 09-10-2023 13:41-0400 SaO2% (BldA) [Mass fraction] 97 % MD Osorio Harper Work Phone: [facility] 09-10-2023 13:41-0400 Systolic blood pressure 129 mm[Hg] MD Osorio Harper Work Phone: [facility] 09-10-2023 11:51-0400 Body height 152.4 cm MD Osorio Harper Work Phone: [facility] 09-10-2023 11:51-0400 Body weight 41.73 kg MD Osorio Harper Work Phone: [facility] Encounters Encounter Date Encounter Type Care Provider Facility Start: 10-27-2024 End: 10-27-2024 Malu Harper MD Work Phone: [facility] [address] Medicine Start: 10-27-2024 End: 10-27-2024 Malu Harper MD Work Phone: [facility] Start: 10-27-2024 End: 10-27-2024 ambulatory OSORIO HARPER Not Available Start: 10-27-2024 End: 10-27-2024 Office outpatient visit 25 minutes Osorio Harper MD Work Phone: [facility] Comment on above: Supraventricular tac hycardia (HCC) (Primary Dx); Sinus bradycardia; Abnormal EKG; Newly recognized heart murmur; Cardiovascular event risk Start: 10-22-2024 End: 10-22-2024 ambulatory OSROIO HARPER Not Available Start: 10-07-2024 End: 10-07-2024 Telephone encounter Osorio Harper MD Work Phone: [facility] Start: 09-05-2024 End: 09-05-2024 Clinisync Result Encounter Osorio Harper MD Work Phone: [facility] Unsolicited Start: 09-05-2024 End: 09-05-2024 Clinisync Result Encounter Osorio Harper MD Work Phone: [facility] Unsolicited Start: 08-12-2024 End: 08-12-2024 Bamboo flowsheet Osorio Harper MD Work Phone: [facility] Start: 08-12-2024 End: 08-12-2024 Bamboo flowsheet Osorio Harper MD Work Phone: [facility] Start: 08-12-2024 End: 08-12-2024 Patient encounter procedure Osoiro Harper MD Work Phone: [facility] [...] risk Start: 08-12-2024 End: 08-12-2024 ambulatory OSORIO Imelda HARPER Not Available Start: 04-04-2024 End: 04-04-2024 [...] Authorizat ion Start: 01-08-2024 End: 01-08-2024 ambulatory OSORIO HARPER Facility:[facility] Start: 01-08-2024 End: 01-08-2024 Subsequent hospital visit by physician Moose Tan MD Work Phone: Gastroenterology Comment on above: Esophageal stenosis [K22.2] Start: 12-28-2023 End: 12-28-2023 ambulatory OSORIO HARPER Facility:[facility] Start: 12-28-2023 End: 12-28-2023 Patient encounter procedure [...] Start: 11-30-2023 End: 11-30-2023 ambulatory BENITO HURTADO Facility:[facility] Start: 10-18-2023 End: 10-18-2023 Office outpatient new 45 minutes Benito Hurtado PA-C Work Phone: Gastroenterology Comment on above: Pharyngoesophageal d ysphagia (Primary Dx) Start: 10-18-2023 End: 10-18-2023 ambulatory OSORIO HARPER Facility:[facility] Start: 09-10-2023 Non-patient / Non-visit MD Will Harper Work Phone: [facility] Work Phone: Start: 09-10-2023 End: 09-10-2023 Admission to same day surgery center MD Osorio Harper Work Phone: [facility] Work Phone: Start: 09-10-2023 End: 09-10-2023 ambulatory MD Osorio Harper Work Phone: [facility] Work Phone: Start: 11-09-2022 End: 11-09-2022 ambulatory Gorge Dennis Facility:[facility] Start: 10-31-2021 End: 10-31-2021 Patient encounter procedure [...] NARANJO Facility:[facility] Start: 05-06-2020 End: 05-07-[address] NONE LISTED REQUEST Facility:[facility] Start: 04-05-2020 End: 04-06-[address] NONE LISTED REQUEST Facility: Procedures Date Procedure Procedure Detail Performing Clinician Start: 09-05-2024 MM TOMOSYNTHESIS SCREENING BI Osorio jean MD Work Phone: Start: 09-05-2024 ALL LIPID PROFILE (FASTING) Osorio gonsalves MD Work Phone: Start: 09-05-2024 [facility] CMP (CMP) (FOR REMOTE [facility] USE) Haim Harper MD Work Phone: Start: 04-04-2024 Esophagoscp rig transoral hypopharynx crv [...] Annual Wellness (AWV) Medicare Annual Wellness (AWV) [facility] Start: 11-17-2024 Influenza vaccination [facility] Start: 10-27-2024 End: 10-27-2025 Holter monitor study Holter monitor Imaging Routine Supraventricular tachycardia (HCC) Sinus bradycardia Abnormal EKG Newly recognized heart murmur Cardiovascular event risk Expected: 10/27/2024 (Approximate), Expires: 10/27/2025 [facility] [employer] Work Phone: Comment on above: Expected: 10/27/2024 (Approximate), Expi res: 10/27/2025 Start: 10-27-2024 End: 10-27-2026 Heart Transthoracic Transthoracic Echo (TTE) Complete Echocardiography Routine Supraventricular tachycardia (HCC) Sinus bradycardia Abnormal EKG Newly recognized heart murmur Cardiovascular event risk Expected: 10/27/2024 (Approximate), Expires: 10/27/2026 [facility] Comment on above: Expected: 10/27/2024 (Approximate), Expi res: 10/27/2026 Start: 08-12-2024 End: 08-12-2025 Comprehensive metabolic 2000 panel - Serum or Plasma Comprehensive metabolic panel Lab Routine Encounter for Medicare annual wellness exam Screening for diabetes mellitus (DM) Expected: 08/12/2024 (Approximate), Expires: 08/12/2025 [facility] [employer] Work Phone: Comment on above: Expected: 08/12/2024 (Approximate), Expi res: 08/12/2025 Start: 08-12-2024 End: 08-12-2025 DXA Skeletal system Views for bone density DEXA bone density Imaging Routine Age-related osteoporosis without current pathological fracture ([facility]) Surgical menopause Expected: 08/12/2024, Expires: 08/12/2025 [facility] Comment on above: Expected: 08/12/2024, Expires: Start: 08-12-2024 End: 08-12-2025 Lipid 1996 panel - Serum or Plasma Lipid panel Lab Routine Encounter for Medicare annual wellness exam Mixed dyslipidemia ([facility]) Expected: 08/12/2024 (Approximate), Expires: 08/12/2025 [facility] Comment on above: Expected: 08/12/2024 (Approximate), Expi res: 08/12/2025 Start: 08-12-2024 End: 10-12-2025 MG Breast - bilateral Screening Bilateral screening mammogram Imaging Routine Screening mammogram, encounter for Expected: 08/12/2024, Expires: 10/12/2025 [facility] Comment on above: Expected: 08/12/2024, Expires: Start: 08-12-2024 End: 08-12-2024 Patient encounter procedure 08/12/2024 10:00 AM EDT Office Visit [facility] [address] [facility] [facility] [facility] [address] [place] [address] Osorio Harper MD [address] [facility] [address] [place] [address] (Fax) Encounter for Medicare annual wellness exam; [...] EST Office Visit [facility] [address] [place] [address] August Robbins DO [address] [place] [address] Arrived [facility] Comment on above: Arrived Start: 03-19-2024 Advance Directive Discussion Advance Directive Discussion [facility] Start: 02-12-2024 End: 02-12-2024 Patient encounter procedure 02/12/2024 11:00 AM EST Appointment Gastroenterology [address] [address] Moose Tan MD [address] [place] [address] Esophageal stenosis [K22.2] Gastroenterology Comment on above: Esophageal stenosis [K22.2] Start: 01-08-2024 End: 01-08-2024 Patient encounter procedure 01/08/2024 8:30 AM EDT Appointment Gastroenterology [address] [address] Moose Tan MD [address] [place] [address] Esophageal stenosis [K22.2] Gastroenterology Comment on above: Esophageal stenosis [K22.2] Start: 12-28-2023 End: 12-28-2023 Patient encounter procedure 12/28/2023 9:30 AM EDT Office Visit Gastroenterology [address] [address] Moose Tan MD [address] [place] [address] 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] Gastroenterology Comment on above: 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] Start: 11-18-2023 Covid-19 Vaccine ( season) Covid-19 Vaccine ( season) [facility] Start: 11-18-2023 Covid-19 Vaccine () Covid-19 Vaccine ( season) [facility] Start: 11-18-2023 Influenza vaccination Influenza Vaccine (#1) [facility] Start: 09-10-2023 [facility] Start: 03-19-2023 Advance Directive Discussion Advance Directive Discussion [facility] Start: 11-17-2022 Covid-19 Vaccine ( season) Covid-19 Vaccine ( season) [facility] Start: 11-17-2021 Influenza vaccination INFLUENZA (#1) [facility] Start: 03-19-2021 ADVANCE DIRECTIVE DISCUSSION ADVANCE DIRECTIVE DISCUSSION [facility] Start: 10-03-2020 COVID-19 VACCINE (3 - Booster for Moderna series) COVID-19 VACCINE (3 - Booster for Moderna series) [facility] Start: 10-12-2019 RSV Vaccine (1 - 1-dose 75+ series) RSV Vaccine (1 - 1-dose 75+ series) [facility] Start: 2009 BONE DENSITY BONE DENSITY [facility] Start: 2009 Pneumococcal Vaccine: 65+ (1 of 1 - PCV) Pneumococcal Vaccine: 65+ (1 of 1 - PCV) [facility] Start: 2004 RSV Vaccine (1 - 1-dose 60+ series) RSV Vaccine (1 - 1-dose 60+ series) [facility] Start: 1994 Pneumococcal Vaccine: 50+ (1 of 1 - PCV) Pneumococcal Vaccine: 50+ (1 of 1 - PCV) [facility] Start: 1994 SHINGRIX VACCINE (1 of 2) SHINGRIX VACCINE (1 of 2) [facility] Start: 1989 DIABETES SCREEN DIABETES SCREEN [facility] Start: 1989 Diabetes Screening Diabetes Screening [facility] Start: 10-12-1963 Urine microalbumin profile [facility] Start: 1962 ANNUAL PCP TEAM CHRONIC DISEASE VISIT ANNUAL PCP TEAM CHRONIC DISEASE VISIT [facility] Start: 1962 Anxiety Screening Anxiety Screening [facility] Start: 1962 Depression Screening Depression Screening [facility] Start: 1962 HEPATITIS C SCREENING HEPATITIS C SCREENING [facility] Start: 1962 SPIROMETRY SPIROMETRY [facility] Start: 1956 Adult depression screening assessment DEPRESSION SCREENING [facility] Start: 1950 PNEUMOCOCCAL: 65+ (1 - PCV) PNEUMOCOCCAL: 65+ (1 - PCV) [facility] End: 12-27-2024 EGD - THERAPEUTIC, EUS, OR TUBE INTERVENTIONS EGD - THERAPEUTIC, EUS, OR TUBE INTERVENTIONS Endoscopy Routine Esophageal stenosis 1 Occurrences starting 12/28/2023 until 12/27/2024 [facility] Work Phone: Comment on above: 1 Occurrences starting 12/28/2023 until 12/27/2024 End: 10-17-2024 Manometry Study observation Narrative MANOMETRY ESOPHAGEAL Endoscopy Routine Pharyngoesophageal dysphagia 1 Occurrences starting 10/18/2023 until 10/17/2024 [facility] Work Phone: Comment on above: 1 Occurrences starting 10/18/2023 until 10/17/2024 Manometry Study observation Narrative MANOMETRY ESOPHAGEAL Endoscopy Routine Pharyngoesophageal dysphagia 11/30/2023 [facility] Work Phone: Patient Education Esophagitis Know your M [facility] Work Phone: [facility] Immunizations Immunization Date Immunization Notes Care Provider Fa [facility] 07-10-2024 tetanus toxoid, redu rei diphtheria toxoid, and acellular pertussis vaccine, adsorbed Osorio Harper MD Work Phone: [facility] 07-21-2022 zoster vaccine recombinant August Itzel DO Work Phone: [facility] 04-29-2022 zoster vaccine recombinant August Itzel DO Work Phone: [facility] 02-24-2009 novel influenza-H1N1 -09, preservative-free, injectable August Itzel DO Work Phone: [facility] 02-24-2009 influenza virus vacc ine, unspecified formulation Benito Hurtado PA-C Work Phone: [facility] Payers Date Payer Category Payer Medicaid [employer] MEDICARE A DVANTAGE [id number] 2018 Medicare [employer] MEDICARE A ETNA MEDICARE PPO [id number] 2018-Present [phone] [address] [place] [address] PPO [id number] 1959 Medicare [id number] 1959 Medicare [id number] 1960 Self-pay 1944 Unknown [id number] 1944 Unknown [id number] 1944 Unknown [id number] 1944 Unknown [id number] 1944 Unknown [id number] 1944 Unknown [id number] 1944 Unknown [id number] 1944 Unknown [id number] Unknown [id number] Unknown [id number] Unknown [id number] Unknown [id number] Social History Date Type Detail Facility Start: 02-20-2019 End: 08-30-2022 Tobacco smoking status NHIS Ex-smoker [facility] History of tobacco use Current smoker [facility] Start: 02-20-2019 End: 08-30-2022 Tobacco use and exposure Smokeless tobacco non-user [facility] Start: 10-31-2021 End: 10-27-2024 Alcohol intake Lifetime non-drinker (finding) [facility] Start: 09-11-2019 History SDOH Alcohol Frequency 1 [facility] Start: 1945 Sex Assigned At Not on file [facility] Start: 1945 Sex Assigned At Male F [facility] Start: 09-11-2019 End: 08-12-2024 History of Social function [facility] Start: 09-11-2019 End: 08-12-2024 Alcohol Use Disorder Identification Test - Consumption [AUDIT-C] [facility] How often to you hav e a drink containing alcohol? Never [facility] Average Number of Drinks Not on file [facility] History of tobacco use Cigarette Smoker [facility] Start: 08-30-2022 Alcohol Comment Caffeine intak e: none [facility] NEGATED: Highlighted rowStart: NINF History of tobacco use Passive smoker [facility] Medical Equipment Procedure Code Equipment Code Equipment Origin al Text Equipment Identifier Dates Lens Iol 0d +24. 5 Kisha Uv Abs - [id number] Start: 04-28-2019 Comment on above: Description: n/a Lens Iol 0d +22. 5 Kisha Uv Abs - [id number] Start: 05-12-2019 Comment on above: Description: n/a Goals Date Patient Goal Desired Activity /State Functional Status Date Assessment Result Facility 08-12-2024 Patient Health Quest ionnaire 2 item (PHQ-2) [Reported] [facility] Clinical Notes 10-31-2021 to 10-27-2024 Osorio Harper MD - 10/27/2024 8:30 AM EDTTelephone Encounter - Osorio Harper MD - 10/07/2024 2:16 PM EDTTelephone Encounter - Osorio Harper MD - 10/07/2024 2:16 PM EDTPatient Instructions Note Date & Type Note Facility 10-27-2024 History of Present illness Narrative Images from the original note were not included. Patient ID: Nguyen Buckner is a 79 y.o. female who presents for: Review Results: Patient is here in the office today to review recent labs or diagnostic imaging with Dr Gennaro Harper per his request. Based on the results they will also review treatment options. Please see labs scanned. Pt had a home wellness done, by her insurance company, with a rhythm strip which showed her having SVT. We had gotten a letter from insurance about this and EH had her EKG repeated that day to rule out any emergent needs. She is here today to review the EKG in comparison to the ones we have scanned in previously. Review of Systems The patient denies feeling ill or excessively tired. She denies any specific shortness of breath. She denies any chest pains or palpitations. She does not remember any episodes of chest pain and/or diaphoresis associated together. Objective The patient is pleasant and in no acute distress. The neck is supple and trachea is midline. No masses are appreciated. The heart is regular rate and rhythm without S3, S4. There is a new murmur heard in the right 2nd interspace. It is low pitched and fairly obliterates S1. It is early systolic in nature. I would rate this as a 2/6. The patient has normal respiratory pattern. The breath sounds are Diffusely decreased but symmetrical without evidence of rhonchi or rales. No wheezing. The skin is warm and dry. The lower extremities have trace edema. The patient has good eye contact and speech is clear. Appropriate affect. 08/12/2024 10:38 AM 03/26/2024 2:29 PM 07/24/2023 8:49 AM 07/23/2023 10:28 AM Vitals BMI 19.48 kg/m2 19.36 kg/m2 18.55 kg/m2 19.33 kg/m2 BSA (m2) 1.38 m2 1.38 m2 1.35 m2 1.38 m2 Systolic 116 120 121 106 Diastolic 68 70 73 66 Heart Rate 84 78 SpO2 99 % 99 % Height (in) 5' 5' 5' Weight (lb) 99.75 99.12 95 99 Visit Report Report Report Report Report Allergies Allergen Reactions Penicillins Other Reaction(s): Hives/Skin Rash Current Outpatient Medications on File Prior to Visit Medication Sig Dispense Refill albuterol HFA 90 mcg/act inhaler Inhale 2 puffs every 6 (six) hours if needed for wheezing 54 g 0 budesonide (Pulmicort) 0.5 MG/2ML nebulizer solution Take 0.25 mg by nebulization See administration instructions For lymphocytic esophagitis. Mix 4 respules with 5 packs of Splenda and swallow daily. Do not eat or drink for 30 minutes after calcium citrate (Calcitrate) 950 (200 Ca) MG tablet Take 250 mg by mouth Daily cholecalciferol (Vitamin D-3) 125 MCG (5000 UT) capsule 1 capsule 1 (one) time each day at the same time. multivitamin (Theragran) tablet Take 1 tablet by mouth Daily rosuvastatin (Crestor) 5 MG tablet Take 1 tablet (5 mg) by mouth Daily 90 tablet 0 No current facility-administered medications on file prior to visit. 1. Supraventricular tachycardia (HCC) (Primary) Per the insurance companies print out they send a rhythm strip that distinctly demonstrates a burst of SVT. There document also notes that she had an SVT with a maximum rate of 167. She did have sinus tachycardia noted at 140 beats per minute also. Interestingly she had bradycardia with sinus rhythm at 46 beats per minute noted also. This is not a true Holter monitor report although the patient states she wore this for days. - Holter monitor; Future - Transthoracic Echo (TTE) Complete; Future - Holter monitor 2. Sinus bradycardia As above - Holter monitor; Future - Transthoracic Echo (TTE) Complete; Future - Holter monitor 3. Abnormal EKG EKG performed October 22 demonstrated a sinus rhythm. There is distinctly poor R-wave progression through the anterior leads V1 through V4. There is an Rr' in lead V3. This is consistent with anterior wall injury age undetermined. I did compare to previous EKG and this is a new finding. Further diagnostic evaluation of septal and anterior wall motion along with the ejection fraction by echocardiogram. - Holter monitor; Future - Transthoracic Echo (TTE) Complete; Future - Holter monitor 4. Newly recognized heart murmur After discussion with her she has never been told she has a heart murmur before. I did look through the medical record and recently I have not seen any documentation of heart murmur. It does essentially obliterate S1 in the right 2nd interspace. She will need further diagnostic evaluation with echocardiogram. - Holter monitor; Future - Transthoracic Echo (TTE) Complete; Future - Holter monitor 5. Cardiovascular event risk - Holter monitor; Future - Transthoracic Echo (TTE) Complete; Future - Holter monitor Please Note: Portions of this chart may have been created using voice recognition software. Occasionally a wrong-word or sound-like substitutions may have occurred due to inherent limitations of the voice recognition software. Please read the chart carefully and recognize, using context, where the substitutions may have occurred. documented in this encounter [facility] 10-07-2024 Telephone encounter Note Reviewed her DEXA scan results. Her spine is actually relatively stable with severe osteopenia. However her hips continued to worsen and she has moderate osteoporosis. She has significant increased fracture Risk. In her medication management it only has a taking calcium citrate once a day. She really needs to be on optimum supplement therapy or consideration for prescription medication. [facility] 10-07-2024 Miscellaneous Notes Reviewed her DEXA scan results. Her spine is actually relatively stable with severe osteopenia. However her hips continued to worsen and she has moderate osteoporosis. She has significant increased fracture Risk. In her medication management it only has a taking calcium citrate once a day. She really needs to be on optimum supplement therapy or consideration for prescription medication. documented in this encounter [facility] 08-12-2024 History of Present illness Narrative Images [...] Medicine) Osorio Harper MD as PCP - Aet Chanel Velez MD as Referring Physician (Otolaryngology) Gorge [...] Yes Vision Screening: Yes, patient sees regular educational resource coordinator/battery charger Hearing Screening: Not done Cognitive Screening Self Assessment: No concerns rasied by family members, friends, or caretakers Three Word Registration: Banana, [place], Chair Clock Drawing: Normal Clock - 2 [...] FOOT SURGERY 2010 HYSTERECTOMY SHOULDER SURGERY 2006 SOCIAL HISTORY: Social [...] score (Seng PORTILLO, et al., 2019, 2020 [place]) returns the percentage [...] 9. Age-related osteoporosis without current pathological fracture (CMS/HCC) - DEXA bone density; Future 10. Surgical [...] approximately 5-10 minutes documented in this encounter [facility] 04-04-2024 Nurse Note AMBULATORY PATIENT EDUCATION [...] MATERIAL: Procedure Discharge Instructions REFERRAL (RECOMMENDATION): None [facility] 04-04-2024 Nurse Note AMBULATORY PATIENT EDUCATION NOTE [...] In Department: GASTROENTEROLOGY documented in this encounter [facility] 04-04-2024 History and physical note HISTORY AND [...] Moderate Additional Comments: None Moose Tan MD [facility] 04-04-2024 History and physical note HISTORY AND [...] Moose Tan MD documented in this encounter [facility] 04-04-2024 Nurse Note PRE OP LEARNING ASSESSMENT PROCEDURE/SURGERY: GI PROCEDURES: EGD READINESS TO LEARN COGNITIVE ABILITY: Alert and oriented MOTIVATION TO LEARN: Interested FAMILY SUPPORT: None - Unavailable/disinterested PATIENT LEARNS BEST BY: Individual Instruction FACTORS AFFECTING LEARNING: None PHYSICAL LIMITATIONS AFFECTING LEARNING: None Electronically Signed By: Filomena Sarmiento RN In Department: GASTROENTEROLOGY [facility] 03-26-2024 History of Present illness Narrative Reason [...] History of hysterectomy 08/28/2022 Age related osteoporosis (CMS/HCC) 08/28/2022 Lung nodule 08/28/2022 Mild intermittent asthma without complication (CMS/HCC) 08/28/2022 Nonexudative age-related macular degeneration, left eye, early dry stage 08/28/2022 Surgical menopause 08/28/2022 Vitamin D deficiency 08/28/2022 Osteopenia of lumbar spine 08/28/2022 Mixed dyslipidemia (CMS/HCC) 08/28/2022 History of YAG laser capsulotomy of lens 09/11/2019 Family history of colon cancer 10/17/2022 Bilateral artificial lens implant 07/23/2023 Resolved Ambulatory Problems Diagnosis Date Noted Age-related nuclear cataract, bilateral 08/28/2022 Posterior subcapsular polar age-related cataract, bilateral 08/28/2022 Dry eyes due to decreased tear production 08/28/2022 Laryngitis, chronic 08/28/2022 Non-seasonal allergic rhinitis 08/28/2022 Vitreous degeneration, left eye 08/28/2022 Asthma (CMS/HCC) 10/17/2022 At risk for acute ischemic cardiac [...] FOOT SURGERY 2011 HYSTERECTOMY SHOULDER SURGERY 2006 REVIEW OF SYSTEMS [...] nursing note reviewed. Exam conducted with a lab tech present. 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 Any barriers to Patient learning: Patient/Patient Production Operations Manager responded appropriately on phone. Type of instruction given: Verbal by telephone contact. 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 Any barriers to Patient learning: Patient/Patient Production Operations Manager responded appropriately on phone. Type of instruction given: Verbal by telephone contact. Mayda Fong LPN documented in this encounter [facility] 01-18-2024 Telephone encounter Note Images from the original note were not included. Attempted to submit PA via CMM Additional Information Required PA was already submitted for this patient and drug which was denied.;CaseId:[id number];Status:De nied;Appeal Information: Attention:ATTN: MEDICARE CLINICAL APPEALS qualifyor,[place], [place] WebAddress:[email or web address]; [facility] 01-18-2024 Miscellaneous Notes Images from the original note were not included. Attempted to submit PA via CMM Additional Information Required PA was already submitted for this patient and drug which was denied.;CaseId:[id number];Status:De nied;Appeal Information: Attention:ATTN: MEDICARE CLINICAL APPEALS qualifyor,[place], [place] WebAddress:[email or web address]; Patient called stating when she saw Dr. Tan he prescribed budesonide Pulmicort nebulizer and it needs a PA. She said she received a letter stating more information is needed in order for the med to be dispensed. Please start a PA for this patient's Budesonide nebulizer solution. [employer] PDP Member # [id number] Customer Service # [phone] documented in this encounter [facility] 01-11-2024 Telephone encounter Note Patient called stating when she saw Dr. Tan he prescribed budesonide Pulmicort nebulizer and it needs a PA. She said she received a letter stating more information is needed in order for the med to be dispensed. Please start a PA for this patient's Budesonide nebulizer solution. [employer] PDP Member # [id number] Customer Service # [phone] [facility] 01-08-2024 Nurse Note AMBULATORY PATIENT EDUCATION NOTE [...] MATERIAL: Procedure Discharge Instructions REFERRAL (RECOMMENDATION): None [facility] 01-08-2024 Nurse Note AMBULATORY PATIENT EDUCATION NOTE [...] In Department: GASTROENTEROLOGY documented in this encounter [facility] 01-08-2024 History and physical note HISTORY AND [...] discussed with the Patient or Patient's Authorized Production Operations Manager. As applicable, any other physician, advance practice provider, medical student, or other health professional student that will be observing or involved in the sensitive examination for educational or training purposes was discussed with the Patient or Authorized Production Operations Manager. The Patient or Authorized Production Operations Manager has agreed to proceed with the sensitive examination. (Sensitive examination includes inspection and/or palpation of the breasts, pelvis, prostate and anorectal regions) Sedation Plan: Moderate Additional Comments: None Tha Coles MD [facility] Work Phone: 01-08-2024 History and physical note [...] discussed with the Patient or Patient's Authorized Production Operations Manager. As applicable, any other physician, advance practice provider, medical student, or other health professional student that will be observing or involved in the sensitive examination for educational or training purposes was discussed with the Patient or Authorized Production Operations Manager. The Patient or Authorized Production Operations Manager has agreed to proceed with the sensitive examination. (Sensitive examination includes inspection and/or palpation of the breasts, pelvis, prostate and anorectal regions) Sedation Plan: Moderate Additional Comments: None Tha Coles MD documented in this encounter [facility] 01-08-2024 Nurse Note PRE OP LEARNING ASSESSMENT PROCEDURE/SURGERY: GI PROCEDURES: EGD READINESS TO LEARN COGNITIVE ABILITY: Alert and oriented MOTIVATION TO LEARN: Interested FAMILY SUPPORT: High - Very involved in pt care PATIENT LEARNS BEST BY: Individual Instruction Verbal Instruction FACTORS AFFECTING LEARNING: None PHYSICAL LIMITATIONS AFFECTING LEARNING: None Electronically Signed By: Nori Jensen RN In Department: GASTROENTEROLOGY [facility] 12-28-2023 Instructions Moose Tan MD - 12/28/2023 [...] in 3-4 months documented in this encounter [facility] 12-28-2023 Note HNO ID: [id number] Author: MOOSE TAN MD Service: ? Author [...] Tan MD December 28, 2023 8:54 AM [facility] 12-28-2023 History of Present illness [...] ABDOMINAL HYSTERECT W/WO RMVL TUBE OVARY Hysterectomy, MARYIA XCAPSL CTRC RMVL INSJ IO LENS PROSTH [...] 2023 8:54 AM documented in this encounter [facility] 12-26-2023 Note HNO ID: [id number] Author: SERENA RECINOS RN Service: ? Author Type: Registered Nurse Type: Progress Notes Filed: 12/26/2023 11:33 Note Text: New Patient/Consult REASON FOR VISIT Nguyen Buckner is a 78 year old female who is scheduled for Esophageal dysmotility at the consult request of . EGD 08/2023 Pathology 08/2023 HANDP 08/2023 [facility] 12-26-2023 History of Present illness Narrative Images from the original note were not included. New Patient/Consult REASON FOR VISIT Nguyen Buckner is a 78 year old female who is scheduled for Esophageal dysmotility at the consult request of . EGD 08/2023 Pathology 08/2023 H&P 08/2023 documented in this encounter [facility] 12-17-2023 Telephone encounter Note Call to patient, let her know that Benito recommends follow up with swallowing center, option 0 due to ineffective esophageal motility. Lila Berg RN [facility] 12-17-2023 Miscellaneous Notes Call to patient, let her know that Benito recommends follow up with swallowing center, option 0 due to ineffective esophageal motility. Lila Berg RN Patient left voicemail stating she has questions regarding message received from Benito. 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 At this point, I recommend referral to our swallowing center at [facility] for further evaluation. I have placed the referral. Thank you, Benito Hurtado PA-C Real Mckoy LPN documented in this encounter [facility] 12-17-2023 Telephone encounter Note Patient left voicemail stating she has questions regarding message received from Benito. 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 At this point, I recommend referral to our swallowing center at [facility] for further evaluation. I have placed the referral. Thank you, Benito Hurtado PA-C Real Mckoy LPN [facility] 11-30-2023 Note HNO ID: [id number] Author: JALIL GALVAN RN Service: ? Author Type: Registered Nurse Type: Progress Notes Filed: 11/30/2023 14:16 Note Text: Name: Nguyen Mercedes [facility]#: [id number] Date: 11/30/2023 ESOPHAGEAL MANOMETRY TEST Indication: Pharyngoesophageal [...] the test without difficulty. .Jalil Galvan RN [facility] 11-30-2023 History of Present illness Narrative Name: Nguyen Mercedes [facility]#: [id number] Date: 11/30/2023 ESOPHAGEAL MANOMETRY TEST Indication: Pharyngoesophageal [...] .Jalil Galvan RN documented in this encounter [facility] 10-18-2023 History of Present illness Narrative DEPARTMENT [...] upper endoscopy about a month ago at [facility] and she was told that there was no need to stretch her esophagus. She has not had esophageal manometry. She reports her weight is stable. She has no abdominal pain, nausea, vomiting, poor appetite, BRBPR, melena, change in bowel habit, diarrhea, constipation. She does occasionally have acid reflux but this is very rare for her. [facility] Pertinent Recent/Past Workup: MBS FINDINGS: ORAL [...] for EMOT. Will also obtain records from [facility] for endoscopy. PLAN IDALIA Knox EMOT ordered Benito Hurtado PA-C documented in this encounter [facility] 10-18-2023 Note HNO ID: [id number] Author: BENITO HURTADO PA-C Service: ? Author Type: Physician Floor Person Type: Progress Notes Filed: 10/18/2023 12:34 Note [...] upper endoscopy about a month ago at [facility] and she was told that there was no need to stretch her esophagus. She has not had esophageal manometry. She reports her weight is stable. She has no abdominal pain, nausea, vomiting, poor appetite, BRBPR, melena, change in bowel habit, diarrhea, constipation. She does occasionally have acid reflux but this is very rare for her. [facility] Pertinent Recent/Past Workup: MBS FINDINGS: ORAL [...] Has established orophary (more content not included)... [facility] 10-18-2023 Instructions Benito Hurtado PA-C [...] do not hesitate to send me a PhoRentt message or call. Benito Hurtado PA-C documented in this encounter [facility] 09-10-2023 Procedure note [facility] 10-31-2021 History of Present illness Narrative ASSESSMENT/PLAN: [...] 2021 1:10 PM documented in this encounter [facility] 10-31-2021 Instructions Clara Moralez OD - 10/31/2021 [...] that needs adjusted. documented in this encounter [facility] Evaluation note Diagnosis Pseudophakia of both eyes- Primary Lens replaced by other means Intermittent alternating esotropia Intermittent esotropia, alternating Epiretinal membrane (ERM) of right eye PVD (posterior vitreous detachment), bilateral [facility] noteNo assessment information availableHol[facility] Work Phone: Evaluation note* Diagnosis Pharyngoesophageal dysphagia- Primary Dysphagia, pharyngoesophageal phase [facility] Diagnosis Other specified pre-operative examination- Primary Combined forms of age-related cataract of both eyes Other and combined forms of senile cataract Mild intermittent asthma without complication Unspecified asthma Other pneumonia, unspecified organism Pharyngoesophageal dysphagia Dysphagia, pharyngoesophageal phase [facility] Diagnosis Other specified pre-operative examination- Primary Combined forms of age-related cataract of both eyes Other and combined forms of senile cataract Mild intermittent asthma without complication Unspecified asthma Other pneumonia, unspecified organism Ineffective esophageal motility- Primary [facility] Diagnosis Other specified pre-operative examination- Primary Combined forms of age-related cataract of both eyes Other and combined forms of senile cataract Mild intermittent asthma without complication Unspecified asthma Other pneumonia, unspecified organism Esophageal stenosis- Primary Stricture and stenosis of esophagus Ineffective esophageal motility Lymphocytic esophagitis [facility] Diagnosis Other specified pre-operative examination- Primary Combined forms of age-related cataract of both eyes Other and combined forms of senile cataract Mild intermittent asthma without complication Unspecified asthma Other pneumonia, unspecified organism Esophageal stenosis Stricture and stenosis of esophagus [facility]* Diagnosis Postmenopausal bleeding Urethral caruncle [facility] Diagnosis Other specified pre-operative examination- Primary Combined forms of age-related cataract of both eyes Other and combined forms of senile cataract Mild intermittent asthma without complication Unspecified asthma Other pneumonia, unspecified organism Esophageal stenosis- Primary Stricture and stenosis of esophagus [facility]* Diagnosis Other specified pre-operative examination- Primary Combined forms of age-related cataract of both eyes Other and combined forms of senile cataract Mild intermittent asthma without complication Unspecified asthma Other pneumonia, unspecified organism Esophageal stenosis Stricture and stenosis of esophagus [facility] Encounter for Medicare annual wellness [...] Cardiovascular event risk documented in this encounter [facility] HealthcareEvaluation note* Diagnosis Supraventricular tachycardia (HCC)- Primary Other specified cardiac dysrhythmias Sinus bradycardia Other specified cardiac dysrhythmias Abnormal EKG Nonspecific abnormal electrocardiogram (ECG) (EKG) Newly recognized heart murmur Cardiovascular event risk documented in this encounter [facility] HealthcareHistory and physical note Author Bhavik Mota [facility] September 10, 2023 12:56pm Note Date/Time September 10, 2023 12:5 6pm [facility] [address] [place] [address] Gastroenterology H&P Signed Patient: Nguyen Buckner MR# : [id number] : 1945 Acct:[id number] Age/Sex: 77 / M Adm Date: 4 Loc: Room: Type: [facility] Attending Dr: Bhavik Mota MD Copies [...] signed by Bhavik Mota MD> 09/10/23 1256 [facility] Work Phone: [facility] for referral (narrative)* Outpatient Procedure (Routine) - New Request Specialty Diagnoses / Procedures Referred By Renate christine Referred To Contact [facility] Diagnoses Pharyngoesophageal dysphagia Procedures MANOMETRY ESOPHAGEAL ESOPHAGEAL MOTILITY STUDY W/INTERP&RPT Benito Hurtado PA-C [address] [place] [address] [address] Referral ID Status Reason Start Date Expiration Date Visits Requested Visits Authorized [id number] New Request Auto-Generat ed Referral 10/18/2023 10/17/2024 1 1 [facility] for referral (narrative)* Outpatient Procedure (Routine) - Authorized Specialty Diagnoses / Procedures Referred By Renate christine Referred To Contact [facility] [place] Diagnoses Esophageal stenosis Procedures EGD - THERAPEUTIC, EUS, OR TUBE INTERVENTIONS EGD DILATION GASTRIC/DUODENAL STRICTURE Moose Tan MD [address] [place] [address] [address] Referral ID Status Reason Start Date Expiration Date Visits Requested Visits Authorized [id number] Authorized Auto-Generat ed Referral 4 12/27/2024 1 1 * Outpatient Procedure (Routine) - Authorized Specialty Diagnoses / Procedures Referred By Hamac t Referred To Contact [facility] Diagnoses Esophageal stenosis Procedures EGD - THERAPEUTIC, EUS, OR TUBE INTERVENTIONS EGD DILATION GASTRIC/DUODENAL STRICTURE Moose Tan MD [address] [place] [id number] [place] [id number] Referral ID Status Reason Start Date Expiration Date Visits Requested Visits Authorized [id number] Authorized Auto-Generat ed Referral 12/27/2024 1 1 [facility] for referral (narrative)* Outpatient Procedure (Routine) - Closed Specialty Diagnoses / Procedures Referred By Renate t Referred To Contact [facility] Diagnoses Esophageal stenosis Procedures EGD - THERAPEUTIC, EUS, OR TUBE INTERVENTIONS EGD DILATION GASTRIC/DUODENAL STRICTURE Moose Tan MD [address] [place] [address] [address] Referral ID Status Reason Start Date Expiration Date V isits Requested Visits Authorized [id number] Closed Auto-Generate d Referral 12/28/2023 12/27/2024 1 1 [facility] for visit Narrative* Outpatient Procedure (Routine) - Closed Specialty Diagnoses / Procedures Referred By Contac t Referred To Contact [facility] Diagnoses Esophageal stenosis Procedures EGD - THERAPEUTIC, EUS, OR TUBE INTERVENTIONS EGD DILATION GASTRIC/DUODENAL STRICTURE Moose Tan MD [address] [place] [address] [address] Referral ID Status Reason Start Date Expiration Date V isits Requested Visits Authorized [id number] Closed Auto-Generate d Referral 12/28/2023 12/27/2024 1 1 [facility]patient Procedure (Routine) - Closed Specialty Diagnoses / Procedures Referred By Renate christine Referred To Contact [facility] Diagnoses Esophageal stenosis Procedures EGD - THERAPEUTIC, EUS, OR TUBE INTERVENTIONS EGD DILATION GASTRIC/DUODENAL STRICTURE Moose Tan MD [address] [place] [address] [facility] [address] [place] [address] Referral ID Status Reason Start Date Expiration Date V isits Requested Visits Authorized [id number] Closed Auto-Generate d Referral 12/28/2023 12/27/2024 1 1 [facility] Summary Purpose Family History No Family History Records Found Relationship Condition Age at Onset Recorded Date/T lakeshia Not Specified Pulmonary emphysema Unknown sister Malignant neoplasm of colon Unknown Advance Directives No Advanced Directives Records Found Advance Directive Response Recorded Date/ Time Advance Directives No November 11, 2022 2:48pm Documents on File Type Date Recorded Patient Production Operations Manager Expl anation Advance Directives and Living Will 05/13/2019 2006-03-14 Power [employer] Advance Directives and Living Will 05/13/2019 2006-03-14 Living Wi ll Advance Directives and Living Will 05/08/2018 2006-03-14 Power Of [employer] Advance Directives and Living Will 05/08/2018 2006-03-14 Living Wi ll Documents on File Type Date Recorded Patient Production Operations Manager Expl anation Advance Directives and Living Will 05/13/2019 2006-03-14 Power Of [employer] Advance Directives and Living Will 05/13/2019 2006-03-14 Living Wi ll Advance Directives and Living Will 05/08/2018 2006-03-14 Power Of [employer] Advance Directives and Living Will 05/08/2018 2006-03-14 Living Wi ll Chief Complaint and Reason for Visit Chief Complaint Dysphagia Dysphagia Reason for Referral Specialty Diagnoses / Procedures Referred By Renate christine Referred To Contact Diagnoses Ineffective esophageal motility Procedures CONSULT TO GI SWALLOWING CENTER OFFICE/OUTPATIENT NEW HIGH MDM 60 MINUTES Benito Hurtado PA-C [id number] [place] [address] Referral ID Status Reason Start Date Expiration Date Visits Requested Visits Authorized [id number] Authorized PCP Requested Referral 12/12/2023 12/11/2024 1 1 Additional Source Comments INFORMATION SOURCE (unrecogn ized section and content) DATE CREATED AUTHOR 03/24/2021 [facility] DATE CREATED AUTHOR AUTHOR'S ORGANIZ ATION 05/24/2021 [facility] dical Specialist DATE CREATED AUTHOR AUTHOR'S ORGANIZ ATION 09/17/2023 [facility] DATE CREATED AUTHOR AUTHOR'S ORGANIZ ATION 04/07/2024 [facility] DATE CREATED AUTHOR AUTHOR'S ORGANIZ ATION 10/28/2024 [facility] dical Specialists EPIC Source Comments (unrecognize d section and content) In the event this informatio n is protected by the Federal Confidentiality of Alcohol and Drug Abuse Patient Records regulations: The Federal rules restrict any use of the information to criminally investigate or prosecute any alcohol or drug abuse patient.[facility] the event this information is protected by the Federal Confidentiality of Alcohol and Drug Abuse Patient Records regulations: The Federal rules restrict any use of the information to criminally investigate or prosecute any alcohol or drug abuse patient.[facility] the event this information is protected by the Federal Confidentiality of Alcohol and Drug Abuse Patient Records regulations: The Federal rules restrict any use of the information to criminally investigate or prosecute any alcohol or drug abuse patient.[facility] the event this information is protected by the Federal Confidentiality of Alcohol and Drug Abuse Patient Records regulations: The Federal rules restrict any use of the information to criminally investigate or prosecute any alcohol or drug abuse patient.[facility] the event this information is protected by the Federal Confidentiality of Alcohol and Drug Abuse Patient Records regulations: The Federal rules restrict any use of the information to criminally investigate or prosecute any alcohol or drug abuse patient.[facility] the event this information is protected by the Federal Confidentiality of Alcohol and Drug Abuse Patient Records regulations: The Federal rules restrict any use of the information to criminally investigate or prosecute any alcohol or drug abuse patient.[facility] the event this information is protected by the Federal Confidentiality of Alcohol and Drug Abuse Patient Records regulations: The Federal rules restrict any use of the information to criminally investigate or prosecute any alcohol or drug abuse patient.[facility] the event this information is protected by the Federal Confidentiality of Alcohol and Drug Abuse Patient Records regulations: The Federal rules restrict any use of the information to criminally investigate or prosecute any alcohol or drug abuse patient.[facility] the event this information is protected by the Federal Confidentiality of Alcohol and Drug Abuse Patient Records regulations: The Federal rules restrict any use of the information to criminally investigate or prosecute any alcohol or drug abuse patient.[facility] the event this information is protected by the Federal Confidentiality of Alcohol and Drug Abuse Patient Records regulations: The Federal rules restrict any use of the information to criminally investigate or prosecute any alcohol or drug abuse patient.[facility] the event this information is protected by the Federal Confidentiality of Alcohol and Drug Abuse Patient Records regulations: The Federal rules restrict any use of the information to criminally investigate or prosecute any alcohol or drug abuse patient.[facility] Center[facility] the event this information is protected by the Federal Confidentiality of Alcohol and Drug Abuse Patient Records regulations: The Federal rules restrict any use of the information to criminally investigate or prosecute any alcohol or drug abuse patient.[facility] Center[facility] the event this information is protected by the Federal Confidentiality of Alcohol and Drug Abuse Patient Records regulations: The Federal rules restrict any use of the information to criminally investigate or prosecute any alcohol or drug abuse patient.[facility] Reason for Visit (unrecogniz ed section and content) Reason Comments Yearly Exam Reason Comments Dysphagia Reason Onset Date Comments Procedure 11/30/2023 Manometry Esopha geal Specialty Diagnoses / Procedures Referred By Renate t Referred To Contact [facility] Diagnoses Pharyngoesophageal dysphagia Procedures MANOMETRY ESOPHAGEAL ESOPHAGEAL MOTILITY STUDY W/INTERP&RPT Benito Hurtado PA-C [id number] [place] [address] [facility] [address] [place] [address] Referral ID Status Reason Start Date Expiration Date V isits Requested Visits Authorized [id number] Closed Auto-Generate d Referral 10/18/2023 10/17/2024 1 1 Reason Comments Patient Question Reason Comments New Patient Ineffective esophage al motility Specialty Diagnoses / Procedures Referred By Contac t Referred To Contact Diagnoses Ineffective esophageal motility Procedures CONSULT TO GI SWALL[facility]ING [facility] OFFICE/OUTPATIENT NEW HIGH MDM 60 MINUTES Benito Hurtado PA-C [id number] [place] [id number] Referral ID Status Reason Start Date Expiration Date V isits Requested Visits Authorized [id number] Closed PCP Requested Referral 12/12/2023 12/11/2024 1 1 Reason Comments Insurance Authorization Reason Comments Appointment EGD Reason Comments postmenopausal bleeding Reason Comments Annual Exam Reason Comments Results Care Teams (unrecognized sec tion and content) Upholstery Mechanic Relationship Specialty Start Date End Date Osorio Harper MD [address] [place] [phone] (Fax) PCP - General Family Practice 04/28/19 [...] Referring Provider Active Start: September 10, 2023 Upholstery Mechanic Relationship Specialty Start Date End Date Osorio Harper MD [address] [place] [address] (Fax) PCP - General Family Medicine 04/28/19 Bhavik Mota MD [address] [place] [address]; [address] [place] [address] Referring Gastroenterology 09/19/23 Upholstery Mechanic Relationship Specialty Start Date End Date Osorio Harper MD [address] [facility] [place] [address] (Fax) PCP - General Family Medicine 04/28/19 Bhavik Mota MD [address] [place] [address]; [address] [place] [address] Referring Gastroenterology 09/19/23 Upholstery Mechanic Relationship Specialty Start Date End Date Osorio Harper MD [address] [facility] [place] [address] (Fax) PCP - General Family Medicine 04/28/19 Bhavik Mota MD [address] [place] [address]; [address] [place] [address] Referring Gastroenterology 09/19/23 Upholstery Mechanic Relationship Specialty Start Date End Date Osorio Harper MD [address] [facility] [place] [address] (Fax) PCP - General Family Medicine 04/28/19 Bhavik Mota MD [address] [place] [address]; [address] [place] [address] Referring Gastroenterology 09/19/23 Upholstery Mechanic Relationship Specialty Start Date End Date Osorio Harper MD [address] [facility] [place] [address] (Fax) PCP - General Family Medicine 04/28/19 Bhavik Mota MD [address] [place] [address]; [address] [place] [address] Referring Gastroenterology 09/19/23 Upholstery Mechanic Relationship Specialty Start Date End Date Osorio Harper MD [address] [facility] [place] [address] (Fax) PCP - General Family Medicine 04/28/19 Bhavik Mota MD [address]; [address] [place] [address] Referring Gastroenterology 09/19/23 Upholstery Mechanic Relationship Specialty Start Date End Date Osorio Harper MD [address] [place] [address] (Fax) PCP - General Family Medicine 04/28/19 Bhavik Mota MD [address]; [address] [place] [address] Referring Gastroenterology 09/19/23 Upholstery Mechanic Relationship Specialty Start Date End Date Osorio Harper MD [address] [place] [address] (Fax) PCP - General Family Medicine 04/28/19 Bhavik Mota MD [address]; [address] [place] [address] Referring Gastroenterology 09/19/23 Upholstery Mechanic Relationship Specialty Start Date End Date Osorio Harper MD [address] [facility] [place] [address] (Fax) PCP - General Family Medicine 04/28/19 Bhavik Mota MD [address]; [address] [place] [address] Referring Gastroenterology 09/19/23 Upholstery Mechanic Relationship Specialty Start Date End Date Osorio Harper MD [address] [place] [address] (Fax) PCP - [employer] 03/19/20 Osorio Harper MD [address] [place] [address] (Fax) PCP - General Family Medicine 08/23/22 Chanel Velez MD [address] [place] [address] Referring Physician Otolaryngology 07/23/23 Gorge Dennis DO [address] [facility] [address] [place] [address] Referring Physician General Surgery 07/23/23 Clara Moralez MD [address] [place] [address] Referring Physician Optometry 07/23/23 Upholstery Mechanic Relationship Specialty Start Date End Date Osorio Harper MD [address] [place] [address] (Fax) PCP - [employer] 03/19/20 Osorio Harper MD [address] [place] [address] (Fax) PCP - General Family Medicine 08/23/22 Chanel Velez MD [address] [place] [address] Referring Physician Otolaryngology 07/23/23 Gorge Dennis DO [address] [facility] [address] [place] [address] Referring Physician General Surgery 07/23/23 Clara Moralez MD [address] [place] [address] Referring Physician Optometry 07/23/23 Upholstery Mechanic Relationship Specialty Start Date End Date Osorio Harper MD [address] [facility] [place] [address] (Fax) PCP - General Family Medicine 04/28/19 Bhavik Mota MD [address] [facility]; [address] [place] [address] Referring Gastroenterology 09/19/23 Upholstery Mechanic Relationship Specialty Start Date End Date Osorio Harper MD [address] [place] [address] (Fax) PCP - [employer] 03/19/20 Osorio Harper MD [address] [place] [address] (Fax) PCP - General Family Medicine 08/23/22 Chanel Velez MD [address] [place] [address] Referring Physician Otolaryngology 07/23/23 Gorge Dennis DO [address] [facility] [address] [place] [address] Referring Physician General Surgery 07/23/23 Clara Moralez MD [address] [place] [address] Referring Physician Optometry 07/23/23 Upholstery Mechanic Relationship Specialty Start Date End Date Osorio Harper MD [address] [place] [address] (Fax) PCP - [employer] 03/19/20 Osorio Harper MD [address] [place] [address] (Fax) PCP - General Family Medicine 08/23/22 Chanel Velez MD [address] [place] [address] Referring Physician Otolaryngology 07/23/23 Gorge Dennis DO [address] [facility] [address] [place] [address] Referring Physician General Surgery 07/23/23 Clara Moralez MD [address] [place] [address] Referring Physician Optometry 07/23/23 Upholstery Mechanic Relationship Specialty Start Date End Date Osorio Harper MD [address] [place] [address] (Fax) PCP - [employer] 03/19/20 Osorio Harper MD [address] [place] [address] (Fax) PCP - General Family Medicine 08/23/22 Chanel Velez MD [address] [place] [address] Referring Physician Otolaryngology 07/23/23 Gorge Dennis DO [address] [address] Referring Physician General Surgery 07/23/23 Clara Moralez MD [address] [place] [address] Referring Physician Optometry 07/23/23 Upholstery Mechanic Relationship Specialty Start Date End Date Hemeyer, Edward J, MD [address] [place] [address] (Fax) PCP - [employer] 03/19/20 Osorio Harper MD [address] [place] [address] (Fax) PCP - General Family Medicine 08/23/22 Chanel Velez MD [address] [place] [address] Referring Physician Otolaryngology 07/23/23 Gorge Dennis DO [address] [place] [id number] Referring Physician General Surgery 07/23/23 Clara Moralez MD [address] [place] [address] Referring Physician Optometry 07/23/23 Upholstery Mechanic Relationship Specialty Start Date End Date Osorio Harpre MD [address] [place] [address] (Fax) PCP - [employer] 03/19/20 Osorio Harper MD [address] [place] [address] (Fax) PCP - General Family Medicine 10/22/24 Chanel Velez MD [address] [place] [address] Referring Physician Otolaryngology 07/23/23 Gorge Dennis DO [address] [facility] [address] [place] [address] Referring Physician General Surgery 07/23/23 Clara Moralez MD [address] [place] [address] Referring Physician Optometry 07/23/23 Upholstery Mechanic Relationship Specialty Start Date End Date Osorio Harper MD [address] [facility] [address] [place] [address] PCP - [employer] 03/19/20 Osorio Harper MD [address] [facility] [address] [place] [address] PCP - General Family Medicine 10/22/24 Chanel Velez MD [address] [facility] [address] [place] [address] Referring Physician Otolaryngology 07/23/23 Gorge Dennis DO [address] [address] Referring Physician General Surgery 07/23/23 Clara Moralez MD [address] [place] [address] Referring Physician Optometry 07/23/23 (unrecognized sect ion [...] BE BASED ON THE PRIMARY CLINICAL RECORDS. [facility]. provides no warranty or guarantee of the accuracy or completeness of information in this document.
== END 2024-11-18 08:58 | disposition home or self-care (01) ==
LOC: CARD 08:57
PROVIDERS: PCP Family Medicine; Visit Provider Family Medicine
DX: I47.10 Supraventricular tachycardia, unspecified (principal); R00.1 Bradycardia, unspecified; R94.31 Abnormal electrocardiogram [ECG] [EKG]; R01.1 Cardiac murmur, unspecified; Z91.89 Other specified personal risk factors, not elsewhere classified
CPT/HCPCS: 93242; 93306